=== PATIENT | male | born 1950 | race Caucasian/White ===

== ENCOUNTER 2017-07-30 10:00 | Outpatient (CLI) | payer MEDICARE ==
--- NOTE | 2017-07-30 13:06 | RAD ---
PA AND LATERAL VIEWS OF THE CHEST: HISTORY: Dyspnea. COMPARISON: 09/11/2016 FINDINGS: The heart size is normal. The aorta is tortuous. Chronic changes are again seen. The lungs are wel l expanded without focal areas of consolidation, pneumothorax, or pleural effusions. There is compre ssion of the mid thoracic vertebral body. IMPRESSION: No acute process. POS: [facility]
== END 2017-07-30 10:01 | disposition home or self-care (01) ==
LOC: RAD 10:00
PROVIDERS: ATTEND Internal Medicine Critical Care Medicine
DX: R06.00 Dyspnea, unspecified (principal)
CPT/HCPCS: 71020

== ENCOUNTER 2017-09-07 04:55 | Emergency (ER) | payer MEDICARE ==
[2017-09-07 05:25] LABS: #Eosinphils 0.1 thou/uL (0.0-0.7); #Lymphocytes 1.7 thou/uL (1.20-3.40); #Monocytes 0.5 thou/uL (0.11-0.59); #Neutrophils 7.6 thou/uL (1.40-6.50); %Basophils 0.1 % (0.0-1.0); %Eosinophils 0.7 % (0.0-10.0); %Lymphocytes 17.1 % (21.0-51.0); %Monocytes 5.1 % (0.0-10.0); Hemoglobin 14.9 g/dL (14.0-18.0); Mean Corpuscular HGB CONC 33.5 g/dL (32.0-36.0); Mean Corpuscular Hemoglobin 30.9 pg (27.0-31.0); Mean Corpuscular Volume 92.3 fl (80.0-94.0); Mean Platelet Volume 8.1 fL (7.4-10.4); Platelet Count 154 thou/uL (130-400); RBC Distribution Width 13.5 % (11.5-14.5); Red Blood Cell (RBC) Count 4.83 mill/uL (4.70-6.10); White Blood Cell (WBC) Count 9.9 thou/uL (4.8-10.8)
[2017-09-07] MEDS ORDERED: Acetaminophen 500 MG TAB ONE (05:30)
[2017-09-07 05:41] LABS: ALT (SGPT) 13 U/L (8-55); AST (SGOT) 11 U/L (5-34); Alkaline Phosphatase 102 U/L (40-150); Anion Gap 14 mmol/L (10-20); BUN (Urea Nitrogen) 13 mg/dL (8.4-25.7); Bilirubin, Total 0.5 mg/dL (0.2-1.2); Calc. Creatinine Clearance 0 mL/min (70-130); Calcium 9.7 mg/dL (7.8-10.44); Carbon Dioxide 30 mmol/L (23-31); Chloride 102 mmol/L (98-107); Estimated GFR-MDRD 72; Globulin 2.7 g/dL (2.4-3.5); Glucose 115 mg/dL (80-115); Potassium 4.7 mmol/L (3.5-5.1); Protein, Total 6.7 g/dL (5.8-8.1); Sodium 141 mmol/L (136-145)
[2017-09-07 05:45] LABS: CKMB 4.7 ng/mL (0-6.6); Troponin I Less than 0.010 ng/mL (< 0.028)
--- NOTE | 2017-09-07 07:31 | RAD ---
SINGLE VIEW CHEST: Date: 09/07/17 COMPARISON: 09/11/16. HISTORY: Shortness of breath and dyspnea. FINDINGS: Single view of the chest shows normal sized cardiomediastinal silhouette. Increased interstitial lung markings are present. There is no evidence of consolidation, mass, or pleural effusion. Degenerative changes are seen in the spine. IMPRESSION: Interstitial lung disease without acute cardiopulmonary process. POS: [facility]
--- NOTE | 2017-10-03 17:34 | EKG ---
Test Reason : Blood Pressure : / mmHG Vent. Rate : 090 BPM Atrial Rate : 090 BPM P-R Int : 138 ms QRS Dur : 076 ms QT Int : 356 ms P-R-T Axes : 059 -50 024 degrees QTc Int : 435 ms Normal sinus rhythm Left axis deviation Abnormal ECG Confirmed by KIET LAWSON ([id number]), medical editor RADHA RIDER ([id number]) on 10/03/2017 5:33:26 PM Referred By: Confirmed By:KIET LAWSON
== END 2017-09-07 08:38 | disposition home or self-care (01) ==
LOC: ERS 04:55
DX: J44.1 Chronic obstructive pulmonary disease with (acute) exacerbation (principal); I10 Essential (primary) hypertension; G35 Multiple sclerosis; F41.9 Anxiety disorder, unspecified; F32.9 Major depressive disorder, single episode, unspecified; F17.210 Nicotine dependence, cigarettes, uncomplicated; Z86.73 Personal history of transient ischemic attack (TIA), and cerebral infarction without residual deficits; Z71.6 Tobacco abuse counseling
CPT/HCPCS: 36415; 71045; 80053; 82553; 83880; 84484; 85025; 93005; 94760; 96365; 96366; 99406; J1956

== ENCOUNTER 2017-09-30 14:29 | Outpatient (CLI) | payer MEDICARE ==
--- NOTE | 2017-09-30 16:58 | MRI ---
EXAM: CERVICAL SPINE MRI WITHOUT CONTRAST: COMPARISON: 10/11/15. CORRELATION: Thoracic spine MRI 10/22/15. TECHNIQUE: MRI cervical spine is performed without intravenous Gadolinium administration. Multisequential, mult iplanar imaging is performed. FINDINGS: Appropriate T1 marrow signal intensity of the cervical vertebrae. Cervical spine vertebral height is maintained. There is no fracture. Visualized brain parenchyma is unremarkable. The cervical cord has an overall normal size and signal intensity. There is mild volume loss of the thoracic cord with what appears to be some central T2 h yperintensity. There appears to be significant loss of volume in the thoracic cord at the T3-T4 disk space level with T2 hyperintensity. Evaluation of the upper thoracic cord is limited on this examin ation by technique. C2-C3: No significant disk-osteophyte complex. No significant central canal stenosis. Foramen are patent. C3-C4: There is a left paracentral disk-osteophyte complex that abuts the thecal sac. There is no s ignificant central canal stenosis. Mild right and left foraminal narrowing. C4-C5: Broad-based disk-osteophyte complex abuts the thecal sac. There is a left paracentral compon ent. There is no significant central canal stenosis. Mild left foraminal narrowing due to degenerat rambo change of the uncovertebral joint. C5-C6: There is no significant disk-osteophyte complex. No significant central canal stenosis. Rig ht neural foramen is patent. Minimal left foraminal narrowing. C6-C7: No significant disk-osteophyte complex. No significant central canal stenosis. Right neural foramen is patent. Minimal left foraminal narrowing. C7-T1: No significant disk-osteophyte complex. No significant central canal stenosis. Foramen are patent. IMPRESSION: 1. No significant central canal stenosis or foraminal narrowing of the cervical spine. 2. Abnormal signal intensity and volume of the thoracic cord, incompletely evaluated. 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 Findings are noted on a thoracic sp ine MRI from 10/22/15. There may have been interval progression. Consider repeat thoracic spine MRI for better evaluation. POS: [facility]
== END 2017-09-30 14:30 | disposition home or self-care (01) ==
LOC: MRI 14:29
PROVIDERS: ATTEND Psychiatry & Neurology Neurology
DX: G25.81 Restless legs syndrome (principal)
CPT/HCPCS: 72141

== ENCOUNTER 2017-10-19 12:46 | Outpatient (CLI) | payer MEDICARE ==
[~2017-10-19 12:46] MED LIST: Iopamidol 370 76% 100 ML VIAL ONE
--- NOTE | 2017-10-19 16:34 | CT ---
CT ANGIOGRAM ABDOMEN AND PELVIS WITH IV COTNRAST AND 3D RECONSTRUCTIONS CT ANGIOGRAM BILATERAL LOWER EXTREMITIES WITH IV CONTRAT AND 3D RECONSTRUCTIONS: DATE: 10/19/17. HISTORY: Atherosclerosis of [place] arteries. Bilateral leg pain and numbness. Symptoms have been worse the p ast few years. History of hypertension. The patient states blockage on the left. History of right femur fracture. COMPARISON: 12/31/16. FINDINGS: CT ANGIOGRMA ABDOMEN AND PELVIS: There is mild linear scarring present at each lung base. Small hiatal hernia is again noted. Stable bilateral adrenal nodules are again present which are stable compared to a study on 11/25/15. The liver, spleen, pancreas, kidneys, and urinary bladder demonstrate a normal CT appearance. Colonic diverticulosis is again present. Appendix is normal in caliber. Atherosclerotic vascular calcifications are again seen in the abdominal aorta and involving the iliac arteries. The celiac, superior mesenteric, and inferior mesenteric arteries are present. There is minimal atherosclerotic plaque involving the origan of the single right renal artery which is otherwi se patent. Two left renal arteries are again present and appear patent. Again noted is occlusion of the left common femoral artery. There is reconstitution of the external iliac and femoral arteries with prominent left inferior epigastric artery present. There is mild charlotte cified atherosclerotic plaque, but the left external iliac artery is patent. There is mild narrowing involving the left internal iliac artery. There is atherosclerotic irregularity and mild degrees of narrowing involving the right common femoral artery as well as the right internal iliac artery. The right external iliac artery is patent. Osteonecrosis is seen involving the right hip with right total hip prosthesis in place. BILATERAL LOWER EXTREMITY ANGIOGRAM WITH RUNOFF TO THE FEET: Right lower extremity: The right common femoral artery demonstrates mild atherosclerotic calcifications with minimal narrow ing unchanged from study. The right superficial femoral is patent. There has been internal placemen t of a stent within the distal right superficial femoral artery which does appear patent. There is a mild to moderate degree of narrowing seen within the right superficial femoral artery at the level o f the adductor canal just distal to the stent. The right popliteal artery is patent. There is 3-ves daniel runoff to the right lower extremity, dorsalis pedis, and posterior tibial arteries seen at the fo ot. Left lower extremity: There is mild arthrosclerotic irregularity involving the left common femoral artery. The left profun da femoral and superficial femoral as well as popliteal arteries are patent. There is occlusion of t he tibioperoneal trunk with reconstitution of the right posterior tibial artery which is generally sm all in caliber as well reconstitution of a very tiny peroneal artery which is not well evaluated. Th e anterior tibial artery is patent with dorsalis pedis artery seen in the foot. IMPRESSION: 1. 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 2. Occlusion of the left tibioperoneal trunk with reconstitution of small-caliber left posterior tib ial artery and very small caliber peroneal artery. Left anterior tibial artery is patent to the foot . 3. Interval placement of a stent within the distal right superficial femoral artery which is patent. However, there is mild to moderate narrowing involving the right superficial femoral artery at the level of the adductor canal just distal to the level of the stent. There is otherwise 3-vessel runof f to the right lower extremity. 4. Remainder of the incidental findings are as described above. POS: [facility]
== END 2017-10-19 12:47 | disposition home or self-care (01) ==
LOC: CT 12:46
PROVIDERS: ATTEND Thoracic Surgery (Cardiothoracic Vascular Surgery)
DX: I70.223 Atherosclerosis of native arteries of extremities with rest pain, bilateral legs (principal); I74.5 Embolism and thrombosis of iliac artery; Z95.828 Presence of other vascular implants and grafts
CPT/HCPCS: 75635; 82565

== ENCOUNTER 2017-10-21 05:58 | Day surgery (SDC) | payer MEDICARE ==
[2017-10-20 16:30] VITALS: BMI 29.1
[2017-10-21] MEDS ORDERED: Heparin 10,000 UNITS/1 ML VIAL ONE (06:32)
[2017-10-21 06:34] LABS: #Eosinphils 0.1 thou/uL (0.0-0.7); #Lymphocytes 1.9 thou/uL (1.20-3.40); #Monocytes 0.6 thou/uL (0.11-0.59); #Neutrophils 7.4 thou/uL (1.40-6.50); %Basophils 0.2 % (0.0-1.0); %Eosinophils 1.4 % (0.0-10.0); %Lymphocytes 18.7 % (21.0-51.0); %Monocytes 6.3 % (0.0-10.0); %Neutrophils 73.4 % (42.0-75.0); Mean Corpuscular HGB CONC 33.8 g/dL (32.0-36.0); Mean Corpuscular Hemoglobin 30.4 pg (27.0-31.0); Mean Corpuscular Volume 90.1 fl (80.0-94.0); Mean Platelet Volume 7.7 fL (7.4-10.4); Platelet Count 171 thou/uL (130-400); RBC Distribution Width 13.4 % (11.5-14.5); Red Blood Cell (RBC) Count 4.92 mill/uL (4.70-6.10)
[2017-10-21] MEDS ORDERED: Lidocaine 1% (PF) 30 ML VIAL ONE (06:46)
[2017-10-21 06:58] LABS: Anion Gap 14 mmol/L (10-20); BUN (Urea Nitrogen) 17 mg/dL (8.4-25.7); Calc. Creatinine Clearance 111 mL/min (70-130); Calcium 9.4 mg/dL (7.8-10.44); Carbon Dioxide 25 mmol/L (23-31); Chloride 106 mmol/L (98-107); Estimated GFR-MDRD 78; Glucose 104 mg/dL (80-115); Potassium 3.9 mmol/L (3.5-5.1); Sodium 141 mmol/L (136-145)
[2017-10-21] MEDS ORDERED: Fentanyl 100 MCG/2 ML VIAL ONE ×2 (07:10→08:57)
[2017-10-21] MEDS ORDERED: Midazolam HCl 2 mg/2 ml Vial ONE (07:10)
--- NOTE | 2017-10-21 07:56 | OP ---
DATE OF PROCEDURE: 10/21/2017 PREOPERATIVE DIAGNOSES: Peripheral vascular disease with left leg severe lifestyle limiting claudica tion. POSTOPERATIVE DIAGNOSIS: Occluded left common iliac artery. SURGEON: Dr. Acosta Flores FLUOROSCOPY TIME: 9.6 minutes. TOTAL CONTRAST: 14 mL. PROCEDURE IN DETAIL: After consent was obtained, the patient was brought to the [facility]ving tester laboratory. Appropria te monitor was placed. The patient was given 1 mg Versed and 25 mcg fentanyl for IV sedation. Left groin was interrogated using ultrasound. The common femoral artery and surrounding tissues were anes thetized with 1% lidocaine. Percutaneous access was obtained with micropuncture needle and stiff jessica ropuncture wire. Serial dilators were used to access the common femoral artery. A 6 Maltese radial a rtery sheath was placed and hand injected arteriogram performed through the sheath and the external i liac artery. Common iliac artery was occluded just above the bifurcation. Internal and external dolores ac arteries were patent. Multiple attempts using different guidewires and catheters was performed. The calcification at the level of the occlusion was unable to be crossed. I did create a subintimal plane at one point that headed up towards the aorta, but this did not allow for reentry. The guidewi re and catheter were removed. Hand injected arteriogram was again performed through the sheath showi ng no extravascular blush. Sheath was removed and manual pressure held for hemostasis. The patient was transferred to recovery area and home later today. Due to the patient's severe oxygen dependent COPD, he is probably not a candidate for aortobifemoral. He may be a candidate for a fem-fem bypass at some point, but I will have to talk with Dr. Bailee kemp out his level of dysfunction.
[2017-10-21] MEDS ORDERED: ALPRAZolam 0.25 MG TAB ONE (08:13)
--- NOTE | 2017-10-21 11:32 | CCL ---
DATE OF PROCEDURE: 10/21/2017 PREOPERATIVE DIAGNOSES: Peripheral vascular disease with left leg severe lifestyle limiting claudica tion. POSTOPERATIVE DIAGNOSIS: Occluded left common iliac artery. SURGEON: Dr. Acosta Flores FLUOROSCOPY TIME: 9.6 minutes. TOTAL CONTRAST: 14 mL. PROCEDURE IN DETAIL: After consent was obtained, the patient was brought to the home performance laborer. Appropria te monitor was placed. The patient was given 1 mg Versed and 25 mcg fentanyl for IV sedation. Left groin was interrogated using ultrasound. The common femoral artery and surrounding tissues were anes thetized with 1% lidocaine. Percutaneous access was obtained with micropuncture needle and stiff jessica ropuncture wire. Serial dilators were used to access the common femoral artery. A 6 Hebrew radial a rtery sheath was placed and hand injected arteriogram performed through the sheath and the external i liac artery. Common iliac artery was occluded just above the bifurcation. Internal and external dolores ac arteries were patent. Multiple attempts using different guidewires and catheters was performed. The calcification at the level of the occlusion was unable to be crossed. I did create a subintimal plane at one point that headed up towards the aorta, but this did not allow for reentry. The guidewi re and catheter were removed. Hand injected arteriogram was again performed through the sheath showi ng no extravascular blush. Sheath was removed and manual pressure held for hemostasis. The patient was transferred to recovery area and home later today. Due to the patient's severe oxygen dependent COPD, he is probably not a candidate for aortobifemoral. He may be a candidate for a fem-fem bypass at some point, but I will have to talk with Dr. Morocho ab out his level of dysfunction. POS: [facility]
[2017-10-21] MEDS ORDERED: Iopamidol 370 76% 50 ML VIAL FS ONE (12:59)
== END 2017-10-21 12:35 | disposition home or self-care (01) ==
LOC: CCL 05:58
PROVIDERS: ATTEND Thoracic Surgery (Cardiothoracic Vascular Surgery)
PROC: B41G1ZZ Fluoroscopy of Left Lower Extremity Arteries using Low Osmolar Contrast (ICD-10-PCS; principal; 2017-10-21)
DX: I70.212 Atherosclerosis of native arteries of extremities with intermittent claudication, left leg (principal); I74.5 Embolism and thrombosis of iliac artery; I10 Essential (primary) hypertension; J44.9 Chronic obstructive pulmonary disease, unspecified; E78.2 Mixed hyperlipidemia; G35 Multiple sclerosis; F17.210 Nicotine dependence, cigarettes, uncomplicated; Z95.5 Presence of coronary angioplasty implant and graft; Z88.2 Allergy status to sulfonamides
CPT/HCPCS: 36140; 75736; 76942; 80048; 85025; 96374; C1725; C1769 ×3; 99152; 99153; J1644; J2001; J2250; J3010

== ENCOUNTER 2017-11-23 09:02 | Observation (INO) | payer MEDICARE ==
[2017-11-23 09:46] LABS: #Eosinphils 0.1 thou/uL (0.0-0.7); #Lymphocytes 1.3 thou/uL (1.20-3.40); #Monocytes 0.4 thou/uL (0.11-0.59); #Neutrophils 6.4 thou/uL (1.40-6.50); %Basophils 0.4 % (0.0-1.0); %Eosinophils 0.8 % (0.0-10.0); %Lymphocytes 16.2 % (21.0-51.0); %Monocytes 5.1 % (0.0-10.0); %Neutrophils 77.5 % (42.0-75.0); Mean Corpuscular HGB CONC 33.2 g/dL (32.0-36.0); Mean Corpuscular Hemoglobin 30.7 pg (27.0-31.0); Mean Corpuscular Volume 92.5 fl (80.0-94.0); Mean Platelet Volume 7.4 fL (7.4-10.4); Platelet Count 187 thou/uL (130-400); RBC Distribution Width 13.2 % (11.5-14.5); White Blood Cell (WBC) Count 8.3 thou/uL (4.8-10.8)
[2017-11-23 10:03] LABS: ALT (SGPT) 12 U/L (8-55); AST (SGOT) 11 U/L (5-34); Albumin 4.1 g/dL (3.4-4.8); Alkaline Phosphatase 95 U/L (40-150); Anion Gap 10 mmol/L (10-20); BUN (Urea Nitrogen) 13 mg/dL (8.4-25.7); Bilirubin, Total 0.6 mg/dL (0.2-1.2); CK (CPK) 71 U/L (30-200); Calc. Creatinine Clearance 0 mL/min (70-130); Calcium 9.3 mg/dL (7.8-10.44); Carbon Dioxide 32 mmol/L (23-31); Chloride 103 mmol/L (98-107); Estimated GFR-MDRD 87; Globulin 2.6 g/dL (2.4-3.5); Glucose 108 mg/dL (80-115); Potassium 4.4 mmol/L (3.5-5.1); Protein, Total 6.7 g/dL (5.8-8.1); Sodium 141 mmol/L (136-145)
[2017-11-23 10:06] LABS: CKMB 5.2 ng/mL (0-6.6); Troponin I Less than 0.010 ng/mL (< 0.028)
--- NOTE | 2017-11-23 10:16 | RAD ---
CHEST 1 VIEW: Date: 11/23/17 COMPARISON: 09/07/17. HISTORY: Dyspnea. Dizziness. Shortness of breath. FINDINGS: Atherosclerosis of the aorta. Normal cardiac silhouette. Pulmonary vessels and hilum are normal. Cost ophrenic angles are clear. Chronic changes without consolidation or mass. No pneumothorax or osseous abnormalities. IMPRESSION: 1. Atherosclerosis. 2. Chronic changes. POS: [facility]
[2017-11-23] MEDS ORDERED: Morphine 4 MG/ML VIAL ONE (12:26)
[2017-11-23] MEDS ORDERED: Ondansetron HCl/PF 4 MG/2 ML Vial ONE (12:28)
[2017-11-23] MEDS ORDERED: diphenhydrAMINE 50 MG/ML VIAL ONE (12:44)
[2017-11-23] MEDS ORDERED: Pantoprazole 40 MG VIAL ONE (14:43)
[2017-11-23] MEDS ORDERED: Ondansetron HCl/PF 4 MG/2 ML Vial IVP PRN ×2 (16:48→20:44)
[2017-11-23] MEDS ORDERED: Ondansetron ODT 4 MG TAB SL PRN (16:48)
[2017-11-23] MEDS ORDERED: Sodium Chloride 0.9% 1,000 ML IV SCH (16:48)
[2017-11-23 17:08] VITALS: BMI 29.0
[2017-11-23] MEDS ORDERED: Ondansetron ODT 4 MG TAB PO PRN (20:44)
[2017-11-23] MEDS ORDERED: PROVENTIL INHALER 6.7 G (200 INHALATIONS) INH PRN (20:44)
[2017-11-23] MEDS ORDERED: Benzonatate 100 MG CAP PO PRN (20:44)
[2017-11-23] MEDS ORDERED: Acetaminophen 500 MG TAB PO PRN (20:44)
[2017-11-23] MEDS ORDERED: Guaifenesin DM 100-10/5 ML UDCUP PO PRN (20:44)
[2017-11-23] MEDS ORDERED: HYDROcodone/Acetaminophen 7.5/325 mg Tablet PO PRN (20:44)
[2017-11-23] MEDS ORDERED: cloNIDine 0.1 MG TAB PO PRN (20:44)
[2017-11-23] MEDS ORDERED: hydrALAZINE 20 MG/ML VIAL SLOW IVP PRN (20:44)
[2017-11-23] MEDS ORDERED: Zolpidem Tartrate 5 MG TAB PO SCH (21:00)
[2017-11-23] MEDS: Famotidine 20 MG TAB PO SCH (21:07)
[2017-11-23] MEDS: Gabapentin 300 MG CAP PO SCH (21:07)
[2017-11-23] MEDS: DULoxetine 60 MG CAP PO SCH (21:07)
[2017-11-23] MEDS: Pramipexole Di-HCl 0.25 MG TAB PO SCH (21:24)
[2017-11-24] MEDS: Ipratropium Bromide 2.5 ml Neb NEB SCH ×3 (01:01→12:37)
--- NOTE | 2017-11-24 03:43 | HP ---
DATE OF ADMISSION: 11/23/2017 PRIMARY CARE PHYSICIAN: Dr. Denton Valiente. CHIEF COMPLAINT: Dizziness, cough, shortness of breath. HISTORY OF PRESENT ILLNESS: This is a 67-year-old male who presents to [facility] with a multitude of complaints ranging from shortness of breath, cough with blood-ting ed sputum, dizziness, weakness of his legs, bloated stomach, and general malaise. Patient states he has noticed these symptoms intermittently over the last 3-4 days without specific fever, chills, expo sure history, or travel. Patient with known history of chronic hypoxic respiratory failure on chroni c oxygen supplementation at 2-3 liters per minute by nasal cannula. Patient states he continues usin g his bronchodilator therapy and inhalers on a regular basis. Patient states he has increased cough, sneezing, and postnasal drainage with the pollen changes of spring season. Patient states that he h as had increased cough, which in turn seems to have triggered increased dizziness and vertigo-type sy mptoms, which triggered nausea. Patient states he had some emesis intermittently with blood-tinged s pecks in the sputum and became concerned due to his chronic aspirin use. Patient denied any change t o his bowels or melena. Patient states his last bowel movement was within the last couple of hours p rior to this evaluation. Patient normally uses a cane to ambulate due to peripheral neuropathy and s evere peripheral vascular disease. 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 Patient states he continues to smoke up to 10 cigarettes daily and continues on his ho me oxygen and inhalers. In the emergency room, patient underwent general evaluation including chest imaging showing chronic changes in bilateral lung lemon without an acute infiltrate. Metabolic scre ening was unremarkable and patient was treated with Protonix 40 mg IV push x1 dose, Benadryl, morphin e sulfate, Zofran, and intravenous normal saline x1 liter. Patient was transferred to the [facility] unit for further evaluation. PAST MEDICAL HISTORY: 1. Peripheral vascular disease, status post percutaneous transluminal coronary angioplasty with sten t placement of the left lower extremity. 2. Tobacco abuse. 3. Hypertension. 4. Hyperlipidemia. 5. Chronic obstructive pulmonary disease. 6. Chronic hypoxic respiratory failure with chronic oxygen supplementation at 2-3 liters per minute by nasal cannula. 7. History of multiple sclerosis. 8. Degenerative joint disease. 9. Anxiety/depression. 10. Restless leg syndrome. 11. Osteoporosis. 12. History of pathological fracture. PAST SURGICAL HISTORY: 1. Status post right total hip arthroplasty. 2. Status post angiography with percutaneous transluminal angioplasty with stent placement of the ri ght SFA. 3. History of angiography of the left common iliac artery. CURRENT MEDICATIONS: 1. Aspirin 81 mg 1 tab p.o. daily. 2. Multivitamin 1 tab p.o. daily. 3. Cymbalta 60 mg p.o. b.i.d. 4. Breo Ellipta one inhalation daily. 5. Gabapentin 600 mg p.o. t.i.d. 6. [place] 7.5/325 mg 1 tab p.o. q.6 hours p.r.n. pain. 7. DuoNebs 3 mL nebulized q.4 hours p.r.n. 8. Multivitamin 1 tab p.o. daily. 9. Pramipexole 0.5 mg p.o. b.i.d. 10. Spiriva HandiHaler 18 mcg inhaled daily. 11. Ventolin HFA 2 puffs inhaled q.4 hours p.r.n. 12. Ambien 10 mg p.o. at bedtime. ALLERGIES: SULFA and questionable MORPHINE SULFATE. FAMILY HISTORY: Father 80 years of age with a history of diabetes mellitus type 2, hyperten cain, and coronary artery disease. Mother is at 92 years of age with hypertension and unkno wn type of cancer. SOCIAL HISTORY: Patient resides in [place], [place] at [facility]. Smokes up to half a pack of cigarettes daily. Occasional alcohol use. No illicit drug use. Ambulatory with use of a cane. REVIEW OF SYSTEMS: The following complete review of systems was otherwise negative, except as stated per HPI: Constitutional: Weight loss or gain, ability to conduct usual activities. Skin: Rash, i tching. Eyes: Double vision, pain. ENT/Mouth: Nose bleeding, neck stiffness, pain, tenderness. C ardiovascular: Palpitations, dyspnea on exertion, orthopnea. Respiratory: Shortness of breath, whe ezing, cough, hemoptysis, fever, or night sweats. Gastrointestinal: Poor appetite, abdominal pain, heartburn, nausea, vomiting, constipation, or diarrhea. Genitourinary: Urgency, frequency, dysuria, nocturia. Musculoskeletal: Pain, swelling. Neurologic/Psychiatric: Anxiety, depression. Allergy /Immunologic: Skin rash, bleeding tendency. PHYSICAL EXAMINATION: VITAL SIGNS: On admission, blood pressure 125/66, pulse 89, respiratory rate is 18, temperature 98.3 degrees Fahrenheit, O2 saturation 96% on 2 liters per minute by nasal cannula. GENERAL APPEARANCE: This is a 67-year-old male, alert and oriented x3, pleasant, conversan t, speaking in full sentences, in no acute distress. HEENT: Pupils are equal, round, and reactive to light and accommodation. Extraocular muscles are in tact. No scleral icterus, no conjunctival injection. Nares patent. OP is clear. Teeth in fair rep air. NECK: Supple. No cervical adenopathy, no thyromegaly, no carotid bruits, no JVD appreciated. Cervi charlotte spine with full active and passive range of motion. CHEST: Diminished breath sounds in all lung lemon. Expiratory coarse breath sounds noted. CARDIOVASCULAR: S1, S2 with distant heart sounds. ABDOMEN: Rounded, obese, soft, nontender with bowel sounds positive in all four quadrants. No palpa ble mass. No rebound or guarding appreciated. EXTREMITIES: Warm and dry with fair turgor. Mild erythema of the right lower extremity. Pulses dim inished at the dorsalis pedis and posterior tibial arteries. Doppler pulses detected on bilateral lo wer extremities. NEUROLOGIC: Cranial nerves II-XII are grossly intact. No focal or lateralizing signs appreciated. PERTINENT LABORATORY DATA AND X-RAY FINDINGS: Complete metabolic profile within normal limits. Trop onin I negative x1. CBC within normal limits. Portable chest x-ray dated 11/23/2017 showed atherosc lerotic changes. Chronic changes without acute infiltrate or consolidation. EKG dated 11/23/2017, b y my interpretation shows sinus tachycardia with heart rates in the low 100s. Attenuated R waves not ed in the precordial leads. Left axis deviation. No acute ST-T wave changes appreciated. ASSESSMENT AND PLAN: 1. Vertigo/dizziness. Patient will be placed in observation status. Exact etiology unclear, likely multifactorial. Patient received 1 liter of normal saline in the emergency room. We will continue to encourage increased free-water intake and monitor clinically. Currently, patient's symptoms have resolved. 2. Chronic hypoxic respiratory failure on home oxygen. No current evidence to suggest acute decompe nsation. We will continue oxygen supplementation to maintain O2 saturation greater than or equal to 90%. 3. Chronic obstructive pulmonary disease. Continue DuoNeb q.4 hours p.r.n. Continue Spiriva HandiH aler 18 mcg inhaled daily. Continue Breo Ellipta 100 mcg/25 mcg 1 inhalation daily. 4. Hematemesis. Minimal. No current evidence to suggest acute blood loss. Hemoglobin 15 currently . Continue symptomatic and supportive management. Robitussin-DM 15 mL p.o. q.4 hours p.r.n. 5. Peripheral vascular disease. Continue home regimen to include aspirin 81 mg daily. 6. Peripheral neuropathy. Continue home regimen to include gabapentin 600 mg p.o. t.i.d. 7. Tobacco abuse. We will offer smoking cessation resources prior to discharge. 8. Prophylaxis. Hold SCDs due to peripheral vascular disease. Lovenox 40 mg subcutaneously q.24 ho urs. Pepcid 20 mg p.o. b.i.d. 9. Code status is FULL. Surrogate medical decision maker is patient's brother.
[2017-11-24] MEDS ORDERED: Mometasone/Formoterol 120 PUFF INHALER INH SCH (06:30)
[2017-11-24 08:16] VITALS: TEMP 98
[2017-11-24] MEDS ORDERED: Calcium Carbonate + Vit D 1 TAB PO SCH (09:00)
[2017-11-24] MEDS ORDERED: Non-Formulary Item 1 EACH (Fluticasone/Vilanterol [Breo Ellipta] 1 INH) IH SCH (09:00)
[2017-11-24] MEDS ORDERED: Enoxaparin Sodium 40 MG/0.4 ML SYRINGE SC SCH (09:00)
[2017-11-24] MEDS ORDERED: Multivitamin W/ Minerals 1 TAB PO SCH (09:00)
[2017-11-24] MEDS ORDERED: Non-Formulary Item 1 EACH (Multivitamin [Daily Multiple Vitamin] 1 TAB) PO SCH (09:00)
[2017-11-24] MEDS: DULoxetine 60 MG CAP PO SCH (10:18)
[2017-11-24] MEDS: Gabapentin 300 MG CAP PO SCH (10:20)
[2017-11-24] MEDS: Famotidine 20 MG TAB PO SCH (10:20)
[2017-11-24] MEDS: Pramipexole Di-HCl 0.25 MG TAB PO SCH (10:21)
[2017-11-24 12:07] VITALS: BP 125/75
--- NOTE | 2017-11-24 12:08 | DIS ---
DATE OF ADMISSION: 11/23/2017 DATE OF DISCHARGE: 11/24/2017 DISCHARGE DIAGNOSES: 1. Dizziness/vertigo, multifactorial, resolved. 2. Chronic hypoxic respiratory failure on home oxygen at 2 liters per minute by nasal cannula, rose hi 3. Chronic obstructive pulmonary disease without exacerbation. 4. Hematemesis minimal and resolved. 5. Peripheral vascular disease, chronic and stable. 6. Peripheral neuropathy, chronic and stable. 7. Tobacco abuse. CONSULTATIONS: None. PERTINENT LABORATORY DATA AND X-RAY FINDINGS: Complete metabolic profile within normal limits. CBC within normal limits. Portable chest x-ray dated 11/23/2017 showed chronic changes without acute pro cess. HOSPITAL COURSE: Patient was observed on the telemetry unit after initially presenting with constell ation of symptoms including dizziness and general fatigue. The patient underwent general evaluation including screening metabolic survey which was essentially negative. Portable chest imaging showed n o acute process or pneumonia. Vital signs remained stable throughout the hospital course and patient continued on his regular oxygen regimen at 2 liters per minute by nasal cannula which is baseline. Patient received general pulmonary supportive measures including bronchodilator therapy with DuoNebs and overall remained clinically stable. Telemetry monitoring showed sinus mechanism without evidence of acute arrhythmia or dysrhythmia. I have examined and discussed findings, labs and x-ray reports with the patient at the time of discharge. He verbalizes understanding and agreement. The patient o verall clinically stable and ready for discharge on 11/24/2017. DISCHARGE MEDICATIONS: 1. Enteric coated aspirin 81 mg 1 tab p.o. daily. 2. Calcium 1 tab p.o. daily. 3. Cymbalta 60 mg p.o. b.i.d. 4. Breo-Ellipta one inhalation daily. 5. Gabapentin 600 mg p.o. t.i.d. 6. [place] 7.5/325 mg 1 tab p.o. q.6 hours p.r.n. pain. 7. DuoNebs 3 mL nebulized q.4 hours p.r.n. 8. Loperamide 2 mg p.o. daily p.r.n. diarrhea. 9. Multivitamin 1 tab p.o. daily. 10. Pramipexole 0.5 mg p.o. b.i.d. 11. Spiriva HandiHaler 18 mcg inhaled daily. 12. Ventolin HFA 2 puffs inhaled q.4 hours p.r.n. 13. Ambien 10 mg p.o. at bedtime. FOLLOWUP: The patient may follow up with Dr. Denton Valiente within 7 days of discharge. CONDITION ON DISCHARGE: Stable. ACTIVITY: Ad esthela. DIET: Heart healthy. CODE STATUS: FULL. DISPOSITION: Home 11/24/2017.
--- NOTE | 2017-11-26 15:02 | EKG ---
Test Reason : Blood Pressure : / mmHG Vent. Rate : 103 BPM Atrial Rate : 103 BPM P-R Int : 000 ms QRS Dur : 078 ms QT Int : 332 ms P-R-T Axes : 067 -61 066 degrees QTc Int : 434 ms Sinus tachycardia Left anterior fascicular block Abnormal ECG Confirmed by FRANCES CARO ([id number]), manuscript editor RADHA RIDER ([id number]) on 11/26/2017 3:00:35 PM Referred By: Confirmed By:FRANCES CARO
== END 2017-11-24 12:53 | disposition home or self-care (01) ==
LOC: ERS 09:02 → 2SW 14:52
PROVIDERS: ADMIT Family Medicine; ATTEND Family Medicine
DX: R42 Dizziness and giddiness (principal); J96.11 Chronic respiratory failure with hypoxia; J44.9 Chronic obstructive pulmonary disease, unspecified; K92.0 Hematemesis; I73.9 Peripheral vascular disease, unspecified; G62.9 Polyneuropathy, unspecified; I10 Essential (primary) hypertension; E78.5 Hyperlipidemia, unspecified; G35 Multiple sclerosis; M19.90 Unspecified osteoarthritis, unspecified site; F41.9 Anxiety disorder, unspecified; F32.9 Major depressive disorder, single episode, unspecified; M81.0 Age-related osteoporosis without current pathological fracture; F17.210 Nicotine dependence, cigarettes, uncomplicated; Z79.82 Long term (current) use of aspirin; Z79.899 Other long term (current) drug therapy; Z99.81 Dependence on supplemental oxygen; Z88.2 Allergy status to sulfonamides; Z96.641 Presence of right artificial hip joint; Z95.5 Presence of coronary angioplasty implant and graft; Z98.890 Other specified postprocedural states; Z87.310 Personal history of (healed) osteoporosis fracture
CPT/HCPCS: 71045; 80053; 82550; 82553; 84484; 85025; 93005; 94640 ×3; 96361; 96372; 96374; 96375; 97139; 99285; G0378; 36415; C9113; J1200; J1650; J2270; J2405; J7644

== ENCOUNTER 2018-01-05 09:57 | Emergency (ER) | payer MEDICARE ==
[2018-01-05 10:36] LABS: #Basophils 0.1 thou/uL (0.0-0.2); #Eosinphils 0.1 thou/uL (0.0-0.7); #Lymphocytes 1.4 thou/uL (1.20-3.40); #Monocytes 0.5 thou/uL (0.11-0.59); #Neutrophils 5.2 thou/uL (1.40-6.50); %Basophils 0.8 % (0.0-1.0); %Eosinophils 1.6 % (0.0-10.0); %Lymphocytes 19.2 % (21.0-51.0); %Monocytes 6.3 % (0.0-10.0); Hemoglobin 13.3 g/dL (14.0-18.0); Mean Corpuscular HGB CONC 34.2 g/dL (32.0-36.0); Mean Corpuscular Hemoglobin 31.3 pg (27.0-31.0); Mean Corpuscular Volume 91.5 fl (80.0-94.0); Mean Platelet Volume 7.7 fL (7.4-10.4); Platelet Count 154 thou/uL (130-400); RBC Distribution Width 12.4 % (11.5-14.5); Red Blood Cell (RBC) Count 4.26 mill/uL (4.70-6.10); White Blood Cell (WBC) Count 7.2 thou/uL (4.8-10.8)
[2018-01-05 11:01] LABS: ALT (SGPT) 16 U/L (8-55); AST (SGOT) 11 U/L (5-34); Albumin 3.7 g/dL (3.4-4.8); Alkaline Phosphatase 96 U/L (40-150); Anion Gap 12 mmol/L (10-20); BUN (Urea Nitrogen) 12 mg/dL (8.4-25.7); Bilirubin, Total 0.4 mg/dL (0.2-1.2); Calc. Creatinine Clearance 0 mL/min (70-130); Carbon Dioxide 27 mmol/L (23-31); Chloride 106 mmol/L (98-107); Estimated GFR-MDRD Greater than 90; Globulin 2.3 g/dL (2.4-3.5); Glucose 95 mg/dL (80-115); Sodium 141 mmol/L (136-145)
--- NOTE | 2018-01-05 11:05 | ULT ---
VENOUS DOPPLER ULTRASOUND OF THE RIGHT LOWER EXTREMITY: Date: 01/05/18 HISTORY: Right lower leg redness and edema. TECHNIQUE: Berry scale ultrasound with color flow and spectral Doppler imaging of the deep venous system of the r ight lower extremity performed. FINDINGS: There is good flow, compression, and augmentation noted in the right common femoral, femoral, deep fe moral, popliteal, posterior tibial, and greater saphenous veins in the right lower extremity. IMPRESSION: No evidence of deep venous thrombosis in the right lower extremity. POS: [facility]
== END 2018-01-05 11:34 | disposition home or self-care (01) ==
LOC: ERS 09:57
DX: L03.115 Cellulitis of right lower limb (principal); I10 Essential (primary) hypertension; J44.9 Chronic obstructive pulmonary disease, unspecified; F41.9 Anxiety disorder, unspecified; F32.9 Major depressive disorder, single episode, unspecified; F17.210 Nicotine dependence, cigarettes, uncomplicated; Z79.899 Other long term (current) drug therapy; Z79.82 Long term (current) use of aspirin; Z71.6 Tobacco abuse counseling
CPT/HCPCS: 36415; 80053; 83605; 85025; 99406

== ENCOUNTER 2018-01-20 09:44 | Emergency (ER) | payer MEDICARE ==
[2018-01-20] MEDS ORDERED: Heparin 1,000 UNITS/ML VIAL ONE (10:00)
[2018-01-20 11:07] LABS: #Eosinphils 0.1 thou/uL (0.0-0.7); #Lymphocytes 1.5 thou/uL (1.20-3.40); #Monocytes 0.5 thou/uL (0.11-0.59); #Neutrophils 6.9 thou/uL (1.40-6.50); %Basophils 0.1 % (0.0-1.0); %Eosinophils 1.5 % (0.0-10.0); %Lymphocytes 16.2 % (21.0-51.0); %Monocytes 5.1 % (0.0-10.0); %Neutrophils 77.2 % (42.0-75.0); Hemoglobin 13.4 g/dL (14.0-18.0); Mean Corpuscular HGB CONC 34.3 g/dL (32.0-36.0); Mean Corpuscular Hemoglobin 31.3 pg (27.0-31.0); Mean Corpuscular Volume 91.2 fl (80.0-94.0); Mean Platelet Volume 7.6 fL (7.4-10.4); Platelet Count 148 thou/uL (130-400); RBC Distribution Width 12.2 % (11.5-14.5); Red Blood Cell (RBC) Count 4.28 mill/uL (4.70-6.10)
[2018-01-20 11:18] LABS: ALT (SGPT) 19 U/L (8-55); AST (SGOT) 15 U/L (5-34); Albumin 3.8 g/dL (3.4-4.8); Alkaline Phosphatase 95 U/L (40-150); Anion Gap 11 mmol/L (10-20); BUN (Urea Nitrogen) 18 mg/dL (8.4-25.7); Bilirubin, Total 0.5 mg/dL (0.2-1.2); Calc. Creatinine Clearance 0 mL/min (70-130); Calcium 9.3 mg/dL (7.8-10.44); Carbon Dioxide 29 mmol/L (23-31); Chloride 103 mmol/L (98-107); Estimated GFR-MDRD 86; Globulin 2.5 g/dL (2.4-3.5); Glucose 104 mg/dL (80-115); Potassium 4.1 mmol/L (3.5-5.1); Protein, Total 6.3 g/dL (5.8-8.1); Sodium 139 mmol/L (136-145)
[2018-01-20 14:52] LABS: Lactic Acid 1.2 mmol/L (0.5-2.2)
--- NOTE | 2018-01-20 16:22 | SPC ---
ULTRASOUND FLUOROSCOPIC GUIDED PICC LINE PLACEMENT: 01/20/18 COMPARISON: None. HISTORY: Need for residential IV antibiotics. TECHNIQUE/FINDINGS: The patient is brought to the [facility]. All questions were answered. Informed consent was obtai tristan. Timeout performed. The patient's left arm was prepped and draped in the normal sterile fashion. The basilic vein was 2 m m in size and felt too small to safely tolerate the PICC line. The brachial vein was accessed after i nstillation of 2 mL of lidocaine to superficial and deep soft tissues. Dual lumen PICC was placed wit h the tip at the inferior SVC, but at 43 cm. The patient tolerated the procedure well without complication. IMPRESSION: Technically successful dual lumen PICC line placement without complication. Fluoro time - 0.6 minutes. Dose: 2922 mGy*cm2. POS: [facility]
== END 2018-01-20 17:02 | disposition home or self-care (01) ==
LOC: ERS 09:44
DX: L03.115 Cellulitis of right lower limb (principal); I10 Essential (primary) hypertension; J44.9 Chronic obstructive pulmonary disease, unspecified; F41.9 Anxiety disorder, unspecified; F32.9 Major depressive disorder, single episode, unspecified; F17.210 Nicotine dependence, cigarettes, uncomplicated; Z86.73 Personal history of transient ischemic attack (TIA), and cerebral infarction without residual deficits; Z79.899 Other long term (current) drug therapy; Z79.82 Long term (current) use of aspirin
CPT/HCPCS: 36569; 80053; 83605; 85025; 96361; 96365; 99283; C1751; 36415; J1644; J3370

== ENCOUNTER 2018-08-25 15:17 | Emergency (ER) | payer MEDICARE ==
[2018-08-25 15:42] LABS: #Eosinphils 0.1 thou/uL (0.0-0.7); #Lymphocytes 1.4 thou/uL (1.20-3.40); #Monocytes 0.5 thou/uL (0.11-0.59); #Neutrophils 6.1 thou/uL (1.40-6.50); %Basophils 0.5 % (0.0-1.0); %Eosinophils 1.1 % (0.0-10.0); %Lymphocytes 17.3 % (21.0-51.0); %Monocytes 5.9 % (0.0-10.0); %Neutrophils 75.2 % (42.0-75.0); Hemoglobin 14.3 g/dL (14.0-18.0); Mean Corpuscular HGB CONC 32.9 g/dL (32.0-36.0); Mean Corpuscular Hemoglobin 30.8 pg (27.0-31.0); Mean Corpuscular Volume 93.6 fL (78.0-98.0); Mean Platelet Volume 8.1 fL (7.4-10.4); Platelet Count 132 thou/uL (130-400); RBC Distribution Width 12.8 % (11.5-14.5); Red Blood Cell (RBC) Count 4.65 mill/uL (4.70-6.10); White Blood Cell (WBC) Count 8.1 thou/uL (4.8-10.8)
[2018-08-25 16:08] LABS: ALT (SGPT) 17 U/L (8-55); AST (SGOT) 12 U/L (5-34); Albumin 3.9 g/dL (3.4-4.8); Alkaline Phosphatase 95 U/L (40-150); Anion Gap 14 mmol/L (10-20); BUN (Urea Nitrogen) 20 mg/dL (8.4-25.7); Bilirubin, Total 0.3 mg/dL (0.2-1.2); CK (CPK) 75 U/L (30-200); Calc. Creatinine Clearance 0 mL/min (70-130); Calcium 9.1 mg/dL (7.8-10.44); Carbon Dioxide 30 mmol/L (23-31); Chloride 101 mmol/L (98-107); Estimated GFR-MDRD 64; Globulin 2.3 g/dL (2.4-3.5); Glucose 86 mg/dL (80-115); Potassium 4.3 mmol/L (3.5-5.1); Protein, Total 6.2 g/dL (5.8-8.1); Sodium 141 mmol/L (136-145)
--- NOTE | 2018-08-25 16:57 | RAD ---
AP VIEW CHEST: 08/25/18 HISTORY: Pneumonia. AP portable view chest is obtained on 08/25/18. COMPARISON: Comparison made to previous exam from 11/23/17. AP view chest demonstrates calcification over the aorta. The lungs are well aerated. No evidence of a ctive intrathoracic disease seen. No evidence of effusions, pneumonia or pneumothorax seen. IMPRESSION: Unremarkable AP view chest. POS: [facility]
== END 2018-08-25 18:00 | disposition home or self-care (01) ==
LOC: ERS 15:17
DX: J20.9 Acute bronchitis, unspecified (principal); Z71.6 Tobacco abuse counseling; I10 Essential (primary) hypertension; J44.9 Chronic obstructive pulmonary disease, unspecified; F41.9 Anxiety disorder, unspecified; F32.9 Major depressive disorder, single episode, unspecified; F17.210 Nicotine dependence, cigarettes, uncomplicated
CPT/HCPCS: 36415; 71045; 80053; 82550; 83605; 83880; 84484; 85025; 87040; 87804; 93005; 94760; 99406

== ENCOUNTER 2018-12-19 18:03 | Inpatient (IN) | payer MEDICARE ==
[2018-12-19 19:31] LABS: #Eosinphils 0.1 thou/uL (0.0-0.7); #Lymphocytes 1.5 thou/uL (1.20-3.40); #Monocytes 0.5 thou/uL (0.11-0.59); #Neutrophils 5.1 thou/uL (1.40-6.50); %Basophils 0.4 % (0.0-1.0); %Eosinophils 0.9 % (0.0-10.0); %Lymphocytes 20.6 % (21.0-51.0); %Monocytes 7.3 % (0.0-10.0); %Neutrophils 70.8 % (42.0-75.0); Mean Corpuscular HGB CONC 32.2 g/dL (32.0-36.0); Mean Corpuscular Hemoglobin 31.3 pg (27.0-31.0); Mean Corpuscular Volume 97.4 fL (78.0-98.0); Platelet Count 153 thou/uL (130-400); RBC Distribution Width 11.9 % (11.5-14.5); Red Blood Cell (RBC) Count 4.14 mill/uL (4.70-6.10); White Blood Cell (WBC) Count 7.2 thou/uL (4.8-10.8)
[2018-12-19 19:52] LABS: ALT (SGPT) 8 U/L (8-55); AST (SGOT) 11 U/L (5-34); Albumin 3.6 g/dL (3.4-4.8); Alkaline Phosphatase 76 U/L (40-150); BUN (Urea Nitrogen) 10 mg/dL (8.4-25.7); Bilirubin, Total 0.3 mg/dL (0.2-1.2); Calc. Creatinine Clearance 0 mL/min (70-130); Calcium 9.2 mg/dL (7.8-10.44); Estimated GFR-MDRD Greater than 90; Globulin 2.4 g/dL (2.4-3.5); Glucose 97 mg/dL (80-115)
[2018-12-19 20:01] LABS: Anion Gap 13 mmol/L (10-20); Carbon Dioxide 37 mmol/L (23-31); Chloride 97 mmol/L (98-107); Potassium 3.8 mmol/L (3.5-5.1); Sodium 143 mmol/L (136-145)
--- NOTE | 2018-12-19 20:29 | ULT ---
EXAM: Right lower extremity venous Doppler HISTORY: left lower extremity edema and pain FINDINGS: Grayscale, color-flow, Doppler evaluation, spectral analysis of the right lower extremity venous stru ctures is performed with 2-D imaging. The right common femoral, superficial femoral, popliteal, posterior tibial, proximal greater saphenous and profunda femoral veins are imaged. There is normal luminal compressibility, flow, and augmentation the visualized deep venous structures of the right lower extremity. IMPRESSION: No evidence of a deep vein thrombosis in the visualized deep venous structures right lower extremity.
[2018-12-19] MEDS ORDERED: cefTRIAXone\\ROCEPHIN 1 GM VIAL ONE (20:58)
[2018-12-19] MEDS ORDERED: Ondansetron ODT 4 MG TAB PO PRN (21:10)
[2018-12-19] MEDS ORDERED: Acetaminophen 325 MG TAB PO PRN (21:10)
[2018-12-19] MEDS ORDERED: Ondansetron PF 4 MG/2 ML Vial IVP PRN (21:10)
[2018-12-19] MEDS ORDERED: Fentanyl 100 MCG/2 ML VIAL ONE (21:26)
[2018-12-19 22:50] VITALS: BMI 28.5
[2018-12-20] MEDS ORDERED: clonazePAM 1 MG TAB PO SCH (00:45)
[2018-12-20] MEDS ORDERED: Zolpidem Tartrate 5 MG TAB PO SCH (00:45)
[2018-12-20] MEDS ORDERED: Pramipexole Di-HCl 0.25 MG TAB PO SCH (00:45)
--- NOTE | 2018-12-20 01:29 | HP ---
PRIMARY CARE DOCTOR: Denton Valiente MD CODE STATUS: Full code. TIME OF EVALUATION: 9:20 p.m. CHIEF COMPLAINT: Right lower extremity tenderness and redness. HISTORY OF PRESENT ILLNESS: This is a 68-year-old male patient with past medical history of advanced peripheral vascular disease with previous intervention in the past by Dr. Flores, also history of seizures, multiple strokes, multiple sclerosis, emphysema, hypertension, COPD, CABG; chronic hypoxic respiratory failure, on home oxygen; came to the hospital after having right lower extremity gradually worsening, severe redness, swelling, associated with tenderness, decreased range on range of motion due to tenderness. This is a chronic problem, but the redness has worsened very quickly in the past few days. REVIEW OF SYSTEMS: CONSTITUTIONAL: No fever, chills, or generalized weakness. RESPIRATORY: No cough, sputum production, or shortness of breath. CARDIOVASCULAR: No chest pain or palpitation. GASTROINTESTINAL: No nausea, vomiting, diarrhea, or abdominal pain. HVAC MECHANIC: No dizziness, headache, or feeling lightheaded. GENITOURINARY: No burning on urination. EXTREMITIES: The patient has bilateral chronic atrophic changes reported in bilateral legs; however, the right lower extremity is red, tenderness, decreased range of motion, and swelling that has worsened in the past few days. All other systems were reviewed and negative except for the findings as mentioned above. PAST MEDICAL HISTORY: As reported in HPI. FAMILY HISTORY: Reviewed and non contributory to current presentation. PAST SURGICAL HISTORY: Positive for bypass graft surgery, right hip surgery, stent to the right leg. PSYCH HISTORY: Anxiety and depression. SOCIAL HISTORY: No alcohol. No drugs. Everyday smoker, more than 10 cigarettes a day. KNOWN ALLERGIES: Morphine and sulfa. REPORTED MEDICATIONS: 1. Aspirin. 2. Pramipexole,. 3. Clonazepam. 4. Hydrocodone acetaminophen. 5. Ventolin. PHYSICAL EXAMINATION: VITAL SIGNS: On presentation, blood pressure 117/68 with heart rate 98, respiratory rate was 18, temperature 98.4, oxygen saturation was 96% on room air. GENERAL APPEARANCE: The patient is alert, oriented, not in acute distress. HEENT: Eyes, normal conjunctivae. Moist oral mucosa. Anicteric. No JVD. RESPIRATORY: Bilateral air entry. No rales. No wheezing. Symmetric expansion. CARDIOVASCULAR: Normal rate, regular rhythm. No murmurs. No gallop. Bilateral leg edema. ABDOMEN: Soft. Normal bowel sounds. MUSCULOSKELETAL: Baseline range of motion and strength. No tenderness. SKIN: Warm, intact. No pallor. No rash. No redness except for the right lower extremity that has increased redness, swelling, tenderness, decreased range of motion, this is acute on chronic. The patient has chronic atrophic changes in bilateral lower extremities due to chronic PVD. Peripheral pulses are present, audible with Doppler in the lower extremities, not really palpable. Capillary refill seems to be intact. NEURO: No evidence of any new focal weakness. Baseline speech. Cranial nerves seem to be intact. PSYCH: The patient is in good mood. No anxiety. Optimal judgment. DIAGNOSTIC STUDIES: Vascular ultrasound of the right lower extremity was done. The patient has no evidence of a deep vein thrombosis of the right lower extremity. LABORATORY DATA: Labs were reviewed. The patient has hematology; white count 7.2, hemoglobin 13, MCV 97.4, platelet count 253. Coagulation 0.69. Chemistry; sodium 143, potassium 3.8, chloride 97, carbon dioxide 37, anion gap 13, BUN 10, creatinine 0.79, GFR was greater than 90, glucose 97, calcium 9.2, total bilirubin 0.3, AST 11, ALT 8, alkaline phosphatase 76. Serum total protein 6.0, albumin 3.6, globulin 2.4, albumin globulin ratio is 1.5. ASSESSMENT AND PLAN: The patient will be placed in the hospital with following medical problems: 1. Right lower extremity cellulitis given redness, tenderness, decreased range of motion and swelling. This has been getting worse for the past few days. Place the patient on antibiotics, we will follow clinical course, and adjust treatment as needed. 2. Chronic peripheral vascular disease, very severe. The patient has had serial interventions in the past. The patient follows with Dr. Flores and has consultation for followup in the next few days. We will treat the cellulitis first. If not improving or help to be needed, Dr. Flores could be called for consultation. 3. Mildly elevated D-dimer. Deep vein thrombosis studies were done, all negative. 4. Chronic hypoxic respiratory failure, on home oxygen. There is no increased need here in the hospital. This seems to be chronic and stable, we will monitor and adjust as needed. 5. Multiple sclerosis. Reconcile home medications. 6. History of seizure has been reported. Reconcile home medications once updated. This is chronic, stable. 7. History of chronic obstructive pulmonary disease. This is chronic, seems to be stable. Reconcile home medications. 8. Chronic, controlled hypertension. Reconcile home medications. 9. History of coronary artery disease, status post CABG. This is chronic, seems to be stable. Reconcile home medications. 10. Deep venous thrombosis prophylaxis. Job ID: [id number] MTDD
[2018-12-20 06:16] LABS: #Eosinphils 0.1 thou/uL (0.0-0.7); #Lymphocytes 1.3 thou/uL (1.20-3.40); #Monocytes 0.5 thou/uL (0.11-0.59); #Neutrophils 4.2 thou/uL (1.40-6.50); %Basophils 0.4 % (0.0-1.0); %Eosinophils 1.5 % (0.0-10.0); %Lymphocytes 21.4 % (21.0-51.0); %Monocytes 7.9 % (0.0-10.0); %Neutrophils 68.8 % (42.0-75.0); Hemoglobin 12.1 g/dL (14.0-18.0); Mean Corpuscular HGB CONC 31.5 g/dL (32.0-36.0); Mean Corpuscular Volume 98.4 fL (78.0-98.0); Mean Platelet Volume 8.5 fL (7.4-10.4); Platelet Count 140 thou/uL (130-400); RBC Distribution Width 12.1 % (11.5-14.5); Red Blood Cell (RBC) Count 3.91 mill/uL (4.70-6.10); White Blood Cell (WBC) Count 6.1 thou/uL (4.8-10.8)
[2018-12-20 06:28] LABS: Anion Gap 11 mmol/L (10-20); BUN (Urea Nitrogen) 8 mg/dL (8.4-25.7); Calc. Creatinine Clearance 134 mL/min (70-130); Calcium 8.8 mg/dL (7.8-10.44); Carbon Dioxide 35 mmol/L (23-31); Chloride 100 mmol/L (98-107); Estimated GFR-MDRD Greater than 90; Glucose 84 mg/dL (80-115); Potassium 3.7 mmol/L (3.5-5.1); Sodium 142 mmol/L (136-145)
[2018-12-20] MEDS: Enoxaparin Sodium 40 MG/0.4 ML SYRINGE SC SCH (07:46)
--- NOTE | 2018-12-20 07:59 | PDOC.PN ---
- Subjective Encounter Start Date: 12/20/18 Encounter Start Time: 10:30 Subjective: Patient with persistent pain, redness in RLE. No fevers. Bilateral burning -: pain in feet, Lyrica and home hydrocodone restarted and feeling much -: better today. - Objective Resuscitation Status - Order Detail: 12/19/18 21:10 Resuscitation Status Routine Resuscitation Status: FULL: Full Resuscitation MAR Reviewed: Yes Vital Signs & Weight: Vital Signs (12 hours) Temp Pulse Resp BP Pulse Ox 12/20/18 07:43 97.9 F 84 20 117/68 90 L 12/20/18 04:03 97.9 F 80 18 107/61 99 12/20/18 00:28 98.3 F 73 18 123/74 96 12/19/18 23:07 95 12/19/18 22:25 98.3 F 80 20 139/77 95 Weight Weight 210 lb 1.608 oz Result Diagrams: 12/20/18 05:24 12/20/18 05:24 Phys Exam - Physical Examination Constitutional: NAD HEENT: moist MMs Respiratory: no wheezing, no rales, no rhonchi Cardiovascular: RRR, no significant murmur Gastrointestinal: soft, positive bowel sounds Musculoskeletal: no edema poor pulses bilaterally, good distal cap refill Neurological: moves all 4 limbs bilateral lower extremity numbness and tingling Psychiatric: normal affect, A&O x 3 Deviation from normal: right sterling with redness, warmth, not significantly TTP Dx/Plan (1) Cellulitis of lower extremity Code(s): L03.119 - CELLULITIS OF UNSPECIFIED PART OF LIMB Status: Acute Qualifiers: Laterality: right Qualified Code(s): L03.115 - Cellulitis of right lower limb Comment: on Rocephin since 12/19/18 (2) Peripheral vascular disease Code(s): I73.9 - PERIPHERAL VASCULAR DISEASE, UNSPECIFIED Status: Chronic Comment: severe, consult Dr. Flores if needed (3) Chronic respiratory failure with hypoxia Code(s): J96.11 - CHRONIC RESPIRATORY FAILURE WITH HYPOXIA Status: Chronic Comment: stable on home O2 (4) COPD (chronic obstructive pulmonary disease) Status: Chronic Qualifiers: (5) HLD (hyperlipidemia) Code(s): E78.5 - HYPERLIPIDEMIA, UNSPECIFIED Status: Chronic Qualifiers: (6) HTN (hypertension) Code(s): I10 - ESSENTIAL (PRIMARY) HYPERTENSION Status: Chronic Qualifiers: (7) Multiple sclerosis Code(s): G35 - MULTIPLE SCLEROSIS Status: Chronic (8) Osteoporosis Code(s): M81.0 - AGE-RELATED OSTEOPOROSIS W/O CURRENT PATHOLOGICAL FRACTURE Status: Chronic (9) Restless leg syndrome Status: Chronic - Plan cont current plan of care, continue antibiotics, out of bed/ambulate, DVT proph w/lovenox continue IV abx another day, consider expanding coverage if -: no improvement in the next 24 hours * . - Discharge Day Encounter end time: 10:40
[2018-12-20] MEDS: Pregabalin 50 MG CAP PO SCH ×3 (08:42→20:04)
[2018-12-20] MEDS: HYDROcodone/Acetaminophen 7.5/325 mg Tablet PO PRN ×2 (08:42→17:47)
[2018-12-20] MEDS: Aspirin 325 MG TAB PO SCH (08:43)
[2018-12-20] MEDS: Ascorbic Acid 500 mg Chewable Tablet PO SCH (08:43)
[2018-12-20] MEDS: Multivit, Therapeutic 1 TAB PO SCH (08:43)
[2018-12-20] MEDS: Pramipexole Di-HCl 0.25 MG TAB PO SCH ×2 (08:44→20:04)
[2018-12-20] MEDS: Vitamin E 400 UNITS CAP PO SCH (09:28)
[2018-12-20] MEDS: clonazePAM 1 MG TAB PO SCH (20:04)
[2018-12-20] MEDS: Zolpidem Tartrate 5 MG TAB PO SCH (20:08)
[2018-12-20] MEDS ORDERED: cefTRIAXone\\ROCEPHIN 1 GM in Sodium Chloride 0.9% 100 ML IVPB SCH (21:00)
[2018-12-21] MEDS: HYDROcodone/Acetaminophen 7.5/325 mg Tablet PO PRN ×3 (06:16→16:46)
[2018-12-21] MEDS: Enoxaparin Sodium 40 MG/0.4 ML SYRINGE SC SCH (08:32)
[2018-12-21] MEDS: Multivit, Therapeutic 1 TAB PO SCH (08:32)
[2018-12-21] MEDS: Ascorbic Acid 500 mg Chewable Tablet PO SCH (08:32)
[2018-12-21] MEDS: Pregabalin 50 MG CAP PO SCH ×3 (08:32→20:31)
[2018-12-21] MEDS: Aspirin 325 MG TAB PO SCH (08:32)
[2018-12-21] MEDS: Vitamin E 400 UNITS CAP PO SCH (08:32)
[2018-12-21] MEDS: Pramipexole Di-HCl 0.25 MG TAB PO SCH ×2 (09:09→20:31)
--- NOTE | 2018-12-21 10:38 | PDOC.PN ---
- Subjective Encounter Start Date: 12/21/18 Encounter Start Time: 07:30 -: old records requested/rev Patient seen and examined. No new complaints. No overnight events - Objective Resuscitation Status - Order Detail: 12/19/18 21:10 Resuscitation Status Routine Resuscitation Status: FULL: Full Resuscitation MAR Reviewed: Yes Vital Signs & Weight: Vital Signs (12 hours) Temp Pulse Resp BP BP Pulse Ox 12/21/18 07:18 97.7 F 71 18 101/66 94 L 12/21/18 06:39 68 16 99 12/21/18 03:57 98.4 F 68 20 113/68 97 12/21/18 02:45 71 16 96 12/21/18 00:43 98.6 F 72 20 114/71 96 Weight Weight 210 lb 1.608 oz I&O: 12/20/18 12/21/18 12/22/18 06:59 06:59 06:59 Intake Total 750 Balance 750 Result Diagrams: 12/20/18 05:24 12/20/18 05:24 Radiology Reviewed by me: Yes Phys Exam - Physical Examination Constitutional: NAD HEENT: PERRLA, moist MMs, sclera anicteric Neck: no JVD, supple Respiratory: no wheezing, no rales, no rhonchi Cardiovascular: RRR, no significant murmur, no rub Gastrointestinal: soft, non-tender, no distention, positive bowel sounds right leg cellulitis Neurological: non-focal, normal sensation, moves all 4 limbs Lymphatic: no nodes Psychiatric: normal affect, A&O x 3 Skin: no rash, normal turgor Dx/Plan (1) Cellulitis of lower extremity Code(s): L03.119 - CELLULITIS OF UNSPECIFIED PART OF LIMB Status: Acute Qualifiers: Laterality: right Qualified Code(s): L03.115 - Cellulitis of right lower limb Comment: on Rocephin since 12/19/18 (2) Venous stasis dermatitis Code(s): I87.2 - VENOUS INSUFFICIENCY (CHRONIC) (PERIPHERAL) Status: Acute Qualifiers: Laterality: bilateral Qualified Code(s): I87.2 - Venous insufficiency ( chronic) (peripheral) (3) Anxiety and depression Code(s): F41.9 - ANXIETY DISORDER, UNSPECIFIED; F32.9 - MAJOR DEPRESSIVE DISORDER, SINGLE EPISODE, UNSPECIFIED Status: Chronic (4) COPD (chronic obstructive pulmonary disease) Status: Chronic Qualifiers: (5) Chronic respiratory failure with hypoxia Code(s): J96.11 - CHRONIC RESPIRATORY FAILURE WITH HYPOXIA Status: Chronic Comment: stable on home O2 (6) HLD (hyperlipidemia) Code(s): E78.5 - HYPERLIPIDEMIA, UNSPECIFIED Status: Chronic Qualifiers: (7) HTN (hypertension) Code(s): I10 - ESSENTIAL (PRIMARY) HYPERTENSION Status: Chronic Qualifiers: (8) Multiple sclerosis Code(s): G35 - MULTIPLE SCLEROSIS Status: Chronic (9) Osteoporosis Code(s): M81.0 - AGE-RELATED OSTEOPOROSIS W/O CURRENT PATHOLOGICAL FRACTURE Status: Chronic (10) Peripheral vascular disease Code(s): I73.9 - PERIPHERAL VASCULAR DISEASE, UNSPECIFIED Status: Chronic Comment: (11) Restless leg syndrome Status: Chronic (12) history of syringomyelia and syringobulb Status: Chronic - Plan cont current plan of care, continue antibiotics, respiratory therapy * change rocephin BID * monitor clinical response * medication reviewed as below * symptomatic treatment * keep leg elevated * seems improving. Review of Systems - Review of Systems ENT: negative: Ear Pain, Ear Discharge, Nose Pain, Nose Discharge, Nose Congestion, Mouth Pain, Mouth Swelling, Throat Pain, Throat Swelling, Other Respiratory: negative: Cough, Dry, Shortness of Breath, Hemoptysis, SOB with Excertion, Pleuritic Pain, Sputum, Wheezing Cardiovascular: negative: chest pain, palpitations, orthopnea, paroxysmal nocturnal dyspnea, edema, light headedness, other Gastrointestinal: negative: Nausea, Vomiting, Abdominal Pain, Diarrhea, Constipation, Melena, Hematochezia, Other Genitourinary: negative: Dysuria, Frequency, Incontinence, Hematuria, Retention , Other Musculoskeletal: negative: Neck Pain, Shoulder Pain, Arm Pain, Back Pain, Hand Pain, Leg Pain, Foot Pain, Other Skin: negative: Rash, Lesions, Edmund, Bruising, Other - Medications/Allergies Allergies/Adverse Reactions: Allergies Allergy/AdvReac Type Severity Reaction Status Date / Time Sulfa (Sulfonamide Allergy Verified 10/20/17 16:30 Antibiotics) morphine AdvReac "FELT LIKE Verified 11/23/17 17:12 BEE STING" AT IV SITE/REDNESS Medications: Current Medications Acetaminophen (Tylenol) 650 mg PO Q4H PRN PRN Reason: Headache/Fever/Mild Pain (1-3) Last Admin: 12/20/18 07:46 Dose: 650 mg Hydrocodone Bitart/Acetaminophen ([place] 7.5/325) 1 tab PO Q6H PRN PRN Reason: Moderate to Severe Pain (4-10) Last Admin: 12/21/18 06:16 Dose: 1 tab Albuterol/Ipratropium (Duoneb) 3 ml NEB [id number] [facility] Last Admin: 12/21/18 06:39 Dose: 3 ml Ascorbic Acid (Vitamin C) 500 mg PO DAILY [facility] Last Admin: 12/21/18 08:32 Dose: 500 mg Aspirin (Aspirin) 325 mg PO DAILY [facility] Last Admin: 12/21/18 08:32 Dose: 325 mg Cholecalciferol (Vitamin D3) 1,000 units PO DAILY [facility] Last Admin: 12/21/18 08:32 Dose: 1,000 units Clonazepam (Klonopin) 1 mg PO QPM [facility] Last Admin: 12/20/18 20:04 Dose: 1 mg Enoxaparin Sodium (Lovenox) 40 mg SC 0900 [facility] Last Admin: 12/21/18 08:32 Dose: 40 mg Ceftriaxone Sodium 1 gm/ (Sodium Chloride) 100 mls @ 200 mls/hr IVPB 2100 [facility] Last Admin: 12/20/18 20:07 Dose: 100 mls Multivitamins (Theragran) 1 tab PO DAILY [facility] Last Admin: 12/21/18 08:32 Dose: 1 tab Ondansetron HCl (Zofran Odt) 4 mg PO Q6H PRN PRN Reason: Nausea/Vomiting Ondansetron HCl (Zofran) 4 mg IVP Q6H PRN PRN Reason: Nausea/Vomiting Pramipexole Dihydrochloride (Mirapex) 0.5 mg PO BID [facility] Last Admin: 12/21/18 09:09 Dose: 0.5 mg Pregabalin (Lyrica) 50 mg PO TID [facility] Last Admin: 12/21/18 08:32 Dose: 50 mg Vitamin E (Vitamin E) 400 units PO DAILY [facility] Last Admin: 12/21/18 08:32 Dose: 400 units Zolpidem Tartrate (Ambien) 10 mg PO HS [facility] Last Admin: 12/20/18 20:08 Dose: Not Given
[2018-12-21] MEDS: cefTRIAXone\\ROCEPHIN 1 GM in Sodium Chloride 0.9% 100 ML IVPB SCH ×2 (11:15→22:36)
[2018-12-21] MEDS: clonazePAM 1 MG TAB PO SCH (20:32)
[2018-12-21] MEDS: Zolpidem Tartrate 5 MG TAB PO SCH (20:33)
[2018-12-22] MEDS: HYDROcodone/Acetaminophen 7.5/325 mg Tablet PO PRN ×3 (05:24→18:26)
[2018-12-22] MEDS: Ascorbic Acid 500 mg Chewable Tablet PO SCH (09:25)
[2018-12-22] MEDS: Vitamin E 400 UNITS CAP PO SCH (09:25)
[2018-12-22] MEDS: Pramipexole Di-HCl 0.25 MG TAB PO SCH ×2 (09:25→20:36)
[2018-12-22] MEDS: Aspirin 325 MG TAB PO SCH (09:25)
[2018-12-22] MEDS: Multivit, Therapeutic 1 TAB PO SCH (09:25)
[2018-12-22] MEDS: Pregabalin 50 MG CAP PO SCH ×3 (09:25→20:35)
[2018-12-22] MEDS: Enoxaparin Sodium 40 MG/0.4 ML SYRINGE SC SCH (09:26)
[2018-12-22] MEDS: cefTRIAXone\\ROCEPHIN 1 GM in Sodium Chloride 0.9% 100 ML IVPB SCH ×2 (11:40→22:58)
--- NOTE | 2018-12-22 15:20 | PDOC.PN ---
- Subjective Encounter Start Date: 12/22/18 Encounter Start Time: 15:15 Subjective: f/u for RLE cellulitis and chronc LE venous stasis dermatitis on Rocephin -: 1gm IV BID. c/o leg burning and pain. Frustrated at pace of resolution -: of cellulitis. - Objective Resuscitation Status - Order Detail: 12/19/18 21:10 Resuscitation Status Routine Resuscitation Status: FULL: Full Resuscitation MAR Reviewed: Yes Vital Signs & Weight: Vital Signs (12 hours) Temp Pulse Resp BP Pulse Ox 12/22/18 13:29 86 16 99 12/22/18 08:03 98.2 F 86 22 H 114/70 99 12/22/18 08:00 99 12/22/18 06:28 72 16 98 Weight Weight 210 lb 1.608 oz I&O: 12/21/18 12/22/18 12/23/18 06:59 06:59 06:59 Intake Total 750 1200 Balance 750 1200 Result Diagrams: 12/20/18 05:24 12/20/18 05:24 Additional Labs: Accuchecks 12/21/18 19:07 POC Glucose 120 H Laboratory Tests 12/19/18 12/20/18 19:21 05:24 Hgb 13.0 L 12.1 L Radiology Reviewed by me: Yes (RLE venous dopp - negative ) Phys Exam - Physical Examination Constitutional: NAD HEENT: PERRLA, sclera anicteric, oral pharynx no lesions Neck: no nodes, no JVD, supple, full ROM Respiratory: no wheezing, no rales, no rhonchi S1, S2 Cardiovascular: RRR, no significant murmur, no rub, gallop Gastrointestinal: soft, non-tender, no distention, positive bowel sounds Musculoskeletal: no edema, pulses present Neurological: non-focal, moves all 4 limbs Psychiatric: A&O x 3 Deviation from normal: mild erythema of R>LLE Skin: cap refill <2 seconds Dx/Plan (1) Cellulitis of lower extremity Code(s): L03.119 - CELLULITIS OF UNSPECIFIED PART OF LIMB Status: Acute Qualifiers: Laterality: right Qualified Code(s): L03.115 - Cellulitis of right lower limb Comment: Rocephin since 12/19/18, local care, moisturizer prn (2) Venous stasis dermatitis Code(s): I87.2 - VENOUS INSUFFICIENCY (CHRONIC) (PERIPHERAL) Status: Chronic Qualifiers: Laterality: bilateral Qualified Code(s): I87.2 - Venous insufficiency ( chronic) (peripheral) Comment: Local care, moisturizers (3) Anxiety and depression Code(s): F41.9 - ANXIETY DISORDER, UNSPECIFIED; F32.9 - MAJOR DEPRESSIVE DISORDER, SINGLE EPISODE, UNSPECIFIED Status: Chronic (4) Chronic respiratory failure with hypoxia Code(s): J96.11 - CHRONIC RESPIRATORY FAILURE WITH HYPOXIA Status: Chronic Comment: stable on home O2, baseline O2 requirement currently (5) HTN (hypertension) Code(s): I10 - ESSENTIAL (PRIMARY) HYPERTENSION Status: Chronic Qualifiers: Hypertension type: essential hypertension (6) Multiple sclerosis Code(s): G35 - MULTIPLE SCLEROSIS Status: Chronic Comment: Continue Pramipexole (7) Peripheral vascular disease Code(s): I73.9 - PERIPHERAL VASCULAR DISEASE, UNSPECIFIED Status: Chronic Comment: Continue ASA, Lyrica - Plan continue antibiotics, out of bed/ambulate Stable overall -: Continue Rocephin 1gm IV BID -: Pain control -: May need suppressive PenVK after discharge -: Likely home in 24-48h * .
[2018-12-22] MEDS: Zolpidem Tartrate 5 MG TAB PO SCH (20:35)
[2018-12-22] MEDS: clonazePAM 1 MG TAB PO SCH (20:35)
[2018-12-23] MEDS: HYDROcodone/Acetaminophen 7.5/325 mg Tablet PO PRN (02:51)
[2018-12-23] MEDS: Pregabalin 50 MG CAP PO SCH (08:55)
[2018-12-23] MEDS: Vitamin E 400 UNITS CAP PO SCH (08:55)
[2018-12-23] MEDS: Enoxaparin Sodium 40 MG/0.4 ML SYRINGE SC SCH (08:55)
[2018-12-23] MEDS: Multivit, Therapeutic 1 TAB PO SCH (08:55)
[2018-12-23] MEDS: Ascorbic Acid 500 mg Chewable Tablet PO SCH (08:55)
[2018-12-23] MEDS: Aspirin 325 MG TAB PO SCH (08:55)
[2018-12-23] MEDS: cefTRIAXone\\ROCEPHIN 1 GM in Sodium Chloride 0.9% 100 ML IVPB SCH (11:02)
[2018-12-23] MEDS: Pramipexole Di-HCl 0.25 MG TAB PO SCH (11:23)
[2018-12-23 11:24] VITALS: BP 121/77; TEMP 97.4
--- NOTE | 2018-12-23 11:31 | DIS ---
DATE OF ADMISSION: 12/19/2018 DATE OF DISCHARGE: 12/23/2018 DISCHARGE DIAGNOSES: 1. Recurrent bilateral lower extremity cellulitis. 2. Venous stasis dermatitis. 3. Severe peripheral vascular disease. 4. Anxiety and depression. 5. Chronic hypoxic respiratory failure, on oxygen supplementation at 2 to 3 L/minute by nasal cannula. 6. Hypertension, stable. 7. Multiple sclerosis. CONSULTATIONS: None. PERTINENT LABORATORY AND X-RAY FINDINGS: CBC showed a white blood cell count ranging between 6.0 to 7.2, hemoglobin ranged between 12.1 to 13.0. Right lower extremity venous Doppler study dated 12/19/2018 showed no evidence for DVT. HOSPITAL COURSE: The patient was initially admitted after presenting with increasing right lower extremity greater than left lower extremity redness and swelling. The patient with advanced peripheral vascular disease with prior history of vascular intervention to the extremities treated initially for recurrent cellulitis. The patient was placed on IV Rocephin and monitored for clinical response. The patient was slow to clinically improve due to peripheral vascular disease, however, did not exhibit evidence of fever or leukocytosis. The patient resumed his home regimen to include treatment for peripheral neuropathy and continued on aspirin 325 mg daily. The patient continued to receive oxygen supplementation on a chronic basis at 2 to 3 L/minute by nasal cannula. Respiratory status remained at baseline and the patient overall remained clinically stable. The patient was voiding appropriately and tolerating regular oral intake. I have examined the patient at the time of discharge and discussed followup instructions. The patient verbalized understanding and in agreement and ready for discharge on 12/23/2018. DISCHARGE MEDICATIONS: 1. Vitamin C 500 mg p.o. daily. 2. Enteric-coated aspirin 325 mg p.o. daily. 3. Vitamin D3 of 1000 units p.o. daily. 4. Clonazepam 1 mg p.o. at bedtime. 5. [place] 7.5/325 mg 1 to 2 tablets p.o. q.6 hours p.r.n. pain. 6. DuoNeb 3 mL nebulized q.i.d. p.r.n. 7. Multivitamin 1 tab p.o. daily. 8. Pramipexole 0.5 mg p.o. b.i.d. 9. Lyrica 50 mg p.o. t.i.d. 10. Ventolin HFA inhaler 2 puffs inhaled q.i.d. 11. Vitamin E 400 units p.o. daily. 12. Ambien 10 mg p.o. at bedtime p.r.n. 13. Keflex 500 mg p.o. b.i.d. x7 days, followed by penicillin V 250 mg p.o. b.i.d. x6 months for suppressive therapy. FOLLOWUP: The patient may follow up with his primary care provider, Dr. Denton Valiente within 7 days of discharge. CONDITION ON DISCHARGE: Stable. ACTIVITY: Ad-esthela. DIET: Heart healthy. CODE STATUS: Full. DISPOSITION: To home on 12/23/2018. TIME SPENT: Total time preparing and coordinating discharge, 33 minutes. Job ID: [id number]
== END 2018-12-23 12:08 | disposition home health service (06) | DRG 603 ==
LOC: ERS 18:03 → T4-B 21:10
PROVIDERS: ADMIT Hospitalist; ATTEND Hospitalist
DX: L03.115 Cellulitis of right lower limb (principal); J96.11 Chronic respiratory failure with hypoxia; G95.0 Syringomyelia and syringobulbia; I87.2 Venous insufficiency (chronic) (peripheral); I10 Essential (primary) hypertension; J44.9 Chronic obstructive pulmonary disease, unspecified; G40.909 Epilepsy, unspecified, not intractable, without status epilepticus; F32.9 Major depressive disorder, single episode, unspecified; F41.9 Anxiety disorder, unspecified; F17.210 Nicotine dependence, cigarettes, uncomplicated; I73.9 Peripheral vascular disease, unspecified; I25.10 Atherosclerotic heart disease of native coronary artery without angina pectoris; G62.9 Polyneuropathy, unspecified; G35 Multiple sclerosis; M81.0 Age-related osteoporosis without current pathological fracture; G25.81 Restless legs syndrome; Z95.1 Presence of aortocoronary bypass graft; Z88.2 Allergy status to sulfonamides; Z79.82 Long term (current) use of aspirin; Z79.899 Other long term (current) drug therapy; Z99.81 Dependence on supplemental oxygen; Z88.5 Allergy status to narcotic agent
CPT/HCPCS: 36415; 36416; 80048; 80053; 85025; 85379; 94640; 94760; 96365; 96375; J0696; J1650; J3010; J3490; J7620

== ENCOUNTER 2018-12-27 21:34 | Emergency (ER) | payer MEDICARE ==
[2018-12-27 22:34] LABS: #Basophils 0.1 thou/uL (0.0-0.2); #Eosinphils 0.1 thou/uL (0.0-0.7); #Lymphocytes 1.4 thou/uL (1.20-3.40); #Monocytes 0.7 thou/uL (0.11-0.59); #Neutrophils 8.3 thou/uL (1.40-6.50); %Basophils 0.5 % (0.0-1.0); %Eosinophils 1.4 % (0.0-10.0); %Lymphocytes 12.9 % (21.0-51.0); %Monocytes 6.4 % (0.0-10.0); %Neutrophils 78.8 % (42.0-75.0); Hemoglobin 13.2 g/dL (14.0-18.0); Mean Corpuscular Hemoglobin 31.2 pg (27.0-31.0); Mean Corpuscular Volume 97.6 fL (78.0-98.0); Mean Platelet Volume 8.6 fL (7.4-10.4); Platelet Count 165 thou/uL (130-400); RBC Distribution Width 11.8 % (11.5-14.5); Red Blood Cell (RBC) Count 4.23 mill/uL (4.70-6.10); White Blood Cell (WBC) Count 10.5 thou/uL (4.8-10.8)
[2018-12-27 22:53] LABS: ALT (SGPT) 29 U/L (8-55); AST (SGOT) 28 U/L (5-34); Albumin 3.7 g/dL (3.4-4.8); Alkaline Phosphatase 80 U/L (40-150); BUN (Urea Nitrogen) 10 mg/dL (8.4-25.7); Bilirubin, Total 0.4 mg/dL (0.2-1.2); Calc. Creatinine Clearance 0 mL/min (70-130); Calcium 9.3 mg/dL (7.8-10.44); Estimated GFR-MDRD Greater than 90; Globulin 2.5 g/dL (2.4-3.5); Glucose 88 mg/dL (80-115); Protein, Total 6.2 g/dL (5.8-8.1)
[2018-12-27 23:02] LABS: Anion Gap 16 mmol/L (10-20); Carbon Dioxide 34 mmol/L (23-31); Chloride 99 mmol/L (98-107); Potassium 4.4 mmol/L (3.5-5.1); Sodium 145 mmol/L (136-145)
[2018-12-27] MEDS ORDERED: Pregabalin 50 MG CAP PO SCH (23:45)
[2018-12-27] MEDS ORDERED: Loperamide HCl 2 MG CAP ONE (23:54)
--- NOTE | 2018-12-28 07:20 | ULT ---
BILATERAL LOWER EXTREMITY VENOUS DOPPLER: Date: 12/27/18 HISTORY: Pain, edema, and redness. COMPARISON: Lower extremity Doppler dated 12/19/18. FINDINGS: Real-time Berry scale and color Doppler with spectral analysis of the bilateral lower extremity venous system was performed. The common femoral, femoral, proximal portions of greater saphenous and deep f emoral veins, as well as the popliteal and posterior tibial veins are interrogated. Normal flow, augmentation, and compression. IMPRESSION: No deep venous thrombosis. POS: HOME
== END 2018-12-28 02:15 | disposition home or self-care (01) ==
LOC: ERS 21:34
DX: I87.8 Other specified disorders of veins (principal); L03.116 Cellulitis of left lower limb; L03.115 Cellulitis of right lower limb; F32.9 Major depressive disorder, single episode, unspecified; F41.9 Anxiety disorder, unspecified; I10 Essential (primary) hypertension; G35 Multiple sclerosis; J43.9 Emphysema, unspecified; F17.210 Nicotine dependence, cigarettes, uncomplicated; Z71.6 Tobacco abuse counseling; Z86.73 Personal history of transient ischemic attack (TIA), and cerebral infarction without residual deficits; Z79.82 Long term (current) use of aspirin; Z79.899 Other long term (current) drug therapy
CPT/HCPCS: 36415; 80053; 82550; 83605; 85025; 85379; 87040; 93970; 94760; 96360; 96361; 99406

== ENCOUNTER 2019-01-07 14:16 | Observation (INO) | payer MEDICARE ==
--- NOTE | 2019-01-07 15:10 | RAD ---
EXAM: Portable chest: INDICATIONS: Dyspnea COMPARISON: 08/25/2018 FINDINGS: Heart size upper normal. Mild vascular congestion, stable in appearance. No focal infiltrat e or significant effusion. IMPRESSION: Stable chest findings
[2019-01-07 15:20] LABS: #Eosinphils 0.2 thou/uL (0.0-0.7); #Monocytes 0.6 thou/uL (0.11-0.59); #Neutrophils 5.3 thou/uL (1.40-6.50); %Basophils 0.5 % (0.0-1.0); %Eosinophils 2.5 % (0.0-10.0); %Lymphocytes 14.5 % (21.0-51.0); %Monocytes 8.4 % (0.0-10.0); %Neutrophils 74.2 % (42.0-75.0); Hemoglobin 11.3 g/dL (14.0-18.0); Mean Corpuscular HGB CONC 31.6 g/dL (32.0-36.0); Mean Corpuscular Hemoglobin 30.8 pg (27.0-31.0); Mean Corpuscular Volume 97.4 fL (78.0-98.0); RBC Distribution Width 12.2 % (11.5-14.5); Red Blood Cell (RBC) Count 3.66 mill/uL (4.70-6.10); White Blood Cell (WBC) Count 7.2 thou/uL (4.8-10.8)
[2019-01-07 15:38] LABS: Hypochromia SLIGHT = 6-15 cells (100X) (0-5/hpf); MDiff Complete? YES; Mean Platelet Volume 9.1 fL (7.4-10.4); Platelet Count 109 thou/uL (130-400); Platelet Morphology Comment Appears Decreased; Polychromasia SLIGHT = 2-3 cells (100X) (0-2/hpf)
[2019-01-07 15:43] LABS: ALT (SGPT) 12 U/L (8-55); AST (SGOT) 12 U/L (5-34); Albumin 3.6 g/dL (3.4-4.8); Alkaline Phosphatase 91 U/L (40-150); Anion Gap 11 mmol/L (10-20); BUN (Urea Nitrogen) 17 mg/dL (8.4-25.7); Bilirubin, Total 0.5 mg/dL (0.2-1.2); CK (CPK) 82 U/L (30-200); Calc. Creatinine Clearance 0 mL/min (70-130); Calcium 9.2 mg/dL (7.8-10.44); Carbon Dioxide 37 mmol/L (23-31); Chloride 99 mmol/L (98-107); Estimated GFR-MDRD Greater than 90; Glucose 96 mg/dL (80-115); Lipase 6 U/L (8-78); Potassium 4.3 mmol/L (3.5-5.1); Protein, Total 5.6 g/dL (5.8-8.1); Sodium 143 mmol/L (136-145)
[2019-01-07] MEDS ORDERED: Piperacillin/Tazobactam 4.5 GM VIAL ONE (15:43)
--- NOTE | 2019-01-07 15:50 | ULT ---
US Venous Doppler Bilat History: [Deep venous thrombosis] Comparison: Ultrasound lower extremity venous Doppler December 2015 Findings: Real-time grayscale, color, and spectral analysis of the bilateral lower extremity venous s ystem was performed. The common femoral, femoral, proximal portions greater saphenous and deep femoral veins as well as the popliteal and posterior tibial veins were interrogated Normal flow, augmentation, and compression.. Impression: No deep venous thrombosis.
[2019-01-07 18:45] VITALS: BMI 27.2
[2019-01-07] MEDS: Pramipexole Di-HCl 1 MG TAB PO SCH (21:16)
[2019-01-07] MEDS: Pregabalin 50 MG CAP PO SCH (21:16)
[2019-01-07] MEDS: clonazePAM 1 MG TAB PO SCH (21:16)
[2019-01-07] MEDS: Piperacillin/Tazobactam 3.375 GM in Sodium Chloride 0.9% 100 ML IVPB SCH (22:01)
--- NOTE | 2019-01-07 23:36 | HP ---
PRIMARY CARE PHYSICIAN: Denton Valiente MD. CHIEF COMPLAINT: Lower extremity pain and redness. HISTORY OF PRESENT ILLNESS: Mr. Velazquez is a 68-year-old male with a past medical history of advanced peripheral vascular disease with a previous intervention in the past by Dr. Flores, history of seizures, multiple strokes, multiple sclerosis, emphysema, COPD, hypertension, CAD, status post CABG, chronic hypoxic respiratory failure on home O2 of about 4 L via nasal cannula, and chronic lower extremity cellulitis, who had presented to [facility] earlier today due to worsening of his lower extremity cellulitis. The patient was recently discharged from the hospital 12/23/2018, on oral antibiotics. However, the patient states that he had taken oral antibiotics for about 5 days and then he developed nausea, vomiting, some diarrhea. He states that he has a history of not tolerating oral antibiotics in the past. He had stated that he had taken himself off the oral antibiotics from 12/28/2018. He had stated over the next few days after that, he had noticed that there was worsening redness and pain down his lower extremities. He had called his Dr. Valiente who had seen him yesterday, and his PCP recommended him follow back up in the emergency department for further evaluation and management of his worsening condition. The patient states that he had returned home to grab his things and ended up falling asleep due to feeling tired. He had then brought himself to the emergency department earlier today. He had denied any fever, chills, any chest pain, palpitations, abdominal pain, nausea, vomiting, or diarrhea at the moment. He had stated that he was short of breath; however, he states that this is his baseline and is chronic due to his underlying COPD and emphysema. His initial workup included a portable chest x-ray, which was found to be stable, and lower extremity venous Doppler, which showed no deep venous thrombosis noted. The patient's vital signs indicated a normal white count of 7.2. His other lab work is essentially unremarkable. Lactic acid was normal at 1.0. The patient was then started on IV antibiotics including vancomycin and Zosyn, and it was determined that the patient need to be readmitted for further evaluation and management of his cellulitis. A consult to Dr. Correa was placed and pending at this time. REVIEW OF SYSTEMS: All other systems reviewed and found to be negative unless mentioned in the HPI. PAST MEDICAL HISTORY: Significant for chronic venous insufficiency, seizures, multiple strokes, multiple sclerosis, emphysema, COPD, hypertension, CAD, status post CABG. PAST SURGICAL HISTORY: Right hip surgery, stent to right leg, CABG. PSYCHIATRIC HISTORY: The patient reports anxiety and depression. SOCIAL HISTORY: The patient denies any alcohol use, however does admit to smoking half pack cigarettes per day. Otherwise, denies any other illicit drug use. KNOWN ALLERGIES: Morphine and sulfa. CURRENT HOME MEDICATIONS: 1. Aspirin 81 mg daily. 2. Pramipexole 0.5 mg oral twice daily. 3. Aspirin 325 mg oral as needed. 4. Clonazepam 1 mg oral at bedtime. 5. Hydrocodone/acetaminophen 7.5/325 mg oral every 6 hours as needed for pain. 6. Ventolin HFA inhaler two puff inhalation 4 times a day. PHYSICAL EXAMINATION: VITAL SIGNS: BP 125/65, pulse 84, respirations 22, temperature 98.4 degrees Fahrenheit, O2 saturations 93% on 3 L of oxygen via nasal cannula. GENERAL: The patient is awake, alert, and oriented x3. He is currently lying comfortably in bed and in no acute distress. He has a nasal cannula in place on 3 L of oxygen. HEENT: Atraumatic, normocephalic. Pupils are round and reactive to light. Extraocular muscles intact. Moist mucous membranes noted. NECK: Soft and supple. Trachea midline. CARDIOVASCULAR: Positive S1 and S2. Regular rate and rhythm. No murmur auscultated. RESPIRATORY: Clear to auscultation bilaterally. No wheezes, rales, or rhonchi appreciated. The patient with 3 L of oxygen via nasal cannula in place and appears to have good respiratory effort. ABDOMEN: Soft and nontender. Bowel sounds present. MUSCULOSKELETAL: Strength 5+ bilaterally upper and lower extremities. Moves all extremities equal. Redness and mild tenderness noted to bilateral lower extremities from mid sterling down with trace edema noted. Chronic skin changes noted. NEUROLOGIC: Cranial nerves II through XII grossly intact. No focal deficits noted. Speech intact and normal. Gait not assessed. SKIN: Warm, dry, and intact. Skin changes as above to lower extremities. PSYCHIATRIC: Good mood and affect. LABORATORY DATA: WBC 7.2, RBCs 3.6, hemoglobin 11.3, platelets 109. Sodium 143, potassium 4.3, anion gap 11, BUN 17, creatinine 0.82, estimated GFR greater than 90, glucose 96. Lactic acid 1.0. Troponin less than 0.010. BNP 90.2. DIAGNOSTIC IMAGING: Venous ultrasound of lower extremities was negative for DVT at this time. Portable chest x-ray showed stable chest findings with no focal infiltrate or significant effusion noted. ASSESSMENT AND PLAN: 1. Acute on chronic cellulitis of his lower extremities, the patient was unable to tolerate oral antibiotics. Therefore, will be treated with IV vancomycin and Zosyn at this time. A consult to Dr. Correa is placed and pending at this time. 2. Chronic venous insufficiency. The patient's Doppler negative for deep venous thrombosis at this time. 3. Chronic hypoxic respiratory failure on home oxygen. The patient will be maintained on his home oxygen throughout hospital course. He will be restarted on his home albuterol and DuoNebs will be added as needed. Chest x-ray is currently stable at this time. 4. Chronic hypertension, currently stable at this time. The patient will be monitored throughout hospital course and changes to medications as needed. 5. Chronic obstructive pulmonary disease and emphysema, as above, continue the patient's home regimen and DuoNebs will be added p.r.n. 6. Tobacco abuse. The patient is strongly encouraged smoking cessation. He will be placed on any nicotine patch during hospital course. 7. Deep venous thrombosis and gastrointestinal prophylaxis. CODE STATUS: Full code. Surrogate decision maker is patient's [id number], Shantel Velazquez. DISPOSITION: Pending further workup and clinical findings. Job ID: [id number]
[2019-01-08] MEDS: Vancomycin HCl 1.25 GM in Sodium Chloride 0.9% 250 ML 250 ML IVPB SCH ×3 (00:04→16:58)
[2019-01-08] MEDS: HYDROcodone/Acetaminophen 7.5/325 mg Tablet PO PRN ×3 (01:37→18:24)
[2019-01-08] MEDS: Piperacillin/Tazobactam 3.375 GM in Sodium Chloride 0.9% 100 ML IVPB SCH ×4 (03:34→23:06)
[2019-01-08] MEDS: PROVENTIL INHALER 6.7 G (200 INHALATIONS) INH SCH ×4 (07:07→18:49)
[2019-01-08 08:02] LABS: Bilirubin Negative (Negative); Blood, Urine Negative (Negative); Clarity CLEAR (Clear); Glucose, Urine (Dipstick) Negative (Negative); Leukocyte Negative (Negative); Nitrite Negative (Negative); Protein, Urine (Dipstick) Trace mg/dL (Neg-Trace); Specific Gravity, Urine 1.024 (1.002-1.036); pH, Urine 7.5 (5.0-9.0)
[2019-01-08 08:05] LABS: Bacteria/HPF None Seen HPF (None Seen); Hyaline Casts/LPF 0-3 HYALINE CAST LPF (0-3 Hyaline); RBC/HPF 0-3 HPF (0-3); Squamous Epithelial 0-3 HPF (0-3); WBC/HPF 0-3 HPF (0-3)
[2019-01-08 08:07] LABS: Urine Culture Reflex No No
[2019-01-08 08:51] LABS: #Eosinphils 0.2 thou/uL (0.0-0.7); #Lymphocytes 1.1 thou/uL (1.20-3.40); #Monocytes 0.6 thou/uL (0.11-0.59); #Neutrophils 5.2 thou/uL (1.40-6.50); %Basophils 0.5 % (0.0-1.0); %Eosinophils 2.9 % (0.0-10.0); %Lymphocytes 15.2 % (21.0-51.0); %Monocytes 8.1 % (0.0-10.0); %Neutrophils 73.3 % (42.0-75.0); Hemoglobin 11.6 g/dL (14.0-18.0); Mean Corpuscular HGB CONC 32.3 g/dL (32.0-36.0); Mean Corpuscular Hemoglobin 31.2 pg (27.0-31.0); Mean Corpuscular Volume 96.4 fL (78.0-98.0); Mean Platelet Volume 9.2 fL (7.4-10.4); Platelet Count 103 thou/uL (130-400); RBC Distribution Width 12.2 % (11.5-14.5); Red Blood Cell (RBC) Count 3.73 mill/uL (4.70-6.10)
[2019-01-08] MEDS: Pramipexole Di-HCl 1 MG TAB PO SCH ×2 (08:56→21:59)
[2019-01-08] MEDS: Aspirin 325 MG TAB PO SCH (08:56)
[2019-01-08] MEDS: Pregabalin 50 MG CAP PO SCH ×3 (08:57→22:00)
[2019-01-08] MEDS ORDERED: Prevnar 13-Val Conj/PF 0.5 ML SYRINGE IM ONE (09:00)
[2019-01-08 09:03] LABS: Anion Gap 11 mmol/L (10-20); BUN (Urea Nitrogen) 10 mg/dL (8.4-25.7); CK (CPK) 61 U/L (30-200); Calc. Creatinine Clearance 119 mL/min (70-130); Carbon Dioxide 33 mmol/L (23-31); Chloride 101 mmol/L (98-107); Estimated GFR-MDRD Greater than 90; Glucose 127 mg/dL (80-115); Potassium 4.2 mmol/L (3.5-5.1); Sodium 141 mmol/L (136-145)
[2019-01-08] MEDS ORDERED: ISOVUE-370 76%-LOCM 1 ML ONE (11:11)
--- NOTE | 2019-01-08 13:23 | CT ---
CT angiogram thorax with contrast: (CTA pulmonary angiogram) HISTORY: 68-year-old male with tachypnea, dyspnea, and elevated d-dimer. TECHNIQUE: IV injection of iodinated contrast. Scan acquisition timing attempted to coincide with iodinated contrast bolus reaching maximal density in pulmonary arteries. 3-D MIP reconstructions. FINDINGS: No evidence of pulmonary thromboembolism. No thoracic aortic aneurysm or dissection. No pericardial e ffusion or cardiomegaly. Diffuse enlargement of bilateral adrenal glands suggestive of hyperplasia. Subsegmental atelectasis at posterior base of left lower lobe. Superior to that, there appears to be a very small, dependent left pleural effusion. Similar finding on right. Nonspecific prominent interstitial markings, chronic versus acute, at base of left lower lobe. Some of this is consistent w ith scar. Similar findings at posterior segment of right upper lobe abutting the superior aspect of the major fissure. Diffuse centrilobular emphysema changes throughout the upper lobes. Trachea and le ft and right mainstem bronchi are patent and clear. No pneumothorax. Nonspecific small focal irregularly-shaped nodular density in the lingula. IMPRESSION: 1. No pulmonary thromboembolism. 2.. Centrilobular emphysema. 3. Tiny bilateral pleural effusions. 4. Old burst fracture of T7 vertebra.
--- NOTE | 2019-01-08 13:45 | EKG ---
Test Reason : ER INDICATION Blood Pressure : / mmHG Vent. Rate : 097 BPM Atrial Rate : 097 BPM P-R Int : 130 ms QRS Dur : 080 ms QT Int : 336 ms P-R-T Axes : 072 -24 048 degrees QTc Int : 426 ms Normal sinus rhythm Low voltage QRS Borderline ECG Confirmed by ISATU VANN, ROBB ([id number]), film or videotape editor RAJANI SMITH ([id number]) on 01/08/2019 1:45:47 PM Referred By: Confirmed By:ROBB LUNSFORD MD
[2019-01-08 16:05] LABS: #Eosinphils 0.2 thou/uL (0.0-0.7); #Monocytes 0.5 thou/uL (0.11-0.59); #Neutrophils 3.6 thou/uL (1.40-6.50); %Basophils 0.6 % (0.0-1.0); %Eosinophils 3.3 % (0.0-10.0); %Lymphocytes 18.3 % (21.0-51.0); %Monocytes 10.1 % (0.0-10.0); %Neutrophils 67.7 % (42.0-75.0); Hemoglobin 10.4 g/dL (14.0-18.0); Mean Corpuscular HGB CONC 31.8 g/dL (32.0-36.0); Mean Corpuscular Volume 97.5 fL (78.0-98.0); Mean Platelet Volume 9.2 fL (7.4-10.4); Platelet Count 104 thou/uL (130-400); RBC Distribution Width 12.2 % (11.5-14.5); Red Blood Cell (RBC) Count 3.36 mill/uL (4.70-6.10); White Blood Cell (WBC) Count 5.3 thou/uL (4.8-10.8)
[2019-01-08 16:21] LABS: Lactic Acid 0.6 mmol/L (0.5-2.2)
[2019-01-08 16:22] LABS: Vancomycin, Trough 14.9 ug/mL
[2019-01-08 16:24] LABS: Anion Gap 8 mmol/L (10-20); BUN (Urea Nitrogen) 10 mg/dL (8.4-25.7); Calc. Creatinine Clearance 124 mL/min (70-130); Calcium 8.8 mg/dL (7.8-10.44); Carbon Dioxide 34 mmol/L (23-31); Chloride 102 mmol/L (98-107); Estimated GFR-MDRD Greater than 90; Glucose 121 mg/dL (80-115); Potassium 4.4 mmol/L (3.5-5.1); Sodium 140 mmol/L (136-145)
[2019-01-08] MEDS: clonazePAM 1 MG TAB PO SCH (21:59)
[2019-01-09] MEDS: Vancomycin HCl 1.25 GM in Sodium Chloride 0.9% 250 ML 250 ML IVPB SCH ×3 (01:33→15:59)
[2019-01-09] MEDS: HYDROcodone/Acetaminophen 7.5/325 mg Tablet PO PRN ×2 (03:03→10:12)
[2019-01-09] MEDS: Piperacillin/Tazobactam 3.375 GM in Sodium Chloride 0.9% 100 ML IVPB SCH ×3 (06:08→12:48)
[2019-01-09] MEDS: PROVENTIL INHALER 6.7 G (200 INHALATIONS) INH SCH ×2 (08:05→11:36)
[2019-01-09] MEDS: Pregabalin 50 MG CAP PO SCH ×2 (09:18→16:00)
[2019-01-09] MEDS: Aspirin 325 MG TAB PO SCH (09:18)
[2019-01-09] MEDS: Pramipexole Di-HCl 1 MG TAB PO SCH (09:18)
[2019-01-09 15:57] VITALS: BP 108/57; TEMP 98.1
[2019-01-09 16:17] LABS: #Eosinphils 0.2 thou/uL (0.0-0.7); #Lymphocytes 0.9 thou/uL (1.20-3.40); #Monocytes 0.4 thou/uL (0.11-0.59); #Neutrophils 3.6 thou/uL (1.40-6.50); %Basophils 0.3 % (0.0-1.0); %Eosinophils 3.2 % (0.0-10.0); %Lymphocytes 17.1 % (21.0-51.0); %Monocytes 8.1 % (0.0-10.0); %Neutrophils 71.3 % (42.0-75.0); Hemoglobin 10.6 g/dL (14.0-18.0); Mean Corpuscular HGB CONC 31.5 g/dL (32.0-36.0); Mean Corpuscular Hemoglobin 31.1 pg (27.0-31.0); Mean Corpuscular Volume 98.9 fL (78.0-98.0); Mean Platelet Volume 8.4 fL (7.4-10.4); Platelet Count 104 thou/uL (130-400); RBC Distribution Width 12.2 % (11.5-14.5); White Blood Cell (WBC) Count 5.1 thou/uL (4.8-10.8)
[2019-01-09 16:32] LABS: Lactic Acid 1.9 mmol/L (0.5-2.2)
[2019-01-09 16:33] LABS: Hypochromia SLIGHT = 6-15 cells (100X) (0-5/hpf); MDiff Complete? YES; Macrocytosis SLIGHT = 6-15 cells (100X) (0-5/hpf); Platelet Morphology Comment Appears Decreased; Polychromasia SLIGHT = 2-3 cells (100X) (0-2/hpf)
[2019-01-09 16:34] LABS: Anion Gap 11 mmol/L (10-20); BUN (Urea Nitrogen) 8 mg/dL (8.4-25.7); Calc. Creatinine Clearance 114 mL/min (70-130); Calcium 8.7 mg/dL (7.8-10.44); Carbon Dioxide 34 mmol/L (23-31); Chloride 102 mmol/L (98-107); Estimated GFR-MDRD 89; Glucose 109 mg/dL (80-115); Potassium 3.9 mmol/L (3.5-5.1); Sodium 143 mmol/L (136-145)
--- NOTE | 2019-01-09 21:51 | DIS ---
DATE OF ADMISSION: 01/07/2019 DATE OF DISCHARGE: 01/09/2019 I reviewed the case with Kiah Barron. I reviewed the patient's records. The patient has severe peripheral vascular disease, previously evaluated by Dr. Flores who was unable to adequately non-traverse the plaque in the left leg in order to perform any type of interventional procedure. Given the fact the patient had severe oxygen-dependent COPD and continues to smoke and has other comorbidities, he was felt not to be a candidate for an aortobifemoral bypass. He also felt the patient might be a candidate for fem-fem bypass at some point, but he would have to clear that with Dr. Morocho given his severe pulmonary issues. The patient reported that he did in fact follow up with Dr. Morocho and was told that he was not a candidate for any significant intervention because of his severe lung disease. Therefore, unfortunately, the patient is not a good surgical candidate or interventional candidate at all because of the disease itself and the comorbidities, limiting his ability to undergo more aggressive procedures. The patient was on antibiotics previously for possible infectious cellulitis. The patient reports he did not do well with antibiotics, had some diarrhea with that, and therefore discontinued those and has not been on them any further. Currently, the patient is I think frustrated and appropriately depressed over the lack of good interventional options in order to try to help his legs get better. His vital signs would indicate no fever since he has been here. He has a normal white blood cell count and blood cultures are negative. It appears as though the patient's lower extremity inflammatory changes are more ischemic than infectious and the patient does not really want to be on any oral antibiotics going forward at this point, he says he does not want to stay and is going to try to find someone to come pick him up and take him home. The patient was encouraged to follow up with his PCP, Dr. Valiente, in order to see if he wants to refer him somewhere for another opinion. However, at this point, it appears that there really are not good interventional options. He has discussed potentially getting a wheelchair which we encouraged and also give the patient an option to stay here and see Dr. Correa in consultation to see if he believes there is any additional benefit to attempting to treat this any further with antibiotics. However, it is unclear if Dr. Correa will be back in town tomorrow if he will be back at work tomorrow. We will leave that option to the patient at this point. His lower extremities do continue to have slight erythematous color change, has couple of abrasions at both knees, which are scabbed and healing well, but there does not appear to be a significant amount of acute infectious cellulitic changes. Job ID: [id number]
== END 2019-01-09 17:29 | disposition home or self-care (01) ==
LOC: ERS 14:16 → 2SW 18:41
PROVIDERS: ADMIT Family Medicine; ATTEND Family Medicine
DX: L03.116 Cellulitis of left lower limb (principal); L03.115 Cellulitis of right lower limb; I87.2 Venous insufficiency (chronic) (peripheral); J43.9 Emphysema, unspecified; I10 Essential (primary) hypertension; I25.10 Atherosclerotic heart disease of native coronary artery without angina pectoris; F41.8 Other specified anxiety disorders; F32.9 Major depressive disorder, single episode, unspecified; F17.210 Nicotine dependence, cigarettes, uncomplicated; J96.11 Chronic respiratory failure with hypoxia; Z79.82 Long term (current) use of aspirin; Z79.899 Other long term (current) drug therapy; Z88.1 Allergy status to other antibiotic agents; Z88.5 Allergy status to narcotic agent; Z95.1 Presence of aortocoronary bypass graft
CPT/HCPCS: 71045; 71275; 80048 ×3; 80053; 80202; 81001; 82550 ×2; 83605 ×3; 83690; 83880; 84484; 85025 ×4; 85379; 87040; 93005; 93970; 94640 ×5; 96365; 96366 ×4; 96367; 96376; 99285; G0378 ×3; 36415; J2543; J3370; J3490; J7050; J7620; Q9966

== ENCOUNTER 2019-03-03 12:18 | Observation (INO) | payer MEDICARE ==
[2019-03-03 14:58] LABS: #Eosinphils 0.1 thou/uL (0.0-0.7); #Monocytes 0.5 thou/uL (0.11-0.59); #Neutrophils 6.3 thou/uL (1.40-6.50); %Basophils 0.1 % (0.0-1.0); %Eosinophils 0.7 % (0.0-10.0); %Lymphocytes 12.5 % (21.0-51.0); %Monocytes 6.2 % (0.0-10.0); %Neutrophils 80.6 % (42.0-75.0); Hemoglobin 12.9 g/dL (14.0-18.0); Mean Corpuscular HGB CONC 31.2 g/dL (32.0-36.0); Mean Corpuscular Hemoglobin 28.9 pg (27.0-31.0); Mean Corpuscular Volume 92.7 fL (78.0-98.0); Mean Platelet Volume 8.2 fL (7.4-10.4); Platelet Count 130 thou/uL (130-400); RBC Distribution Width 12.5 % (11.5-14.5); Red Blood Cell (RBC) Count 4.47 mill/uL (4.70-6.10); White Blood Cell (WBC) Count 7.9 thou/uL (4.8-10.8)
[2019-03-03 15:18] LABS: ALT (SGPT) 14 U/L (8-55); AST (SGOT) 15 U/L (5-34); Albumin 3.8 g/dL (3.4-4.8); Alcohol Less than 10 mg/dL (Less than 10); Alkaline Phosphatase 76 U/L (40-150); BUN (Urea Nitrogen) 15 mg/dL (8.4-25.7); Bilirubin, Total 0.6 mg/dL (0.2-1.2); Calc. Creatinine Clearance 0 mL/min (70-130); Calcium 9.6 mg/dL (7.8-10.44); Estimated GFR-MDRD Greater than 90; Globulin 2.5 g/dL (2.4-3.5); Glucose 98 mg/dL (80-115); Protein, Total 6.3 g/dL (5.8-8.1); Salicylate Less than 8.0 mg/dL (15.0-30.0)
[2019-03-03 15:19] LABS: Chloride 96 mmol/L (98-107); Potassium 4.1 mmol/L (3.5-5.1); Sodium 142 mmol/L (136-145)
[2019-03-03 15:29] LABS: Anion Gap 14 mmol/L (10-20); Carbon Dioxide 36 mmol/L (23-31)
--- NOTE | 2019-03-03 15:30 | CT ---
CT HEAD WITHOUT CONTRAST: Date: 03/03/19 Axial tomograms obtained through the head. INDICATION: Mental status change. COMPARISON: 11/25/15. FINDINGS: Ventricles have normal size and position. No evidence of intracranial mass or hemorrhage. No evidence of acute infarct. No significant change from prior study. Sinuses are clear. IMPRESSION: No acute findings. POS: [facility]
[2019-03-03] MEDS ORDERED: Acetaminophen 325 MG TAB PO PRN (18:45)
[2019-03-03] MEDS ORDERED: Ondansetron ODT 4 MG TAB PO PRN (18:45)
[2019-03-03] MEDS ORDERED: Ondansetron PF 4 MG/2 ML Vial IVP PRN (18:45)
[2019-03-03 18:47] LABS: Troponin I Less than 0.010 ng/mL (< 0.028)
[2019-03-03] MEDS ORDERED: HYDROcodone/Acetaminophen 7.5/325 mg Tablet ONE (19:15)
[2019-03-03] MEDS: HYDROcodone/Acetaminophen 7.5/325 mg Tablet PO PRN (19:18)
[2019-03-03 19:32] LABS: Bilirubin Moderate (Negative); Blood, Urine Negative (Negative); Glucose, Urine (Dipstick) Negative (Negative); Leukocyte Negative (Negative); Nitrite Negative (Negative); Protein, Urine (Dipstick) 30 mg/dL (Neg-Trace)
[2019-03-03 19:40] LABS: Medtox Reader # READER 1
[2019-03-03 19:41] LABS: Amphetamine Not Detected (NotDetected); Barbiturates Screen Not Detected (NotDetected); Benzodiazepine Screen Not Detected (NotDetected); Cocaine Metabolite Screen Not Detected (NotDetected); Medtox Control Line Valid? VALID (VALID); Methadone Not Detected (NotDetected); Methamphetamine Not Detected (NotDetected); Opiate Screen Detected (NotDetected); Oxycodone Screen Not Detected (NotDetected); Phencyclidine (PCP) Not Detected (NotDetected); THC/Cannabinoid Screen Not Detected (NotDetected); Tricyclic Screen Not Detected (NotDetected)
[2019-03-03] MEDS: PROVENTIL INHALER 6.7 G (200 INHALATIONS) INH SCH (19:43)
[2019-03-03 20:04] LABS: Clarity Hazy (Clear)
--- NOTE | 2019-03-03 20:04 | ULT ---
BILATERAL CAROTID DUPLEX ULTRASOUND: 03/03/19 HISTORY: CVA versus TIA. TECHNIQUE: Berry scale ultrasound with color flow and spectral Doppler imaging of the extracranial carotid artery system is performed bilaterally. FINDINGS: There is plaque formation along both sides. The peak systolic velocity in the right ICA measures 169 cm/s with an end diastolic velocity of 44 cm /s and systolic ratio of 1.2. The peak systolic velocity in the left ICA measures 119 cm/s with an end diastolic velocity of 32 cm/ s and systolic ratio of 0.80. Flow in both vertebral arteries remains antegrade. IMPRESSION: Moderate (50-69%) Right ICA stenosis. POS: [facility]
[2019-03-03 20:28] LABS: Bacteria/HPF None Seen HPF (None Seen); Squamous Epithelial 0-3 HPF (0-3); WBC/HPF 0-3 HPF (0-3)
[2019-03-03] MEDS ORDERED: Atorvastatin Calcium 40 MG TAB PO SCH (21:00)
[2019-03-03] MEDS ORDERED: Nicotine 14 MG PATCH TD SCH (21:00)
[2019-03-03] MEDS ORDERED: Aspirin 325 MG TAB ONE (21:04)
[2019-03-03 21:21] LABS: Troponin I Less than 0.010 ng/mL (< 0.028)
[2019-03-03 21:59] VITALS: BMI 24.9
[2019-03-03] MEDS: Famotidine 20 MG TAB PO SCH (23:46)
[2019-03-03] MEDS: Pramipexole Di-HCl 0.25 MG TAB PO SCH (23:47)
[2019-03-04] MEDS: HYDROcodone/Acetaminophen 7.5/325 mg Tablet PO PRN ×4 (00:41→15:27)
--- NOTE | 2019-03-04 01:59 | HP ---
PRIMARY CARE PHYSICIAN: Denton Valiente MD CHIEF COMPLAINT: Acute confusion and altered mental status. HISTORY OF PRESENT ILLNESS: Mr. Velazquez is a 68-year-old man with a past medical history of advanced peripheral vascular disease, seizures, multiple strokes, multiple sclerosis, emphysema, COPD, hypertension, coronary artery disease status post CABG, who had presented to [facility] earlier today with worsening lower extremity pain and also headache and "fogginess" in his head. He states over the last 2 to 3 days, he has had more fogginess and acute confusion, which has given him trouble with words. He had denied any fever, chills, any dizziness, chest pain, palpitations, abdominal pain, nausea, vomiting, or any change in his stool. He states that his chronic shortness of breath due to his underlying COPD and emphysema is stable. He states that he had recently seen Dr. Morocho yesterday, who had recommended that he quit smoking. However, he states that this is not on his plan. During his initial workup, brain CT was found to be normal. The patient states that he has been taking his home dose of [place] and Lyrica more often due to his pain down his lower extremities. He states that he has been under the care of Dr. Flores for his vascular disease in the past. REVIEW OF SYSTEMS: All other systems reviewed and found to be negative unless mentioned in the HPI. PAST MEDICAL HISTORY: Significant for hypertension, hyperlipidemia, coronary artery disease, COPD, emphysema, multiple sclerosis, previous CVAs along with previous history of seizures. However, he states that he has not had a seizure in quite some time. PAST SURGICAL HISTORY: Right hip surgery and stent to his right leg along with coronary artery bypass graft. PAST PSYCHIATRIC HISTORY: Significant for anxiety and depression. SOCIAL HISTORY: The patient denies any alcohol use, however does admit to smoking half pack cigarettes per day, and denies any illicit drug use. KNOWN ALLERGIES: Morphine and sulfa. CURRENT HOME MEDICATIONS: 1. Aspirin 325 mg daily. 2. Pramipexole 0.5 mg oral twice daily. 3. Hydrocodone/acetaminophen 7.5 mg/325 mg oral q.6 hours as needed for pain. 4. DuoNeb one inhalation nebulizer as needed for shortness of breath or wheezing. 5. Ventolin inhaler two puffs inhalation q.i.d. 6. Pregabalin 50 mg p.o. t.i.d. 7. Clonazepam 1 mg p.o. q.p.m. 8. Flomax 0.4 mg p.o. daily. PHYSICAL EXAMINATION: VITAL SIGNS: BP 119/68, pulse 81, respirations 20, temp 99.2 degrees Fahrenheit, O2 saturations 100% on 4 L of oxygen via nasal cannula. GENERAL: The patient is awake, alert, and oriented x3. He is currently lying comfortably in bed and in no acute distress. He has 4 L of oxygen in place. HEENT: Atraumatic, normocephalic. Pupils are round and reactive to light. Extraocular muscles intact. Moist mucous membranes noted. NECK: Soft and supple. Trachea midline. CARDIOVASCULAR: Positive S1 and S2. Regular rate and rhythm. No murmur auscultated. RESPIRATORY: Coarse breath sounds heard bilaterally with mild expiratory wheezing at the bases, 4 L of oxygen in place. ABDOMEN: Soft, nontender. Bowel sounds present. MUSCULOSKELETAL: Strength 5+ bilaterally in upper and lower extremities. Moves all extremities equal. The patient has chronic skin changes noted in bilateral lower extremities from his knees down, which have mild erythema without edema noted. NEUROLOGIC: Cranial nerves 2 through 12 grossly intact. No focal deficits noted. Speech intact and normal. Gait not assessed. SKIN: As above. Chronic skin changes in bilateral lower extremities noted. Otherwise, unremarkable. Skin is warm and dry. PSYCHIATRIC: Good mood and affect. LABORATORY DATA: WBC 7.9, RBC 4.47, hemoglobin 12.9, platelets 130. Sodium 142, potassium 4.1, anion gap 14, BUN 15, creatinine 0.78, estimated GFR greater than 90, glucose 98. Troponin less than 0.010 x2. Toxicology screen showing detectable opiates, otherwise unremarkable. DIAGNOSTIC IMAGING: CT brain without contrast showed no acute findings. ASSESSMENT AND PLAN: 1. Acute confusion. The patient will undergo cerebrovascular accident/transient ischemic attack workup including an MRI of brain, carotid Doppler, and echocardiogram for further evaluation. The patient appears to be A and O x3, and in no acute distress at this time. He will be restarted on his home medications at this time, and blood pressure and other vital signs will be monitored closely. He will be admitted under observation and placed on telemetry stroke floor. This also could likely be secondary to polypharmacy as the patient has been taking more of his Scotia and Lyrica at home. Therefore, this will be monitored closely and Lyrica will be held at this time. 2. Hypertension. Continue home regimen and monitor blood pressure and other vital signs closely. 3. Coronary artery disease. Continue home regimen. 4. History of chronic obstructive pulmonary disease and emphysema. Continue oxygen supplementation and other home bronchodilation treatments. The patient recently followed up with Dr. Morocho, who had strongly encouraged smoking cessation. However, the patient will not quit. During hospital course, he will be placed on nicotine patch. 5. Peripheral vascular disease. The patient will follow up with his vascular surgeon, Dr. Flores, as an outpatient. 6. Deep venous thrombosis and gastrointestinal prophylaxis. 7. Code status is full code. 8. Surrogate decision maker is his [id number], Shantel. DISPOSITION: Pending further workup and clinical findings. Job ID: [id number]
[2019-03-04 05:10] LABS: #Eosinphils 0.1 thou/uL (0.0-0.7); #Lymphocytes 1.1 thou/uL (1.20-3.40); #Monocytes 0.4 thou/uL (0.11-0.59); #Neutrophils 5.1 thou/uL (1.40-6.50); %Basophils 0.2 % (0.0-1.0); %Eosinophils 1.6 % (0.0-10.0); %Lymphocytes 16.7 % (21.0-51.0); %Monocytes 6.3 % (0.0-10.0); %Neutrophils 75.2 % (42.0-75.0); Hemoglobin 12.1 g/dL (14.0-18.0); Mean Corpuscular HGB CONC 31.1 g/dL (32.0-36.0); Mean Corpuscular Hemoglobin 28.7 pg (27.0-31.0); Mean Corpuscular Volume 92.4 fL (78.0-98.0); Mean Platelet Volume 8.9 fL (7.4-10.4); Platelet Count 122 thou/uL (130-400); RBC Distribution Width 12.7 % (11.5-14.5); Red Blood Cell (RBC) Count 4.22 mill/uL (4.70-6.10); White Blood Cell (WBC) Count 6.8 thou/uL (4.8-10.8)
[2019-03-04 05:36] LABS: Anion Gap 12 mmol/L (10-20); BUN (Urea Nitrogen) 18 mg/dL (8.4-25.7); Calc. Creatinine Clearance 119 mL/min (70-130); Calcium 9.2 mg/dL (7.8-10.44); Carbon Dioxide 36 mmol/L (23-31); Cardiac Risk 5.1 (Less than 4.5); Chloride 96 mmol/L (98-107); Cholesterol 182 mg/dl (< 200 Desired); Estimated GFR-MDRD Greater than 90; Glucose 105 mg/dL (80-115); HDL Cholesterol 36 mg/dL (>60 Neg Risk); LDL Cholesterol, Calculated 124 mg/dL; Potassium 3.7 mmol/L (3.5-5.1); Sodium 140 mmol/L (136-145); Triglycerides 112 mg/dL (Less than 150)
[2019-03-04] MEDS: PROVENTIL INHALER 6.7 G (200 INHALATIONS) INH SCH ×3 (06:44→14:33)
[2019-03-04] MEDS ORDERED: Aspirin Chewable 81 MG TAB PO SCH (09:00)
[2019-03-04] MEDS ORDERED: Aspirin 325 MG TAB PO SCH (09:00)
[2019-03-04] MEDS ORDERED: Prevnar 13-Val Conj/PF 0.5 ML SYRINGE IM ONE (09:00)
[2019-03-04] MEDS ORDERED: Tamsulosin HCl 0.4 MG CAP PO SCH (09:00)
[2019-03-04] MEDS ORDERED: Enoxaparin Sodium 40 MG/0.4 ML SYRINGE SC SCH (09:00)
[2019-03-04] MEDS: Famotidine 20 MG TAB PO SCH (09:31)
[2019-03-04] MEDS: Pramipexole Di-HCl 0.25 MG TAB PO SCH (09:31)
--- NOTE | 2019-03-04 09:37 | MRI ---
MRI BRAIN NONCONTRAST: DATE: 03/04/2019. HISTORY: A 68-year-old male with altered mental status. Rule out CVA/TIA. COMPARISON: 08/06/2016. FINDINGS: No obstructive hydrocephalus, mass effect, midline shift. Mild chronic ischemic white matter changes . Flow voids are maintained in the major arteries of the [place]. Right mastoid effusion. No moderate-sized or large territorial infarction of any age identified. No restricted diffusion: no evidence of acute infarction. No evidence of recent or remote intraaxial hemorrhage. Small left mastoid effusion. At the right posterior upper parasagittal convexity, there is a curvilinear T2 and FLAIR hyperintense lesion. This is unchanged since the 2016 MRI, which shows that this is slow flow within a patent superficial vein. IMPRESSION: 1. Mild chronic ischemic white matter changes. 3. No acute infarction. 4. Bilateral mastoid effusions, right greater than left. JN R POS: [facility]
[2019-03-04] MEDS ORDERED: Pregabalin 50 MG CAP PO SCH ×2 (10:15→15:00)
[2019-03-04 12:33] VITALS: BP 112/59; TEMP 98.2
--- NOTE | 2019-03-05 17:09 | DIS ---
DATE OF ADMISSION: 03/03/2019 DATE OF DISCHARGE: 03/04/2019 PRIMARY DISCHARGE DIAGNOSES: Altered mental state/confusion to rule out transient ischemic attack, resolved. SECONDARY DISCHARGE DIAGNOSES: Hypertension, dyslipidemia, coronary artery disease, peripheral vascular disease with stent placed to right lower extremity, prior coronary artery bypass grafting, history of multiple sclerosis, emphysema, history of previous strokes, and history of seizure. PROCEDURES DONE DURING HOSPITALIZATION: CT of brain without contrast on the day of admission showed no acute findings. Ultrasound carotids done showed moderate right ICA stenosis (50% to 69%). MRI of brain without contrast done showed mild chronic ischemic white matter changes. No acute infarct. Bilateral mastoid effusions, right greater than left. No hydrocephalus, mass effect, or midline shift seen. Hemoglobin and hematocrit of 12 and 39, platelet count 122, MCV 92. Total cholesterol 182, triglycerides 112, LDL 124. Troponin x3 negative. BUN 18, creatinine 0.7. LFTs within normal limits. Albumin 3.8. Urine drug screen was positive for opiates, likely iatrogenic. DISCHARGE MEDICATIONS: 1. Aspirin 81 mg p.o. daily. 2. Clonazepam 1 mg p.o. q.p.m. 3. Cymbalta 60 mg twice daily. 4. Lasix 20 mg p.o. q.a.m. 5. DuoNebs p.r.n. 6. Multivitamin one tablet once daily. 7. K-Dur 10 mEq p.o. daily. 8. Pramipexole 0.5 mg p.o. twice daily. 9. Lyrica 50 mg three times daily. 10. Penicillin VK for cellulitis prophylaxis 250 mg twice daily. 11. Vitamin C 500 mg p.o. daily. ALLERGIES: ALLERGIC TO SULFA AND MORPHINE. DISCHARGE PLAN: The patient to follow up with Dr. Davidson and Dr. Flores, his vascular surgeon in 2 to 3 weeks. BRIEF COURSE DURING HOSPITALIZATION: The patient initially was brought to emergency room for confusion and altered mental state. He also complained of lower extremity pain with prior history of peripheral vascular disease and neuropathy. In view of history of peripheral vascular disease and prior stroke and seizures, the patient was placed under observation on stroke unit. He was gently hydrated during his stay here. He has had a complete stroke workup done, which was negative. The patient has moderate right carotid stenosis and a followup with Dr. Flores will be requested in 3 to 4 weeks. He has history of multiple sclerosis and will follow up with Dr. Davidson in 2 to 3 weeks. He is currently living at [facility], independent [facility]. The patient has [facility] and will continue this services. He is otherwise hemodynamically stable and neurologically stable prior to discharge. He is tolerating oral solid diet. He says Lyrica helps him the maximum for his lower extremity pain and this was continued at the time of discharge. He ambulates within the room minimally. This is his baseline. I have discussed his findings with his [id number], Ms. Lindsay Velazquez over the phone and I have given complete updates to her as well. Please note, I have seen and examined the patient on the day of discharge. Job ID: [id number]
== END 2019-03-04 17:26 | disposition home or self-care (01) ==
LOC: ERS 12:18 → ERHOLD 17:24 → 2SE 21:47
PROVIDERS: ADMIT Internal Medicine; ATTEND Internal Medicine
DX: R41.0 Disorientation, unspecified (principal); I10 Essential (primary) hypertension; E78.5 Hyperlipidemia, unspecified; I25.10 Atherosclerotic heart disease of native coronary artery without angina pectoris; I65.21 Occlusion and stenosis of right carotid artery; I73.9 Peripheral vascular disease, unspecified; J43.9 Emphysema, unspecified; G35 Multiple sclerosis; F41.9 Anxiety disorder, unspecified; F32.9 Major depressive disorder, single episode, unspecified; F17.210 Nicotine dependence, cigarettes, uncomplicated; Z95.1 Presence of aortocoronary bypass graft; Z86.73 Personal history of transient ischemic attack (TIA), and cerebral infarction without residual deficits; Z86.69 Personal history of other diseases of the nervous system and sense organs; Z88.5 Allergy status to narcotic agent; Z88.2 Allergy status to sulfonamides; Z79.82 Long term (current) use of aspirin; Z79.899 Other long term (current) drug therapy
CPT/HCPCS: 70450; 70551; 80048; 80053; 80061; 80306; 80307; 84484 ×2; 85025 ×2; 85610; 85730; 93005; 93880; 94640 ×4; 94760; 96372; 97139 ×2; 97530; 99285; G0378 ×2; 36415; 81003; 81015; J1650; J7620; Q0162

== ENCOUNTER 2019-03-08 10:13 | Inpatient (IN) | payer MEDICARE ==
[2019-03-08 10:43] LABS: #Eosinphils 0.1 thou/uL (0.0-0.7); #Lymphocytes 0.9 thou/uL (1.20-3.40); #Monocytes 0.4 thou/uL (0.11-0.59); #Neutrophils 7.4 thou/uL (1.40-6.50); %Eosinophils 0.6 % (0.0-10.0); %Lymphocytes 10.6 % (21.0-51.0); %Neutrophils 83.9 % (42.0-75.0); Hemoglobin 14.3 g/dL (14.0-18.0); Mean Corpuscular HGB CONC 31.4 g/dL (32.0-36.0); Mean Corpuscular Hemoglobin 29.3 pg (27.0-31.0); Mean Corpuscular Volume 93.3 fL (78.0-98.0); Mean Platelet Volume 8.9 fL (7.4-10.4); Platelet Count 148 thou/uL (130-400); RBC Distribution Width 13.1 % (11.5-14.5); Red Blood Cell (RBC) Count 4.88 mill/uL (4.70-6.10); White Blood Cell (WBC) Count 8.9 thou/uL (4.8-10.8)
[2019-03-08 11:03] LABS: ALT (SGPT) 16 U/L (8-55); AST (SGOT) 16 U/L (5-34); Albumin 3.9 g/dL (3.4-4.8); Alkaline Phosphatase 79 U/L (40-150); Anion Gap 12 mmol/L (10-20); BUN (Urea Nitrogen) 12 mg/dL (8.4-25.7); Bilirubin, Total 0.5 mg/dL (0.2-1.2); Calc. Creatinine Clearance 0 mL/min (70-130); Calcium 9.4 mg/dL (7.8-10.44); Carbon Dioxide 36 mmol/L (23-31); Chloride 99 mmol/L (98-107); Estimated GFR-MDRD Greater than 90; Globulin 2.4 g/dL (2.4-3.5); Glucose 119 mg/dL (80-115); Protein, Total 6.3 g/dL (5.8-8.1); Sodium 143 mmol/L (136-145)
[2019-03-08 12:16] LABS: Actual Bicarbonate (HCO3a) 34.7 mEq/L (22-28); Analyzer IN Cardio ER; Base Excess (BEa) 8.1 mEq/L (-2.0 to +3.0); CO2 Tension 56.3 mmHg (35.0-45.0); Calcium, Ionized 1.15 mmol/L (1.12-1.30); Carboxyhemoglobin (COHb) 3.7 gm% (0.0-3.0); Hemoglobin (Hb) 14.4 g/dL (14.0-18.0); Potassium - ABG Lab 3.82 mmol/L (3.70-5.30); pH, Arterial 7.41 (7.35-7.45)
[2019-03-08 12:19] LABS: O2 Tension (PaO2) 47.3 mmHg (> 80.0)
[2019-03-08 12:20] LABS: Puncture Site LRA
[2019-03-08 12:21] LABS: ALV-art Gradient 81.965 (0-20)
[2019-03-08] MEDS ORDERED: methylPREDNISolone Sod Succ/PF 125 MG/2 ML VIAL ONE (13:33)
[2019-03-08] MEDS ORDERED: Nicotine 21 MG PATCH TOP SCH (13:45)
[2019-03-08] MEDS ORDERED: Bacitracin 1 PK ONE (14:05)
[2019-03-08] MEDS ORDERED: HYDROcodone/Acetaminophen 7.5/325 mg Tablet ONE ×2 (14:26→17:05)
[2019-03-08] MEDS ORDERED: Acetaminophen 325 MG TAB PO PRN (18:47)
[2019-03-08] MEDS ORDERED: Ondansetron ODT 4 MG TAB SL PRN (18:47)
[2019-03-08] MEDS ORDERED: Sodium Chloride 0.9% 1,000 ML IV SCH (18:47)
[2019-03-08] MEDS ORDERED: HYDROcodone/Acetaminophen 5/325 mg Tablet PO PRN ×2 (18:47)
[2019-03-08] MEDS ORDERED: Ondansetron PF 4 MG/2 ML Vial IVP PRN (18:47)
[2019-03-08] MEDS ORDERED: clonazePAM 1 MG TAB PO SCH (22:00)
[2019-03-08] MEDS ORDERED: DULoxetine 60 MG CAP PO SCH (22:00)
[2019-03-08] MEDS ORDERED: Penicillin V Potassium 250 MG TAB PO SCH (22:00)
[2019-03-08] MEDS: Famotidine 20 MG TAB PO SCH (22:30)
[2019-03-08] MEDS ORDERED: Pregabalin 50 MG CAP PO SCH (22:45)
[2019-03-08] MEDS ORDERED: Pramipexole Di-HCl 0.25 MG TAB PO SCH (22:45)
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
[2019-03-09] MEDS ORDERED: Sodium Chloride 0.9% 1,000 ML IV SCH (03:15)
[2019-03-09] MEDS: Aspirin 81 mg Enteric Coated Tablet PO SCH (09:52)
[2019-03-09] MEDS: Ascorbic Acid 500 mg Chewable Tablet PO SCH (09:52)
[2019-03-09] MEDS: Famotidine 20 MG TAB PO SCH ×2 (09:53→21:55)
[2019-03-09] MEDS: DULoxetine 60 MG CAP PO SCH ×2 (09:53→21:55)
[2019-03-09] MEDS: Furosemide 20 MG TAB PO SCH (09:53)
[2019-03-09] MEDS: Potassium Chloride 10 MEQ TAB PO SCH (09:53)
[2019-03-09] MEDS: Penicillin V Potassium 250 MG TAB PO SCH ×2 (09:53→21:55)
[2019-03-09] MEDS: Pramipexole Di-HCl 0.25 MG TAB PO SCH ×2 (09:54→21:56)
[2019-03-09] MEDS: Pregabalin 50 MG CAP PO SCH ×3 (09:54→21:56)
[2019-03-09] MEDS: Vitamin E 400 UNITS CAP PO SCH (10:06)
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
[2019-03-09] MEDS ORDERED: HYDROcodone/Acetaminophen 7.5/325 mg Tablet PO PRN (11:46)
[2019-03-09] MEDS: HYDROcodone/Acetaminophen 7.5/325 mg Tablet PO PRN (12:36)
[2019-03-09] MEDS: Silver Nitrate Application 1 EACH TOP SCH ×2 (13:45→22:25)
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
[2019-03-09 14:25] VITALS: BMI 24.5
[2019-03-09] MEDS: methylPREDNISolone Sod Succ 40 MG VIAL IVP SCH ×2 (14:48→22:09)
[2019-03-09] MEDS: Silver Sulfadiazine 1% Cream 50 GM JAR TOP SCH ×2 (14:51→21:58)
[2019-03-09] MEDS: Bacitracin 1 PK TOP SCH ×2 (14:52→21:59)
[2019-03-09 14:56] LABS: Anion Gap 10 mmol/L (10-20); BUN (Urea Nitrogen) 14 mg/dL (8.4-25.7); Calc. Creatinine Clearance 111 mL/min (70-130); Calcium 8.8 mg/dL (7.8-10.44); Carbon Dioxide 34 mmol/L (23-31); Chloride 102 mmol/L (98-107); Estimated GFR-MDRD Greater than 90; Glucose 101 mg/dL (80-115); Magnesium 2.1 mg/dL (1.6-2.6); Phosphorus 3.2 mg/dL (2.3-4.7); Sodium 142 mmol/L (136-145)
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
[2019-03-09] MEDS ORDERED: Silver Sulfadiazine 1% Cream 50 GM JAR TOP SCH (21:00)
[2019-03-09] MEDS: clonazePAM 1 MG TAB PO SCH (21:55)
[2019-03-10 05:05] LABS: Anion Gap 11 mmol/L (10-20); BUN (Urea Nitrogen) 12 mg/dL (8.4-25.7); Calc. Creatinine Clearance 125 mL/min (70-130); Calcium 9.4 mg/dL (7.8-10.44); Carbon Dioxide 32 mmol/L (23-31); Chloride 100 mmol/L (98-107); Estimated GFR-MDRD Greater than 90; Glucose 148 mg/dL (80-115); Phosphorus 3.8 mg/dL (2.3-4.7); Potassium 4.3 mmol/L (3.5-5.1); Sodium 139 mmol/L (136-145)
[2019-03-10] MEDS: methylPREDNISolone Sod Succ 40 MG VIAL IVP SCH ×3 (06:16→22:44)
[2019-03-10] MEDS: Furosemide 20 MG TAB PO SCH (08:43)
[2019-03-10] MEDS: Aspirin 81 mg Enteric Coated Tablet PO SCH (08:43)
[2019-03-10] MEDS: Bacitracin 1 PK TOP SCH ×2 (08:43→21:20)
[2019-03-10] MEDS: DULoxetine 60 MG CAP PO SCH ×2 (08:43→21:16)
[2019-03-10] MEDS: Ascorbic Acid 500 mg Chewable Tablet PO SCH (08:44)
[2019-03-10] MEDS: Pregabalin 50 MG CAP PO SCH ×3 (08:44→21:17)
[2019-03-10] MEDS: Famotidine 20 MG TAB PO SCH ×2 (08:45→21:16)
[2019-03-10] MEDS: Penicillin V Potassium 250 MG TAB PO SCH ×2 (08:45→21:22)
[2019-03-10] MEDS: Potassium Chloride 10 MEQ TAB PO SCH (08:47)
[2019-03-10] MEDS: Silver Sulfadiazine 1% Cream 50 GM JAR TOP SCH ×2 (08:54→21:19)
[2019-03-10] MEDS: Silver Nitrate Application 1 EACH TOP SCH ×2 (08:55→21:18)
[2019-03-10] MEDS: Vitamin E 400 UNITS CAP PO SCH (08:55)
[2019-03-10] MEDS ORDERED: Pregabalin 50 MG CAP PO SCH ×2 (10:43→11:00)
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
[2019-03-10] MEDS: Pramipexole Di-HCl 0.25 MG TAB PO SCH ×2 (11:55→21:16)
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
[2019-03-10] MEDS: clonazePAM 1 MG TAB PO SCH (21:17)
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
[2019-03-11] MEDS: methylPREDNISolone Sod Succ 40 MG VIAL IVP SCH ×3 (05:33→22:13)
[2019-03-11] MEDS ORDERED: CEFAZOLIN 2 GM in Premix Bag 1 BAG IVPB SCH ×2 (06:00→15:15)
[2019-03-11] MEDS: Aspirin 81 mg Enteric Coated Tablet PO SCH (06:41)
[2019-03-11] MEDS: DULoxetine 60 MG CAP PO SCH ×2 (08:07→20:30)
[2019-03-11] MEDS: Penicillin V Potassium 250 MG TAB PO SCH ×2 (08:07→20:31)
[2019-03-11] MEDS: Pramipexole Di-HCl 0.25 MG TAB PO SCH ×2 (08:08→20:32)
[2019-03-11] MEDS: Famotidine 20 MG TAB PO SCH ×2 (08:08→20:31)
[2019-03-11] MEDS: Pregabalin 50 MG CAP PO SCH ×3 (08:09→20:30)
[2019-03-11] MEDS: Ascorbic Acid 500 mg Chewable Tablet PO SCH (08:09)
[2019-03-11] MEDS: Furosemide 20 MG TAB PO SCH (08:09)
[2019-03-11] MEDS: HYDROcodone/Acetaminophen 7.5/325 mg Tablet PO PRN ×3 (08:10→21:12)
[2019-03-11] MEDS: Potassium Chloride 10 MEQ TAB PO SCH (08:15)
[2019-03-11] MEDS: Silver Sulfadiazine 1% Cream 50 GM JAR TOP SCH ×2 (08:16→21:56)
[2019-03-11] MEDS: Bacitracin 1 PK TOP SCH ×2 (08:16→20:31)
[2019-03-11] MEDS: Vitamin E 400 UNITS CAP PO SCH (08:16)
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
[2019-03-11] MEDS ORDERED: PROPOFOL 200 MG/20 ML VIAL ONE (15:43)
[2019-03-11] MEDS ORDERED: Lidocaine 1% PF 5 ML VIAL ONE (15:43)
[2019-03-11] MEDS ORDERED: Bupivacaine 0.25% HCL 30 ML VIAL ONE (16:41)
[2019-03-11] MEDS ORDERED: EPINEPHrine 1 MG/ML AMP ONE (16:41)
[2019-03-11] MEDS ORDERED: Bupivacaine/Epinephrine 0.25% 30 ML VIAL ONE ×2 (16:42→17:31)
[2019-03-11] MEDS ORDERED: Sodium Chloride 0.9% 0 ML ONE (16:47)
[2019-03-11] MEDS ORDERED: Fentanyl 100 MCG/2 ML VIAL ONE (17:17)
[2019-03-11] MEDS ORDERED: Ondansetron HCl/PF 4 MG/2 ML Vial IVP PRN (18:59)
[2019-03-11] MEDS ORDERED: Meperidine HCl/PF 25 MG/ML VIAL SLOW IVP PRN (18:59)
[2019-03-11] MEDS ORDERED: Promethazine HCl 25 MG/ML VIAL IM PRN (18:59)
[2019-03-11] MEDS ORDERED: HYDROmorphone 2 MG/ML VIAL SLOW IVP PRN (18:59)
[2019-03-11] MEDS ORDERED: Promethazine HCl 25 MG/ML VIAL SLOW IVP PRN (18:59)
[2019-03-11] MEDS ORDERED: Morphine Sulfate 2 MG/ML SYRINGE SLOW IVP PRN (18:59)
[2019-03-11] MEDS ORDERED: PACU-Morphine 4MG/ML VIAL SLOW IVP PRN (18:59)
[2019-03-11] MEDS: clonazePAM 1 MG TAB PO SCH (20:31)
[2019-03-12] MEDS: methylPREDNISolone Sod Succ 40 MG VIAL IVP SCH ×2 (05:55→14:26)
[2019-03-12] MEDS: Penicillin V Potassium 250 MG TAB PO SCH ×2 (07:53→20:04)
[2019-03-12] MEDS: Pramipexole Di-HCl 0.25 MG TAB PO SCH ×2 (07:53→20:04)
[2019-03-12] MEDS: Pregabalin 50 MG CAP PO SCH ×3 (07:54→20:03)
[2019-03-12] MEDS: Furosemide 20 MG TAB PO SCH (07:55)
[2019-03-12] MEDS: Vitamin E 400 UNITS CAP PO SCH (07:55)
[2019-03-12] MEDS: Famotidine 20 MG TAB PO SCH ×2 (07:55→20:02)
[2019-03-12] MEDS: Ascorbic Acid 500 mg Chewable Tablet PO SCH (07:55)
[2019-03-12] MEDS: Bacitracin 1 PK TOP SCH (07:56)
[2019-03-12] MEDS: Aspirin 81 mg Enteric Coated Tablet PO SCH (07:56)
[2019-03-12] MEDS: Potassium Chloride 10 MEQ TAB PO SCH (07:56)
[2019-03-12] MEDS: DULoxetine 60 MG CAP PO SCH ×2 (07:57→20:02)
[2019-03-12] MEDS: Silver Sulfadiazine 1% Cream 50 GM JAR TOP SCH ×2 (07:57→20:41)
[2019-03-12] MEDS: HYDROcodone/Acetaminophen 7.5/325 mg Tablet PO PRN (12:35)
[2019-03-12] MEDS ORDERED: Morphine 4 MG/ML VIAL SLOW IVP PRN (14:57)
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
[2019-03-12] MEDS ORDERED: Ketorolac Tromethamine 30 MG/ML VIAL IVP SCH (16:00)
[2019-03-12] MEDS: HYDROcodone/Acetaminophen 10/325 mg Tablet PO PRN (16:36)
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
[2019-03-12] MEDS: clonazePAM 1 MG TAB PO SCH (20:02)
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
[2019-03-13] MEDS: Famotidine 20 MG TAB PO SCH ×2 (09:43→21:08)
[2019-03-13] MEDS: Aspirin 81 mg Enteric Coated Tablet PO SCH (09:44)
[2019-03-13] MEDS: Pregabalin 50 MG CAP PO SCH ×3 (09:44→21:11)
[2019-03-13] MEDS: Ascorbic Acid 500 mg Chewable Tablet PO SCH (09:44)
[2019-03-13] MEDS: Furosemide 20 MG TAB PO SCH (09:44)
[2019-03-13] MEDS: DULoxetine 60 MG CAP PO SCH ×2 (09:44→21:08)
[2019-03-13] MEDS: Pramipexole Di-HCl 0.25 MG TAB PO SCH ×2 (09:46→21:09)
[2019-03-13] MEDS: Penicillin V Potassium 250 MG TAB PO SCH ×2 (09:47→21:08)
[2019-03-13] MEDS: Silver Sulfadiazine 1% Cream 50 GM JAR TOP SCH ×2 (09:49→21:12)
[2019-03-13] MEDS: Vitamin E 400 UNITS CAP PO SCH (09:58)
[2019-03-13] MEDS: Potassium Chloride 10 MEQ TAB PO SCH (10:05)
[2019-03-13] MEDS: HYDROcodone/Acetaminophen 10/325 mg Tablet PO PRN ×2 (10:06→21:07)
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
[2019-03-13] MEDS: clonazePAM 1 MG TAB PO SCH (21:08)
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
[2019-03-14] MEDS: Ascorbic Acid 500 mg Chewable Tablet PO SCH (08:35)
[2019-03-14] MEDS: DULoxetine 60 MG CAP PO SCH ×2 (08:35→21:06)
[2019-03-14] MEDS: Penicillin V Potassium 250 MG TAB PO SCH ×2 (08:35→21:04)
[2019-03-14] MEDS: Famotidine 20 MG TAB PO SCH ×2 (08:36→21:05)
[2019-03-14] MEDS: Aspirin 81 mg Enteric Coated Tablet PO SCH (08:36)
[2019-03-14] MEDS: Potassium Chloride 10 MEQ TAB PO SCH (08:36)
[2019-03-14] MEDS: Furosemide 20 MG TAB PO SCH (08:36)
[2019-03-14] MEDS: Pramipexole Di-HCl 0.25 MG TAB PO SCH ×2 (08:36→21:04)
[2019-03-14] MEDS: Pregabalin 50 MG CAP PO SCH ×3 (08:37→21:05)
[2019-03-14] MEDS: Silver Sulfadiazine 1% Cream 50 GM JAR TOP SCH ×2 (08:38→21:07)
[2019-03-14] MEDS: HYDROcodone/Acetaminophen 10/325 mg Tablet PO PRN (08:41)
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
[2019-03-14] MEDS: clonazePAM 1 MG TAB PO SCH (21:05)
[2019-03-15] MEDS: Ascorbic Acid 500 mg Chewable Tablet PO SCH (08:41)
[2019-03-15] MEDS: Famotidine 20 MG TAB PO SCH ×2 (08:41→23:36)
[2019-03-15] MEDS: Aspirin 81 mg Enteric Coated Tablet PO SCH (08:42)
[2019-03-15] MEDS: Pregabalin 50 MG CAP PO SCH ×3 (08:42→23:35)
[2019-03-15] MEDS: Pramipexole Di-HCl 0.25 MG TAB PO SCH ×2 (08:43→23:34)
[2019-03-15] MEDS: Penicillin V Potassium 250 MG TAB PO SCH ×2 (08:43→23:35)
[2019-03-15] MEDS: Potassium Chloride 10 MEQ TAB PO SCH (08:43)
[2019-03-15] MEDS: Furosemide 20 MG TAB PO SCH (08:43)
[2019-03-15] MEDS: Silver Sulfadiazine 1% Cream 50 GM JAR TOP SCH ×2 (08:45→21:00)
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
[2019-03-15] MEDS: DULoxetine 60 MG CAP PO SCH ×2 (12:14→23:35)
[2019-03-15] MEDS: HYDROcodone/Acetaminophen 10/325 mg Tablet PO PRN (14:19)
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
[2019-03-15] MEDS: clonazePAM 1 MG TAB PO SCH (23:36)
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
[2019-03-16] MEDS: HYDROcodone/Acetaminophen 10/325 mg Tablet PO PRN (09:49)
[2019-03-16] MEDS: DULoxetine 60 MG CAP PO SCH ×2 (09:50→22:35)
[2019-03-16] MEDS: Pregabalin 50 MG CAP PO SCH ×3 (09:51→22:37)
[2019-03-16] MEDS: Penicillin V Potassium 250 MG TAB PO SCH ×2 (09:51→22:35)
[2019-03-16] MEDS: Pramipexole Di-HCl 0.25 MG TAB PO SCH ×2 (09:51→22:36)
[2019-03-16] MEDS: Ascorbic Acid 500 mg Chewable Tablet PO SCH (09:52)
[2019-03-16] MEDS: Potassium Chloride 10 MEQ TAB PO SCH (09:53)
[2019-03-16] MEDS: Aspirin 81 mg Enteric Coated Tablet PO SCH (09:53)
[2019-03-16] MEDS: Famotidine 20 MG TAB PO SCH ×2 (09:53→22:38)
[2019-03-16] MEDS: Furosemide 20 MG TAB PO SCH (09:55)
[2019-03-16] MEDS: Silver Sulfadiazine 1% Cream 50 GM JAR TOP SCH ×2 (09:55→22:40)
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
[2019-03-16] MEDS: clonazePAM 1 MG TAB PO SCH (22:35)
[2019-03-17] MEDS: DULoxetine 60 MG CAP PO SCH ×2 (08:26→20:46)
[2019-03-17] MEDS: Potassium Chloride 10 MEQ TAB PO SCH (08:26)
[2019-03-17] MEDS: Famotidine 20 MG TAB PO SCH ×2 (08:26→20:46)
[2019-03-17] MEDS: Furosemide 20 MG TAB PO SCH (08:26)
[2019-03-17] MEDS: Ascorbic Acid 500 mg Chewable Tablet PO SCH (08:26)
[2019-03-17] MEDS: Pramipexole Di-HCl 0.25 MG TAB PO SCH ×2 (08:27→20:52)
[2019-03-17] MEDS: Pregabalin 50 MG CAP PO SCH ×3 (08:27→20:47)
[2019-03-17] MEDS: Aspirin 81 mg Enteric Coated Tablet PO SCH (08:27)
[2019-03-17] MEDS: Penicillin V Potassium 250 MG TAB PO SCH ×2 (08:27→20:52)
[2019-03-17] MEDS: Silver Sulfadiazine 1% Cream 50 GM JAR TOP SCH ×2 (08:29→20:50)
[2019-03-17 08:34] LABS: #Eosinphils 0.2 thou/uL (0.0-0.7); #Lymphocytes 1.7 thou/uL (1.20-3.40); #Monocytes 1.1 thou/uL (0.11-0.59); #Neutrophils 6.9 thou/uL (1.40-6.50); %Basophils 0.1 % (0.0-1.0); %Eosinophils 1.6 % (0.0-10.0); %Lymphocytes 17.4 % (21.0-51.0); %Monocytes 11.2 % (0.0-10.0); %Neutrophils 69.7 % (42.0-75.0); Hemoglobin 13.7 g/dL (14.0-18.0); Mean Corpuscular HGB CONC 31.9 g/dL (32.0-36.0); Mean Corpuscular Hemoglobin 29.6 pg (27.0-31.0); Mean Corpuscular Volume 92.7 fL (78.0-98.0); Mean Platelet Volume 8.9 fL (7.4-10.4); Platelet Count 126 thou/uL (130-400); RBC Distribution Width 13.1 % (11.5-14.5); Red Blood Cell (RBC) Count 4.63 mill/uL (4.70-6.10); White Blood Cell (WBC) Count 9.9 thou/uL (4.8-10.8)
[2019-03-17 09:20] LABS: ALT (SGPT) 24 U/L (8-55); AST (SGOT) 11 U/L (5-34); Albumin 3.2 g/dL (3.4-4.8); Alkaline Phosphatase 97 U/L (40-150); Anion Gap 15 mmol/L (10-20); BUN (Urea Nitrogen) 15 mg/dL (8.4-25.7); Bilirubin, Total 0.4 mg/dL (0.2-1.2); Calc. Creatinine Clearance 120 mL/min (70-130); Calcium 9.2 mg/dL (7.8-10.44); Carbon Dioxide 30 mmol/L (23-31); Chloride 98 mmol/L (98-107); Estimated GFR-MDRD Greater than 90; Globulin 2.6 g/dL (2.4-3.5); Glucose 100 mg/dL (80-115); Potassium 4.5 mmol/L (3.5-5.1); Protein, Total 5.8 g/dL (5.8-8.1); Sodium 138 mmol/L (136-145)
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
[2019-03-17] MEDS: HYDROcodone/Acetaminophen 10/325 mg Tablet PO PRN (11:34)
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
[2019-03-17] MEDS: clonazePAM 1 MG TAB PO SCH (20:46)
[2019-03-18] MEDS: Potassium Chloride 10 MEQ TAB PO SCH (08:04)
[2019-03-18] MEDS: Aspirin 81 mg Enteric Coated Tablet PO SCH (08:04)
[2019-03-18] MEDS: DULoxetine 60 MG CAP PO SCH ×2 (08:04→20:19)
[2019-03-18] MEDS: Penicillin V Potassium 250 MG TAB PO SCH ×2 (08:04→20:18)
[2019-03-18] MEDS: Furosemide 20 MG TAB PO SCH (08:04)
[2019-03-18] MEDS: Ascorbic Acid 500 mg Chewable Tablet PO SCH (08:05)
[2019-03-18] MEDS: Famotidine 20 MG TAB PO SCH ×2 (08:05→20:19)
[2019-03-18] MEDS: Pramipexole Di-HCl 0.25 MG TAB PO SCH ×2 (08:05→20:19)
[2019-03-18] MEDS: Pregabalin 50 MG CAP PO SCH ×3 (08:06→20:19)
[2019-03-18] MEDS: Silver Sulfadiazine 1% Cream 50 GM JAR TOP SCH ×2 (08:08→20:20)
[2019-03-18] MEDS: HYDROcodone/Acetaminophen 10/325 mg Tablet PO PRN ×2 (08:09→20:30)
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
[2019-03-18] MEDS: clonazePAM 1 MG TAB PO SCH (20:18)
[2019-03-19] MEDS: Aspirin 81 mg Enteric Coated Tablet PO SCH (08:05)
[2019-03-19] MEDS: Pregabalin 50 MG CAP PO SCH ×3 (08:05→20:00)
[2019-03-19] MEDS: Furosemide 20 MG TAB PO SCH (08:05)
[2019-03-19] MEDS: DULoxetine 60 MG CAP PO SCH ×2 (08:05→20:00)
[2019-03-19] MEDS: Penicillin V Potassium 250 MG TAB PO SCH (08:05)
[2019-03-19] MEDS: Pramipexole Di-HCl 0.25 MG TAB PO SCH ×2 (08:05→19:59)
[2019-03-19] MEDS: Famotidine 20 MG TAB PO SCH ×2 (08:06→20:00)
[2019-03-19] MEDS: Potassium Chloride 10 MEQ TAB PO SCH (08:06)
[2019-03-19] MEDS: Silver Sulfadiazine 1% Cream 50 GM JAR TOP SCH ×2 (08:06→20:01)
[2019-03-19] MEDS: Ascorbic Acid 500 mg Chewable Tablet PO SCH (08:06)
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
[2019-03-19] MEDS: clonazePAM 1 MG TAB PO SCH (20:00)
[2019-03-19] MEDS: HYDROcodone/Acetaminophen 10/325 mg Tablet PO PRN (20:04)
[2019-03-20] MEDS: Pramipexole Di-HCl 0.25 MG TAB PO SCH ×2 (08:17→20:05)
[2019-03-20] MEDS: Ascorbic Acid 500 mg Chewable Tablet PO SCH (08:17)
[2019-03-20] MEDS: Aspirin 81 mg Enteric Coated Tablet PO SCH (08:17)
[2019-03-20] MEDS: Famotidine 20 MG TAB PO SCH ×2 (08:17→20:05)
[2019-03-20] MEDS: DULoxetine 60 MG CAP PO SCH ×2 (08:17→20:05)
[2019-03-20] MEDS: Potassium Chloride 10 MEQ TAB PO SCH (08:18)
[2019-03-20] MEDS: Pregabalin 50 MG CAP PO SCH ×3 (08:18→20:05)
[2019-03-20] MEDS: Furosemide 20 MG TAB PO SCH (08:18)
[2019-03-20] MEDS: Silver Sulfadiazine 1% Cream 50 GM JAR TOP SCH ×2 (08:19→20:06)
--- NOTE | 2019-03-20 10:43 | PRG ---
DATE OF SERVICE: 03/20/2019 SUBJECTIVE: This morning, he is doing well. No shortness of breath or cough. OBJECTIVE: VITAL SIGNS: Sats are 92% on room air, temperature 97, pulse 70, respiratory rate 20, blood pressure 130/76. CHEST: No wheezing. CARDIAC: Normal S1, S2. No gallops. ABDOMEN: Soft. IMPRESSION: 1. Chronic obstructive pulmonary disease. 2. Facial bones, deconditioning. PLAN: The patient is stable enough to be transferred. Continue supportive care PT. Job ID: [id number]
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
[2019-03-20] MEDS: HYDROcodone/Acetaminophen 10/325 mg Tablet PO PRN (20:11)
[2019-03-21 04:53] LABS: #Eosinphils 0.1 thou/uL (0.0-0.7); #Lymphocytes 1.2 thou/uL (1.20-3.40); #Monocytes 0.7 thou/uL (0.11-0.59); %Basophils 0.1 % (0.0-1.0); %Eosinophils 1.3 % (0.0-10.0); %Lymphocytes 13.4 % (21.0-51.0); %Monocytes 7.2 % (0.0-10.0); Hemoglobin 12.4 g/dL (14.0-18.0); Mean Corpuscular HGB CONC 31.1 g/dL (32.0-36.0); Mean Corpuscular Hemoglobin 28.7 pg (27.0-31.0); Mean Corpuscular Volume 92.4 fL (78.0-98.0); Mean Platelet Volume 8.3 fL (7.4-10.4); Platelet Count 169 thou/uL (130-400); Red Blood Cell (RBC) Count 4.33 mill/uL (4.70-6.10)
[2019-03-21 05:13] LABS: Anion Gap 12 mmol/L (10-20); BUN (Urea Nitrogen) 17 mg/dL (8.4-25.7); Calc. Creatinine Clearance 104 mL/min (70-130); Calcium 9.5 mg/dL (7.8-10.44); Carbon Dioxide 35 mmol/L (23-31); Chloride 100 mmol/L (98-107); Estimated GFR-MDRD 87; Glucose 96 mg/dL (80-115); Potassium 4.5 mmol/L (3.5-5.1); Sodium 142 mmol/L (136-145)
[2019-03-21] MEDS: Pramipexole Di-HCl 0.25 MG TAB PO SCH ×2 (08:34→19:49)
[2019-03-21] MEDS: Pregabalin 50 MG CAP PO SCH ×3 (08:35→19:51)
[2019-03-21] MEDS: Ascorbic Acid 500 mg Chewable Tablet PO SCH (08:36)
[2019-03-21] MEDS: Potassium Chloride 10 MEQ TAB PO SCH (08:36)
[2019-03-21] MEDS: DULoxetine 60 MG CAP PO SCH ×2 (08:36→19:50)
[2019-03-21] MEDS: Furosemide 20 MG TAB PO SCH (08:36)
[2019-03-21] MEDS: Aspirin 81 mg Enteric Coated Tablet PO SCH (08:36)
[2019-03-21] MEDS: Famotidine 20 MG TAB PO SCH ×2 (08:37→19:50)
[2019-03-21] MEDS: Silver Sulfadiazine 1% Cream 50 GM JAR TOP SCH ×2 (08:43→19:53)
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
[2019-03-21] MEDS: HYDROcodone/Acetaminophen 10/325 mg Tablet PO PRN (19:50)
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
[2019-03-22] MEDS: Aspirin 81 mg Enteric Coated Tablet PO SCH (07:53)
[2019-03-22] MEDS: Famotidine 20 MG TAB PO SCH ×2 (07:54→20:23)
[2019-03-22] MEDS: Furosemide 20 MG TAB PO SCH (07:54)
[2019-03-22] MEDS: DULoxetine 60 MG CAP PO SCH ×2 (07:54→20:23)
[2019-03-22] MEDS: Pregabalin 50 MG CAP PO SCH ×3 (07:54→20:25)
[2019-03-22] MEDS: Potassium Chloride 10 MEQ TAB PO SCH (07:54)
[2019-03-22] MEDS: Ascorbic Acid 500 mg Chewable Tablet PO SCH (07:54)
[2019-03-22] MEDS: Silver Sulfadiazine 1% Cream 50 GM JAR TOP SCH ×3 (07:58→20:26)
[2019-03-22] MEDS: Pramipexole Di-HCl 0.25 MG TAB PO SCH ×2 (08:36→20:24)
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
[2019-03-22] MEDS: HYDROcodone/Acetaminophen 10/325 mg Tablet PO PRN (21:10)
[2019-03-23] MEDS: Ascorbic Acid 500 mg Chewable Tablet PO SCH (08:06)
[2019-03-23] MEDS: DULoxetine 60 MG CAP PO SCH ×2 (08:06→21:00)
[2019-03-23] MEDS: Potassium Chloride 10 MEQ TAB PO SCH (08:06)
[2019-03-23] MEDS: Furosemide 20 MG TAB PO SCH (08:07)
[2019-03-23] MEDS: Famotidine 20 MG TAB PO SCH ×2 (08:07→21:00)
[2019-03-23] MEDS: Pregabalin 50 MG CAP PO SCH ×3 (08:07→21:00)
[2019-03-23] MEDS: Aspirin 81 mg Enteric Coated Tablet PO SCH (08:07)
[2019-03-23] MEDS: Silver Sulfadiazine 1% Cream 50 GM JAR TOP SCH ×2 (08:08→21:01)
[2019-03-23] MEDS: Pramipexole Di-HCl 0.25 MG TAB PO SCH ×2 (08:42→21:00)
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
[2019-03-24] MEDS: Ascorbic Acid 500 mg Chewable Tablet PO SCH (09:01)
[2019-03-24] MEDS: Furosemide 20 MG TAB PO SCH (09:01)
[2019-03-24] MEDS: Famotidine 20 MG TAB PO SCH ×2 (09:01→21:52)
[2019-03-24] MEDS: Potassium Chloride 10 MEQ TAB PO SCH (09:01)
[2019-03-24] MEDS: DULoxetine 60 MG CAP PO SCH ×2 (09:01→21:53)
[2019-03-24] MEDS: Aspirin 81 mg Enteric Coated Tablet PO SCH (09:01)
[2019-03-24] MEDS: Pregabalin 50 MG CAP PO SCH ×3 (09:02→21:51)
[2019-03-24] MEDS: Silver Sulfadiazine 1% Cream 50 GM JAR TOP SCH ×2 (09:02→21:54)
[2019-03-24] MEDS: Pramipexole Di-HCl 0.25 MG TAB PO SCH ×2 (09:04→21:53)
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
[2019-03-25] MEDS: Potassium Chloride 10 MEQ TAB PO SCH (07:52)
[2019-03-25] MEDS: Ascorbic Acid 500 mg Chewable Tablet PO SCH (07:52)
[2019-03-25] MEDS: Aspirin 81 mg Enteric Coated Tablet PO SCH (07:52)
[2019-03-25] MEDS: Furosemide 20 MG TAB PO SCH (07:52)
[2019-03-25] MEDS: Pregabalin 50 MG CAP PO SCH ×3 (07:52→20:42)
[2019-03-25] MEDS: Famotidine 20 MG TAB PO SCH ×2 (07:52→20:41)
[2019-03-25] MEDS: DULoxetine 60 MG CAP PO SCH ×2 (07:52→20:41)
[2019-03-25] MEDS: Pramipexole Di-HCl 0.25 MG TAB PO SCH ×2 (07:54→20:41)
[2019-03-25] MEDS: Silver Sulfadiazine 1% Cream 50 GM JAR TOP SCH ×2 (07:54→20:42)
[2019-03-25] MEDS: HYDROcodone/Acetaminophen 10/325 mg Tablet PO PRN (08:10)
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
[2019-03-26 05:41] LABS: #Basophils 0.1 thou/uL (0.0-0.2); #Eosinphils 0.1 thou/uL (0.0-0.7); #Lymphocytes 1.7 thou/uL (1.20-3.40); #Monocytes 0.5 thou/uL (0.11-0.59); #Neutrophils 6.5 thou/uL (1.40-6.50); %Basophils 0.7 % (0.0-1.0); %Eosinophils 1.4 % (0.0-10.0); %Lymphocytes 18.9 % (21.0-51.0); %Monocytes 5.5 % (0.0-10.0); %Neutrophils 73.5 % (42.0-75.0); Mean Corpuscular HGB CONC 32.1 g/dL (32.0-36.0); Mean Corpuscular Hemoglobin 29.2 pg (27.0-31.0); Platelet Count 174 thou/uL (130-400); RBC Distribution Width 13.1 % (11.5-14.5); Red Blood Cell (RBC) Count 4.12 mill/uL (4.70-6.10); White Blood Cell (WBC) Count 8.8 thou/uL (4.8-10.8)
[2019-03-26 06:17] LABS: Anion Gap 13 mmol/L (10-20); BUN (Urea Nitrogen) 16 mg/dL (8.4-25.7); Calc. Creatinine Clearance 117 mL/min (70-130); Calcium 8.8 mg/dL (7.8-10.44); Carbon Dioxide 29 mmol/L (23-31); Chloride 102 mmol/L (98-107); Estimated GFR-MDRD Greater than 90; Glucose 92 mg/dL (80-115); Sodium 140 mmol/L (136-145)
[2019-03-26] MEDS: DULoxetine 60 MG CAP PO SCH ×2 (07:55→20:46)
[2019-03-26] MEDS: Pramipexole Di-HCl 0.25 MG TAB PO SCH ×2 (07:55→20:45)
[2019-03-26] MEDS: Aspirin 81 mg Enteric Coated Tablet PO SCH (07:55)
[2019-03-26] MEDS: Famotidine 20 MG TAB PO SCH ×2 (07:56→20:46)
[2019-03-26] MEDS: Ascorbic Acid 500 mg Chewable Tablet PO SCH (07:56)
[2019-03-26] MEDS: Pregabalin 50 MG CAP PO SCH ×3 (07:56→20:47)
[2019-03-26] MEDS: Furosemide 20 MG TAB PO SCH (07:56)
[2019-03-26] MEDS: Silver Sulfadiazine 1% Cream 50 GM JAR TOP SCH ×2 (07:58→20:46)
[2019-03-26] MEDS: Potassium Chloride 10 MEQ TAB PO SCH (07:58)
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
[2019-03-26] MEDS: HYDROcodone/Acetaminophen 10/325 mg Tablet PO PRN (20:50)
[2019-03-27] MEDS: Ascorbic Acid 500 mg Chewable Tablet PO SCH (07:54)
[2019-03-27] MEDS: Furosemide 20 MG TAB PO SCH (07:54)
[2019-03-27] MEDS: Pramipexole Di-HCl 0.25 MG TAB PO SCH ×2 (07:54→20:40)
[2019-03-27] MEDS: Aspirin 81 mg Enteric Coated Tablet PO SCH (07:54)
[2019-03-27] MEDS: DULoxetine 60 MG CAP PO SCH ×2 (07:55→20:41)
[2019-03-27] MEDS: Famotidine 20 MG TAB PO SCH ×2 (07:55→20:41)
[2019-03-27] MEDS: Potassium Chloride 10 MEQ TAB PO SCH (07:55)
[2019-03-27] MEDS: Pregabalin 50 MG CAP PO SCH ×3 (07:56→20:43)
[2019-03-27] MEDS: Silver Sulfadiazine 1% Cream 50 GM JAR TOP SCH ×3 (07:57→20:48)
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
[2019-03-27] MEDS: HYDROcodone/Acetaminophen 10/325 mg Tablet PO PRN (20:44)
[2019-03-28] MEDS: Aspirin 81 mg Enteric Coated Tablet PO SCH (09:02)
[2019-03-28] MEDS: Pramipexole Di-HCl 0.25 MG TAB PO SCH ×2 (09:02→20:27)
[2019-03-28] MEDS: DULoxetine 60 MG CAP PO SCH ×2 (09:02→20:24)
[2019-03-28] MEDS: Furosemide 20 MG TAB PO SCH (09:02)
[2019-03-28] MEDS: Ascorbic Acid 500 mg Chewable Tablet PO SCH (09:02)
[2019-03-28] MEDS: Famotidine 20 MG TAB PO SCH ×2 (09:02→20:24)
[2019-03-28] MEDS: Pregabalin 50 MG CAP PO SCH ×3 (09:03→20:25)
[2019-03-28] MEDS: Potassium Chloride 10 MEQ TAB PO SCH (09:03)
[2019-03-28] MEDS: Silver Sulfadiazine 1% Cream 50 GM JAR TOP SCH ×2 (09:04→20:28)
--- NOTE | 2019-03-28 09:08 | PRG ---
DATE OF SERVICE: 03/28/2019 SUBJECTIVE: Duke Velazquez is in no distress. OBJECTIVE: VITAL SIGNS: He is afebrile, heart rate is 86, respiratory rates in the teens, oximetry is 93, and blood pressure 118/71. LUNGS: Clear. HEART: Regular rhythm. ABDOMEN: Soft and nontender. IMPRESSION AND PLAN: 1. Status post harley with skin grafting. Awaiting placement for wound care. 2. Chronic obstructive pulmonary disease. 3. Peripheral vascular disease. It does not appear that he will receive approval for placement anywhere, anytime soon. He is ambulating fairly well. We would wonder if we could do outpatient wound care. When he came to the hospital, he had wound care and then went back home. Job ID: [id number]
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
[2019-03-28] MEDS: HYDROcodone/Acetaminophen 10/325 mg Tablet PO PRN (20:26)
[2019-03-29] MEDS: Furosemide 20 MG TAB PO SCH (09:24)
[2019-03-29] MEDS: HYDROcodone/Acetaminophen 10/325 mg Tablet PO PRN (09:24)
[2019-03-29] MEDS: Pramipexole Di-HCl 0.25 MG TAB PO SCH ×2 (09:24→21:32)
[2019-03-29] MEDS: Pregabalin 50 MG CAP PO SCH ×3 (09:25→21:33)
[2019-03-29] MEDS: Aspirin 81 mg Enteric Coated Tablet PO SCH (09:25)
[2019-03-29] MEDS: Famotidine 20 MG TAB PO SCH ×2 (09:25→21:32)
[2019-03-29] MEDS: Ascorbic Acid 500 mg Chewable Tablet PO SCH (09:25)
[2019-03-29] MEDS: Potassium Chloride 10 MEQ TAB PO SCH (09:26)
[2019-03-29] MEDS: DULoxetine 60 MG CAP PO SCH ×2 (09:26→21:32)
[2019-03-29] MEDS: Silver Sulfadiazine 1% Cream 50 GM JAR TOP SCH ×2 (09:31→21:33)
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
[2019-03-30] MEDS: Pramipexole Di-HCl 0.25 MG TAB PO SCH ×2 (08:17→20:38)
[2019-03-30] MEDS: Aspirin 81 mg Enteric Coated Tablet PO SCH (08:17)
[2019-03-30] MEDS: Pregabalin 50 MG CAP PO SCH ×3 (08:18→20:38)
[2019-03-30] MEDS: DULoxetine 60 MG CAP PO SCH ×2 (08:19→20:39)
[2019-03-30] MEDS: Furosemide 20 MG TAB PO SCH (08:20)
[2019-03-30] MEDS: Potassium Chloride 10 MEQ TAB PO SCH (08:20)
[2019-03-30] MEDS: Ascorbic Acid 500 mg Chewable Tablet PO SCH (08:20)
[2019-03-30] MEDS: Famotidine 20 MG TAB PO SCH ×2 (08:21→20:39)
[2019-03-30] MEDS: Silver Sulfadiazine 1% Cream 50 GM JAR TOP SCH ×2 (08:22→20:40)
[2019-03-30] MEDS: HYDROcodone/Acetaminophen 10/325 mg Tablet PO PRN ×3 (08:24→22:37)
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
[2019-03-31] MEDS: Ascorbic Acid 500 mg Chewable Tablet PO SCH (08:54)
[2019-03-31] MEDS: DULoxetine 60 MG CAP PO SCH ×2 (08:54→21:25)
[2019-03-31] MEDS: Furosemide 20 MG TAB PO SCH (08:54)
[2019-03-31] MEDS: Aspirin 81 mg Enteric Coated Tablet PO SCH (08:54)
[2019-03-31] MEDS: Famotidine 20 MG TAB PO SCH ×2 (08:54→21:25)
[2019-03-31] MEDS: Potassium Chloride 10 MEQ TAB PO SCH (08:55)
[2019-03-31] MEDS: Pramipexole Di-HCl 0.25 MG TAB PO SCH ×2 (08:55→21:25)
[2019-03-31] MEDS: Pregabalin 50 MG CAP PO SCH ×3 (08:56→21:24)
[2019-03-31] MEDS: Silver Sulfadiazine 1% Cream 50 GM JAR TOP SCH ×2 (10:40→21:23)
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
[2019-03-31] MEDS: HYDROcodone/Acetaminophen 10/325 mg Tablet PO PRN (16:31)
[2019-04-01] MEDS: Pregabalin 50 MG CAP PO SCH ×2 (08:57→13:42)
[2019-04-01] MEDS: Potassium Chloride 10 MEQ TAB PO SCH (08:58)
[2019-04-01] MEDS: Ascorbic Acid 500 mg Chewable Tablet PO SCH (08:58)
[2019-04-01] MEDS: Aspirin 81 mg Enteric Coated Tablet PO SCH (08:58)
[2019-04-01] MEDS: DULoxetine 60 MG CAP PO SCH (08:58)
[2019-04-01] MEDS: Furosemide 20 MG TAB PO SCH (08:58)
[2019-04-01] MEDS: Famotidine 20 MG TAB PO SCH (08:59)
[2019-04-01] MEDS: Pramipexole Di-HCl 0.25 MG TAB PO SCH (08:59)
[2019-04-01] MEDS: HYDROcodone/Acetaminophen 10/325 mg Tablet PO PRN ×2 (09:02→13:41)
[2019-04-01] MEDS: Silver Sulfadiazine 1% Cream 50 GM JAR TOP SCH (09:04)
--- NOTE | 2019-04-01 09:57 | PRG ---
DATE OF SERVICE: 04/01/2019 SUBJECTIVE: Duke Velazquez remains stable. He still does not have placement. Apparently, the [facility] had accepted him, but one of the family members said that they would not come and get him if he went up there. OBJECTIVE: VITAL SIGNS: Afebrile, heart rate is 86, respiratory rate is 20, oximetry is 95, blood pressure is 124/69. LUNGS: Clear. IMPRESSION AND PLAN: 1. [place]. Undergoing wound care for a prolonged period of time in the hospital because of placement issues. 2. Chronic obstructive pulmonary disease , stable. We will see him less frequently. Job ID: [id number]
[2019-04-01 13:48] VITALS: BP 101/64; TEMP 97.1
[2019-04-01] MEDS ORDERED: traMADol HCl 50 MG TAB PO PRN (14:47)
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
== END 2019-04-01 14:33 | DRG 928 ==
LOC: ERS 10:13 → 2SW 18:31 → OBSVTOIN 03-09 12:14 → T4-A 03-09 17:53
PROVIDERS: ADMIT Internal Medicine; ATTEND Internal Medicine
PROC: 0HR7X74 Replacement of Abdomen Skin with Autologous Tissue Substitute, Partial Thickness, External Approach (ICD-10-PCS; principal; 2019-03-11)
PROC: 0HRCX74 Replacement of Left Upper Arm Skin with Autologous Tissue Substitute, Partial Thickness, External Approach (ICD-10-PCS; 2019-03-11)
DX: T21.32XA Burn of third degree of abdominal wall, initial encounter (principal); T31.10 Burns involving 10-19% of body surface with 0% to 9% third degree burns; T22.352A Burn of third degree of left shoulder, initial encounter; T20.30XA Burn of third degree of head, face, and neck, unspecified site, initial encounter; J96.11 Chronic respiratory failure with hypoxia; L03.115 Cellulitis of right lower limb; J96.12 Chronic respiratory failure with hypercapnia; G35 Multiple sclerosis; J43.9 Emphysema, unspecified; Z99.81 Dependence on supplemental oxygen; T31.0 Burns involving less than 10% of body surface; F17.210 Nicotine dependence, cigarettes, uncomplicated; I10 Essential (primary) hypertension; I73.9 Peripheral vascular disease, unspecified; Z51.5 Encounter for palliative care; G40.909 Epilepsy, unspecified, not intractable, without status epilepticus; T20.212A Burn of second degree of left ear [any part, except ear drum], initial encounter; M81.0 Age-related osteoporosis without current pathological fracture; G25.81 Restless legs syndrome; I87.2 Venous insufficiency (chronic) (peripheral); D64.9 Anemia, unspecified; R53.81 Other malaise; F41.9 Anxiety disorder, unspecified; E78.5 Hyperlipidemia, unspecified; F32.9 Major depressive disorder, single episode, unspecified; Z88.6 Allergy status to analgesic agent; Z88.2 Allergy status to sulfonamides; X76.XXXA Intentional self-harm by smoke, fire and flames, initial encounter; Y93.G2 Activity, grilling and smoking food; Y92.009 Unspecified place in unspecified non-institutional (private) residence as the place of occurrence of the external cause; Z86.73 Personal history of transient ischemic attack (TIA), and cerebral infarction without residual deficits
CPT/HCPCS: 36415; 36416; 80048; 80053; 82805; 83605; 83735; 84100; 85025; 94640; 96374; G0390; J0171; J0690; J1885; J2001; J2704; J2920; J2930; J3010; J7620; S0020

== ENCOUNTER 2019-05-04 21:33 | Inpatient (IN) | payer MEDICARE ==
[~2019-05-04 21:33] MED LIST changes: +ISOVUE-370 76%-LOCM 1 ML ONE; -Iopamidol 370 76% 100 ML VIAL ONE
[2019-05-04] MEDS ORDERED: Piperacillin/Tazobactam 3.375 GM VIAL ONE (21:57)
[2019-05-04 22:10] LABS: #Basophils 0.1 thou/uL (0.0-0.2); #Eosinphils 0.1 thou/uL (0.0-0.7); #Lymphocytes 1.5 thou/uL (1.20-3.40); #Monocytes 0.5 thou/uL (0.11-0.59); #Neutrophils 5.6 thou/uL (1.40-6.50); %Basophils 0.7 % (0.0-1.0); %Eosinophils 1.6 % (0.0-10.0); %Lymphocytes 18.9 % (21.0-51.0); %Monocytes 6.2 % (0.0-10.0); %Neutrophils 72.6 % (42.0-75.0); Hemoglobin 13.3 g/dL (14.0-18.0); Mean Corpuscular Hemoglobin 29.1 pg (27.0-31.0); Mean Platelet Volume 7.9 fL (7.4-10.4); Platelet Count 193 thou/uL (130-400); RBC Distribution Width 13.9 % (11.5-14.5); Red Blood Cell (RBC) Count 4.55 mill/uL (4.70-6.10); White Blood Cell (WBC) Count 7.7 thou/uL (4.8-10.8)
[2019-05-04 22:23] LABS: Bilirubin Negative (Negative); Blood, Urine Negative (Negative); Clarity Clear (Clear); Glucose, Urine (Dipstick) Normal (Negative); Leukocyte Negative Leu/uL (Negative); Nitrite Negative (Negative); Protein, Urine (Dipstick) Negative (Neg-Trace); Urobilinogen Normal mg/dL (Less than 2)
[2019-05-04 22:31] LABS: Amphetamine Not Detected (NotDetected); Barbiturates Screen Not Detected (NotDetected); Benzodiazepine Screen Not Detected (NotDetected); Cocaine Metabolite Screen Not Detected (NotDetected); Medtox Control Line Valid? VALID (VALID); Medtox Reader # READER 4; Methadone Not Detected (NotDetected); Methamphetamine Not Detected (NotDetected); Opiate Screen Detected (NotDetected); Oxycodone Screen Not Detected (NotDetected); Phencyclidine (PCP) Not Detected (NotDetected); THC/Cannabinoid Screen Not Detected (NotDetected); Tricyclic Screen Not Detected (NotDetected)
[2019-05-04 22:34] LABS: ALT (SGPT) 10 U/L (8-55); AST (SGOT) 13 U/L (5-34); Albumin 4.2 g/dL (3.4-4.8); Alkaline Phosphatase 85 U/L (40-150); Anion Gap 11 mmol/L (10-20); BUN (Urea Nitrogen) 14 mg/dL (8.4-25.7); Bilirubin, Total 0.5 mg/dL (0.2-1.2); Calc. Creatinine Clearance 0 mL/min (70-130); Calcium 9.5 mg/dL (7.8-10.44); Carbon Dioxide 37 mmol/L (23-31); Chloride 97 mmol/L (98-107); Estimated GFR-MDRD 77; Globulin 2.7 g/dL (2.4-3.5); Glucose 90 mg/dL (80-115); Protein, Total 6.9 g/dL (5.8-8.1); Sodium 141 mmol/L (136-145)
[2019-05-04 22:38] LABS: Acetaminophen Less than 6.0 mcg/mL (10.0-30.0); Alcohol Less than 10 mg/dL (Less than 10); Salicylate Less than 8.0 mg/dL (15.0-30.0)
--- NOTE | 2019-05-04 22:40 | RAD ---
RADIOGRAPH CHEST 1 VIEW: DATE: 05/04/2019 HISTORY: 68-year-old male with dyspnea FINDINGS: There are no airspace densities, pulmonary edema, pneumothorax, or cardiomegaly. The lateral costophr enic angles are sharp. IMPRESSION: No acute cardiopulmonary findings.
[2019-05-04 22:49] LABS: CK (CPK) 92 U/L (30-200); Lipase 19 U/L (8-78)
--- NOTE | 2019-05-04 23:00 | CT ---
CT BRAIN NONCONTRAST: DATE: 05/04/2019 HISTORY: 68-year-old male with altered mental status FINDINGS: There is no evidence of acute intra-axial or extra-axial hemorrhage. There is no midline shift or any other mass effect. There is no extra-axial fluid collection. There is no evidence of obstructive hydrocephalus. Calvarium is intact. IMPRESSION: No acute intracranial findings.
[2019-05-04 23:41] LABS: Actual Bicarbonate (HCO3a) 37.3 mEq/L (22-28); Analyzer IN Cardio ER; Base Excess (BEa) 8.4 mEq/L (-2.0 to +3.0); Calcium, Ionized 1.12 mmol/L (1.12-1.30); Carboxyhemoglobin (COHb) 0.5 gm% (0.0-3.0); Hemoglobin (Hb) 12.3 g/dL (14.0-18.0); O2 Tension (PaO2) 74.4 mmHg (> 80.0); Potassium - ABG Lab 3.71 mmol/L (3.70-5.30)
[2019-05-04 23:44] LABS: ALV-art Gradient 29.115 (0-20); CO2 Tension 76.9 mmHg (35.0-45.0); Puncture Site RRA
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
[2019-05-05] MEDS ORDERED: Naloxone HCl 2 mg/2 ml Syringe ONE (01:02)
[2019-05-05] MEDS ORDERED: Ondansetron PF 4 MG/2 ML Vial IVP PRN (08:49)
[2019-05-05] MEDS ORDERED: hydrALAZINE 20 MG/ML VIAL SLOW IVP PRN (08:49)
[2019-05-05] MEDS ORDERED: Benzonatate 100 MG CAP PO PRN (08:49)
[2019-05-05] MEDS ORDERED: Ondansetron ODT 4 MG TAB PO PRN (08:49)
--- NOTE | 2019-05-05 09:44 | ULT ---
US Venous Doppler Rt Unilat HISTORY: Right lower extremity edema and redness and pain. COMPARISON: None. FINDINGS: Exam is somewhat technically limited due to patient's ability to cooperate. Real-time color Doppler evaluation included evaluation the common femoral, superficial and profunda femoral, saphenous, popliteal and posterior tibial and peroneal veins. This demonstrates a patent deep venous system with normal compressibility and augmentation. IMPRESSION: No evidence of DVT of the right lower extremity.
[2019-05-05] MEDS ORDERED: Acetaminophen 325 MG TAB ONE (10:40)
[2019-05-05] MEDS ORDERED: Enoxaparin Sodium 40 MG/0.4 ML SYRINGE ONE (10:40)
[2019-05-05] MEDS ORDERED: cefTRIAXone\\ROCEPHIN 1 GM VIAL ONE (10:40)
[2019-05-05] MEDS: Enoxaparin Sodium 40 MG/0.4 ML SYRINGE SC SCH (10:55)
[2019-05-05] MEDS: Acetaminophen 325 MG TAB PO PRN ×2 (10:55→20:43)
[2019-05-05] MEDS: cefTRIAXone\\ROCEPHIN 1 GM in Sodium Chloride 0.9% 100 ML IVPB SCH (10:55)
--- NOTE | 2019-05-05 10:59 | HP ---
PRIMARY CARE PHYSICIAN: Denton Valiente MD CHIEF COMPLAINT: Altered mental status. HISTORY OF PRESENT ILLNESS: The history of present illness is very limited as the patient is currently on BiPAP. He is also a bit sleepy, but he is able to wake up and answer most of my questions, although it is extremely slowly, but Mr. Velazquez is a 68-year-old gentleman, who lives in assisted living, who was brought over due to altered mental status. All the details of which are very limited. Apparently, he was complaining of some shortness of breath and there was some concern that he may have accidentally overdosed on clonazepam. The patient himself does not know why he was brought over that is what he originally said, but then later told me he is complaining of pain in his legs, which have been hurting for the last 4 years, but more recently it has been more painful. He does admit to some dyspnea, a little bit of a headache. He says he has also had some low-grade fever and sore throat, but otherwise no other complaints. He does say that he does have peripheral vascular disease and has had stents put in his legs by Dr. Flores. He says that his legs, the arteries are "completely blocked." Otherwise, I am not able to get any additional history. REVIEW OF SYSTEMS: Essentially unobtainable except for that which I previously mentioned due to the patient's lethargy. PAST MEDICAL HISTORY: Significant for hypertension, COPD, severe peripheral vascular disease, and hyperlipidemia. PAST SURGICAL HISTORY: He has had hip surgery as well as what sounds like stents placed in both legs, arterial stents. ALLERGIES: TO MORPHINE AND SULFA. FAMILY HISTORY: Significant for heart disease. SOCIAL HISTORY: He is a former smoker. He denies any alcohol use. He does not have any children and he is single. 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 He does not want resuscitation. MEDICATIONS: Include; 1. Aspirin 81 mg daily. 2. Pramipexole 0.5 mg twice daily. 3. Clonazepam 1 mg daily. 4. Bell 7.5/325 q.6 hours as needed. PHYSICAL EXAMINATION: GENERAL: He is awake, alert, and oriented to person, place, and time, but falls asleep easily. He is well developed and well nourished. He does have a chronic ill appearance. VITAL SIGNS: Blood pressure was 129/78, heart rate 107, respiratory rate of 22, temperature is 98.7, and O2 saturation 99% on 2 L. HEENT: Pupils are equal, round, and reactive. Extraocular muscles are intact. Sclerae are anicteric. NECK: There is no jugular venous distention. LUNGS: Essentially clear to auscultation. Mild expiratory wheeze. There are no rhonchi. No rales. CARDIOVASCULAR: He has a normal S1 and S2. I did not appreciate an S3 or S4. No murmurs or clicks. No rubs. ABDOMEN: Obese. It is soft, nontender, and nondistended. Positive for bowel sounds. No rebound or guarding. EXTREMITIES: His legs are erythematous. He has some brawny nonpitting edema. No joint effusions. NEUROLOGIC: Grossly nonfocal. He is moving all extremities. SKIN AND INTEGUMENT: The legs are erythematous with the right being a bit worse than the left and he does have a little bit more swelling in the right lower extremity than on the left and it is a bit warm to touch. His dorsalis pedis and posterior tibial pulses were not palpable. However, his feet are warm and dry and there are no lesions. No ulcerations. LABORATORY DATA: Urine drug screen was positive for opiates. CBC sodium is 141, potassium 4.0, chloride is 97, CO2 is 37, BUN of 14, creatinine 0.97, and glucose was 90. White blood cell count 7.7, hemoglobin 13.3, hematocrit is 41.4, and platelet count is 193. His ABG, the pH was 7.3, pCO2 was 76.9. IMAGING DATA: Chest x-ray showed normal heart size. Possible infiltrate in the left base. He had a CT scan of the brain, which was negative and a CT angiogram of the chest, which was negative for PE. ASSESSMENT AND PLAN: This is a 68-year-old gentleman, who presents with lethargy and altered mental status. He has hypercapnic respiratory failure. It is likely that he could have accidentally overdosed on pain medication. He admits to me that he does take pain medicines and he has been having increased pain in his legs lately, but he does not know the names of his medications he tells me they are "at home. He also has some erythema on the legs, the right is more than the left, and severe peripheral vascular disease and possibly has a superimposed cellulitis. 1. Acute on chronic hypercapnic respiratory failure. He has been placed on BiPAP. We will continue the BiPAP. Consult Pulmonology. Continue his DuoNeb p.r.n. and hopefully get more information from him later in the day when he is possibly more awake. 2. Right lower extremity cellulitis. We will treat him with Rocephin. We may need to repeat a vascular ultrasound as he is at risk for DVT. His leg is more swollen than the left. 3. Chronic obstructive pulmonary disease. He probably has an acute on chronic exacerbation due to this current event. Continue DuoNeb as well as consider an inhaled beta-agonists. 4. Hypertension. We will need to reconcile and restart his home medications and add p.r.n.'s as needed and he will be placed on deep venous thrombosis as well as gastrointestinal prophylaxis. Job ID: [id number]
[2019-05-05] MEDS: Pregabalin 50 MG CAP PO SCH (21:37)
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
[2019-05-05] MEDS: traMADol HCl 50 MG TAB PO PRN (22:52)
[2019-05-06] MEDS: Acetaminophen 325 MG TAB PO PRN (00:48)
[2019-05-06] MEDS ORDERED: HYDROcodone/Acetaminophen 7.5/325 mg Tablet PO SCH (04:00)
[2019-05-06 05:51] LABS: #Eosinphils 0.2 thou/uL (0.0-0.7); #Lymphocytes 1.4 thou/uL (1.20-3.40); #Monocytes 0.5 thou/uL (0.11-0.59); #Neutrophils 4.2 thou/uL (1.40-6.50); %Basophils 0.4 % (0.0-1.0); %Eosinophils 2.9 % (0.0-10.0); %Monocytes 7.9 % (0.0-10.0); %Neutrophils 66.8 % (42.0-75.0); Hemoglobin 11.2 g/dL (14.0-18.0); Mean Corpuscular HGB CONC 32.4 g/dL (32.0-36.0); Mean Corpuscular Hemoglobin 29.5 pg (27.0-31.0); Mean Corpuscular Volume 91.2 fL (78.0-98.0); Mean Platelet Volume 8.1 fL (7.4-10.4); Platelet Count 166 thou/uL (130-400); RBC Distribution Width 13.7 % (11.5-14.5); White Blood Cell (WBC) Count 6.2 thou/uL (4.8-10.8)
[2019-05-06 06:07] LABS: Anion Gap 10 mmol/L (10-20); BUN (Urea Nitrogen) 15 mg/dL (8.4-25.7); Calc. Creatinine Clearance 111 mL/min (70-130); Calcium 8.7 mg/dL (7.8-10.44); Carbon Dioxide 32 mmol/L (23-31); Chloride 99 mmol/L (98-107); Estimated GFR-MDRD 86; Glucose 106 mg/dL (80-115); Potassium 3.4 mmol/L (3.5-5.1); Sodium 138 mmol/L (136-145)
[2019-05-06] MEDS: cefTRIAXone\\ROCEPHIN 1 GM in Sodium Chloride 0.9% 100 ML IVPB SCH (09:09)
[2019-05-06] MEDS: Pregabalin 50 MG CAP PO SCH ×3 (09:10→20:27)
[2019-05-06] MEDS: Enoxaparin Sodium 40 MG/0.4 ML SYRINGE SC SCH (09:10)
--- NOTE | 2019-05-06 09:55 | PRG ---
DATE OF SERVICE: 05/06/2019 OBJECTIVE: GENERAL: He is awake, alert, in no distress. VITAL SIGNS: On exam, temperature 98.4, pulse 81, blood pressure 120/64, O2 saturation 95%, did not wear BiPAP last night. HEENT: Unremarkable. NECK: No JVD. CHEST: Clear. CARDIAC: S1, S2. Regular. ABDOMEN: Soft. EXTREMITIES: No edema. LABORATORY DATA: Sodium 138, potassium 3.4, chloride 98, CO2 of 32, BUN 15, creatinine 0.9, glucose 106. White blood cell count 6.2, hematocrit 34.7, and platelet count 166. ASSESSMENT: 1. Status post respiratory failure related to polypharmacy. 2. Underlying chronic obstructive pulmonary disease. PLAN: The patient can be transferred out to the floor or perhaps even to home. I would strongly advocate reducing his hydrocodone and benzodiazepines at home or risk of this happening again. No further Pulmonary recommendations. We will sign off. Job ID: [id number]
--- NOTE | 2019-05-06 15:38 | PDOC.HOSPP ---
- Subjective Encounter Date: 05/06/19 Encounter Time: 10:00 Subjective: Mr. Velazquez was seen today in follow-up of respiratory failure and cellulitis of the right leg. He does not have any new complaints. He is much more alert today. His only complaint is his leg. This is an ongoing problem. He says that he will be in the hospital and placed on IV antibiotics and his leg will get better, then he goes home and has relief for about 2 weeks. Then the pain will return. He says he is tired of living like this. - Objective Vital Signs & Weight: Vital Signs (12 hours) Temp Pulse Pulse Pulse Resp BP BP 05/06/19 15:21 98.2 F 05/06/19 13:00 80 14 05/06/19 11:06 98.6 F 05/06/19 09:55 76 133/69 114/68 05/06/19 08:40 85 85 118/62 119/66 05/06/19 07:26 05/06/19 07:17 98.4 F 05/06/19 07:02 60 14 05/06/19 03:51 98.5 F Pulse Ox Pulse Ox Pulse Ox 05/06/19 15:21 05/06/19 13:00 05/06/19 11:06 05/06/19 09:55 05/06/19 08:40 96 96 05/06/19 07:26 95 05/06/19 07:17 05/06/19 07:02 05/06/19 03:51 Weight Weight 209 lb 10.554 oz Most Recent Monitor Data Heart Rate from ECG 72 NIBP 105/70 NIBP BP-Mean 81 Respiration from ECG 17 SpO2 95 I&O: 05/05/19 05/06/19 05/07/19 06:59 06:59 06:59 Intake Total 300 Output Total 750 Balance -450 Result Diagrams: 05/06/19 05:20 05/06/19 05:20 Hospitalist ROS - Medication Medications: Active Medications Generic Name Dose Route Start Last Admin Trade Name Freq PRN Reason Stop Dose Admin Acetaminophen 650 mg 05/05/19 08:49 05/06/19 00:48 Tylenol PO 650 mg Q4H PRN Administration Headache/Fever/Mild Pain (1-3) Albuterol/Ipratropium 3 ml 05/05/19 13:00 05/06/19 13:00 Duoneb NEB 3 ml [id number] ROSALIO Administration Enoxaparin Sodium 40 mg 05/05/19 09:00 05/06/19 09:10 Lovenox SC 40 mg 0900 ROSALIO Administration Ceftriaxone Sodium 1 gm/ 100 mls @ 200 mls/hr 05/05/19 09:00 05/06/19 09:09 Sodium Chloride IVPB 100 mls 0900 ROSALIO Administration Pregabalin 100 mg 05/05/19 21:00 05/06/19 09:10 Lyrica PO 100 mg TID ROSALIO Administration Tramadol HCl 50 mg 05/05/19 21:00 05/05/19 22:52 Ultram PO 50 mg Q6H PRN Administration Moderate to Severe Pain (6-10) - Exam Eye: PERRL, anicteric sclera Heart: RRR, no murmur, no gallops, no rubs, normal peripheral pulses Respiratory: CTAB, no wheezes, no rales, no ronchi, normal chest expansion, no tachypnea, normal percussion Gastrointestinal: soft, non-tender, non-distended, normal bowel sounds Extremities: no cyanosis (+ erythema in the right lower extemity, with erythema and warmth, chronic venous stasis changes) Hosp A/P (1) Acute and chronic respiratory failure with hypercapnia Code(s): J96.22 - ACUTE AND CHRONIC RESPIRATORY FAILURE WITH HYPERCAPNIA Status: Acute (2) Cellulitis of lower extremity Code(s): L03.119 - CELLULITIS OF UNSPECIFIED PART OF LIMB Status: Acute Qualifiers: Laterality: right Qualified Code(s): L03.115 - Cellulitis of right lower limb (3) COPD (chronic obstructive pulmonary disease) Status: Chronic Qualifiers: (4) HTN (hypertension) Code(s): I10 - ESSENTIAL (PRIMARY) HYPERTENSION Status: Chronic Qualifiers: Hypertension type: essential hypertension Qualified Code(s): I10 - Essential (primary) hypertension (5) Peripheral vascular disease Code(s): I73.9 - PERIPHERAL VASCULAR DISEASE, UNSPECIFIED Status: Chronic - Plan * Acute on chronic respiratory failure with hypercapnea- improved - he has been weaned off Bipap. This was likely due to over-sedation with pain medication and benzodiazepines- this was discussed with the patient- will try to find a regimen for pain control that does not cause over-sedation * Cellulitis of the right lower extremity- will continue Rocephin for a few more days then transition him to an oral antibiotic * COPD- stable * Severe PVD- he has had STENT by Dr. Flores, and recent evaluation- no further intervention at this time * HTN- blood pressure is stable * He can be moved out of the [facility]
[2019-05-06 16:25] VITALS: BMI 26.2
[2019-05-06] MEDS: traMADol HCl 50 MG TAB PO PRN (20:32)
[2019-05-07 00:49] VITALS: TEMP 98
[2019-05-07] MEDS: Acetaminophen 325 MG TAB PO PRN (01:34)
[2019-05-07] MEDS: traMADol HCl 50 MG TAB PO PRN ×2 (05:22→20:59)
[2019-05-07] MEDS: Pregabalin 50 MG CAP PO SCH ×3 (08:49→20:57)
[2019-05-07] MEDS: Enoxaparin Sodium 40 MG/0.4 ML SYRINGE SC SCH (08:50)
[2019-05-07] MEDS: cefTRIAXone\\ROCEPHIN 1 GM in Sodium Chloride 0.9% 100 ML IVPB SCH (08:50)
[2019-05-07] MEDS ORDERED: Ketoconazole 2% Cream 15 gm Tube TOP SCH (09:00)
--- NOTE | 2019-05-07 15:27 | EKG ---
Test Reason : Blood Pressure : / mmHG Vent. Rate : 097 BPM Atrial Rate : 097 BPM P-R Int : 144 ms QRS Dur : 076 ms QT Int : 342 ms P-R-T Axes : 057 -50 029 degrees QTc Int : 434 ms Normal sinus rhythm Left anterior fascicular block Abnormal ECG Confirmed by ISATU VANN, ROBB ([id number]), video editor RAJANI SMITH ([id number]) on 05/07/2019 3:27:27 PM Referred By: Confirmed By:ROBB LUNSFORD MD
--- NOTE | 2019-05-07 18:31 | PRG ---
DATE OF SERVICE: 05/07/2019 SUBJECTIVE: The patient is seen examined at bedside. He is doing significantly better. He is getting ready to go home. His respirations significantly improved. OBJECTIVE: VITAL SIGNS: Blood pressure is 131/76, pulse is 67, respirations 16, temperature is 98, and pulse oximetry is 99% on 3 L by nasal cannula. HEENT: His head is atraumatic and normocephalic. Eyes are PERRLA. Sclerae are nonicteric. Oral mucosa is moist. NECK: Supple. LUNGS: Breath sounds diminished at both bases. Sounds, emphysematous. No wheezing. HEART: S1 and S2 normal. ABDOMEN: Soft, nontender, nondistended. EXTREMITIES: No clubbing, cyanosis, or edema. NEUROLOGICAL: He is alert and oriented x4, and he follows my commands. LABORATORY DATA: None today. IMPRESSION: 1. Oqdjm-gy-fmfitgt respiratory failure with hypercapnia, improved. 2. Chronic obstructive pulmonary disease. 3. Hypertension. 4. Questionable cellulitis of the lower extremity. 5. Peripheral vascular disease. PLAN: The patient is not able to get any ride tonight at home. His brother is going to come and pick him up tomorrow. He is going to bring his oxygen tank since there is nobody else who can do it today and he refuses to leave the hospital by ambulance, which is going to cost him a lot of money. We will discharge him tomorrow morning, and for now, we will continue the same regimen. Job ID: [id number]
[2019-05-07 20:13] VITALS: BP 163/83
[2019-05-07] MEDS ORDERED: clonazePAM 1 MG TAB PO SCH (21:00)
--- NOTE | 2019-05-08 09:12 | DIS ---
DATE OF ADMISSION: 05/05/2019 DATE OF DISCHARGE: 05/08/2019 DIAGNOSES AT THE TIME OF DISCHARGE: 1. Acute on chronic respiratory failure with hypercapnia, resolved. 2. Chronic obstructive pulmonary disease. 3. Hypertension. 4. Questionable cellulitis of the lower extremity. 5. Peripheral vascular disease. 6. Seborrheic dermatitis of the face. PATIENT SERVICES TECHNICIAN: Dr. Wallace Roberson, Pulmonary Service. HOSPITAL COURSE: The patient was a 68-year-old male, who was admitted to the hospital with altered mental status. He lives in assisted living. He was brought in because of altered mental status. Apparently, he is showing some shortness of breath, and there was some concern that he overdosed on clonazepam, but the patient by himself was not really sure why he was sent out to the emergency room for further evaluation. He admitted some dyspnea, some headache and low-grade fever and sore throat, but otherwise there were no other symptoms. Apparently, he has some history of peripheral vascular disease and some stents put in his legs by Dr. Flores. During emergency room evaluation, his white count was 7.7, hemoglobin 13.3, hematocrit 41.4, platelet count 193,000. His ABG showed pH of 7.3, pCO2 was 76.9. Sodium 141, potassium 4.0, chloride 97, CO2 of 37, BUN 14, creatinine 0.97, glucose 90. The chest x-ray showed possible infiltrates in the left base. The CT scan of the brain was negative, and CT angiogram of the chest was negative for PE. Also, it showed centrilobular emphysema. The patient was admitted to [facility]. He was seen by Dr. Roberson, who did not recommend any steroids, just his BiPAP was switched to nasal cannula, and when his respiratory status improved, he was moved out from intensive care unit. His microbiology showed one out of two cultures positive for coagulase-negative Staphylococcus, which was felt to be contamination, and urine culture came back 10 to 25,000 colonies of mixed skin mehreen. He had some erythema of his extremity. He said that he gets erythema from time to time, and he needs to come to the hospital and have antibiotic IV since he cannot tolerate any antibiotic orally for outpatient treatment because they make him sick and he has abdominal pain and diarrhea from all of them, which they were tried in the past. The patient's general condition improved. He was treated with ketoconazole for his facial seborrheic dermatitis. His clonazepam dose was decreased from 1 mg to 0.5 mg at bedtime, and he is doing well. His temperature is 98.0, pulse is 91, respirations are 16, O2 saturation is 95% on 2.5 L by nasal cannula. He is on continuous O2 at home, and his family brought the tank for him this morning, so he can be discharged on O2 and go home. He is seen and examined before he is discharged on diet, at the time of discharge, heart healthy diet. ACTIVITIES: As tolerated. MEDICATIONS: At the time of discharge, 1. Ketoconazole 2% cream topically once a day. 2. Pregabalin 100 mg 3 times a day. 3. Clonazepam 0.5 mg at bedtime. 4. Albuterol and DuoNeb's q.4 hours p.r.n. 5. Hydrocodone bitartrate 7.5 mg q.6 hours p.r.n. 6. Cymbalta 60 mg twice a day. 7. Vitamin D3 of 1000 units once a day. 8. Aspirin 81 mg once a day. 9. Ascorbic acid 500 mg once a day. 10. . 11. Pramipexole 0.5 mg twice a day. 12. Potassium chloride 10 mEq once a day. 13. Multivitamin once a day. 14. Furosemide 20 mg every morning. 15. Famotidine 20 mg twice a day. 16. Vitamin E 400 units once a day. DISCHARGE CONDITION: He is discharged home in good condition. FOLLOWUP: He is going to follow up with his primary care physician in 1 week and follow up with Dr. Morocho, his psychiatric np in the next 2 to 3 weeks. TIME SPENT: Time spent on this discharge is less than 30 minutes. Job ID: [id number]
== END 2019-05-08 07:45 | disposition home or self-care (01) | DRG 917 ==
LOC: ERS 21:33 → ERHOLD 05-05 00:15 → IMCU/EMU 05-05 12:09 → T4-B 05-06 16:38
PROVIDERS: ADMIT Internal Medicine; ATTEND Internal Medicine
PROC: 5A09457 Assistance with Respiratory Ventilation, 24-96 Consecutive Hours, Continuous Positive Airway Pressure (ICD-10-PCS; principal; 2019-05-05)
DX: T42.4X1A Poisoning by benzodiazepines, accidental (unintentional), initial encounter (principal); J96.22 Acute and chronic respiratory failure with hypercapnia; L03.115 Cellulitis of right lower limb; J44.1 Chronic obstructive pulmonary disease with (acute) exacerbation; Z66 Do not resuscitate; T40.2X1A Poisoning by other opioids, accidental (unintentional), initial encounter; I73.9 Peripheral vascular disease, unspecified; I10 Essential (primary) hypertension; F41.9 Anxiety disorder, unspecified; F32.9 Major depressive disorder, single episode, unspecified; L21.9 Seborrheic dermatitis, unspecified; E78.5 Hyperlipidemia, unspecified; Z88.2 Allergy status to sulfonamides; Z88.5 Allergy status to narcotic agent; Z79.899 Other long term (current) drug therapy; Z79.82 Long term (current) use of aspirin
CPT/HCPCS: 36415; 70450; 71045; 71275; 80048; 80053; 80306; 80307; 81003; 82550; 82805; 83605; 83690; 83880; 84484; 85025; 85379; 87040; 87086; 87149; 93005; 94640; 94660; 96365; 96366; 96368; 96375; J0696; J1650; J2310; J2543; J3490; J7620; Q9966

== ENCOUNTER 2019-05-26 13:56 | Outpatient (CLI) | payer MEDICARE ==
--- NOTE | 2019-05-26 15:04 | ULT ---
EXAM: US Arterial Doppler Lower Ext PROVIDED CLINICAL HISTORY: Bilateral lower extremity pain and redness. COMPARISON: 12/30/2016 FINDINGS: Grayscale, color-flow, Doppler evaluation, spectral analysis of the bilateral rectum the arterial ves sels performed with 2-D imaging. Right lower extremity: Biphasic waveforms are seen within the right common femoral and profunda femoral arteries with overal l dampened waveform in the profunda femoral artery. There are monophasic waveforms seen within the right lower extremity superficial femoral and popliteal arteries as well as the posterior tibial and dorsalis pedis arteries. The right anterior tibial artery is not visualized. There is diminished peak systolic velocity in the proximal right lower extremity superficial femoral artery. Left lower extremity: There are monophasic waveforms seen throughout the left lower extremity arterial vessels with decreas ed peak systolic velocities within the left lower extremity common femoral and superficial femoral arteries. The anterior tibial artery on the left is also not visualized. The profunda femoral artery on the left is not imaged. Significant atherosclerotic vascular disease is also suggested on the prior examination 2017. IMPRESSION: 1 severe diffuse atherosclerotic vascular disease involving the lower lower extremity arterial vessel s bilaterally. Decreased peak systolic velocities in the left common femoral and superficial femoral artery suggest inflow stenosis involving the iliac arteries on the left. 2. Anterior tibial arteries are not visualized bilaterally and may be occluded.
== END 2019-05-26 13:57 | disposition home or self-care (01) ==
LOC: BICULT 13:56
PROVIDERS: ATTEND Internal Medicine Infectious Disease
DX: I87.2 Venous insufficiency (chronic) (peripheral) (principal); I73.9 Peripheral vascular disease, unspecified
CPT/HCPCS: 93923

== ENCOUNTER 2019-06-16 14:49 | Inpatient (IN) | payer MEDICARE ==
[2019-06-16 15:22] LABS: #Eosinphils 0.1 thou/uL (0.0-0.7); #Lymphocytes 1.4 thou/uL (1.20-3.40); #Monocytes 0.6 thou/uL (0.11-0.59); #Neutrophils 8.2 thou/uL (1.40-6.50); %Basophils 0.4 % (0.0-1.0); %Eosinophils 0.8 % (0.0-10.0); %Lymphocytes 13.5 % (21.0-51.0); %Monocytes 6.2 % (0.0-10.0); %Neutrophils 79.2 % (42.0-75.0); Hemoglobin 14.1 g/dL (14.0-18.0); Mean Corpuscular HGB CONC 33.4 g/dL (32.0-36.0); Mean Corpuscular Hemoglobin 30.1 pg (27.0-31.0); Mean Platelet Volume 7.8 fL (7.4-10.4); Platelet Count 155 thou/uL (130-400); Red Blood Cell (RBC) Count 4.67 mill/uL (4.70-6.10); White Blood Cell (WBC) Count 10.3 thou/uL (4.8-10.8)
[2019-06-16 15:49] LABS: ALT (SGPT) 10 U/L (8-55); AST (SGOT) 12 U/L (5-34); Albumin 4.3 g/dL (3.4-4.8); Alkaline Phosphatase 95 U/L (40-110); Anion Gap 12 mmol/L (10-20); BUN (Urea Nitrogen) 13 mg/dL (8.4-25.7); Bilirubin, Total 0.6 mg/dL (0.2-1.2); CK (CPK) 52 U/L (30-200); Calc. Creatinine Clearance 0 mL/min (70-130); Calcium 9.7 mg/dL (7.8-10.44); Carbon Dioxide 34 mmol/L (23-31); Chloride 102 mmol/L (98-107); Estimated GFR-MDRD 79; Globulin 2.5 g/dL (2.4-3.5); Glucose 100 mg/dL (80-115); Potassium 4.1 mmol/L (3.5-5.1); Protein, Total 6.8 g/dL (5.8-8.1); Sodium 144 mmol/L (136-145)
--- NOTE | 2019-06-16 15:56 | RAD ---
Exam: Chest one view HISTORY:Injury Comparison: 05/04/2019 FINDINGS: Lungs: Generalized interstitial prominence, bilaterally. Cardiac silhouette: Normal size Vascular calcification Pulmonary vessels: Mild enlargement Pleural Spaces: Clear Pneumothorax: None Osseous abnormalities: None of acuity. IMPRESSION: Prominence of pulmonary vascular, with interstitial prominence bilaterally. Correlate for fluid status.
--- NOTE | 2019-06-16 16:31 | CT ---
CT Brain WO Con: 06/16/2019 4:06 PM CLINICAL HISTORY: Injury. COMPARISON: 05/04/2019 FINDINGS: Hemorrhage: None. Ventricular system: Normal in size and morphology for the patient's age. Cerebral parenchyma: Microvascular ischemic disease Midline shift: None. Mass: No mass effect. Calvarium: Normal. Visualized Paranasal sinuses: Clear. IMPRESSION: No acute intracranial abnormalities.
[2019-06-16 16:59] LABS: Bilirubin Negative (Negative); Blood, Urine Negative (Negative); Clarity Clear (Clear); Glucose, Urine (Dipstick) Normal (Negative); Leukocyte Negative Leu/uL (Negative); Nitrite Negative (Negative); Protein, Urine (Dipstick) Negative (Neg-Trace); Urobilinogen Normal mg/dL (Less than 2)
[2019-06-16] MEDS ORDERED: Acetaminophen 325 MG TAB PO PRN (18:07)
[2019-06-16] MEDS ORDERED: Acetaminophen 650 MG Suppository PR PRN (18:07)
[2019-06-16] MEDS ORDERED: Sodium Chloride 0.9% 1,000 ML IV SCH (18:15)
--- NOTE | 2019-06-16 18:36 | PDOC.HHP ---
Hospitalist HPI - History of Present Illness weakness, fall History of Present Illness: Mr. Velazquez is a pleasant 68 year old man with known COPD on O2 at home and multiple sclerosis who presents after having a syncopal episode at home. The patient states he has been feeling generally week for the last 3 days and has been having diarrhea, up to 3 times a day. He recalls standing in his kitchen and pouring himself a bowel of cereal when suddenly he felt his legs become weak and buckle, he managed to sit back on a chair. His arms started tingling and the next thing he remembers is waking up on the floor facing up with a headache and neck pain. He was unable to stand and called for help. ED Course: He had an EKG done in the ED showing NSR with HR of 95. Left fascicular block present. No ST changes or T wave abnormalities. Labs notable for a WCC of 10.3, Neutrophils% 79.2, CK normal. Na+ 144, K+ 4.1, BUN 13, Creat 0.95, GFR 79 (baseline is >90), LFTs normal. CXR done showed prominence of pulmonary vasculature, with interstitial prominence bilaterally. CT Head showed no acute intracranial abnormalities. Per ED, family concerned patient is unable to cope living on his own, despite some support. They feel he is requiring placement to SNF. Hospitalist ROS - Review of Systems Constitutional: reports: weakness (For since yesterday), malaise Eyes: denies: pain, vision change, conjunctivae inflammation, eyelid inflammation, redness, other ENT: reports: other (Mouth dry) Respiratory: reports: shortness of breath (At baseline due to COPD, uses O2 at home) Cardiovascular: denies: chest pain, palpitations, orthopnea, paroxysmal noc. dyspnea, edema, light headedness, other Gastrointestinal: reports: diarrhea (For the last 3 days). 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, Other (Multiple sclerosis) Psych: reports: Anxiety, Depression - Past Surgical History Other Surgical History: Right hip surgery Right leg stent - Social History Smoking Status: Former smoker Alcohol: reports: None Drugs: reports: none Living Situation: Alone Activity level: uses cane/walker - Exam General Appearance: NAD, ill appearing Eye: PERRL, anicteric sclera ENT: dry oral mucosa Neck - other findings: Pain with ROM, tender to palpation Heart: RRR, no murmur, no gallops, no rubs Respiratory: CTAB Respiratory - other findings: Decreased breath sounds, no crackles Gastrointestinal: soft, non-tender, non-distended, normal bowel sounds, no guarding, no rigidity Extremities: no edema Extremities - other findings: Slight erythema of Rt lower leg, slightly warm, ? venous statis v. celluliti Skin - other findings: dry with flaking of skin on face Musculoskeletal: normal tone Musculoskeletal - other findings: Power 4/5 in RLE, long standing due to Rt hip fracture, power 5/5 in LLE an Psychiatric: normal affect, normal behavior, A&O x 3 Hospitalist Results - Labs Result Diagrams: 06/16/19 15:07 06/16/19 15:07 Lab results: WBC 10.3 thou/uL (4.8-10.8) 06/16/19 15:07 Hgb 14.1 g/dL (14.0-18.0) 06/16/19 15:07 Hct 42.0 % (42.0-52.0) 06/16/19 15:07 MCV 90.0 fL (78.0-98.0) 06/16/19 15:07 Plt Count 155 thou/uL (130-400) 06/16/19 15:07 Neutrophils % 79.2 % (42.0-75.0) H 06/16/19 15:07 Sodium 144 mmol/L (136-145) 06/16/19 15:07 Potassium 4.1 mmol/L (3.5-5.1) 06/16/19 15:07 Chloride 102 mmol/L (98-107) 06/16/19 15:07 Carbon Dioxide 34 mmol/L (23-31) H 06/16/19 15:07 BUN 13 mg/dL (8.4-25.7) 06/16/19 15:07 Creatinine 0.95 mg/dL (0.7-1.3) 06/16/19 15:07 Glucose 100 mg/dL (80-115) 06/16/19 15:07 Calcium 9.7 mg/dL (7.8-10.44) 06/16/19 15:07 Total Bilirubin 0.6 mg/dL (0.2-1.2) 06/16/19 15:07 AST 12 U/L (5-34) 06/16/19 15:07 ALT 10 U/L (8-55) 06/16/19 15:07 Alkaline Phosphatase 95 U/L (40-110) 06/16/19 15:07 Creatine Kinase 52 U/L (30-200) 06/16/19 15:07 Troponin I Less than 0.010 ng/mL (< 0.028) 06/16/19 15:07 Serum Total Protein 6.8 g/dL (5.8-8.1) 06/16/19 15:07 Albumin 4.3 g/dL (3.4-4.8) 06/16/19 15:07 Urine Ketones Negative mg/dL (Negative) 06/16/19 16:40 Urine Blood Negative (Negative) 06/16/19 16:40 Urine Nitrite Negative (Negative) 06/16/19 16:40 Ur Leukocyte Esterase Negative Sundeep/uL (Negative) 06/16/19 16:40 - Radiology Interpretation CT scan - head Status: report reviewed by nm Hospitalist H&P A/P - Problem (1) Syncope Code(s): R55 - SYNCOPE AND COLLAPSE Status: Acute (2) Lower extremity weakness Code(s): R29.898 - OTH SYMPTOMS AND SIGNS INVOLVING THE MUSCULOSKELETAL SYSTEM Status: Acute (3) Injury of head and neck Code(s): S09.90XA - UNSPECIFIED INJURY OF HEAD, INITIAL ENCOUNTER; S19.9XXA - UNSPECIFIED INJURY OF NECK, INITIAL ENCOUNTER Status: Acute (4) Diarrhea Code(s): R19.7 - DIARRHEA, UNSPECIFIED Status: Acute (5) Cellulitis of lower extremity Code(s): L03.119 - CELLULITIS OF UNSPECIFIED PART OF LIMB Status: Acute Qualifiers: Laterality: right Qualified Code(s): L03.115 - Cellulitis of right lower limb (6) History of multiple sclerosis Code(s): Z86.69 - PERSONAL HISTORY OF DIS OF THE NERVOUS SYS AND SENSE ORGANS Status: Acute (7) History of multiple cerebrovascular accidents (CVAs) Code(s): Z86.73 - PRSNL HX OF TIA (TIA), AND CEREB INFRC W/O RESID DEFICITS Status: Acute (8) COPD (chronic obstructive pulmonary disease) Status: Chronic Qualifiers: (9) HLD (hyperlipidemia) Code(s): E78.5 - HYPERLIPIDEMIA, UNSPECIFIED Status: Chronic Qualifiers: (10) HTN (hypertension) Code(s): I10 - ESSENTIAL (PRIMARY) HYPERTENSION Status: Chronic Qualifiers: Hypertension type: essential hypertension Qualified Code(s): I10 - Essential (primary) hypertension - Plan Plan: CT C-Spine ordered. Additional labs added on: BNP, lactic acid, procalcitonin, Mg+ Brain MRI. Carotid US and Echo. Orthostatic BPs. Stool studies including c. diff given diarrhea. Appears clinically dehydrated, slightly hypotensive, will give gentle hydration. Possible right lower extremity cellulitis, will start abx. Continuous telemetry and O2 sat monitoring. Will obtain ABG. PT/OT, will likely need Rehab Screening. Consult to case management for SNF/Swing bed. Monitor BP, hold antihypertensives. DVT Prophylaxis with mechanical SCDs. GI Prophylaxis with Famotidine. Will reconcile medications once verified. CODE STATUS: DNAR. His surrogate decision maker is his sister in law Carlo Velazquez.
--- NOTE | 2019-06-16 18:41 | CT ---
CT CERVICAL SPINE: 06/16/19 INDICATION: Fall with trauma. Cervical vertebrae maintain height and alignment. There are mild degenerative changes noted. Foramina l stenosis on the left at C3-4 due to hypertrophic change. No evidence of fracture identified. IMPRESSION: There are degenerative changes. No acute fracture. POS: AGW
[2019-06-16 18:58] LABS: Lactic Acid 1.7 mmol/L (0.5-2.2)
[2019-06-16 19:21] VITALS: BMI 30.7
[2019-06-16] MEDS: Famotidine/PF 20 mg/2ml Vial SLOW IVP SCH (20:49)
[2019-06-17] MEDS ORDERED: clonazePAM 0.5 MG TAB PO SCH (00:45)
[2019-06-17] MEDS ORDERED: Pramipexole Di-HCl 0.25 MG TAB PO SCH (01:45)
[2019-06-17] MEDS: traMADol HCl 50 MG TAB PO PRN ×2 (01:46→10:50)
[2019-06-17] MEDS: DULoxetine 60 MG CAP PO SCH ×2 (08:37→20:30)
[2019-06-17] MEDS: Ascorbic Acid 500 mg Chewable Tablet PO SCH (08:38)
[2019-06-17] MEDS: Pregabalin 50 MG CAP PO SCH ×3 (08:38→20:30)
[2019-06-17] MEDS: Pramipexole Di-HCl 0.25 MG TAB PO SCH ×2 (08:38→20:30)
[2019-06-17] MEDS: Aspirin 81 mg Enteric Coated Tablet PO SCH (08:38)
[2019-06-17] MEDS: Famotidine/PF 20 mg/2ml Vial SLOW IVP SCH (08:39)
[2019-06-17] MEDS ORDERED: Furosemide 20 MG TAB PO SCH (09:00)
--- NOTE | 2019-06-17 12:01 | MRI ---
Limited thoracic spine MRI: 06/17/2019 COMPARISON: HISTORY: Lower extremity weakness, history of multiple sclerosis TECHNIQUE: Sagittal imaging of the thoracic spine obtained. Provided imaging includes T1, T2, and STI R imaging. The patient was unable to tolerate the full examination and thus no axial imaging was obtained. There is a burst fracture of T7 which is new when compared to the 2016 exam. There is no increased ST IR signal within this fracture to suggest acute edema. This is thus consistent with a chronic severe compression fracture of T7 with approximately 75% loss of vertebral body height anteriorly. The sagittal STIR imaging demonstrates no focal area of osseous marrow edema. Secondary to the lack of axial imaging, assessment of the cord is limited. In addition, assessment fo r central canal and/or neural foraminal stenosis is limited. There is a focal area of abnormal increased T2 signal within the thoracic cord at the T3-4 level, as seen on the prior exam, consistent with the provided history of multiple sclerosis. Limited assessment demonstrates no additional thoracic cord lesion. There is a moderate degree of central canal stenosis secondary to mild osseous retropulsion along the superior endplate of the above-described T7 fracture deformity. Limited assessment for neural foraminal stenosis demonstrates no evidence for significant neural foraminal stenosis on either side at any level. IMPRESSION: Limited exam without axial imaging. New burst fracture at T7 with associated moderate hoa tral canal stenosis on the basis of osseous retropulsion. Stable thoracic cord lesion at T3-4. Please note that axial imaging could not be obtained as the patient was unable to tolerate the full e xamination. If the patient is able to tolerate axial imaging in the future, an addendum could be placed on this report.
--- NOTE | 2019-06-17 13:50 | PDOC.HOSPP ---
- Subjective Encounter Date: 06/17/19 Encounter Time: 11:20 Subjective: no diarrhea overnight per patient, has gen weakness poor historian no chest pain, sob or palp says he ambulates short distances lives at [facility] - Objective Vital Signs & Weight: Vital Signs (12 hours) Temp Pulse Resp BP BP Pulse Ox 06/17/19 12:00 98.0 F 80 18 118/70 97 06/17/19 08:00 91 L 06/17/19 07:14 98 F 77 18 105/57 L 91 L 06/17/19 06:24 75 12 94 L 06/17/19 04:00 98.0 F 74 20 115/70 95 Weight Weight 213 lb 13.574 oz I&O: 06/16/19 06/17/19 06/18/19 06:59 06:59 06:59 Intake Total 240 Balance 240 Result Diagrams: 06/16/19 15:07 06/16/19 15:07 Hospitalist ROS - Medication Medications: Active Medications Generic Name Dose Route Start Last Admin Trade Name Taylor PRN Reason Stop Dose Admin Albuterol/Ipratropium 3 ml 06/16/19 18:30 06/17/19 11:09 Duoneb NEB Not Given [id number]-GM ROSALIO Albuterol/Ipratropium 3 ml 06/17/19 07:00 06/17/19 11:09 Duoneb NEB Not Given QID-RT ROSALIO Ascorbic Acid 500 mg 06/17/19 09:00 06/17/19 08:38 Vitamin C PO 500 mg DAILY ROSALIO Administration Aspirin 81 mg 06/17/19 09:00 06/17/19 08:38 Ecotrin PO 81 mg DAILY ROSALIO Administration Duloxetine HCl 60 mg 06/17/19 09:00 06/17/19 08:37 Cymbalta PO 60 mg BID ROSALIO Administration Famotidine 20 mg 06/16/19 21:00 06/17/19 08:39 Pepcid SLOW IVP 20 mg Q12HR ROSALIO Administration Furosemide 20 mg 06/17/19 09:00 06/17/19 08:38 Lasix PO 20 mg QAM ROSALIO Administration Pramipexole Dihydrochloride 0.5 mg 06/17/19 09:00 06/17/19 08:38 Mirapex PO 0.5 mg BID ROSALIO Administration Pregabalin 100 mg 06/17/19 09:00 06/17/19 08:38 Lyrica PO 100 mg TID ROSALIO Administration Tramadol HCl 50 mg 06/17/19 00:33 06/17/19 10:50 Ultram PO 50 mg Q6H PRN Administration Moderate to Severe Pain (6-10) - Exam General Appearance: NAD, awake alert Eye: PERRL, anicteric sclera ENT: no oropharyngeal lesions, moist mucosa Neck: supple, no JVD Heart: RRR, no murmur Respiratory: no wheezes, no rales Gastrointestinal: soft, non-tender, non-distended, normal bowel sounds Extremities: no cyanosis, no edema Neurological: cranial nerve grossly intact, no focal deficits Psychiatric: normal affect, A&O x 3 Hosp A/P (1) Syncope Code(s): R55 - SYNCOPE AND COLLAPSE Status: Resolved (2) Diarrhea Code(s): R19.7 - DIARRHEA, UNSPECIFIED Status: Resolved (3) Compression fracture of T7 vertebra Code(s): S22.060A - WEDGE COMPRESSION FRACTURE OF T7-T8 VERTEBRA, INIT Status : Acute (4) FTT (failure to thrive) in adult Status: Chronic (5) History of multiple sclerosis Code(s): Z86.69 - PERSONAL HISTORY OF DIS OF THE NERVOUS SYS AND SENSE ORGANS Status: Chronic (6) Anxiety and depression Code(s): F41.9 - ANXIETY DISORDER, UNSPECIFIED; F32.9 - MAJOR DEPRESSIVE DISORDER, SINGLE EPISODE, UNSPECIFIED Status: Chronic (7) COPD (chronic obstructive pulmonary disease) Status: Chronic Qualifiers: COPD type: chronic bronchitis (8) HLD (hyperlipidemia) Code(s): E78.5 - HYPERLIPIDEMIA, UNSPECIFIED Status: Chronic Qualifiers: (9) HTN (hypertension) Code(s): I10 - ESSENTIAL (PRIMARY) HYPERTENSION Status: Chronic Qualifiers: Hypertension type: essential hypertension Qualified Code(s): I10 - Essential (primary) hypertension (10) Peripheral neuropathy Code(s): G62.9 - POLYNEUROPATHY, UNSPECIFIED Status: Chronic (11) Peripheral vascular disease Code(s): I73.9 - PERIPHERAL VASCULAR DISEASE, UNSPECIFIED Status: Chronic (12) Restless leg syndrome Status: Chronic (13) Chronic pain Code(s): G89.29 - OTHER CHRONIC PAIN Status: Chronic Qualifiers: Chronic pain type: chronic pain syndrome Qualified Code(s): G89.4 - Chronic pain syndrome - Plan MRI T spine shows T7 fracture with mod compression, will get NSx opinion He couldn't tolerate contrast imaging and lumbar mri h/o MS? not on any meds, await neurology opinion has gen wasting of small muscles of hand and forearm might need C.spine MRI with contrast, await NSx opinion is on asp, klonopin, cymbalta, pramipexole, lyrica, ultram nebs, pepcid and vit C, dc lasix PT/OT eval will need placement, risk of falling, deconditioning
[2019-06-17] MEDS ORDERED: Ondansetron PF 4 MG/2 ML Vial ONE (15:32)
[2019-06-17] MEDS ORDERED: PROPOFOL 200 MG/20 ML VIAL ONE (15:32)
[2019-06-17] MEDS: clonazePAM 1 MG TAB PO SCH (20:29)
--- NOTE | 2019-06-17 21:36 | CON ---
DATE OF CONSULTATION: 06/17/2019 HISTORY OF PRESENT ILLNESS: The patient is a 68-year-old male with a past medical history of multiple sclerosis, prior TIAs, chronic pain, peripheral vascular disease with right lower extremity stenting, hypertension, hyperlipidemia, RLS, COPD, who presented to the emergency department per his family after increasing weakness in the legs, difficulty walking, and frequent falls. The patient's most recent fall was in the morning of 06/16/2019 and he reports he laid on the ground approximately 7 hours before someone found him to help him out. He was brought to the emergency department where he was evaluated by the ER and admitted to Medicine for his increasing weakness. The patient has known old T7 burst fracture seen on prior imaging in December 2018, but did report some increasing back pain since his fall. He also reports that he has had some dysesthesias in bilateral legs and weakness in the legs, right greater than left. This has been ongoing for some time, but appears to be getting worse. He was admitted to Medicine and had a noncontrast MRI of the thoracic spine. However, he was moving quite a bit during this exam and they were unable to get any axial pictures. I am able to visualize the sagittal images which show a T7 burst fracture which does appear to have some degree of cord compression T7. It is difficult to fully assess secondary to lack of the axial pictures. He also got a CT of the cervical spine which showed no acute changes, but is notable for multilevel degenerative changes. I visited the patient at the bedside. His main complaint during our visit is weakness in the right leg. But he does admit to some back pain as well. He is able to move his feet easily, but does have difficulty raising the legs off the bed for any long period of time, right greater than left. He is somewhat hyperreflexic throughout. Negative Gerda and negative clonus. PAST MEDICAL HISTORY: Multiple sclerosis, COPD, hypertension, hyperlipidemia, prior CVAs, history of seizures, venous insufficiency, and peripheral vascular disease with right lower extremity stenting. PAST SURGICAL HISTORY: Right hip surgery, stenting to the right lower extremity. SOCIAL HISTORY: The patient lives at home. He smokes approximately 1/2 pack per day. He does not drink or use any drugs. KNOWN ALLERGIES: To morphine and sulfa. CURRENT MEDICATION LIST: 1. Pramipexole. 2. Clonazepam. 3. Hydrocodone. 4. Ventolin HFA. 5. Furosemide. 6. Aspirin 325. 7. Home oxygen. PHYSICAL EXAMINATION: VITAL SIGNS: Temperature is 98, pulse is 80, respiratory rate is 18. The patient is 97% on room air. BP is 118/70. CONSTITUTIONAL: Awake, alert, in no acute distress. HEENT: Head, normocephalic and atraumatic. Eyes, PERRLA. Extraocular movements intact. ENT, oral mucosa is dry, but he has normal voice. NECK: Nontender to palpation. Free active range of motion. No meningismus or nuchal rigidity. RESPIRATORY: Symmetric chest expansion. No evidence of dyspnea. CARDIOVASCULAR: Regular rate and rhythm. MUSCULOSKELETAL: Chronic venous stasis changes. Peripheral pulses are symmetric. He has some weakness in bilateral lower extremities and has difficulty raising the legs off the bed, right greater than left. He has hyperreflexia in bilateral lower extremities. In the upper extremities he has free active range of motion. No focal motor weakness is appreciated. Mildly hyperreflexive in the UEs. NEURO: A and O x4. Normal speech. Weak bilateral lower extremities are noted in the musculoskeletal exam. ASSESSMENT AND PLAN: This is a 68-year-old male with known multiple sclerosis who has had increasing bilateral lower extremity weakness, dysesthesias, and frequent falls with increased back pain. He appears to have some degree of compression at the old T7 burst fracture. However, this is difficult to fully assess due to lack of axial films. Considering his overall decline in his walking, we will plan to repeat his MRI imaging with the assistance of anesthesia. We are recommending MRI of the brain, cervical spine, thoracic spine, and lumbar spine with and without contrast. Once these images are complete, we will review and Dr. Almaguer will also meet with the patient. At this point, considering the chronicity of the T7 burst fracture, I am not recommending TLSO bracing at this time. Job ID: [id number] [facility]
[2019-06-18] MEDS: traMADol HCl 50 MG TAB PO PRN ×2 (01:53→15:52)
[2019-06-18] MEDS: Pregabalin 50 MG CAP PO SCH ×3 (09:02→20:27)
[2019-06-18] MEDS: Pramipexole Di-HCl 0.25 MG TAB PO SCH ×2 (09:03→20:27)
[2019-06-18] MEDS: Aspirin 81 mg Enteric Coated Tablet PO SCH (09:03)
[2019-06-18] MEDS: Ascorbic Acid 500 mg Chewable Tablet PO SCH (09:03)
[2019-06-18] MEDS: DULoxetine 60 MG CAP PO SCH ×2 (09:03→20:26)
--- NOTE | 2019-06-18 13:11 | PDOC.HOSPP ---
- Subjective Encounter Date: 06/18/19 Encounter Time: 09:15 Subjective: no new complaints is undergoing neuro consultation now - Objective Vital Signs & Weight: Vital Signs (12 hours) Temp Pulse Resp BP BP Pulse Ox 06/18/19 11:55 98 F 84 17 110/67 97 06/18/19 10:40 84 16 94 L 06/18/19 08:00 92 L 06/18/19 07:19 98 F 84 19 124/81 92 L 06/18/19 06:46 90 16 94 L 06/18/19 06:30 90 94 L 06/18/19 04:42 98.0 F 106 H 20 106/68 94 L Weight Weight 213 lb 13.574 oz I&O: 06/17/19 06/18/19 06/19/19 06:59 06:59 06:59 Intake Total 1280 480 Balance 1280 480 Result Diagrams: 06/16/19 15:07 06/16/19 15:07 Additional Labs: Accuchecks 06/18/19 06/17/19 04:42 19:19 POC Glucose 103 117 H Hospitalist ROS - Medication Medications: Active Medications Generic Name Dose Route Start Last Admin Trade Name Freq PRN Reason Stop Dose Admin Albuterol/Ipratropium 3 ml 06/17/19 07:00 06/18/19 10:40 Duoneb NEB 3 ml QID-RT ROSALIO Administration Ascorbic Acid 500 mg 06/17/19 09:00 06/18/19 09:03 Vitamin C PO 500 mg DAILY ROSALIO Administration Aspirin 81 mg 06/17/19 09:00 06/18/19 09:03 Ecotrin PO 81 mg DAILY ROSALIO Administration Clonazepam 0.5 mg 06/17/19 21:00 06/17/19 20:29 Klonopin PO 0.5 mg HS ROSALIO Administration Duloxetine HCl 60 mg 06/17/19 09:00 06/18/19 09:03 Cymbalta PO 60 mg BID ROSALIO Administration Pramipexole Dihydrochloride 0.5 mg 06/17/19 09:00 06/18/19 09:03 Mirapex PO 0.5 mg BID ROSALIO Administration Pregabalin 100 mg 06/17/19 09:00 06/18/19 09:02 Lyrica PO 100 mg TID ROSALIO Administration Tramadol HCl 50 mg 06/17/19 00:33 06/18/19 01:53 Ultram PO 50 mg Q6H PRN Administration Moderate to Severe Pain (6-10) - Exam General Appearance: NAD, awake alert Eye: PERRL, anicteric sclera ENT: no oropharyngeal lesions, moist mucosa Neck: supple, no JVD Heart: RRR, no murmur Respiratory: no wheezes, no rales Gastrointestinal: soft, non-tender, non-distended, normal bowel sounds Extremities: no cyanosis, no edema Neurological - other findings: has generalized muscle atrophy Psychiatric: A&O x 3 Hosp A/P (1) Syncope Code(s): R55 - SYNCOPE AND COLLAPSE Status: Resolved (2) Diarrhea Code(s): R19.7 - DIARRHEA, UNSPECIFIED Status: Resolved (3) Compression fracture of T7 vertebra Code(s): S22.060A - WEDGE COMPRESSION FRACTURE OF T7-T8 VERTEBRA, INIT Status : Chronic Qualifiers: Encounter type: sequela Qualified Code(s): S22.060S - Wedge compression fracture of T7-T8 vertebra, sequela (4) FTT (failure to thrive) in adult Status: Chronic (5) History of multiple sclerosis Code(s): Z86.69 - PERSONAL HISTORY OF DIS OF THE NERVOUS SYS AND SENSE ORGANS Status: Chronic (6) Anxiety and depression Code(s): F41.9 - ANXIETY DISORDER, UNSPECIFIED; F32.9 - MAJOR DEPRESSIVE DISORDER, SINGLE EPISODE, UNSPECIFIED Status: Chronic (7) COPD (chronic obstructive pulmonary disease) Status: Chronic Qualifiers: COPD type: chronic bronchitis (8) HLD (hyperlipidemia) Code(s): E78.5 - HYPERLIPIDEMIA, UNSPECIFIED Status: Chronic Qualifiers: (9) HTN (hypertension) Code(s): I10 - ESSENTIAL (PRIMARY) HYPERTENSION Status: Chronic Qualifiers: Hypertension type: essential hypertension Qualified Code(s): I10 - Essential (primary) hypertension (10) Peripheral neuropathy Code(s): G62.9 - POLYNEUROPATHY, UNSPECIFIED Status: Chronic (11) Peripheral vascular disease Code(s): I73.9 - PERIPHERAL VASCULAR DISEASE, UNSPECIFIED Status: Chronic (12) Restless leg syndrome Status: Chronic (13) Chronic pain Code(s): G89.29 - OTHER CHRONIC PAIN Status: Chronic Qualifiers: Chronic pain type: chronic pain syndrome Qualified Code(s): G89.4 - Chronic pain syndrome - Plan MRI T spine shows T7 fracture with mod compression, likely its old. He couldn't tolerate contrast imaging and lumbar mri h/o MS? not on any meds, await neurology opinion has gen wasting of small muscles of hand and forearm MRI brain and spine with anesthesia is on asp, klonopin, cymbalta, pramipexole, lyrica, ultram nebs, pepcid and vit C, dc lasix PT/OT eval will need placement, risk of falling, deconditioning
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
[2019-06-18] MEDS: clonazePAM 1 MG TAB PO SCH (20:26)
[2019-06-19] MEDS: Pregabalin 50 MG CAP PO SCH ×3 (08:36→20:22)
[2019-06-19] MEDS: Aspirin 81 mg Enteric Coated Tablet PO SCH (08:36)
[2019-06-19] MEDS: Pramipexole Di-HCl 0.25 MG TAB PO SCH ×2 (08:36→20:22)
[2019-06-19] MEDS: DULoxetine 60 MG CAP PO SCH ×2 (08:36→20:22)
[2019-06-19] MEDS: Ascorbic Acid 500 mg Chewable Tablet PO SCH (08:36)
--- NOTE | 2019-06-19 16:30 | PDOC.HOSPP ---
- Subjective Encounter Date: 06/19/19 Encounter Time: 09:30 Subjective: has amb with PT, no pain - Objective Vital Signs & Weight: Vital Signs (12 hours) Temp Pulse Resp BP Pulse Ox 06/19/19 10:34 79 16 96 06/19/19 08:00 92 L 06/19/19 07:49 98.0 F 85 20 125/74 92 L 06/19/19 07:22 75 15 100 Weight Weight 213 lb 13.574 oz I&O: 06/18/19 06/19/19 06/20/19 06:59 06:59 06:59 Intake Total 1280 1870 1320 Balance 1280 1870 1320 Result Diagrams: 06/16/19 15:07 06/16/19 15:07 Hospitalist ROS - Medication Medications: Active Medications Generic Name Dose Route Start Last Admin Trade Name Freq PRN Reason Stop Dose Admin Albuterol/Ipratropium 3 ml 06/17/19 07:00 06/19/19 14:38 Duoneb NEB Not Given QID-RT ROSALIO Ascorbic Acid 500 mg 06/17/19 09:00 06/19/19 08:36 Vitamin C PO 500 mg DAILY ROSALIO Administration Aspirin 81 mg 06/17/19 09:00 06/19/19 08:36 Ecotrin PO 81 mg DAILY ROSALIO Administration Clonazepam 0.5 mg 06/17/19 21:00 06/18/19 20:26 Klonopin PO 0.5 mg HS ROSALIO Administration Duloxetine HCl 60 mg 06/17/19 09:00 06/19/19 08:36 Cymbalta PO 60 mg BID ROSALIO Administration Pramipexole Dihydrochloride 0.5 mg 06/17/19 09:00 06/19/19 08:36 Mirapex PO 0.5 mg BID ROSALIO Administration Pregabalin 100 mg 06/17/19 09:00 06/19/19 15:18 Lyrica PO 100 mg TID ROSALIO Administration Tramadol HCl 50 mg 06/17/19 00:33 06/18/19 15:52 Ultram PO 50 mg Q6H PRN Administration Moderate to Severe Pain (6-10) - Exam General Appearance: awake alert Eye: PERRL, anicteric sclera ENT: no oropharyngeal lesions, moist mucosa Neck: supple, no JVD Heart: no murmur, no gallops Respiratory: no wheezes, no rales Gastrointestinal: soft, non-tender, non-distended, normal bowel sounds Extremities: no cyanosis, no edema Skin: no rashes Neurological: cranial nerve grossly intact Psychiatric: normal affect, A&O x 3 Hosp A/P (1) Syncope Code(s): R55 - SYNCOPE AND COLLAPSE Status: Resolved (2) Diarrhea Code(s): R19.7 - DIARRHEA, UNSPECIFIED Status: Resolved (3) Compression fracture of T7 vertebra Code(s): S22.060A - WEDGE COMPRESSION FRACTURE OF T7-T8 VERTEBRA, INIT Status : Chronic Qualifiers: Encounter type: sequela Qualified Code(s): S22.060S - Wedge compression fracture of T7-T8 vertebra, sequela (4) FTT (failure to thrive) in adult Status: Chronic (5) History of multiple sclerosis Code(s): Z86.69 - PERSONAL HISTORY OF DIS OF THE NERVOUS SYS AND SENSE ORGANS Status: Chronic (6) Anxiety and depression Code(s): F41.9 - ANXIETY DISORDER, UNSPECIFIED; F32.9 - MAJOR DEPRESSIVE DISORDER, SINGLE EPISODE, UNSPECIFIED Status: Chronic (7) COPD (chronic obstructive pulmonary disease) Status: Chronic Qualifiers: COPD type: chronic bronchitis (8) HLD (hyperlipidemia) Code(s): E78.5 - HYPERLIPIDEMIA, UNSPECIFIED Status: Chronic Qualifiers: (9) HTN (hypertension) Code(s): I10 - ESSENTIAL (PRIMARY) HYPERTENSION Status: Chronic Qualifiers: Hypertension type: essential hypertension Qualified Code(s): I10 - Essential (primary) hypertension (10) Peripheral neuropathy Code(s): G62.9 - POLYNEUROPATHY, UNSPECIFIED Status: Chronic (11) Peripheral vascular disease Code(s): I73.9 - PERIPHERAL VASCULAR DISEASE, UNSPECIFIED Status: Chronic (12) Restless leg syndrome Status: Chronic (13) Chronic pain Code(s): G89.29 - OTHER CHRONIC PAIN Status: Chronic Qualifiers: Chronic pain type: chronic pain syndrome Qualified Code(s): G89.4 - Chronic pain syndrome - Plan MRI T spine shows T7 fracture with mod compression, likely its old, is in TSLO brace. He couldn't tolerate contrast imaging and lumbar mri h/o MS? not on any meds has gen wasting of small muscles of hand and forearm MRI brain and spine with anesthesia pending is on asp, klonopin, cymbalta, pramipexole, lyrica, ultram nebs, pepcid and vit C PT/OT eval will need placement, risk of falling, deconditioning
[2019-06-19] MEDS: clonazePAM 1 MG TAB PO SCH (20:23)
[2019-06-19] MEDS: traMADol HCl 50 MG TAB PO PRN (20:25)
[2019-06-20] MEDS: HYDROcodone/Acetaminophen 5/325 mg Tablet PO PRN ×2 (07:59→20:56)
[2019-06-20] MEDS: DULoxetine 60 MG CAP PO SCH ×2 (08:00→20:55)
[2019-06-20] MEDS: Pregabalin 50 MG CAP PO SCH ×3 (08:00→20:55)
[2019-06-20] MEDS: Ascorbic Acid 500 mg Chewable Tablet PO SCH (08:01)
[2019-06-20] MEDS: Aspirin 81 mg Enteric Coated Tablet PO SCH (08:01)
[2019-06-20] MEDS: Pramipexole Di-HCl 0.25 MG TAB PO SCH ×2 (08:04→20:55)
--- NOTE | 2019-06-20 13:24 | PDOC.HOSPP ---
- Subjective Encounter Date: 06/20/19 Encounter Time: 07:00 Subjective: pain is better, is amb with PT no sob - Objective Vital Signs & Weight: Vital Signs (12 hours) Temp Pulse Resp BP BP Pulse Ox Pulse Ox 06/20/19 11:05 94 L 06/20/19 07:53 98.2 F 83 20 116/75 96 06/20/19 07:37 93 18 96 06/20/19 03:53 98.4 F 79 20 129/79 96 Pulse Ox 06/20/19 11:05 92 L 06/20/19 07:53 06/20/19 07:37 06/20/19 03:53 Weight Weight 213 lb 13.574 oz I&O: 06/19/19 06/20/19 06/21/19 06:59 06:59 06:59 Intake Total 1869 2039 Balance 1869 2039 Result Diagrams: 06/16/19 15:07 06/16/19 15:07 Hospitalist ROS - Medication Medications: Active Medications Generic Name Dose Route Start Last Admin Trade Name Freq PRN Reason Stop Dose Admin Hydrocodone Bitart/Acetaminophen 1 tab 06/20/19 07:03 06/20/19 07:59 [place] 5/325 PO 1 tab Q4H PRN Administration Pain Albuterol/Ipratropium 3 ml 06/17/19 07:00 06/20/19 10:42 Duoneb NEB 3 ml QID-RT ROSALIO Administration Ascorbic Acid 500 mg 06/17/19 09:00 06/20/19 08:01 Vitamin C PO 500 mg DAILY ROSALIO Administration Aspirin 81 mg 06/17/19 09:00 06/20/19 08:01 Ecotrin PO 81 mg DAILY ROSALIO Administration Clonazepam 0.5 mg 06/17/19 21:00 06/19/19 20:23 Klonopin PO 0.5 mg HS ROSALIO Administration Duloxetine HCl 60 mg 06/17/19 09:00 06/20/19 08:00 Cymbalta PO 60 mg BID ROSALIO Administration Pramipexole Dihydrochloride 0.5 mg 06/17/19 09:00 06/20/19 08:04 Mirapex PO 0.5 mg BID ROSALIO Administration Pregabalin 100 mg 06/17/19 09:00 06/20/19 08:00 Lyrica PO 100 mg TID ROSALIO Administration Tramadol HCl 50 mg 06/17/19 00:33 06/19/19 20:25 Ultram PO 50 mg Q6H PRN Administration Moderate to Severe Pain (6-10) - Exam General Appearance: awake alert Eye: PERRL, anicteric sclera ENT: no oropharyngeal lesions, moist mucosa Neck: supple, no JVD Heart: RRR, no murmur Respiratory: no wheezes, no rales Gastrointestinal: soft, non-tender, non-distended, normal bowel sounds Extremities: no cyanosis, no edema Neurological: cranial nerve grossly intact, no focal deficits Hosp A/P (1) Syncope Code(s): R55 - SYNCOPE AND COLLAPSE Status: Resolved (2) Diarrhea Code(s): R19.7 - DIARRHEA, UNSPECIFIED Status: Resolved (3) Compression fracture of T7 vertebra Code(s): S22.060A - WEDGE COMPRESSION FRACTURE OF T7-T8 VERTEBRA, INIT Status : Chronic Qualifiers: Encounter type: sequela Qualified Code(s): S22.060S - Wedge compression fracture of T7-T8 vertebra, sequela (4) FTT (failure to thrive) in adult Status: Chronic (5) History of multiple sclerosis Code(s): Z86.69 - PERSONAL HISTORY OF DIS OF THE NERVOUS SYS AND SENSE ORGANS Status: Chronic (6) Anxiety and depression Code(s): F41.9 - ANXIETY DISORDER, UNSPECIFIED; F32.9 - MAJOR DEPRESSIVE DISORDER, SINGLE EPISODE, UNSPECIFIED Status: Chronic (7) COPD (chronic obstructive pulmonary disease) Status: Chronic Qualifiers: COPD type: chronic bronchitis (8) HLD (hyperlipidemia) Code(s): E78.5 - HYPERLIPIDEMIA, UNSPECIFIED Status: Chronic Qualifiers: (9) HTN (hypertension) Code(s): I10 - ESSENTIAL (PRIMARY) HYPERTENSION Status: Chronic Qualifiers: Hypertension type: essential hypertension Qualified Code(s): I10 - Essential (primary) hypertension (10) Peripheral neuropathy Code(s): G62.9 - POLYNEUROPATHY, UNSPECIFIED Status: Chronic (11) Peripheral vascular disease Code(s): I73.9 - PERIPHERAL VASCULAR DISEASE, UNSPECIFIED Status: Chronic (12) Restless leg syndrome Status: Chronic (13) Chronic pain Code(s): G89.29 - OTHER CHRONIC PAIN Status: Chronic Qualifiers: Chronic pain type: chronic pain syndrome Qualified Code(s): G89.4 - Chronic pain syndrome - Plan MRI T spine shows T7 fracture with mod compression, likely its old, is in TSLO brace. He couldn't tolerate contrast imaging and lumbar mri h/o MS? not on any meds has gen wasting of small muscles of hand and forearm MRI brain and spine with anesthesia pending is on asp, klonopin, cymbalta, pramipexole, lyrica, ultram nebs, pepcid and vit C PT/OT eval will need placement, risk of falling, deconditioning
--- NOTE | 2019-06-20 16:05 | MRI ---
MRI CERVICAL SPINE WITH AND WITHOUT CONTRAST: Indications: Muscle wasting. Falling. History of MS. Exam performed under anesthesia. Patient unable to position adequately. Very kyphotic. Comparison: 09-30-17 FINDINGS: Exam is severely limited due to artifact. The cervical cord is not well evaluated due to T2 artifact. Cervical vertebrae maintain normal height and alignment. There are degenerative disc changes which ar e stable from 09-30-17. Mild disc bulge at C3-4, C4-5, C5-6, and C6-7 levels appears stable. These moreno ges efface anterior subarachnoid space, however, no significant cord impingement. No significant cent ral canal stenosis. On the post contrast images, no definite cord enhancement is identified. Thinning of the upper thorac ic cord is noted and cord lesion at C3-4 level has been previously described. See recent MRI thoracic spine of 06-17-19. IMPRESSION: 1. No definite cervical cord lesion although the exam is severely limited due to T2 artifact. No abno rmal enhancement. No thinning of the cord. 2. Mild disc bulge with spondolytic changes of the cervical spine are stable from 09-30-17. POS: [facility]
--- NOTE | 2019-06-20 16:21 | MRI ---
THORACIC SPINE MRI WITH AND WITHOUT CONTRAST: Date: 06-20-19 Comparison: None. History: Multiple sclerosis. Multiple falls, pain. Technique: Multiplanar, multisequence MR imaging of the thoracic spine is provided with and without c ontrast. FINDINGS: There is an anterior wedge compression fracture of T7 with prominent anterior loss of vertebral body height. This is a remote fracture as there is no evidence for acute edema on the STIR imaging. STIR i maging demonstrates no focal area of osseous marrow edema within the thoracic spine. No significant a nterolisthesis or retrolisthesis is noted. There is marked increased thoracic spine kyphosis centered at the T6-7 level on the basis of the abov e described T7 fracture. T1-2: No significant central canal or neural foraminal stenosis. T2-3: No significant central canal or neural foraminal stenosis. T3-4: No significant central canal or neural foraminal stenosis. T4-5: No significant central canal or neural foraminal stenosis. T5-6: No significant central canal or neural foraminal stenosis. T6-7: Mild osseous retropulsion is seen along the superior endplate of the T7 vertebral body with a m oderate degree of associated central canal stenosis. No neural foraminal stenosis is noted on either side. T7-8: No significant central canal or neural foraminal stenosis. T8-9: No central canal or neural foraminal stenosis. T9-10: No central canal or neural foraminal stenosis. T10-11: No central canal or neural foraminal stenosis. T11-12: No central canal or neural foraminal stenosis. T12-L1: No central canal or neural foraminal stenosis. There is a benign hemangioma within the T10 vertebral body. Small bilateral pleural effusions are noted. There is a focal area of abnormal signal intensity within the thoracic cord at the T3-4 level consist ent with the provided history of multiple sclerosis. No additional thoracic cord lesion. Post contrast imaging demonstrates no abnormal enhancement involving the contents of the thecal sac, the imaged osseous structures, or the intervertebral discs. IMPRESSION: 1. Remote T7 fracture with associated exaggerated thoracic kyphosis. There is associated moderate hoa tral canal stenosis at this level. 2. Small bilateral pleural effusions. 3. Focal area of abnormal T2 signal intensity within the thoracic cord at T3-4 consistent with the pr ovided history of multiple sclerosis. POS: [facility]
[2019-06-20] MEDS ORDERED: Promethazine HCl 25 MG/ML VIAL SLOW IVP PRN (16:27)
[2019-06-20] MEDS ORDERED: Promethazine HCl 25 MG/ML VIAL IM PRN (16:27)
[2019-06-20] MEDS ORDERED: PACU-Morphine 4MG/ML VIAL SLOW IVP PRN (16:27)
--- NOTE | 2019-06-20 16:31 | MRI ---
MRI LUMBAR SPINE WITH AND WITHOUT CONTRAST: 06/20/2019 HISTORY: Multiple sclerosis. Frequent falls. Back pain. COMPARISON: None. TECHNIQUE: Multiplanar, multisequence MR imaging of the lumbar spine provided with and without contrast. FINDINGS: Sagittal STIR imaging of the lumbar spine demonstrates no focal area of osseous marrow edema. On the basis of five lumbar type vertebral bodies the conus medullaris terminates at T12-L1. T12-L1: No significant central canal or neural foraminal stenosis. L1-L2: Intervertebral disk height and signal intensity within normal limits with no significant centr al canal or neural foraminal stenosis. L2-L3: Intervertebral disk height and signal intensity within normal limits with no significant centr al canal or neural foraminal stenosis. L3-L4: Mild bilateral facet hypertrophy. Disk desiccation noted. No central canal or neural foraminal stenosis. L4-L5: Mild bilateral facet hypertrophy. Mild disk desiccation. No central canal or neural foraminal stenosis. L5-S1: Intervertebral disk height and signal intensity within normal limits with no significant centr al canal or neural foraminal stenosis. The post contrast imaging demonstrates no abnormal enhancement involving the contents of the thecal s ac, the imaged vertebral bodies or the intervertebral disks. The imaged retroperitoneal structures de monstrate no acute findings. IMPRESSION: No significant central canal or neural foraminal stenosis within the lumbar spine. POS: [facility]
[2019-06-20] MEDS: clonazePAM 1 MG TAB PO SCH (20:55)
[2019-06-21] MEDS: HYDROcodone/Acetaminophen 5/325 mg Tablet PO PRN ×2 (04:26→22:53)
[2019-06-21] MEDS: traMADol HCl 50 MG TAB PO PRN (05:30)
--- NOTE | 2019-06-21 08:20 | PRG ---
DATE OF SERVICE: 06/21/2019 This is a 68-year-old male recently evaluated for progressive leg weakness. He was found to have an old T7 burst fracture for which we had placed in a TLSO brace. He recently obtained MRIs of the C, T and L-spine, which do show T7 burst deformity, but only mild compression at this area. There are no other compressive lesions throughout the cervical, thoracic, or lumbar spine to account for his significant leg weakness. At this point, we feel that his weakness and increased fall are likely a component of his underlying MS and we will defer to Neurology for additional workup or treatment of these. I will arrange 4-week followup with repeat thoracic x-rays for his T7 compression fracture and the patient should continue to wear the TLSO brace for all out of bed activities. Please reach out to Neurosurgery for additional questions or concerns. Job ID: [id number]
[2019-06-21] MEDS: DULoxetine 60 MG CAP PO SCH ×2 (08:37→20:24)
[2019-06-21] MEDS: Aspirin 81 mg Enteric Coated Tablet PO SCH (08:37)
[2019-06-21] MEDS: Pramipexole Di-HCl 0.25 MG TAB PO SCH ×2 (08:37→20:25)
[2019-06-21] MEDS: Ascorbic Acid 500 mg Chewable Tablet PO SCH (08:37)
[2019-06-21] MEDS: Pregabalin 50 MG CAP PO SCH ×3 (08:38→20:25)
--- NOTE | 2019-06-21 15:24 | PDOC.HOSPP ---
- Subjective Encounter Date: 06/21/19 Encounter Time: 10:00 Subjective: no new complaints is amb with PT - Objective Vital Signs & Weight: Vital Signs (12 hours) Temp Pulse Resp BP Pulse Ox Pulse Ox Pulse Ox 06/21/19 15:19 88 16 97 06/21/19 13:34 91 L 90 L 06/21/19 11:07 88 16 96 06/21/19 08:38 96 06/21/19 07:50 98.1 F 88 20 113/65 92 L 06/21/19 07:32 91 16 98 Weight Weight 213 lb 13.574 oz I&O: 06/20/19 06/21/19 06/22/19 06:59 06:59 06:59 Intake Total 2039 1199 Balance 2039 1200 Result Diagrams: 06/16/19 15:07 06/16/19 15:07 Hospitalist ROS - Medication Medications: Active Medications Generic Name Dose Route Start Last Admin Trade Name Freq PRN Reason Stop Dose Admin Hydrocodone Bitart/Acetaminophen 1 tab 06/20/19 07:03 06/21/19 04:26 [place] 5/325 PO 1 tab Q4H PRN Administration Pain Albuterol/Ipratropium 3 ml 06/17/19 07:00 06/21/19 15:19 Duoneb NEB 3 ml QID-RT ROSALIO Administration Ascorbic Acid 500 mg 06/17/19 09:00 06/21/19 08:37 Vitamin C PO 500 mg DAILY ROSALIO Administration Aspirin 81 mg 06/17/19 09:00 06/21/19 08:37 Ecotrin PO 81 mg DAILY ROSALIO Administration Clonazepam 0.5 mg 06/17/19 21:00 06/20/19 20:55 Klonopin PO 0.5 mg HS ROSALIO Administration Duloxetine HCl 60 mg 06/17/19 09:00 06/21/19 08:37 Cymbalta PO 60 mg BID ROSALIO Administration Pramipexole Dihydrochloride 0.5 mg 06/17/19 09:00 06/21/19 08:37 Mirapex PO 0.5 mg BID ROSALIO Administration Pregabalin 100 mg 06/17/19 09:00 06/21/19 08:38 Lyrica PO 100 mg TID ROSALIO Administration Sodium Chloride 10 ml 06/16/19 18:07 06/21/19 08:39 Flush - Normal Saline IVF 10 ml Q12HR PRN Administration Saline Flush Tramadol HCl 50 mg 06/17/19 00:33 06/21/19 05:30 Ultram PO 50 mg Q6H PRN Administration Moderate to Severe Pain (6-10) - Exam General Appearance: NAD, awake alert Eye: PERRL, anicteric sclera ENT: no oropharyngeal lesions, moist mucosa Neck: supple, no JVD Heart: RRR, no murmur Respiratory: no wheezes, no rales Gastrointestinal: soft, non-tender, non-distended, normal bowel sounds Extremities: no cyanosis, no edema Neurological: cranial nerve grossly intact, no focal deficits Musculoskeletal: diffuse muscle atrophy Psychiatric: normal affect, A&O x 3 Hosp A/P (1) Syncope Code(s): R55 - SYNCOPE AND COLLAPSE Status: Resolved (2) Diarrhea Code(s): R19.7 - DIARRHEA, UNSPECIFIED Status: Resolved (3) Compression fracture of T7 vertebra Code(s): S22.060A - WEDGE COMPRESSION FRACTURE OF T7-T8 VERTEBRA, INIT Status : Chronic Qualifiers: Encounter type: sequela Qualified Code(s): S22.060S - Wedge compression fracture of T7-T8 vertebra, sequela (4) FTT (failure to thrive) in adult Status: Chronic (5) History of multiple sclerosis Code(s): Z86.69 - PERSONAL HISTORY OF DIS OF THE NERVOUS SYS AND SENSE ORGANS Status: Chronic (6) Anxiety and depression Code(s): F41.9 - ANXIETY DISORDER, UNSPECIFIED; F32.9 - MAJOR DEPRESSIVE DISORDER, SINGLE EPISODE, UNSPECIFIED Status: Chronic (7) COPD (chronic obstructive pulmonary disease) Status: Chronic Qualifiers: COPD type: chronic bronchitis (8) HLD (hyperlipidemia) Code(s): E78.5 - HYPERLIPIDEMIA, UNSPECIFIED Status: Chronic Qualifiers: (9) HTN (hypertension) Code(s): I10 - ESSENTIAL (PRIMARY) HYPERTENSION Status: Chronic Qualifiers: Hypertension type: essential hypertension Qualified Code(s): I10 - Essential (primary) hypertension (10) Peripheral neuropathy Code(s): G62.9 - POLYNEUROPATHY, UNSPECIFIED Status: Chronic (11) Peripheral vascular disease Code(s): I73.9 - PERIPHERAL VASCULAR DISEASE, UNSPECIFIED Status: Chronic (12) Restless leg syndrome Status: Chronic (13) Chronic pain Code(s): G89.29 - OTHER CHRONIC PAIN Status: Chronic Qualifiers: Chronic pain type: chronic pain syndrome Qualified Code(s): G89.4 - Chronic pain syndrome - Plan MRI T spine shows T7 fracture with mod compression, likely its old, is in TSLO brace. h/o MS? not on any meds has gen wasting of small muscles of hand and forearm MRI brain and spine with anesthesia were obtained 06/20/2019 shows no new findings. is on asp, klonopin, cymbalta, pramipexole, lyrica, ultram nebs, pepcid and vit C PT/OT eval my dc when placement is ready, risk of falling, deconditioning
[2019-06-21] MEDS: clonazePAM 1 MG TAB PO SCH (20:24)
[2019-06-22] MEDS: DULoxetine 60 MG CAP PO SCH ×2 (08:18→19:59)
[2019-06-22] MEDS: Pregabalin 50 MG CAP PO SCH ×3 (08:18→20:00)
[2019-06-22] MEDS: Aspirin 81 mg Enteric Coated Tablet PO SCH (08:18)
[2019-06-22] MEDS: Pramipexole Di-HCl 0.25 MG TAB PO SCH ×2 (08:18→19:59)
[2019-06-22] MEDS: Ascorbic Acid 500 mg Chewable Tablet PO SCH (08:19)
--- NOTE | 2019-06-22 14:36 | PDOC.HOSPP ---
- Subjective Encounter Date: 06/22/19 Encounter Time: 14:34 Subjective: No new complaints - Objective Vital Signs & Weight: Vital Signs (12 hours) Temp Pulse Resp BP BP Pulse Ox 06/22/19 10:35 80 16 95 06/22/19 08:18 95 06/22/19 08:00 98.4 F 85 20 121/69 99 06/22/19 06:33 95 06/22/19 06:31 81 20 95 06/22/19 04:26 98.1 F 82 16 132/75 99 Weight Weight 213 lb 13.574 oz I&O: 06/21/19 06/22/19 06/23/19 06:59 06:59 06:59 Intake Total 1200 2040 Balance 1200 2040 Result Diagrams: 06/16/19 15:07 06/16/19 15:07 Hospitalist ROS - Medication Medications: Active Medications Generic Name Dose Route Start Last Admin Trade Name Freq PRN Reason Stop Dose Admin Hydrocodone Bitart/Acetaminophen 1 tab 06/20/19 07:03 06/21/19 22:53 [place] 5/325 PO 1 tab Q4H PRN Administration Pain Albuterol/Ipratropium 3 ml 06/17/19 07:00 06/22/19 10:35 Duoneb NEB 3 ml QID-RT ROSALIO Administration Ascorbic Acid 500 mg 06/17/19 09:00 06/22/19 08:19 Vitamin C PO 500 mg DAILY ROSALIO Administration Aspirin 81 mg 06/17/19 09:00 06/22/19 08:18 Ecotrin PO 81 mg DAILY ROSALIO Administration Clonazepam 0.5 mg 06/17/19 21:00 06/21/19 20:24 Klonopin PO 0.5 mg HS ROSALIO Administration Duloxetine HCl 60 mg 06/17/19 09:00 06/22/19 08:18 Cymbalta PO 60 mg BID ROSALIO Administration Pramipexole Dihydrochloride 0.5 mg 06/17/19 09:00 06/22/19 08:18 Mirapex PO 0.5 mg BID ROSALIO Administration Pregabalin 100 mg 06/17/19 09:00 06/22/19 14:23 Lyrica PO 100 mg TID ROSALIO Administration Sodium Chloride 10 ml 06/16/19 18:07 06/21/19 08:39 Flush - Normal Saline IVF 10 ml Q12HR PRN Administration Saline Flush Tramadol HCl 50 mg 06/17/19 00:33 06/21/19 05:30 Ultram PO 50 mg Q6H PRN Administration Moderate to Severe Pain (6-10) - Exam General Appearance: NAD, awake alert, ill appearing ENT: normocephalic atraumatic, no oropharyngeal lesions, moist mucosa, dry oral mucosa Neck: supple, symmetric, no JVD, no thyromegaly, no lymphadenopathy, no carotid bruit, JVD Heart: RRR, no murmur, no gallops, no rubs, normal peripheral pulses, irregular , diminshed peripheral pulses, murmur present, II/IV, III/IV Respiratory: CTAB, no wheezes, no rales, no ronchi, normal chest expansion, no tachypnea, normal percussion, rales, rhonchi, tachypneic, wheezes Gastrointestinal: soft, non-tender, non-distended, normal bowel sounds, no palpable masses, no hepatomegaly, no splenomegaly, no bruit, no guarding, no rigidity, tender to palpation, distended, diminished bowl sounds, voluntary guarding Extremities: no cyanosis, no clubbing, no edema, 1+ LE edema, 2+ LE edema, clubbing Skin: normal turgor, no lesions, no rashes, tenting Neurological: cranial nerve grossly intact, normal sensation to touch, no weakness, no focal deficits, no new deficit, facial droop, hemiplegia, speech deficit, vision deficit Musculoskeletal: normal tone, normal strength, no muscle wasting, generalized weakness, diffuse muscle atrophy Hosp A/P (1) History of multiple cerebrovascular accidents (CVAs) Code(s): Z86.73 - PRSNL HX OF TIA (TIA), AND CEREB INFRC W/O RESID DEFICITS Status: Acute (2) Injury of head and neck Code(s): S09.90XA - UNSPECIFIED INJURY OF HEAD, INITIAL ENCOUNTER; S19.9XXA - UNSPECIFIED INJURY OF NECK, INITIAL ENCOUNTER Status: Acute (3) Lower extremity weakness Code(s): R29.898 - OT SYMPTOMS AND SIGNS INVOLVING THE MUSCULOSKELETAL SYSTEM Status: Acute (4) Compression fracture of T7 vertebra Code(s): S22.060A - WEDGE COMPRESSION FRACTURE OF T7-T8 VERTEBRA, INIT Status : Chronic Qualifiers: Encounter type: sequela Qualified Code(s): S22.060S - Wedge compression fracture of T7-T8 vertebra, sequela - Plan PT/OT (Await placement. D/C planning), social service assistant
[2019-06-22] MEDS: clonazePAM 1 MG TAB PO SCH (19:59)
[2019-06-22] MEDS: HYDROcodone/Acetaminophen 5/325 mg Tablet PO PRN (20:01)
--- NOTE | 2019-06-22 23:28 | DIS ---
DATE OF ADMISSION: 06/16/2019 DATE OF DISCHARGE: 06/22/2019 FINAL DIAGNOSES: 1. Syncope and collapse. 2. by history. 3. Hypertension. 4. Chronic pain. HOSPITAL COURSE: The patient was admitted by Dr. Anderson's team, physical therapy was continued. Pain control was obtained. As patient was needing physical therapy and occupational therapy, it has been concluded to transfer the patient to senior living facility. INVESTIGATIONS PERFORMED DURING THIS HOSPITALIZATION: CT of the brain shows no acute abnormalities. DISCHARGE INSTRUCTIONS: Discharge patient to senior living facility. DIET: Cardiac prudent. ACTIVITY: As tolerated. DISCHARGE MEDICATIONS: As per reconciliation sheet. FOLLOWUP CARE: Follow up with senior living facility physician as scheduled. Job ID: [id number]
[2019-06-23] MEDS: Pramipexole Di-HCl 0.25 MG TAB PO SCH ×2 (08:33→20:54)
[2019-06-23] MEDS: DULoxetine 60 MG CAP PO SCH ×2 (08:33→20:54)
[2019-06-23] MEDS: Pregabalin 50 MG CAP PO SCH ×3 (08:34→20:54)
[2019-06-23] MEDS: Aspirin 81 mg Enteric Coated Tablet PO SCH (08:34)
[2019-06-23] MEDS: Ascorbic Acid 500 mg Chewable Tablet PO SCH (08:35)
--- NOTE | 2019-06-23 16:23 | PDOC.HOSPP ---
- Subjective Subjective: Seen and examined. Breathing well on room air, oxygen is hanging off the bed. Laying in bed in no apparent distress. Denies pain this a.m. No acute overnight events. Pending placement. - Objective Vital Signs & Weight: Vital Signs (12 hours) Temp Pulse Resp BP Pulse Ox 06/23/19 07:36 97 F L 79 20 110/65 99 06/23/19 06:49 88 16 99 Weight Weight 213 lb 13.574 oz I&O: 06/22/19 06/23/19 06/24/19 06:59 06:59 06:59 Intake Total 2039 1699 Balance 2039 1699 Result Diagrams: 06/16/19 15:07 06/16/19 15:07 Hospitalist ROS - Review of Systems All other systems reviewed; all pertinent +/- noted in HPI/Subj - Medication Medications: Active Medications Generic Name Dose Route Start Last Admin Trade Name Freq PRN Reason Stop Dose Admin Hydrocodone Bitart/Acetaminophen 1 tab 06/20/19 07:03 06/22/19 20:01 [place] 5/325 PO 1 tab Q4H PRN Administration Pain Albuterol/Ipratropium 3 ml 06/17/19 07:00 06/23/19 13:39 Duoneb NEB 3 ml QID-RT ROSALIO Administration Ascorbic Acid 500 mg 06/17/19 09:00 06/23/19 08:35 Vitamin C PO 500 mg DAILY ROSALIO Administration Aspirin 81 mg 06/17/19 09:00 06/23/19 08:34 Ecotrin PO 81 mg DAILY ROSALIO Administration Clonazepam 0.5 mg 06/17/19 21:00 06/22/19 19:59 Klonopin PO 0.5 mg HS ROSALIO Administration Duloxetine HCl 60 mg 06/17/19 09:00 06/23/19 08:33 Cymbalta PO 60 mg BID ROSALIO Administration Pramipexole Dihydrochloride 0.5 mg 06/17/19 09:00 06/23/19 08:33 Mirapex PO 0.5 mg BID ROSALIO Administration Pregabalin 100 mg 06/17/19 09:00 06/23/19 14:26 Lyrica PO 100 mg TID ROSALIO Administration Sodium Chloride 10 ml 06/16/19 18:07 06/21/19 08:39 Flush - Normal Saline IVF 10 ml Q12HR PRN Administration Saline Flush Tramadol HCl 50 mg 06/17/19 00:33 06/21/19 05:30 Ultram PO 50 mg Q6H PRN Administration Moderate to Severe Pain (6-10) - Exam General Appearance: NAD, awake alert Eye: PERRL, anicteric sclera ENT: normocephalic atraumatic, moist mucosa Neck: supple, symmetric, no lymphadenopathy Heart: no murmur, no gallops, no rubs Respiratory: CTAB, no wheezes, no rales Gastrointestinal: soft, non-tender, no guarding, no rigidity Extremities: no edema Skin: no lesions, no rashes Neurological: cranial nerve grossly intact, normal sensation to touch, no focal deficits Musculoskeletal: generalized weakness Psychiatric: normal affect, A&O x 3 Hosp A/P (1) History of multiple cerebrovascular accidents (CVAs) Code(s): Z86.73 - PRSNL HX OF TIA (TIA), AND CEREB INFRC W/O RESID DEFICITS Status: Acute (2) Injury of head and neck Code(s): S09.90XA - UNSPECIFIED INJURY OF HEAD, INITIAL ENCOUNTER; S19.9XXA - UNSPECIFIED INJURY OF NECK, INITIAL ENCOUNTER Status: Acute (3) Lower extremity weakness Code(s): R29.898 - OTH SYMPTOMS AND SIGNS INVOLVING THE MUSCULOSKELETAL SYSTEM Status: Acute (4) Chronic pain Code(s): G89.29 - OTHER CHRONIC PAIN Status: Chronic Qualifiers: Chronic pain type: chronic pain syndrome Qualified Code(s): G89.4 - Chronic pain syndrome (5) Compression fracture of T7 vertebra Code(s): S22.060A - WEDGE COMPRESSION FRACTURE OF T7-T8 VERTEBRA, INIT Status : Chronic Qualifiers: Encounter type: sequela Qualified Code(s): S22.060S - Wedge compression fracture of T7-T8 vertebra, sequela (6) FTT (failure to thrive) in adult Status: Chronic (7) History of multiple sclerosis Code(s): Z86.69 - PERSONAL HISTORY OF DIS OF THE NERVOUS SYS AND SENSE ORGANS Status: Chronic (8) Diarrhea Code(s): R19.7 - DIARRHEA, UNSPECIFIED Status: Resolved (9) Syncope Code(s): R55 - SYNCOPE AND COLLAPSE Status: Resolved (10) Anxiety and depression Code(s): F41.9 - ANXIETY DISORDER, UNSPECIFIED; F32.9 - MAJOR DEPRESSIVE DISORDER, SINGLE EPISODE, UNSPECIFIED Status: Chronic (11) HLD (hyperlipidemia) Code(s): E78.5 - HYPERLIPIDEMIA, UNSPECIFIED Status: Chronic Qualifiers: (12) HTN (hypertension) Code(s): I10 - ESSENTIAL (PRIMARY) HYPERTENSION Status: Chronic Qualifiers: Hypertension type: essential hypertension Qualified Code(s): I10 - Essential (primary) hypertension (13) Multiple sclerosis Code(s): G35 - MULTIPLE SCLEROSIS Status: Chronic (14) Neuropathy Code(s): G62.9 - POLYNEUROPATHY, UNSPECIFIED Status: Chronic (15) Peripheral arterial disease Code(s): I73.9 - PERIPHERAL VASCULAR DISEASE, UNSPECIFIED Status: Chronic (16) Peripheral neuropathy Code(s): G62.9 - POLYNEUROPATHY, UNSPECIFIED Status: Chronic (17) Peripheral vascular disease Code(s): I73.9 - PERIPHERAL VASCULAR DISEASE, UNSPECIFIED Status: Chronic (18) Restless leg syndrome Status: Chronic (19) Venous stasis dermatitis Code(s): I87.2 - VENOUS INSUFFICIENCY (CHRONIC) (PERIPHERAL) Status: Chronic Qualifiers: Laterality: bilateral Qualified Code(s): I87.2 - Venous insufficiency ( chronic) (peripheral) (20) history of syringomyelia and syringobulb Status: Chronic - Plan Plan: medical unit pending discharge placement to senior living facility Neurosurgery consultation, recommendations appreciated neurology consultation, recommendations appreciated no surgical intervention recommended for neurosurgery TLSO brace pain control continue current medications blood pressure control blood sugar control
[2019-06-23] MEDS ORDERED: Senokot 8.6 MG TAB PO PRN (20:47)
[2019-06-23] MEDS: clonazePAM 1 MG TAB PO SCH (20:54)
[2019-06-23] MEDS: HYDROcodone/Acetaminophen 5/325 mg Tablet PO PRN (20:55)
[2019-06-24] MEDS: Pramipexole Di-HCl 0.25 MG TAB PO SCH ×2 (08:42→21:23)
[2019-06-24] MEDS: DULoxetine 60 MG CAP PO SCH ×2 (08:43→21:23)
[2019-06-24] MEDS: Pregabalin 50 MG CAP PO SCH ×3 (08:43→21:23)
[2019-06-24] MEDS: Ascorbic Acid 500 mg Chewable Tablet PO SCH (08:43)
[2019-06-24] MEDS: Aspirin 81 mg Enteric Coated Tablet PO SCH (08:43)
--- NOTE | 2019-06-24 15:24 | PDOC.HOSPP ---
- Subjective Subjective: Seen and examined. Discussed case with insurance medical assistant ob gyn who recommended D/c home. I informed them that PT/OT recommending SNF vs Rehab. With TLSO brace patient is more restricted then before. If patient unable to go home then an appeal would need to be filed with the insurance. No acute complaints this AM. Progressing with maximum medical therapy. - Objective Vital Signs & Weight: Vital Signs (12 hours) Temp Pulse Resp BP Pulse Ox 06/24/19 14:38 77 16 06/24/19 11:41 80 16 96 06/24/19 08:00 96 06/24/19 07:27 97.7 F 77 20 146/80 H 96 06/24/19 07:00 96 06/24/19 06:58 88 16 96 06/24/19 04:04 89 16 99 Weight Weight 213 lb 13.574 oz I&O: 06/23/19 06/24/19 06/25/19 06:59 06:59 06:59 Intake Total 1700 1500 Balance 1700 1500 Result Diagrams: 06/16/19 15:07 06/16/19 15:07 Radiology Reviewed by me: Yes Hospitalist ROS - Review of Systems All other systems reviewed; all pertinent +/- noted in HPI/Subj - Medication Medications: Active Medications Generic Name Dose Route Start Last Admin Trade Name Freq PRN Reason Stop Dose Admin Hydrocodone Bitart/Acetaminophen 1 tab 06/20/19 07:03 06/23/19 20:55 [place] 5/325 PO 1 tab Q4H PRN Administration Pain Albuterol/Ipratropium 3 ml 06/17/19 07:00 06/24/19 14:38 Duoneb NEB 3 ml QID-RT ROSALIO Administration Albuterol/Ipratropium 3 ml 06/17/19 13:48 06/24/19 04:04 Duoneb NEB 3 ml [id number] PRN Administration sob Ascorbic Acid 500 mg 06/17/19 09:00 06/24/19 08:43 Vitamin C PO 500 mg DAILY ROSALIO Administration Aspirin 81 mg 06/17/19 09:00 06/24/19 08:43 Ecotrin PO 81 mg DAILY ROSALIO Administration Clonazepam 0.5 mg 06/17/19 21:00 06/23/19 20:54 Klonopin PO 0.5 mg HS ROSALIO Administration Duloxetine HCl 60 mg 06/17/19 09:00 06/24/19 08:43 Cymbalta PO 60 mg BID ROSALIO Administration Pramipexole Dihydrochloride 0.5 mg 06/17/19 09:00 06/24/19 08:42 Mirapex PO 0.5 mg BID ROSALIO Administration Pregabalin 100 mg 06/17/19 09:00 06/24/19 08:43 Lyrica PO 100 mg TID ROSALIO Administration Senna 1 tab 06/23/19 20:47 06/23/19 20:55 Senokot PO 1 tab HSPRN PRN Administration Constipation Sodium Chloride 10 ml 06/16/19 18:07 06/21/19 08:39 Flush - Normal Saline IVF 10 ml Q12HR PRN Administration Saline Flush Tramadol HCl 50 mg 06/17/19 00:33 06/21/19 05:30 Ultram PO 50 mg Q6H PRN Administration Moderate to Severe Pain (6-10) - Exam General Appearance: NAD Eye: anicteric sclera ENT: normocephalic atraumatic, moist mucosa Neck: supple, no lymphadenopathy Heart: no murmur, no gallops, no rubs Respiratory: CTAB, no wheezes, no rales, no ronchi, normal chest expansion Gastrointestinal: soft, non-tender, no guarding, no rigidity Extremities: no edema Skin: no rashes Neurological: cranial nerve grossly intact, no new deficit Musculoskeletal: generalized weakness Psychiatric: normal affect, A&O x 3 Hosp A/P (1) History of multiple cerebrovascular accidents (CVAs) Code(s): Z86.73 - PRSNL HX OF TIA (TIA), AND CEREB INFRC W/O RESID DEFICITS Status: Acute (2) Injury of head and neck Code(s): S09.90XA - UNSPECIFIED INJURY OF HEAD, INITIAL ENCOUNTER; S19.9XXA - UNSPECIFIED INJURY OF NECK, INITIAL ENCOUNTER Status: Acute (3) Lower extremity weakness Code(s): R29.898 - OTH SYMPTOMS AND SIGNS INVOLVING THE MUSCULOSKELETAL SYSTEM Status: Acute (4) Chronic pain Code(s): G89.29 - OTHER CHRONIC PAIN Status: Chronic Qualifiers: Chronic pain type: chronic pain syndrome Qualified Code(s): G89.4 - Chronic pain syndrome (5) Compression fracture of T7 vertebra Code(s): S22.060A - WEDGE COMPRESSION FRACTURE OF T7-T8 VERTEBRA, INIT Status : Chronic Qualifiers: Encounter type: sequela Qualified Code(s): S22.060S - Wedge compression fracture of T7-T8 vertebra, sequela (6) FTT (failure to thrive) in adult Status: Chronic (7) History of multiple sclerosis Code(s): Z86.69 - PERSONAL HISTORY OF DIS OF THE NERVOUS SYS AND SENSE ORGANS Status: Chronic (8) Diarrhea Code(s): R19.7 - DIARRHEA, UNSPECIFIED Status: Resolved (9) Syncope Code(s): R55 - SYNCOPE AND COLLAPSE Status: Resolved (10) Anxiety and depression Code(s): F41.9 - ANXIETY DISORDER, UNSPECIFIED; F32.9 - MAJOR DEPRESSIVE DISORDER, SINGLE EPISODE, UNSPECIFIED Status: Chronic (11) HLD (hyperlipidemia) Code(s): E78.5 - HYPERLIPIDEMIA, UNSPECIFIED Status: Chronic Qualifiers: (12) HTN (hypertension) Code(s): I10 - ESSENTIAL (PRIMARY) HYPERTENSION Status: Chronic Qualifiers: Hypertension type: essential hypertension Qualified Code(s): I10 - Essential (primary) hypertension (13) Multiple sclerosis Code(s): G35 - MULTIPLE SCLEROSIS Status: Chronic (14) Neuropathy Code(s): G62.9 - POLYNEUROPATHY, UNSPECIFIED Status: Chronic (15) Peripheral arterial disease Code(s): I73.9 - PERIPHERAL VASCULAR DISEASE, UNSPECIFIED Status: Chronic (16) Peripheral neuropathy Code(s): G62.9 - POLYNEUROPATHY, UNSPECIFIED Status: Chronic (17) Peripheral vascular disease Code(s): I73.9 - PERIPHERAL VASCULAR DISEASE, UNSPECIFIED Status: Chronic (18) Restless leg syndrome Status: Chronic (19) Venous stasis dermatitis Code(s): I87.2 - VENOUS INSUFFICIENCY (CHRONIC) (PERIPHERAL) Status: Chronic Qualifiers: Laterality: bilateral Qualified Code(s): I87.2 - Venous insufficiency ( chronic) (peripheral) (20) history of syringomyelia and syringobulb Status: Chronic - Plan Plan: medical unit pending discharge placement to [facility] facility vs rehab recommended per PT/OT. Insurance recommended D/c home. If patient wants to go to SNF/ rehab would need appeal filed Neurosurgery consultation, recommendations appreciated neurology consultation, recommendations appreciated no surgical intervention recommended for neurosurgery Continue TLSO brace pain control continue current medications blood pressure control blood sugar control Continue PT/OT eval and treat
[2019-06-24] MEDS: HYDROcodone/Acetaminophen 5/325 mg Tablet PO PRN ×2 (16:57→22:25)
[2019-06-24] MEDS: clonazePAM 1 MG TAB PO SCH (21:25)
[2019-06-25] MEDS: Aspirin 81 mg Enteric Coated Tablet PO SCH (08:39)
[2019-06-25] MEDS: Pramipexole Di-HCl 0.25 MG TAB PO SCH ×2 (08:39→21:14)
[2019-06-25] MEDS: Pregabalin 50 MG CAP PO SCH ×3 (08:39→21:13)
[2019-06-25] MEDS: Ascorbic Acid 500 mg Chewable Tablet PO SCH (08:40)
[2019-06-25] MEDS: DULoxetine 60 MG CAP PO SCH ×2 (08:40→21:14)
[2019-06-25] MEDS: HYDROcodone/Acetaminophen 5/325 mg Tablet PO PRN ×2 (13:03→22:15)
--- NOTE | 2019-06-25 15:26 | PDOC.HOSPP ---
- Subjective Subjective: Seen and examined. No acute overnight events. Clinically and change. Patient has chronic venous stasis dermatitis and has had evaluations for peripheral arterial disease in the past. This causes him chronic leg pain and he also has neuropathy for which he takes Lyrica. - Objective Vital Signs & Weight: Vital Signs (12 hours) Temp Pulse Resp BP Pulse Ox 06/25/19 07:24 97.6 F 76 19 125/80 98 06/25/19 06:42 80 14 Weight Weight 213 lb 13.574 oz I&O: 06/24/19 06/25/19 06/26/19 06:59 06:59 05:59 Intake Total 1500 Balance 1500 Result Diagrams: 06/16/19 15:07 06/16/19 15:07 Radiology Reviewed by me: Yes Hospitalist ROS - Review of Systems All other systems reviewed; all pertinent +/- noted in HPI/Subj - Medication Medications: Active Medications Generic Name Dose Route Start Last Admin Trade Name Freq PRN Reason Stop Dose Admin Hydrocodone Bitart/Acetaminophen 1 tab 06/20/19 07:03 06/25/19 13:03 [place] 5/325 PO 1 tab Q4H PRN Administration Pain Albuterol/Ipratropium 3 ml 06/17/19 13:48 06/24/19 04:04 Duoneb NEB 3 ml [id number] PRN Administration sob Ascorbic Acid 500 mg 06/17/19 09:00 06/25/19 08:40 Vitamin C PO 500 mg DAILY ROSALIO Administration Aspirin 81 mg 06/17/19 09:00 06/25/19 08:39 Ecotrin PO 81 mg DAILY ROSALIO Administration Clonazepam 0.5 mg 06/17/19 21:00 06/24/19 21:25 Klonopin PO 0.5 mg HS ROSALIO Administration Duloxetine HCl 60 mg 06/17/19 09:00 06/25/19 08:40 Cymbalta PO 60 mg BID ROSALIO Administration Pramipexole Dihydrochloride 0.5 mg 06/17/19 09:00 06/25/19 08:39 Mirapex PO 0.5 mg BID ROSALIO Administration Pregabalin 100 mg 06/17/19 09:00 06/25/19 13:03 Lyrica PO 100 mg TID ROSALIO Administration Senna 1 tab 06/23/19 20:47 06/23/19 20:55 Senokot PO 1 tab HSPRN PRN Administration Constipation Sodium Chloride 10 ml 06/16/19 18:07 06/21/19 08:39 Flush - Normal Saline IVF 10 ml Q12HR PRN Administration Saline Flush Tramadol HCl 50 mg 06/17/19 00:33 06/21/19 05:30 Ultram PO 50 mg Q6H PRN Administration Moderate to Severe Pain (6-10) - Exam General Appearance: NAD, awake alert Eye: anicteric sclera ENT: normocephalic atraumatic, moist mucosa Neck: supple, symmetric, no lymphadenopathy Heart: no murmur, no gallops, no rubs Respiratory: CTAB, no wheezes, no rales, no ronchi Gastrointestinal: soft, non-tender, non-distended, no guarding, no rigidity Extremities: no edema Skin: no rashes Skin - other findings: Chronic radha statis dermatitis Neurological: cranial nerve grossly intact, no focal deficits Musculoskeletal: generalized weakness Psychiatric: normal affect, A&O x 3 Hosp A/P (1) History of multiple cerebrovascular accidents (CVAs) Code(s): Z86.73 - PRSNL HX OF TIA (TIA), AND CEREB INFRC W/O RESID DEFICITS Status: Acute (2) Injury of head and neck Code(s): S09.90XA - UNSPECIFIED INJURY OF HEAD, INITIAL ENCOUNTER; S19.9XXA - UNSPECIFIED INJURY OF NECK, INITIAL ENCOUNTER Status: Acute (3) Lower extremity weakness Code(s): R29.898 - OTH SYMPTOMS AND SIGNS INVOLVING THE MUSCULOSKELETAL SYSTEM Status: Acute (4) Chronic pain Code(s): G89.29 - OTHER CHRONIC PAIN Status: Chronic Qualifiers: Chronic pain type: chronic pain syndrome Qualified Code(s): G89.4 - Chronic pain syndrome (5) Compression fracture of T7 vertebra Code(s): S22.060A - WEDGE COMPRESSION FRACTURE OF T7-T8 VERTEBRA, INIT Status : Chronic Qualifiers: Encounter type: sequela Qualified Code(s): S22.060S - Wedge compression fracture of T7-T8 vertebra, sequela (6) FTT (failure to thrive) in adult Status: Chronic (7) History of multiple sclerosis Code(s): Z86.69 - PERSONAL HISTORY OF DIS OF THE NERVOUS SYS AND SENSE ORGANS Status: Chronic (8) Diarrhea Code(s): R19.7 - DIARRHEA, UNSPECIFIED Status: Resolved (9) Syncope Code(s): R55 - SYNCOPE AND COLLAPSE Status: Resolved (10) Anxiety and depression Code(s): F41.9 - ANXIETY DISORDER, UNSPECIFIED; F32.9 - MAJOR DEPRESSIVE DISORDER, SINGLE EPISODE, UNSPECIFIED Status: Chronic (11) HLD (hyperlipidemia) Code(s): E78.5 - HYPERLIPIDEMIA, UNSPECIFIED Status: Chronic Qualifiers: (12) HTN (hypertension) Code(s): I10 - ESSENTIAL (PRIMARY) HYPERTENSION Status: Chronic Qualifiers: Hypertension type: essential hypertension Qualified Code(s): I10 - Essential (primary) hypertension (13) Multiple sclerosis Code(s): G35 - MULTIPLE SCLEROSIS Status: Chronic (14) Neuropathy Code(s): G62.9 - POLYNEUROPATHY, UNSPECIFIED Status: Chronic (15) Peripheral arterial disease Code(s): I73.9 - PERIPHERAL VASCULAR DISEASE, UNSPECIFIED Status: Chronic (16) Peripheral neuropathy Code(s): G62.9 - POLYNEUROPATHY, UNSPECIFIED Status: Chronic (17) Peripheral vascular disease Code(s): I73.9 - PERIPHERAL VASCULAR DISEASE, UNSPECIFIED Status: Chronic (18) Restless leg syndrome Status: Chronic (19) Venous stasis dermatitis Code(s): I87.2 - VENOUS INSUFFICIENCY (CHRONIC) (PERIPHERAL) Status: Chronic Qualifiers: Laterality: bilateral Qualified Code(s): I87.2 - Venous insufficiency ( chronic) (peripheral) (20) history of syringomyelia and syringobulb Status: Chronic - Plan Plan: medical unit pending discharge placement to [facility] vs rehab recommended per PT/OT. Insurance recommended D/c home. If patient wants to go to SNF/ rehab would need appeal filed Neurosurgery consultation, recommendations appreciated neurology consultation, recommendations appreciated no surgical intervention recommended for neurosurgery Continue TLSO brace pain control continue current medications blood pressure control blood sugar control Continue PT/OT eval and treat
[2019-06-25] MEDS: clonazePAM 1 MG TAB PO SCH (21:15)
[2019-06-26] MEDS: HYDROcodone/Acetaminophen 5/325 mg Tablet PO PRN ×3 (08:04→21:33)
[2019-06-26] MEDS: Aspirin 81 mg Enteric Coated Tablet PO SCH (08:04)
[2019-06-26] MEDS: DULoxetine 60 MG CAP PO SCH ×2 (08:04→20:42)
[2019-06-26] MEDS: Ascorbic Acid 500 mg Chewable Tablet PO SCH (08:04)
[2019-06-26] MEDS: Pramipexole Di-HCl 0.25 MG TAB PO SCH (08:05)
[2019-06-26] MEDS: Pregabalin 50 MG CAP PO SCH ×3 (08:06→20:42)
--- NOTE | 2019-06-26 12:26 | PDOC.HOSPP ---
- Subjective Subjective: Seen and examined. Clinically unchanged. Patient is frustrated that [facility] has denied his stay for prison facility. Patient states that it will be difficult for him to manage at home. No acute overnight events. Continue current plan of care. Patient is interested in filing an appeal with insurance. - Objective Vital Signs & Weight: Vital Signs (12 hours) Temp Pulse Resp BP Pulse Ox 06/26/19 08:42 97.6 F 89 19 153/84 H 89 L 06/26/19 07:00 97.6 F 89 19 153/84 H 93 L Weight Weight 213 lb 13.574 oz Result Diagrams: 06/16/19 15:07 06/16/19 15:07 Hospitalist ROS - Review of Systems All other systems reviewed; all pertinent +/- noted in HPI/Subj - Medication Medications: Active Medications Generic Name Dose Route Start Last Admin Trade Name Freq PRN Reason Stop Dose Admin Hydrocodone Bitart/Acetaminophen 1 tab 06/20/19 07:03 06/26/19 08:04 [place] 5/325 PO 1 tab Q4H PRN Administration Pain Albuterol/Ipratropium 3 ml 06/17/19 13:48 06/24/19 04:04 Duoneb NEB 3 ml [id number] PRN Administration sob Ascorbic Acid 500 mg 06/17/19 09:00 06/26/19 08:04 Vitamin C PO 500 mg DAILY ROSALIO Administration Aspirin 81 mg 06/17/19 09:00 06/26/19 08:04 Ecotrin PO 81 mg DAILY ROSALIO Administration Clonazepam 0.5 mg 06/17/19 21:00 06/25/19 21:15 Klonopin PO 0.5 mg HS ROSALIO Administration Duloxetine HCl 60 mg 06/17/19 09:00 06/26/19 08:04 Cymbalta PO 60 mg BID ROSALIO Administration Pramipexole Dihydrochloride 0.5 mg 06/17/19 09:00 06/26/19 08:05 Mirapex PO 0.5 mg BID ROSALIO Administration Pregabalin 100 mg 06/17/19 09:00 06/26/19 08:06 Lyrica PO 100 mg TID ROSALIO Administration Senna 1 tab 06/23/19 20:47 06/23/19 20:55 Senokot PO 1 tab HSPRN PRN Administration Constipation Sodium Chloride 10 ml 06/16/19 18:07 06/21/19 08:39 Flush - Normal Saline IVF 10 ml Q12HR PRN Administration Saline Flush Tramadol HCl 50 mg 06/17/19 00:33 06/21/19 05:30 Ultram PO 50 mg Q6H PRN Administration Moderate to Severe Pain (6-10) - Exam General Appearance: NAD Eye: anicteric sclera ENT: normocephalic atraumatic Neck: supple, no lymphadenopathy Heart: no murmur, no gallops, no rubs Respiratory: no wheezes, no rales, no ronchi, normal chest expansion Gastrointestinal: non-tender, no guarding, no rigidity Extremities: no edema Skin: no lesions, no rashes Skin - other findings: Chronic radha stasis dermatitis Neurological: cranial nerve grossly intact, no focal deficits Musculoskeletal: generalized weakness Psychiatric: normal affect, A&O x 3 Hosp A/P (1) History of multiple cerebrovascular accidents (CVAs) Code(s): Z86.73 - PRSNL HX OF TIA (TIA), AND CEREB INFRC W/O RESID DEFICITS Status: Acute (2) Injury of head and neck Code(s): S09.90XA - UNSPECIFIED INJURY OF HEAD, INITIAL ENCOUNTER; S19.9XXA - UNSPECIFIED INJURY OF NECK, INITIAL ENCOUNTER Status: Acute (3) Lower extremity weakness Code(s): R29.898 - OTH SYMPTOMS AND SIGNS INVOLVING THE MUSCULOSKELETAL SYSTEM Status: Acute (4) Chronic pain Code(s): G89.29 - OTHER CHRONIC PAIN Status: Chronic Qualifiers: Chronic pain type: chronic pain syndrome Qualified Code(s): G89.4 - Chronic pain syndrome (5) Compression fracture of T7 vertebra Code(s): S22.060A - WEDGE COMPRESSION FRACTURE OF T7-T8 VERTEBRA, INIT Status : Chronic Qualifiers: Encounter type: sequela Qualified Code(s): S22.060S - Wedge compression fracture of T7-T8 vertebra, sequela (6) FTT (failure to thrive) in adult Status: Chronic (7) History of multiple sclerosis Code(s): Z86.69 - PERSONAL HISTORY OF DIS OF THE NERVOUS SYS AND SENSE ORGANS Status: Chronic (8) Diarrhea Code(s): R19.7 - DIARRHEA, UNSPECIFIED Status: Resolved (9) Syncope Code(s): R55 - SYNCOPE AND COLLAPSE Status: Resolved (10) Anxiety and depression Code(s): F41.9 - ANXIETY DISORDER, UNSPECIFIED; F32.9 - MAJOR DEPRESSIVE DISORDER, SINGLE EPISODE, UNSPECIFIED Status: Chronic (11) HLD (hyperlipidemia) Code(s): E78.5 - HYPERLIPIDEMIA, UNSPECIFIED Status: Chronic Qualifiers: (12) HTN (hypertension) Code(s): I10 - ESSENTIAL (PRIMARY) HYPERTENSION Status: Chronic Qualifiers: Hypertension type: essential hypertension Qualified Code(s): I10 - Essential (primary) hypertension (13) Multiple sclerosis Code(s): G35 - MULTIPLE SCLEROSIS Status: Chronic (14) Neuropathy Code(s): G62.9 - POLYNEUROPATHY, UNSPECIFIED Status: Chronic (15) Peripheral arterial disease Code(s): I73.9 - PERIPHERAL VASCULAR DISEASE, UNSPECIFIED Status: Chronic (16) Peripheral neuropathy Code(s): G62.9 - POLYNEUROPATHY, UNSPECIFIED Status: Chronic (17) Peripheral vascular disease Code(s): I73.9 - PERIPHERAL VASCULAR DISEASE, UNSPECIFIED Status: Chronic (18) Restless leg syndrome Status: Chronic (19) Venous stasis dermatitis Code(s): I87.2 - VENOUS INSUFFICIENCY (CHRONIC) (PERIPHERAL) Status: Chronic Qualifiers: Laterality: bilateral Qualified Code(s): I87.2 - Venous insufficiency ( chronic) (peripheral) (20) history of syringomyelia and syringobulb Status: Chronic - Plan Plan: medical unit pending discharge placement to prison facility vs rehab recommended per PT/OT. Insurance recommended D/c home. If patient wants to go to SNF/ rehab would need appeal filed Neurosurgery consultation, recommendations appreciated neurology consultation, recommendations appreciated no surgical intervention recommended for neurosurgery Continue TLSO brace pain control continue current medications blood pressure control blood sugar control Continue PT/OT eval and treat
[2019-06-26] MEDS: clonazePAM 1 MG TAB PO SCH (20:42)
[2019-06-26] MEDS: Pramipexole Di-HCl 1 MG TAB PO SCH (20:42)
[2019-06-27] MEDS: HYDROcodone/Acetaminophen 5/325 mg Tablet PO PRN ×3 (04:34→12:45)
[2019-06-27] MEDS: Aspirin 81 mg Enteric Coated Tablet PO SCH (08:32)
[2019-06-27] MEDS: DULoxetine 60 MG CAP PO SCH (08:32)
[2019-06-27] MEDS: Ascorbic Acid 500 mg Chewable Tablet PO SCH (08:32)
[2019-06-27] MEDS: Pregabalin 50 MG CAP PO SCH ×2 (08:33→15:26)
[2019-06-27] MEDS: Pramipexole Di-HCl 1 MG TAB PO SCH (08:33)
--- NOTE | 2019-06-27 12:37 | PQF ---
DATE: 06-27-19 ATTN: OUMOU MALIN Please exercise your independent, professional judgment in responding to the clarification form. Clinical indicators are provided on the bottom of this form for your review Please check appropriate box(s): Syncope Due to: [ ] Progression of MS [ XX ] Adult FTT [ ] Other diagnosis [ ] Unable to determine In addition, please specify: Present on Admission (POA): [ XX ] Yes [ ] No [ ] Unable to determine For continuity of documentation, please document condition throughout progress notes and discharge summary. Thank You. CLINICAL INDICATORS - SIGNS / SYMPTOMS / LABS / RESULTS AND LOCATION IN MR: Dr. Beth Winters PN 06/21: Progression of MS Dr. Anderson PN 06/17 - : Adult FTT RISK FACTORS / RESULTS AND LOCATION IN MR: H&P 06-16-19: HX CAD, HTN, HX CVA/TIA TREATMENTS / RESULTS AND LOCATION IN MR: H&P 06-16-19: BRAIN MRI. CAROTID US AND ECHO. ORTHOSTATIC BP'S. (This form is maintained as a part of the permanent medical record) 2014 [employer]. All Rights Reserved CORNELIO [email or web address] Office: [phone] [facility]PITAL[facility]
--- NOTE | 2019-06-27 13:00 | PQF ---
DATE: 06-27-19 ATTN: DR. OUMOU MALIN Please exercise your independent, professional judgment in responding to the clarification form. Clinical indicators are provided on the bottom of this form for your review Please check appropriate box(s): [ XX ] Chronic Respiratory Failure only [ ] with Hypoxia [ ] with Hypercapnia [ ] Hypoxia [ ] Other diagnosis [ ] Unable to determine In addition, please specify: Present on Admission (POA): [ XX ] Yes [ ] No [ ] Unable to determine For continuity of documentation, please document condition throughout progress notes and discharge summary. Thank You. CLINICAL INDICATORS - SIGNS / SYMPTOMS / LABS / RESULTS AND LOCATION IN MR: ER NOTES 06-16-19: O2 SAT 91% ON 3L OXYGEN, PT WEARS 3L OF OXYGEN AT BASELINE , HX OF EMPHYSEMA, COPD, WEARS O2 24/7, SMOKES CIGARETTES O2 SAT CHECKS 06-16-19: 96% ON 3L NC, 06-17-19: 02 94% ON 3L NC RISK FACTORS / RESULTS AND LOCATION IN MR: ER NOTES 06-16-19: PT WEARS 3L OF OXYGEN AT BASELINE, HX OF EMPHYSEMA, COPD, WEARS O2 24/7, SMOKES CIGARETTES TREATMENTS / RESULTS AND LOCATION IN MR: O2 SAT CHECKS 06-16-19: 96% ON 3L NC, 06-17-19: 02 94% ON 3L NC MAR: 06-17-19: DUONEB PRN (This form is maintained as a part of the permanent medical record) 2014 [employer] All Rights Reserved CORNELIO [email or web address] Office: [phone] [facility]ITAL[facility]
--- NOTE | 2019-06-27 13:17 | PQF ---
DATE: 06-27-19 ATTN : DR. OUMOU MALIN Please exercise your independent, professional judgment in responding to the clarification form. Clinical indicators are provided on the bottom of this form for your review Please check appropriate box(s) to clarify if the following diagnosis has been ruled in or ruled out: CELLULITIS [ XX ] Ruled in diagnosis [ ] Continue to treat [ ] Resolved [ ] Ruled out diagnosis [ ] Other diagnosis [ ] Unable to determine In addition, please specify: Present on Admission (POA): [ XX ] Yes [ ] No [ ] Unable to determine For continuity of documentation, please document condition throughout progress notes and discharge summary. Thank You. CLINICAL INDICATORS - SIGNS / SYMPTOMS / LABS / RESULTS AND LOCATION IN MR: H&P: 06-16-19: ACUTE CELLULITIS OF LOWER EXTREMITY, CELLULITIS OF RIGHT LOWER LIMB RISK FACTORS / RESULTS AND LOCATION IN MR: ER NOTES 06-16-19: HX OF STENT TO R LEG, CHRONIC VENOSTASIS, DECREASED ROM , WEAKNESS BILATERAL LEGS, FREQUENT FALLS TREATMENTS / RESULTS AND LOCATION IN MR: H&P: 06-16-19: POSSIBLE RIGHT LOWER EXTREMITY CELLULITIS, WILL START ABX (This form is maintained as a part of the permanent medical record) 2014 [employer] All Rights Reserved CORNELIO [email or web address] Office: [phone] [place]
--- NOTE | 2019-06-27 13:47 | RAD ---
EXAM: CHEST ONE VIEW HISTORY: Evaluate for tuberculosis prior to SNF placement. COMPARISON: 06/16/2019 FINDINGS: The cardiac silhouette and pulmonary vasculature is within normal limits. Mild chronic lung changes a re again present. There is no new area of consolidation or pleural fluid identified. The osseous structures are intact. Vascular calcifications are again seen in the thoracic aorta. IMPRESSION: 1. Mild chronic lung changes similar to prior study without evidence of an acute cardiopulmonary proc ess.
--- NOTE | 2019-06-27 14:35 | PDOC.HOSPP ---
- Subjective Subjective: Seen and examined. Clinically unchanged. Laying in bed and no apparent distress. Case discussed with family service caseworker who is still working on discharge planning. Discuss the possibility of [facility] facility placement versus assisted-living, home does not seem like a safe discharge plan for this patient. - Objective Vital Signs & Weight: Vital Signs (12 hours) Temp Pulse Resp BP Pulse Ox 06/27/19 08:10 95 06/27/19 07:26 97.8 F 78 14 124/77 98 Weight Admit Weight 213 lb 13.574 oz Weight 213 lb 13.574 oz Result Diagrams: 06/16/19 15:07 06/16/19 15:07 Radiology Reviewed by me: Yes Hospitalist ROS - Review of Systems All other systems reviewed; all pertinent +/- noted in HPI/Subj - Medication Medications: Active Medications Generic Name Dose Route Start Last Admin Trade Name Freq PRN Reason Stop Dose Admin Hydrocodone Bitart/Acetaminophen 1 tab 06/20/19 07:03 06/27/19 12:45 [place] 5/325 PO 1 tab Q4H PRN Administration Pain Albuterol/Ipratropium 3 ml 06/17/19 13:48 06/24/19 04:04 Duoneb NEB 3 ml [id number] PRN Administration sob Ascorbic Acid 500 mg 06/17/19 09:00 06/27/19 08:32 Vitamin C PO 500 mg DAILY ROSALIO Administration Aspirin 81 mg 06/17/19 09:00 06/27/19 08:32 Ecotrin PO 81 mg DAILY ROSALIO Administration Clonazepam 0.5 mg 06/17/19 21:00 06/26/19 20:42 Klonopin PO 0.5 mg HS ROSALIO Administration Duloxetine HCl 60 mg 06/17/19 09:00 06/27/19 08:32 Cymbalta PO 60 mg BID ROSALIO Administration Pramipexole Dihydrochloride 0.5 mg 06/26/19 21:00 06/27/19 08:33 Mirapex PO 0.5 mg BID ROSALIO Administration Pregabalin 100 mg 06/17/19 09:00 06/27/19 08:33 Lyrica PO 100 mg TID ROSALIO Administration Senna 1 tab 06/23/19 20:47 06/23/19 20:55 Senokot PO 1 tab HSPRN PRN Administration Constipation Sodium Chloride 10 ml 06/16/19 18:07 06/21/19 08:39 Flush - Normal Saline IVF 10 ml Q12HR PRN Administration Saline Flush - Exam General Appearance: NAD, awake alert Eye: anicteric sclera ENT: normocephalic atraumatic, moist mucosa Neck: supple, symmetric, no lymphadenopathy Heart: no murmur, no gallops, no rubs Respiratory: CTAB, no wheezes, no rales, no ronchi Gastrointestinal: soft, non-tender, no guarding, no rigidity Extremities: no edema Skin - other findings: Healing [place] Neurological: cranial nerve grossly intact, no weakness Musculoskeletal: generalized weakness Psychiatric: normal affect, A&O x 3 Hosp A/P (1) History of multiple cerebrovascular accidents (CVAs) Code(s): Z86.73 - PRSNL HX OF TIA (TIA), AND CEREB INFRC W/O RESID DEFICITS Status: Acute (2) Injury of head and neck Code(s): S09.90XA - UNSPECIFIED INJURY OF HEAD, INITIAL ENCOUNTER; S19.9XXA - UNSPECIFIED INJURY OF NECK, INITIAL ENCOUNTER Status: Acute (3) Lower extremity weakness Code(s): R29.898 - OTH SYMPTOMS AND SIGNS INVOLVING THE MUSCULOSKELETAL SYSTEM Status: Acute (4) Chronic pain Code(s): G89.29 - OTHER CHRONIC PAIN Status: Chronic Qualifiers: Chronic pain type: chronic pain syndrome Qualified Code(s): G89.4 - Chronic pain syndrome (5) Compression fracture of T7 vertebra Code(s): S22.060A - WEDGE COMPRESSION FRACTURE OF T7-T8 VERTEBRA, INIT Status : Chronic Qualifiers: Encounter type: sequela Qualified Code(s): S22.060S - Wedge compression fracture of T7-T8 vertebra, sequela (6) FTT (failure to thrive) in adult Status: Chronic (7) History of multiple sclerosis Code(s): Z86.69 - PERSONAL HISTORY OF DIS OF THE NERVOUS SYS AND SENSE ORGANS Status: Chronic (8) Diarrhea Code(s): R19.7 - DIARRHEA, UNSPECIFIED Status: Resolved (9) Syncope Code(s): R55 - SYNCOPE AND COLLAPSE Status: Resolved (10) Anxiety and depression Code(s): F41.9 - ANXIETY DISORDER, UNSPECIFIED; F32.9 - MAJOR DEPRESSIVE DISORDER, SINGLE EPISODE, UNSPECIFIED Status: Chronic (11) HLD (hyperlipidemia) Code(s): E78.5 - HYPERLIPIDEMIA, UNSPECIFIED Status: Chronic Qualifiers: (12) HTN (hypertension) Code(s): I10 - ESSENTIAL (PRIMARY) HYPERTENSION Status: Chronic Qualifiers: Hypertension type: essential hypertension Qualified Code(s): I10 - Essential (primary) hypertension (13) Multiple sclerosis Code(s): G35 - MULTIPLE SCLEROSIS Status: Chronic (14) Neuropathy Code(s): G62.9 - POLYNEUROPATHY, UNSPECIFIED Status: Chronic (15) Peripheral arterial disease Code(s): I73.9 - PERIPHERAL VASCULAR DISEASE, UNSPECIFIED Status: Chronic (16) Peripheral neuropathy Code(s): G62.9 - POLYNEUROPATHY, UNSPECIFIED Status: Chronic (17) Peripheral vascular disease Code(s): I73.9 - PERIPHERAL VASCULAR DISEASE, UNSPECIFIED Status: Chronic (18) Restless leg syndrome Status: Chronic (19) Venous stasis dermatitis Code(s): I87.2 - VENOUS INSUFFICIENCY (CHRONIC) (PERIPHERAL) Status: Chronic Qualifiers: Laterality: bilateral Qualified Code(s): I87.2 - Venous insufficiency ( chronic) (peripheral) (20) history of syringomyelia and syringobulb Status: Chronic - Plan Plan: medical unit pending discharge placement to [facility] facility vs rehab recommended per PT/OT. Insurance recommended D/c home. If patient wants to go to SNF/ rehab would need appeal filed Neurosurgery consultation, recommendations appreciated neurology consultation, recommendations appreciated no surgical intervention recommended for neurosurgery Continue TLSO brace pain control continue current medications blood pressure control blood sugar control Continue PT/OT eval and treat
[2019-06-27 15:34] VITALS: BP 130/70; TEMP 98.1
--- NOTE | 2019-07-01 21:03 | DIS ---
DATE OF ADMISSION: 06/16/2019 DATE OF DISCHARGE: 06/27/2019 REASON FOR HOSPITALIZATION: Fall and generalized weakness. SIGNIFICANT FINDINGS: The patient was found to have a T7 burst fracture. PROCEDURES PERFORMED/TREATMENTS RENDERED: The patient was admitted to medical unit for close management. The patient was evaluated by Neurology and Neurosurgery and recommended medical management alone. The patient was recommended TLSO brace to be worn while out of bed except for in showers or bathing time. The patient recommended safe for discharge by all specialists. Efforts were made with Case Management to set up the patient for subacute placement. CONDITION ON DISCHARGE: Stable. SPECIFIC INSTRUCTIONS FOR THE PATIENT/FAMILY: 1. The patient is recommended to wear TLSO brace as directed by Neurology and Neurosurgery. 2. The patient is recommended to follow up with Neurosurgery in the outpatient setting in the next 1 to 2 weeks. 3. The patient is recommended to follow up with Neurology in the next 1 to 2 weeks. 4. The patient is recommended to follow up with primary care physician or internal medicine physician in the next 5 to 7 days. 5. The patient is recommended to take all medications as directed, to be re-evaluated by primary care physician and all specialists in the outpatient setting. 6. The patient is recommended to return to acute care hospital immediately if signs or symptoms return, worsen, or any other new symptoms occur. DISCHARGE MEDICATIONS: Please see full discharge medication list for details. 1. Tramadol 50 mg one tablet p.o. q.6 hours p.r.n. pain. 2. Vitamin E 400 units one tablet p.o. daily. 3. Senokot one tablet p.o. daily p.r.n. constipation. 4. Lyrica 100 mg one tablet p.o. t.i.d. 5. Pramipexole 0.5 mg one tablet p.o. b.i.d. 6. Potassium chloride 10 mEq one tablet p.o. daily. 7. Multivitamin one tablet p.o. daily. 8. Ketoconazole 2% topical cream apply topically daily. 9. DuoNeb q.4 hours p.r.n. shortness of breath. 10. Furosemide 20 mg one tablet p.o. daily. 11. Pepcid 20 mg one tablet p.o. b.i.d. 12. Cymbalta 60 mg one tablet p.o. b.i.d. 13. Vitamin D3 at 1000 units p.o. daily. 14. Aspirin 81 mg one tablet p.o. daily. 15. Vitamin C 500 mg one tablet p.o. daily. HOSPITAL COURSE: Mr. Velazquez is a 68-year-old gentleman with past medical history of COPD, chronic respiratory failure, who is oxygen-dependent, 3 to 4 L nasal cannula continuously. The patient presented to the [facility] on 06/16/2019 - please see full history and physical in addition to consultation notes and progress notes for all details. The patient presented with generalized weakness and a fall. The patient with multiple sclerosis and having worsening weakness over the past several months. The patient was identified to have a T7 burst fracture. The patient was seen and evaluated by Neurology and Neurosurgery. Please see full consultation and progress notes from specialists for details. Neurology and Neurosurgery recommending medical management alone and no surgical intervention. The patient was recommended safe for discharge by all specialists. The patient worked with Physical Therapy and Occupational Therapy and recommended subacute placement. Efforts were made with Case Management and the patient's insurance in order to find a safe discharge planning. The patient had a safe discharge plan on 06/27/2019. The patient is recommended to take all medications as directed, to be re-evaluated by admitting physician. The patient is recommended to follow up with primary care physician, Neurology, and Neurosurgery in the next 1 to 2 weeks. The patient is recommended to return to acute care hospital immediately if signs or symptoms return, worsen, or any other new symptoms occur. TIME SPENT: Greater than 37 minutes spent coordinating care and discharge process for this patient. Job ID: [id number]
== END 2019-06-27 17:41 | DRG 552 ==
LOC: ERS 14:49 → T4-A 18:49
PROVIDERS: ADMIT Internal Medicine; ATTEND Internal Medicine
DX: S22.061S Stable burst fracture of T7-T8 vertebra, sequela (principal); G95.0 Syringomyelia and syringobulbia; L03.115 Cellulitis of right lower limb; J96.10 Chronic respiratory failure, unspecified whether with hypoxia or hypercapnia; Z66 Do not resuscitate; R29.898 Other symptoms and signs involving the musculoskeletal system; G35 Multiple sclerosis; I44.4 Left anterior fascicular block; I25.10 Atherosclerotic heart disease of native coronary artery without angina pectoris; I10 Essential (primary) hypertension; I73.9 Peripheral vascular disease, unspecified; F32.9 Major depressive disorder, single episode, unspecified; F41.9 Anxiety disorder, unspecified; R19.7 Diarrhea, unspecified; E86.0 Dehydration; E78.5 Hyperlipidemia, unspecified; G62.9 Polyneuropathy, unspecified; G25.81 Restless legs syndrome; G89.4 Chronic pain syndrome; R29.6 Repeated falls; F17.210 Nicotine dependence, cigarettes, uncomplicated; W19.XXXA Unspecified fall, initial encounter; R62.7 Adult failure to thrive; S09.90XA Unspecified injury of head, initial encounter; I87.2 Venous insufficiency (chronic) (peripheral); Z91.81 History of falling; Z99.81 Dependence on supplemental oxygen; Z88.5 Allergy status to narcotic agent; Z86.73 Personal history of transient ischemic attack (TIA), and cerebral infarction without residual deficits; Z88.2 Allergy status to sulfonamides; Z79.51 Long term (current) use of inhaled steroids; Z79.899 Other long term (current) drug therapy; Z79.82 Long term (current) use of aspirin; Z68.30 Body mass index [BMI] 30.0-30.9, adult; J43.9 Emphysema, unspecified
CPT/HCPCS: 36415; 36416; 51701; 70450; 71045; 72125; 72146; 72156; 72157; 72158; 80053; 81003; 82550; 83605; 83735; 83880; 84145; 84484; 85025; 93005; 94640; 94760; J2405; J2704; J7620; S0028

== ENCOUNTER 2019-08-02 18:34 | Inpatient (IN) | payer MEDICARE ==
[2019-08-02] MEDS ORDERED: Fentanyl 100 MCG/2 ML VIAL ONE ×2 (18:55→20:47)
[2019-08-02 19:15] LABS: #Eosinphils 0.2 thou/uL (0.0-0.7); #Lymphocytes 1.4 thou/uL (1.20-3.40); #Monocytes 0.4 thou/uL (0.11-0.59); #Neutrophils 5.8 thou/uL (1.40-6.50); %Basophils 0.3 % (0.0-1.0); %Eosinophils 2.9 % (0.0-10.0); %Lymphocytes 17.6 % (21.0-51.0); %Monocytes 5.6 % (0.0-10.0); %Neutrophils 73.7 % (42.0-75.0); Hemoglobin 14.3 g/dL (14.0-18.0); Mean Corpuscular Hemoglobin 29.9 pg (27.0-31.0); Mean Corpuscular Volume 90.5 fL (78.0-98.0); Mean Platelet Volume 7.9 fL (7.4-10.4); Platelet Count 155 thou/uL (130-400); RBC Distribution Width 12.8 % (11.5-14.5); Red Blood Cell (RBC) Count 4.77 mill/uL (4.70-6.10); White Blood Cell (WBC) Count 7.9 thou/uL (4.8-10.8)
--- NOTE | 2019-08-02 19:30 | RAD ---
2 views of the left hip 08/02/2019: COMPARISON: None HISTORY: Pain, foreshortening, trauma FINDINGS: There is a transverse fracture of the left femoral neck with impaction. On the lateral exam there is anterior displacement of the distal fracture fragment which is likely at the junction of the left femoral head and neck. No evidence for dislocation. IMPRESSION: Displaced proximal left femoral neck fracture.
--- NOTE | 2019-08-02 19:33 | RAD ---
Frontal radiograph pelvis: 08/02/2019 COMPARISON: None HISTORY: Fall, trauma, pain FINDINGS: There is a fracture through the proximal left femoral neck with impaction. The pelvic ring appears intact. No widening of the sacroiliac joints or pubic symphysis. There is postoperative hardware within the proximal right femur. There is osseous irregularity involving the inferior pubic ramus on the left suggesting age indeterminant left inferior pubic ramus fracture, which could be best assessed via CT. This inferior pubic ramus fracture on the left is likely chronic. IMPRESSION: Acute impacted proximal left femoral neck fracture. Additional findings as detailed above .
[2019-08-02 19:34] LABS: ALT (SGPT) 12 U/L (8-55); AST (SGOT) 14 U/L (5-34); Alkaline Phosphatase 98 U/L (40-110); Anion Gap 13 mmol/L (10-20); BUN (Urea Nitrogen) 12 mg/dL (8.4-25.7); Bilirubin, Total 0.3 mg/dL (0.2-1.2); Calc. Creatinine Clearance 0 mL/min (70-130); Calcium 9.2 mg/dL (7.8-10.44); Carbon Dioxide 33 mmol/L (23-31); Chloride 101 mmol/L (98-107); Estimated GFR-MDRD Greater than 90; Globulin 2.9 g/dL (2.4-3.5); Glucose 128 mg/dL (80-115); Potassium 4.2 mmol/L (3.5-5.1); Protein, Total 6.9 g/dL (5.8-8.1); Sodium 143 mmol/L (136-145)
[2019-08-02 20:09] LABS: INR-International Normal Ratio 0.9; PTT 29.6 SEC (22.9-36.1); Prothrombin Time 11.6 SEC (12.0-14.7)
[2019-08-02] MEDS ORDERED: Ondansetron PF 4 MG/2 ML Vial ONE (20:45)
[2019-08-02] MEDS ORDERED: Morphine 4 MG/ML VIAL ONE (20:45)
[2019-08-02] MEDS ORDERED: hydrALAZINE 20 MG/ML VIAL SLOW IVP PRN (21:07)
[2019-08-02] MEDS ORDERED: HumaLOG 300 UNITS/3 ML VIAL SC PRN (21:07)
[2019-08-02] MEDS ORDERED: Ondansetron ODT 4 MG TAB PO PRN (21:07)
[2019-08-02] MEDS ORDERED: Promethazine HCl 25 MG/ML VIAL IM PRN (21:07)
[2019-08-02] MEDS ORDERED: Ondansetron PF 4 MG/2 ML Vial IVP PRN (21:07)
[2019-08-02] MEDS ORDERED: Dextrose 5% in Water 1,000 ML IV PRN (21:07)
[2019-08-02] MEDS ORDERED: Dextrose 50% Abboject 50 ML SYRINGE SLOW IVP PRN (21:07)
[2019-08-02] MEDS ORDERED: Senokot 8.6 MG TAB PO PRN (21:11)
[2019-08-02] MEDS ORDERED: Ketorolac Tromethamine 15 MG/ML VIAL IVP PRN (21:13)
[2019-08-02] MEDS: Acetaminophen/Codeine 30-300mg Tablet PO PRN (23:13)
[2019-08-02] MEDS: Acetaminophen 1,000 MG in Premix Bag 1 BAG IVPB SCH (23:15)
[2019-08-02] MEDS: Ketorolac Tromethamine 30 MG/ML VIAL IVP PRN (23:15)
[2019-08-02 23:47] VITALS: BMI 25.8
[2019-08-03] MEDS: Fentanyl 100 MCG/2 ML VIAL SLOW IVP PRN ×2 (00:04→05:17)
--- NOTE | 2019-08-03 00:30 | HP ---
HISTORY OF PRESENT ILLNESS: Mr. Velazquez is a 68-year-old male who came into the ED for evaluation of fall at home at assisted living facility. The patient reports he was trying to transfer himself from a chair to wheelchair. He did not reach to wheelchair and lost his balance and fell on his the left leg. He reports no loss of consciousness or hit his head at that time. After the fall, the patient felt pain and unable to bear weight from the left lower extremity. Other than that, he reports no other symptoms. Upon arrival in the ED, patient alert and awake. GCS 15. Vital signs stable. Complains of pain of the left hip. Pain is 10/10, elevated with movement. The patient was giving fentanyl for pain control. REVIEW OF SYSTEMS: Noncontributory except per HPI. PAST MEDICAL HISTORY: Patient has a past medical history of CVA, mini-CVA, fully recovered, history of bilateral lower extremity venous insufficiency, and history of right femoral artery stenting. PAST SURGICAL HISTORY: Right hip ORIF from R hip fracture. SOCIAL HISTORY: The patient denies alcohol. The patient has smoking history, approximately half a pack a day. Denies drug use. The patient lives in assisted living facility. PAST PSYCHIATRIC HISTORY: Includes anxiety, depression. ALLERGIES: MORPHINE AND SULFA. CURRENT MEDICATIONS: Pramipexole, clonazepam, Ventolin, furosemide, aspirin, Lyrica, and Tylenol No. 3. PHYSICAL EXAMINATION: GENERAL: The patient is lying down in bed, comfortable with no acute respiratory distress. Complains of pain from the left lower extremity. GCS 15. SKIN: [place] and moist. VITAL SIGNS: Heart rate 90, respiratory rate 18, temperature 98.1, O2 saturation 93% on 3 L, blood pressure 114/84. HEENT: Atraumatic. No bruising. No deformity. Pupils equal bilaterally, reactive to light. NECK: Trachea midline, atraumatic. CHEST: Atraumatic. No bruising. No crepitus. LUNGS: Clear bilaterally. HEART: Regular rate and rhythm. ABDOMEN: Atraumatic. No bruising. No deformity. Nondistended. No tender to palpation. Bowel sounds active. EXTREMITIES: Bilateral lower extremity decreased sensation, this is chronic dermatitis due to venous insufficiency in bilateral lower extremities. Range of motion of the left hip is limited due to pain. NEUROLOGIC: No focal neurologic deficits. LABORATORY DATA: Initial workup shows white count 7.9, hemoglobin 14.3. Sodium 134, potassium 4.2, creatinine 0.81. Pelvic x-ray shows acute impact proximal upper left femur neck fracture. ASSESSMENT: 1. Status post ground level fall. 2. Left hip fracture. 3. History of right hip fixation. 4. History of anxiety and depression and venous insufficiency. 5. History of right femoral artery stent. 6. History of CVA. PLAN: Dr. Mishra is notified. Dr. Mishra plan to see the patient for surgery indication. The patient will be admitted to [place] [address] for pain control. The patient will be n.p.o. at midnight. Post surgery, patient voices he wanted to go back to his facility. He already has physical therapy and [facility] in place due to his earlier right hip fracture fixation. Job ID: [id number] MTDD
[2019-08-03] MEDS ORDERED: Pramipexole Di-HCl 0.25 MG TAB PO SCH (01:15)
[2019-08-03] MEDS ORDERED: Pregabalin 50 MG CAP PO SCH (03:00)
[2019-08-03] MEDS ORDERED: clonazePAM 1 MG TAB PO SCH (03:00)
[2019-08-03] MEDS: Acetaminophen 1,000 MG in Premix Bag 1 BAG IVPB SCH ×2 (05:17→12:59)
[2019-08-03] MEDS ORDERED: CEFAZOLIN 2 GM in Premix Bag 1 BAG IVPB SCH (06:45)
--- NOTE | 2019-08-03 07:21 | CON ---
DATE OF CONSULTATION: REQUESTING PHYSICIAN: Reynold Porras MD. PRINCIPAL COMPLAINT: Left hip pain. BRIEF HISTORY OF PRESENT ILLNESS: Mr. Velazquez is a 68-year-old gentleman who sustained a fall at his assisted living residence on August 02, 2019. He was trying to transfer himself from chair to wheelchair. He lost his balance and fell sustaining trauma to the left hip. Upon arrival at [facility], his sole complaint was that of left groin and lateral thigh pain. X-rays were obtained including two-view hip and AP pelvis. These demonstrated a displaced femoral neck fracture. Of note, patient also has hardware in the right hip from a previous intramedullary hip screw for an intertrochanteric fracture. The patient has a past medical history remarkable for severe COPD. He uses a combination of wheelchair and a walker for mobility. PAST MEDICAL HISTORY: Remarkable for history of stroke with subsequent recovery. History of bilateral lower extremity venous insufficiency. History of hypertension. History of COPD. PAST SURGICAL HISTORY: Includes intramedullary hip screw, right intertrochanteric femur fracture. Prior right femoral artery stenting. MEDICATIONS: Per the emergency room record include 1. Clonazepam. 2. Hydrocodone. 3. Ventolin aerosol. 4. Furosemide. 5. Aspirin. ALLERGIES: MORPHINE THAT JUST CAUSES A RASH WITH HIVES AND HE REPORTS A SIMILAR REACTION WITH SULFA BASED DRUGS. FAMILY HISTORY: Noncontributory. REVIEW OF SYSTEMS: The patient denies recent fevers, chills, or sweats. He does have chronic shortness of breath, but denies current chest pain. He denies current numbness or tingling in this lower extremity. PHYSICAL EXAMINATION: VITAL SIGNS: Today, the patient is examined in the emergency room at [facility] prior to his admission. He was found to have a temperature of 98.1 degrees Fahrenheit, heart rate of 95, which is regular, respiratory rate of 20, which is nonlabored, and a blood pressure of 114/84. GENERAL: The patient is lying in bed comfortably with no acute pulmonary distress. He does have a nasal cannula providing supplemental oxygen. He is awake and alert. HEENT: Atraumatic and normocephalic. HEART: Shows a regular rate and rhythm without murmur. LUNGS: Today are clear although with somewhat distant breath sounds. Chest wall is nontender. ABDOMEN: Round, soft with normal bowel sounds. PELVIS: Stable to compression, but with manipulation of the pelvis, he does complain of some left groin pain. EXTREMITIES: Most remarkable for bilateral upper extremities that are atraumatic. Right lower extremity also atraumatic. Left lower extremity, groin pain with any type of log-rolling motion of the leg. The knee, ankle and foot appear atraumatic. He does have evidence of chronic venous insufficiency. Light touch around the lower leg does show some decrease in sensation, although he does have a protective sensation in the foot. LABORATORY DATA: White count of 7.9, hematocrit of 43.28 and 155,000 platelets. His INR is 0.9. X-RAYS: Two view left hip and AP pelvis are as described in the history of present illness. ASSESSMENT: A 68-year-old gentleman who was a household ambulator with walker as well as mobility with wheelchair, status post ground level fall sustaining a left displaced femoral neck fracture. The patient with comorbidities of extensive venous insufficiency and chronic obstructive pulmonary disease. PLAN: At this time, the patient is being admitted to the Trauma Service. The patient has personally requested me to contact Dr. Bo Morocho who is his primary physician and card stripper to let Dr. Morocho know that he is in the hospital. I have discussed with the patient that given the fact that he still was ambulating and does have significant pain from this fracture, I would recommend proceeding with hemiarthroplasty in hopes of returning him back to his level of household mobility and to provide pain relief. We have discussed risks and benefits of this procedure. His risks are significant given his extensive history of COPD. Other risks include, but are not limited to, bleeding, infection, nerve injury, DVT, PE, hip dislocation, loss of limb or life. The patient appears to understand and does wish to proceed. He will be admitted to the Trauma Service and we hope to have him ready for surgery tomorrow afternoon. Job ID: [id number]
[2019-08-03] MEDS ORDERED: Ascorbic Acid 500 mg Chewable Tablet PO SCH (09:00)
[2019-08-03] MEDS ORDERED: FLU VACC TS2019-20(65YR UP)/PF 180 MCG/0.5 ML SYRINGE IM ONE (09:00)
[2019-08-03] MEDS ORDERED: PHENYLEPHRINE-NS 100 MCG/ML 10 ML SYRINGE ONE (09:38)
[2019-08-03] MEDS: Pregabalin 50 MG CAP PO SCH ×3 (10:07→21:34)
[2019-08-03] MEDS: DULoxetine 60 MG CAP PO SCH ×2 (10:07→21:34)
[2019-08-03] MEDS: Acetaminophen/Codeine 30-300mg Tablet PO PRN (10:08)
[2019-08-03] MEDS: Pramipexole Di-HCl 0.25 MG TAB PO SCH ×2 (10:08→21:34)
[2019-08-03] MEDS: Famotidine/PF 20 mg/2ml Vial SLOW IVP SCH ×2 (10:18→21:35)
[2019-08-03] MEDS: Multivitamin W/ Minerals 1 TAB PO SCH (10:19)
[2019-08-03] MEDS: Polyethylene Glycol 3350 17 GM Packet PO SCH (10:19)
[2019-08-03] MEDS: Vitamin E 400 UNITS CAP PO SCH (10:20)
--- NOTE | 2019-08-03 10:35 | PRG ---
DATE OF SERVICE: 08/03/2019 SUBJECTIVE: The patient is hospital day 2, status post ground level fall, which he sustained a left hip fracture. The patient is scheduled to undergo surgery today. He is a patient of Dr. Morocho of Pulmonology. The patient requests that he be evaluated by them first to "relieve his anxiety". The Orthopedic team has contacted Dr. Morocho, who is out of town, but arrangements have been made, one of his partners will evaluate the patient today. We do not foresee delays in his surgery today. Overnight, the patient did have some difficulty sleeping. Again, he relates to anxiety, but otherwise his pain is controlled and he has been n.p.o. since midnight. OBJECTIVE: VITAL SIGNS: Temperature is 97.7, heart rate 84, blood pressure 112/71, respirations 18, and oxygen saturation 92% on 2 L via nasal cannula. GENERAL: The patient is resting comfortably in bed. He is awake, alert, and oriented x3. Sharon Coma Scale is 15. HEENT: Unremarkable. LUNGS: Scattered rhonchi and wheezes bilaterally consistent with his COPD. HEART: Regular rate and rhythm. ABDOMEN: Soft, flat, and nontender with active bowel sounds. EXTREMITIES: Neurovascularly intact x4. DIAGNOSTIC STUDIES: There are no labs or radiographs reviewed this morning. ASSESSMENT: 1. Status post ground level fall. 2. Left hip fracture. 3. Acute pain secondary to above. 4. History of chronic obstructive pulmonary disease. PLAN: Plan will be to continue supportive care. Postoperatively, we will have Physical and Occupational therapy begin with him. Per the patient's request, he would like to return back to his facility that he came from. We have notified Case Management regarding this. The patient was evaluated this morning with Dr. Small. Job ID: [id number]
[2019-08-03] MEDS ORDERED: Fentanyl 100 MCG/2 ML VIAL ONE ×2 (14:13→14:16)
[2019-08-03] MEDS ORDERED: Ketamine 50 MG/ML (10ML VIAL) ONE (14:17)
--- NOTE | 2019-08-03 16:28 | RAD ---
2 views of the left hip: 08/03/2019 COMPARISON: 08/02/2019 HISTORY: Left hip fracture status post arthroplasty FINDINGS: There is postoperative gas lateral to the proximal left femur. Cutaneous ana are presen t. There is a new left hip arthroplasty with no evidence for hardware failure. No acute fracture or dislocation. IMPRESSION: Evidence of recent left total hip arthroplasty.
[2019-08-03] MEDS: Ketorolac Tromethamine 30 MG/ML VIAL IVP PRN (18:36)
[2019-08-03] MEDS: clonazePAM 1 MG TAB PO SCH (21:35)
[2019-08-03] MEDS: CEFAZOLIN 2 GM in Premix Bag 1 BAG IVPB SCH (21:36)
--- NOTE | 2019-08-03 21:58 | RAD ---
EXAM: Portable chest PROVIDED CLINICAL HISTORY: Chest pain COMPARISON: 06/27/2019 FINDINGS: Cardiac and mediastinal silhouette is within normal limits. No focal consolidation, pleural fluid or pneumothorax evident. Emphysematous changes are redemonstrated. Vascular calcification is seen. IMPRESSION: No evidence for an acute cardiopulmonary process.
[2019-08-03 22:38] LABS: Actual Bicarbonate (HCO3a) 32.3 mEq/L (22-28); Base Excess (BEa) 5.8 mEq/L (-2.0 to +3.0); CO2 Tension 54.9 mmHg (35.0-45.0); Calcium, Ionized 1.12 mmol/L (1.12-1.30); Carboxyhemoglobin (COHb) 2.5 gm% (0.0-3.0); Hemoglobin (Hb) 13.6 g/dL (14.0-18.0); Potassium - ABG Lab 4.33 mmol/L (3.70-5.30); pH, Arterial 7.39 (7.35-7.45)
[2019-08-03 22:50] LABS: O2 Tension (PaO2) 44.5 mmHg (> 80.0); Puncture Site LRA
[2019-08-03 22:51] LABS: ALV-art Gradient 115.035 (0-20)
[2019-08-03] MEDS: Budesonide 0.5 MG/2 ML NEB INH SCH (23:39)
--- NOTE | 2019-08-04 00:04 | OP ---
DATE OF PROCEDURE: 08/03/2019 PREOPERATIVE DIAGNOSIS: Left femoral neck fracture, displaced. POSTOPERATIVE DIAGNOSIS: Left femoral neck fracture, displaced. SURGICAL PROCEDURE: Left hip hemiarthroplasty. ANESTHESIA: Spinal. BUNDLE PERSON: Varun Vernon PA-C ESTIMATED BLOOD LOSS: 150 mL. IMPLANTS: DePuy Kendall size 8 stem with a 28 x 54 bipolar cup and a +8.5 head. COMPLICATIONS: None. DRAINS: None. SPECIMEN: Femoral head, discarded. OUTCOME: Satisfactory with stable hemiarthroplasty. INDICATIONS: The patient is a 68-year-old gentleman who sustained a ground level fall at home with a left femoral neck fracture. The patient is a household ambulator with walker and also uses a wheelchair for mobility. After discussion with the patient including risks and benefits, we decided to proceed with a left hip hemiarthroplasty to facilitate mobility and provide pain relief. Informed consent has been obtained. I believe all questions have been answered. DESCRIPTION OF PROCEDURE: Patient was brought to the operating room and a time-out performed after the induction of spinal anesthesia. Next, the patient was positioned in the right lateral decubitus position and a sterile prep and drape was performed of the left lower extremity. A curvilinear incision was made centered over the greater trochanter. After skin was sharply incised, dissection was carried down through the subcutaneous fat to the level of the tensor fascia and fascia scot. This was incised in line with skin incision and then a Charnley retractor placed to the wound. The trochanteric bursa was swept off the short external rotators and then an elevator was placed under the abductors, identifying the piriformis. The piriformis was released off the posterior aspect of the femur as were the superior and inferior gemelli. These structures were tagged and then reflected posteriorly. A T-capsulotomy was then performed. The leaflets of the capsule were tagged for eventual repair. A T-handle corkscrew device was then used to remove the femoral head. An oscillating saw was used to make a femoral neck cut. Excess bone was then removed. The proximal femur was then prepared 1st with a T-handle awl followed by a lateralizing reamer and then serial T-handle awls up to a size 8 were used. Next, broaching was started at a size 4 and continued up to size 8, which gave a good proximal fit and fill. A trial reduction was performed with a +8.5 head providing good stability. The trial components were then removed from the hip. The wound thoroughly irrigated with 3 L of normal saline using Pulsavac. The final size 8 stem was introduced into the femur. This was followed by application of the bipolar head to the stem. The hip was reduced and found to have good stability. The capsule was then reapproximated with #2 Vicryl. #2 Vicryl was also used to reattach the piriformis to the posterior aspect of the femur. #1 Vicryl was used for the fascia scot and tensor fascia followed by 0 Vicryl for Jesus fascia, 2-0 Vicryl subcutaneously and ana for the skin. Xeroform gauze and tape dressing was applied to the thigh and patient was transferred to recovery room in stable condition. There were no complications. The patient tolerated the procedure well. Job ID: [id number]
[2019-08-04] MEDS: Acetaminophen/Codeine 30-300mg Tablet PO PRN ×3 (02:22→20:24)
[2019-08-04] MEDS: Ketorolac Tromethamine 30 MG/ML VIAL IVP PRN (02:54)
[2019-08-04] MEDS: Sodium Chloride 0.9% 500 ML IV SCH ×3 (04:30→11:46)
[2019-08-04] MEDS ORDERED: Bisacodyl 10 MG SUPP PR PRN (05:48)
[2019-08-04] MEDS: CEFAZOLIN 2 GM in Premix Bag 1 BAG IVPB SCH ×2 (05:50→15:54)
[2019-08-04] MEDS ORDERED: Acetaminophen 325 MG TAB PO PRN (06:03)
[2019-08-04] MEDS ORDERED: Hydrocortisone Sod Succ/PF 100 mg/2 ml Vial IVP SCH ×2 (06:15→12:00)
[2019-08-04 06:30] LABS: Anion Gap 11 mmol/L (10-20); BUN (Urea Nitrogen) 20 mg/dL (8.4-25.7); Calc. Creatinine Clearance 112 mL/min (70-130); Calcium 8.4 mg/dL (7.8-10.44); Carbon Dioxide 29 mmol/L (23-31); Chloride 102 mmol/L (98-107); Estimated GFR-MDRD 89; Glucose 125 mg/dL (80-115); Magnesium 1.9 mg/dL (1.6-2.6); Phosphorus 4.4 mg/dL (2.3-4.7); Potassium 4.3 mmol/L (3.5-5.1); Sodium 138 mmol/L (136-145)
[2019-08-04] MEDS ORDERED: Sodium Chloride 0.9% 1,000 ML IV SCH (06:30)
[2019-08-04 06:37] LABS: #Eosinphils 0.3 thou/uL (0.0-0.7); #Lymphocytes 0.9 thou/uL (1.20-3.40); #Monocytes 0.5 thou/uL (0.11-0.59); #Neutrophils 7.9 thou/uL (1.40-6.50); %Basophils 0.2 % (0.0-1.0); %Eosinophils 3.2 % (0.0-10.0); %Lymphocytes 9.3 % (21.0-51.0); %Monocytes 5.1 % (0.0-10.0); %Neutrophils 82.3 % (42.0-75.0); Hemoglobin 12.2 g/dL (14.0-18.0); Mean Corpuscular Hemoglobin 29.4 pg (27.0-31.0); Mean Corpuscular Volume 89.3 fL (78.0-98.0); Mean Platelet Volume 8.6 fL (7.4-10.4); Platelet Count 114 thou/uL (130-400); Platelet Morphology Comment Appears Decreased; RBC Distribution Width 12.9 % (11.5-14.5); Red Blood Cell (RBC) Count 4.13 mill/uL (4.70-6.10); White Blood Cell (WBC) Count 9.6 thou/uL (4.8-10.8)
[2019-08-04] MEDS ORDERED: Budesonide 0.5 MG/2 ML NEB ONE (07:34)
[2019-08-04] MEDS ORDERED: Bacteriostatic Water 30 ML VIAL FS PRN (08:14)
[2019-08-04] MEDS: DULoxetine 60 MG CAP PO SCH ×2 (08:34→20:20)
[2019-08-04] MEDS: Aspirin 81 mg Enteric Coated Tablet PO SCH ×2 (08:34→20:20)
[2019-08-04] MEDS: Famotidine/PF 20 mg/2ml Vial SLOW IVP SCH (08:34)
[2019-08-04] MEDS: Pramipexole Di-HCl 0.25 MG TAB PO SCH ×2 (08:35→20:20)
[2019-08-04] MEDS: Polyethylene Glycol 3350 17 GM Packet PO SCH (08:35)
[2019-08-04] MEDS: Pregabalin 50 MG CAP PO SCH ×3 (08:35→20:20)
[2019-08-04] MEDS: Multivitamin W/ Minerals 1 TAB PO SCH (08:35)
[2019-08-04] MEDS: Vitamin E 400 UNITS CAP PO SCH (08:37)
--- NOTE | 2019-08-04 09:17 | PRG ---
DATE OF SERVICE: 08/04/2019 SUBJECTIVE: [facility] is postop day #1 from a left hip hemiarthroplasty secondary to femoral neck fracture. He is doing relatively well. He was transferred to the intensive care unit for observation due to low saturations yesterday evening postoperatively and his urine output is a little bit low. He has already been bolused this morning by the trauma team. His pain is relatively well controlled at this point. He has not been up yet. OBJECTIVE: VITAL SIGNS: Temperature 100, pulse 98, respiratory rate 23 and nonlabored, and blood pressure 106/69. NEUROLOGIC: He is alert and oriented to person, place, time, and situation, responsive and appropriate with examiner. He recalls the events of his surgery yesterday evening. His incision is clean. No strike through. He is neurovascularly intact in the left lower extremity. His ana are intact. LABORATORY DATA: Hemoglobin and hematocrit of 12.2 and 36.9. IMPRESSION: Postop day #1 left hip bipolar hemiarthroplasty for femoral neck fracture treatment. PLAN: Continue observation. He has already been bolus of fluids. Monitor urine output. Recheck tomorrow. Begin physical therapy. Job ID: [id number]
[2019-08-04] MEDS: Budesonide 0.5 MG/2 ML NEB INH SCH ×4 (11:27→22:07)
[2019-08-04] MEDS ORDERED: Sodium Chloride 0.9% 500 ML IV SCH (11:30)
[2019-08-04] MEDS: methylPREDNISolone Sod Succ 40 MG VIAL IVP SCH ×3 (11:56→23:56)
--- NOTE | 2019-08-04 14:27 | PRG ---
DATE OF SERVICE: 08/04/2019 This is Onofre Quintana PA-C dictating a report for Devin Small DO. SUBJECTIVE: The patient is hospital day #3, postop day #1, status post a ground level fall, which he sustained a left hip fracture. The patient yesterday underwent open reduction and internal fixation of same. He does have a long significant history of COPD and appeared last night he had an exacerbation necessitating him to be moved to the [facility]. The patient is currently on the Critical Care Unit as an overflow due to bed availability. Overnight, he was on BiPAP, and he tolerated this. This morning, he was able to be wean to nasal cannula. He appears to be at his baseline in respiratory status. He has scheduled beta agonist nebulizer treatments and inhaled corticosteroids. The patient also had IV steroids added to his regimen. He is tolerating a diet. His pain is controlled. PHYSICAL EXAMINATION: VITAL SIGNS: Blood pressure 119/61, heart rate 92, respirations 20, and oxygen saturation is 95% on 4 L via nasal cannula. GENERAL: The patient is resting comfortably in bed. He is just complete eating breakfast. He states that his pain is controlled, and he feels "okay." HEENT: Unremarkable. LUNGS: Diffuse scattered rhonchi with occasional wheezes consistent with his baseline of chronic obstructive pulmonary disease. HEART: Slightly tachycardic. Regular rhythm. ABDOMEN: Soft, flat, nontender with active bowel sounds. EXTREMITIES: Neurovascularly intact x4. Postop dressing is clean, dry, and intact. ASSESSMENT: 1. Status post ground level fall. 2. Left hip fracture. 3. History of chronic obstructive pulmonary disease, acute exacerbation. PLAN: Would be to continue supportive care, respiratory plan as discussed above. Pulmonary toilet, gastritis, and mechanical VTE prophylaxis. We will start chemical VTE prophylaxis today. The patient appears stable, left to be moved back to the surgical floor. The patient was evaluated this morning with Dr. Small during rounds. Job ID: [id number]
[2019-08-04] MEDS ORDERED: CEFAZOLIN 2 GM in Premix Bag 1 BAG IVPB SCH (15:30)
[2019-08-04] MEDS: Sodium Chloride 0.9% 1,000 ML IV SCH (15:57)
[2019-08-04] MEDS: clonazePAM 1 MG TAB PO SCH (20:20)
[2019-08-04] MEDS: Famotidine 20 MG TAB PO SCH (20:20)
[2019-08-05] MEDS: Budesonide 0.5 MG/2 ML NEB INH SCH ×3 (01:35→07:56)
[2019-08-05] MEDS: Sodium Chloride 0.9% 1,000 ML IV SCH ×2 (03:02→06:07)
[2019-08-05] MEDS: methylPREDNISolone Sod Succ 40 MG VIAL IVP SCH (05:43)
[2019-08-05 05:49] LABS: #Lymphocytes 0.4 thou/uL (1.20-3.40); #Monocytes 0.3 thou/uL (0.11-0.59); #Neutrophils 7.1 thou/uL (1.40-6.50); %Basophils 0.1 % (0.0-1.0); %Eosinophils 0.4 % (0.0-10.0); %Lymphocytes 4.5 % (21.0-51.0); %Monocytes 3.3 % (0.0-10.0); %Neutrophils 91.7 % (42.0-75.0); Hemoglobin 9.7 g/dL (14.0-18.0); Mean Corpuscular HGB CONC 33.1 g/dL (32.0-36.0); Mean Corpuscular Hemoglobin 29.7 pg (27.0-31.0); Mean Corpuscular Volume 89.9 fL (78.0-98.0); Mean Platelet Volume 9.1 fL (7.4-10.4); Platelet Count 87 thou/uL (130-400); RBC Distribution Width 12.6 % (11.5-14.5); Red Blood Cell (RBC) Count 3.27 mill/uL (4.70-6.10); White Blood Cell (WBC) Count 7.7 thou/uL (4.8-10.8)
[2019-08-05 06:26] LABS: Anion Gap 11 mmol/L (10-20); BUN (Urea Nitrogen) 15 mg/dL (8.4-25.7); Calc. Creatinine Clearance 118 mL/min (70-130); Calcium 8.4 mg/dL (7.8-10.44); Carbon Dioxide 28 mmol/L (23-31); Chloride 105 mmol/L (98-107); Estimated GFR-MDRD Greater than 90; Glucose 230 mg/dL (80-115); Magnesium 2.1 mg/dL (1.6-2.6); Phosphorus 2.5 mg/dL (2.3-4.7); Potassium 4.1 mmol/L (3.5-5.1); Sodium 140 mmol/L (136-145)
--- NOTE | 2019-08-05 06:58 | PRG ---
DATE OF SERVICE: 08/04/2019 Mr. Velazquez is a 68-year-old male status post ground level fall with left hip fracture status post ORIF of left hip fracture. He also has severe COPD and acute exacerbation. Yesterday, the patient was moved to [facility] for BiPAP treatment. Earlier today, the patient doing better. He is able to tolerate with nasal cannula. He has been moved up to [place] [facility]. Currently, the patient reports he has been doing good, pain is controlled. He is able to tolerate his regular diet. His vital signs are stable. Urine output is little bit low, 700 for 24 hours. He was able to have 1 bowel movement today. Plan will be to continue supportive care, continue pain control, and continue to manage COPD with DuoNeb and Pulmicort. Anticipate discharging to rehabilitation facility. Job ID: [id number]
--- NOTE | 2019-08-05 08:00 | RAD ---
PORTABLE CHEST 1 VIEW: Date: 08/05/19 Time: 0653 hours HISTORY: COPD. FINDINGS: Comparison made with exam of 08/03/19. The heart size is normal. The aorta is tortuous. The lungs are expanded with stable chronic changes. No lobar consolidation, pneumothoraces, or pleural effusions are seen. IMPRESSION: No acute process. POS: JUAN
[2019-08-05] MEDS: Aspirin 81 mg Enteric Coated Tablet PO SCH ×2 (08:17→20:39)
[2019-08-05] MEDS: Pramipexole Di-HCl 0.25 MG TAB PO SCH ×2 (08:17→20:39)
[2019-08-05] MEDS: Vitamin E 400 UNITS CAP PO SCH (08:17)
[2019-08-05] MEDS: DULoxetine 60 MG CAP PO SCH ×2 (08:17→20:39)
[2019-08-05] MEDS: Pregabalin 50 MG CAP PO SCH ×3 (08:17→20:39)
[2019-08-05] MEDS: Famotidine 20 MG TAB PO SCH ×2 (08:18→20:40)
[2019-08-05] MEDS: Multivitamin W/ Minerals 1 TAB PO SCH (08:18)
[2019-08-05] MEDS: Polyethylene Glycol 3350 17 GM Packet PO SCH (08:19)
[2019-08-05] MEDS: Acetaminophen/Codeine 30-300mg Tablet PO PRN ×2 (08:29→17:26)
--- NOTE | 2019-08-05 09:24 | PRG ---
DATE OF SERVICE: 08/03/2019 SUBJECTIVE: Mr. Velazquez is a 68-year-old male who is status post ground level fall. He sustained left hip fracture, underwent ORIF of left hip fracture with Orthopedic today. He also has history of COPD, right hip fixation from the earlier fall and right hip fracture. The patient reports pain is well controlled. However, the patient developed shortness of breath. His O2 saturation is 73% with 5 L of oxygen cannula. The patient has trouble taking a breathe, breathing is labored obviously. His blood gas at 2240 hours, PO2 is 44 and pCO2 is 54.9. OBJECTIVE: GENERAL: Currently, the patient is lying down in bed, in acute respiratory distress. VITAL SIGNS: O2 saturation is 75, heart rate is 110, blood pressure is 106/69, respiratory rate ____. LUNGS: Decreased breath sounds bilaterally. HEART: Regular rate and rhythm. LABORATORY DATA: ABG show pH is 7.39, pCO2 is 54.9, PO2 is 44.5. Check x-ray shows emphysema. ASSESSMENT: Status post ground level fall, chronic obstructive pulmonary disease exacerbation, acute respiratory distress, hypoxic on chronic, hypoxic due to chronic obstructive pulmonary disease, left hip fracture status post open reduction and internal fixation of left hip fracture today, postop day zero, history of right hip fixation. PLAN: We will initiate Pulmicort at admission with Dominique. The patient will have BiPAP treatment. The patient will be transferred to [facility] for BiPAP treatment. Continue supportive care. Continue pain control. Continue DVT prophylaxis. Anticipate placement in rehabilitation facility. Job ID: [id number] [facility]
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
--- NOTE | 2019-08-05 12:55 | PRG ---
DATE OF SERVICE: 08/05/2019 This is Onofre Quintana PA-C dictating a report for Devin Small DO. SUBJECTIVE: The patient is currently on the surgical floor who is status post ground level fall in which he sustained a left hip fracture. He has undergone open reduction and internal fixation of same. He tolerated that well. The patient has a long history of COPD. He did have an acute exacerbation while here in the hospital. He was moved overnight to the [facility]. He has subsequently been returned to the floor and had no issues overnight. He was evaluated this morning by Pulmonology who agrees with his steroids, bronchodilator therapy, and continue his continuous oxygen. The patient is tolerating a diet. His pain is controlled. OBJECTIVE: VITAL SIGNS: Temperature is 98.2, heart rate 90, blood pressure 127/60, respirations 20, and oxygen saturation 92% on 5 L via nasal cannula. GENERAL: The patient is resting comfortably in bed. He is awake, alert, appropriate. The patient is requesting to be discharged home with home health. He states that he has ability to do physical therapy and has assistance in his facility. He does not want to go to another facility. I let him know that we would discuss this with Case Management, and we would likely be able to facilitate this within the next day or 2. PHYSICAL EXAMINATION: LUNGS: Unchanged. Again scattered rhonchi. Occasional wheezing. HEART: Regular rate and rhythm. ABDOMEN: Soft, flat, nontender with active bowel sounds. EXTREMITIES: Unchanged. LABORATORY FINDINGS: White blood cell count 7.1, hemoglobin 9.7, hematocrit 29.4, and platelets 87. Sodium 140, potassium 4.1, chloride 105, CO2 of 28, BUN 15, creatinine 0.82, glucose 230, magnesium 2.1, and phosphorus 2.5. AP chest radiograph shows no acute process. ASSESSMENT: 1. Status post ground level fall. 2. Status post open reduction and internal fixation of left hip fracture. 3. Chronic obstructive pulmonary disease exacerbation, resolved. PLAN: Plan will be to continue supportive care. Work with him on placement in addition to working with Case Management to get him properly and safely discharged to the appropriate facility. The patient was evaluated this morning with Dr. Small. Job ID: [id number]
[2019-08-05] MEDS ORDERED: Tamsulosin HCl 0.4 MG CAP PO SCH (14:00)
[2019-08-05 14:37] LABS: Bacteria/HPF None Seen HPF (None Seen); Bilirubin Negative (Negative); Blood, Urine 3+ (Negative); Clarity Clear (Clear); Glucose, Urine (Dipstick) 300 mg/dL (Negative); Leukocyte Negative Leu/uL (Negative); Mucous/LPF Rare LPF (<2+); Nitrite Negative (Negative); Protein, Urine (Dipstick) 30 mg/dL (Neg-Trace); RBC/HPF Greater than 50 HPF (0-3); Squamous Epithelial 0-3 HPF (0-3); Urobilinogen Normal mg/dL (Less than 2); WBC/HPF 0-3 HPF (0-3)
[2019-08-05 14:41] LABS: Urine Culture Reflex No No
--- NOTE | 2019-08-05 16:40 | PQF ---
CLINICAL DOCUMENTATION IMPROVEMENT CLARIFICATION FORM: ICD-10 Updated PLEASE DO AN ADDENDUM TO THE PROGRESS NOTE WITH ANY DOCUMENTATION UPDATES OR ADDITIONS AND CARRY THROUGH TO DC SUMMARY. THANK YOU. DATE: 08/05/2019 ATTN: Onofre Quintana PA-C Please exercise your independent, professional judgment in responding to the clarification form. Clinical indicators are provided on the bottom of this form for your review Please check appropriate box(s): [ ] Acute Respiratory Failure: [ ] with Hypoxia [ ] with Hypercapnia [ X ] Acute On Chronic Respiratory Failure: [ X ] with Hypoxia [ X ] with Hypercapnia [ ] Acute Respiratory Failure due to: (etiology) [ ] Chronic Respiratory Failure only [ ] with Hypoxia [ ] with Hypercapnia [ ] Other diagnosis [ ] Unable to determine In addition, please specify: Present on Admission (POA): [ ] Yes [ X ] No [ ] Unable to determine For continuity of documentation, please document condition throughout progress notes and discharge summary. Thank You. CLINICAL INDICATORS - SIGNS / SYMPTOMS / LABS / RESULTS AND LOCATION IN MR PN 08/03 (Font[place]z) The pt has trouble taking a breath, breathing is labored. His blood gas at 2240 hours, pO2 is 44 and pCO2 is 54.9 VS O2 saturation is 75 PN 08/05 (Lilian) VS: resp. 20 oxygen saturation 92% on 5 L via nasal cannula RISKS: 08/03 ([place]) S/p ground level fall, COPD exacerbation, acute respiratory distress , hypoxic on chronic, hypoxic d/t COPD, Left hip fracture s/p ORIF of l hip fx today, postop day zero , hx of r hip fx. TREATMENT: 08/03([place]) Pt will be transferred to [facility] for BIPAP treatment MAR: Order 08/03: Duoneb Q4 hr MAR: Order 08/04-08/05: Solu-Medrol 40 mg IVP q6 hr MAR: Order 08/05: prednisone 40 mg po q am Thank you, Michelle (This form is maintained as a part of the permanent medical record) 2014 [employer]. All Rights Reserved Michelle Falcon RN, BSN [email or web address] Office: [phone] [facility]
[2019-08-05] MEDS: Mometasone/Formoterol 120 PUFF INHALER INH SCH (18:39)
[2019-08-05] MEDS: clonazePAM 1 MG TAB PO SCH (20:40)
[2019-08-05] MEDS: Tamsulosin HCl 0.4 MG CAP PO SCH (20:41)
--- NOTE | 2019-08-05 22:56 | PRG ---
DATE OF SERVICE: 08/05/2019 SUBJECTIVE: Mr. Velazquez is a 68-year-old male, status post ground level fall. He sustained left hip fracture. He underwent ORIF of left hip fracture. He also has a history of COPD. Currently COPD exacerbation, stable. He reports he has been doing good. Pain is well controlled. He will be able to work with PT/OT today. He voices he wanted to go back to the assisted living facility. However, physical therapy recommendation is he needs to go to rehab or residential facility for his safety and prevent fall. 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 OBJECTIVE: GENERAL: Currently, patient lying down in bed, comfortable with no acute respiratory distress. VITAL SIGNS: SpO2 is 92% on 3 L cannula. LUNGS: Breath sounds getting better than yesterday. EXTREMITIES: Neurovascularly intact x4. NEUROLOGIC: No focal neurology deficits. PLAN: Will be continue supportive care. Continue pain control. Continue COPD management by DuoNeb and Pulmicort nebulizer. Anticipate discharge to rehabilitation facility for continued care in the next 2 to 3 days. Job ID: [id number]
[2019-08-06] MEDS: Mometasone/Formoterol 120 PUFF INHALER INH SCH ×2 (07:20→18:41)
[2019-08-06] MEDS: Pregabalin 50 MG CAP PO SCH ×3 (08:16→20:21)
[2019-08-06] MEDS: predniSONE 20 MG TAB PO SCH (08:16)
[2019-08-06] MEDS: Pramipexole Di-HCl 0.25 MG TAB PO SCH ×2 (08:17→20:21)
[2019-08-06] MEDS: Famotidine 20 MG TAB PO SCH ×2 (08:17→20:21)
[2019-08-06] MEDS: DULoxetine 60 MG CAP PO SCH ×2 (08:17→20:20)
[2019-08-06] MEDS: Vitamin E 400 UNITS CAP PO SCH (08:17)
[2019-08-06] MEDS: Aspirin 81 mg Enteric Coated Tablet PO SCH ×2 (08:17→20:20)
[2019-08-06] MEDS: Multivitamin W/ Minerals 1 TAB PO SCH (08:17)
[2019-08-06] MEDS: Polyethylene Glycol 3350 17 GM Packet PO SCH (08:18)
--- NOTE | 2019-08-06 09:42 | PRG ---
DATE OF SERVICE: 08/06/2019 HISTORY OF PRESENT ILLNESS: The patient is currently on the surgical floor. He is status post ground level fall, in which he sustained a left hip fracture. He has undergone open reduction and internal fixation of same and he has tolerated that well. He has begun working with Physical and Occupational Therapy. During this hospital stay, he did have an exacerbation of his COPD which has markedly improved. He had no issues overnight. This morning, he states his pain is controlled and he is tolerating a diet. He did have urinary retention last night that required a De Jesus catheter placement and Urology has been called consulted. PHYSICAL EXAMINATION: VITAL SIGNS: Temperature is 97.7, heart rate 82, blood pressure 120/75, respirations 18, oxygen saturation is 94% on 4 L via nasal cannula. GENERAL: The patient is resting comfortably in bed. He has just completed his breakfast. He is awake, alert, has no complaints. LUNGS: Scant rhonchi and occasional wheezing. HEART: Regular rate and rhythm. ABDOMEN: Soft, flat, nontender with active bowel sounds. EXTREMITIES: Neurovascularly intact. LABORATORY DATA: There are no labs or radiographs reviewed this morning. ASSESSMENT AND PLAN: 1. Status post ground level fall. 2. Status post open reduction and internal fixation of left hip fracture. 3. Chronic obstructive pulmonary disease exacerbation, resolved. Plan will be to continue supportive care and await final placement decision. Job ID: [id number]
--- NOTE | 2019-08-06 12:40 | PRG ---
DATE OF SERVICE: 08/06/2019 SUBJECTIVE: This morning, he is better, he is walking with some help. Less pain. Less short of breath. OBJECTIVE: VITAL SIGNS: Temperature 98, pulse 88, respirations 16, saturations are 95 on 2 L, blood pressure 124/78. CHEST: Decreased breath sounds, no wheezing. CARDIAC: Normal S1 and S2. No gallops. ABDOMEN: No masses. ASSESSMENT AND PLAN: Chronic obstructive pulmonary disease, status post hip fracture surgery. Prednisone, neb treatments, eventually placement. Job ID: [id number]
[2019-08-06] MEDS: Acetaminophen/Codeine 30-300mg Tablet PO PRN ×2 (15:35→21:39)
[2019-08-06] MEDS ORDERED: Sodium Chloride 0.9% 500 ML IV SCH (17:30)
[2019-08-06] MEDS: clonazePAM 1 MG TAB PO SCH (20:20)
[2019-08-06] MEDS: Tamsulosin HCl 0.4 MG CAP PO SCH (20:21)
--- NOTE | 2019-08-06 22:26 | CON ---
DATE OF CONSULTATION: 08/06/2019 REASON FOR CONSULTATION: Urinary retention. HISTORY: Mr. Velazquez is a 68-year-old gentleman, admitted to the hospital on 08/02/2019 after a fall. He was diagnosed with a hip fracture on admission. He was taken the operating room on 08/03/2019 and underwent a left hip hemiarthroplasty. Postoperatively, he has been unable to void. He was managed with intermittent catheterization for 24 hours and now had a De Jesus catheter placed today. He denies any prior urologic history, although he does admit to progressively worsening urinary symptoms over the last year or so. He has progressed to the point that he is unable to void without sitting. He only has nocturia one time per night. He has had no prior urologic surgeries. PAST MEDICAL HISTORY: COPD, CVA, and peripheral vascular disease. PAST SURGICAL HISTORY: Left hemiarthroplasty, 08/03/2019; right lower extremity stenting for vascular disease. SOCIAL HISTORY: He does not drink alcohol. He is a long-term smoker averaging a half pack cigarette per day. He has been in assisted living for approximately last three months. He is not . ALLERGIES: MORPHINE AND SULFA. MEDICATIONS: Include; 1. Lasix. 2. Aspirin. 3. Clonazepam. 4. Ventolin. 5. Lyrica. 6. Tylenol No. 3. REVIEW OF SYSTEMS: RESPIRATORY: Denies any shortness of breath, but it is typical for him. CARDIOVASCULAR: Denies chest pain or palpitations. GASTROINTESTINAL: Denies chronic constipation or diarrhea. GENITOURINARY: Please see history of present illness. NEUROLOGIC: Denies any new symptoms to suggest stroke. PHYSICAL EXAMINATION: GENERAL: He is awake and alert. He is in no distress at this time. VITAL SIGNS: Temperature 99.0, blood pressure 130/82, pulse 82, and respiratory rate 16. HEENT: Normocephalic and atraumatic. NECK: Supple without masses. CHEST: Clear to auscultation. CARDIOVASCULAR: No murmurs auscultated. ABDOMEN: Soft, nontender. No palpable masses. Liver and spleen not palpable. No abdominal tenderness. De Jesus catheter is in place draining clear yellow urine. EXTREMITIES: No edema noted. RECTAL: Digital rectal exam was not performed as patient stated he could not easily get in position. He would like to forego this at this time. LABORATORY: White count 7.7, hemoglobin 9.7, and hematocrit 29.7. Creatinine 0.82 and blood sugar 145. IMPRESSION: Mr. Velazquez is a 68-year-old gentleman who has had progressive urinary symptoms to suggest BPH. He is now postoperative from a left hemiarthroplasty on 08/03/2019, has developed urinary retention. Flomax has been initiated. RECOMMENDATION: 1. Continue Flomax. 2. Voiding trial in approximately one week. Follow up in our office if he fails his voiding trial for further management, potentially minimally invasive prostate intervention or surgical therapy. 3. PSA testing. Job ID: [id number] [facility]
--- NOTE | 2019-08-06 22:36 | PRG ---
DATE OF SERVICE: SUBJECTIVE: The patient remains on the surgical floor. The patient was seen during evening rounds, resting comfortably. The patient is postop day 3 status post left hip hemiarthroplasty. The patient's nurse did report Urology, Dr. Mustafa, did come and see the patient this evening and reported to leave the De Jesus in for 5 days. OBJECTIVE: VITAL SIGNS: Stable, afebrile. RESPIRATORY: Equal chest rise and fall, no respiratory distress. ASSESSMENT AND PLAN: 1. Status post ground-level fall, postop day 3 left hip hemiarthroplasty. 2. Chronic obstructive pulmonary disease exacerbation, resolved. PLAN: Plan will be to continue supportive care and await final placement decision. We will continue to monitor the patient's urinary output. We will leave the De Jesus catheter in for 5 days per Urology. Job ID: [id number]
[2019-08-07] MEDS: HumaLOG 300 UNITS/3 ML VIAL SC PRN ×2 (06:12→16:51)
[2019-08-07 06:27] LABS: #Eosinphils 0.4 thou/uL (0.0-0.7); #Lymphocytes 1.3 thou/uL (1.20-3.40); #Monocytes 0.6 thou/uL (0.11-0.59); #Neutrophils 4.2 thou/uL (1.40-6.50); %Basophils 0.3 % (0.0-1.0); %Eosinophils 6.4 % (0.0-10.0); %Lymphocytes 20.1 % (21.0-51.0); %Monocytes 8.7 % (0.0-10.0); %Neutrophils 64.4 % (42.0-75.0); Hemoglobin 9.4 g/dL (14.0-18.0); Mean Corpuscular HGB CONC 32.4 g/dL (32.0-36.0); Mean Corpuscular Hemoglobin 29.8 pg (27.0-31.0); Mean Corpuscular Volume 91.7 fL (78.0-98.0); Mean Platelet Volume 9.2 fL (7.4-10.4); Platelet Count 118 thou/uL (130-400); RBC Distribution Width 12.8 % (11.5-14.5); Red Blood Cell (RBC) Count 3.14 mill/uL (4.70-6.10); White Blood Cell (WBC) Count 6.6 thou/uL (4.8-10.8)
[2019-08-07 06:48] LABS: Anion Gap 9 mmol/L (10-20); BUN (Urea Nitrogen) 15 mg/dL (8.4-25.7); Calc. Creatinine Clearance 119 mL/min (70-130); Calcium 8.4 mg/dL (7.8-10.44); Carbon Dioxide 33 mmol/L (23-31); Chloride 107 mmol/L (98-107); Estimated GFR-MDRD Greater than 90; Glucose 99 mg/dL (80-115); Magnesium 2.2 mg/dL (1.6-2.6); Phosphorus 3.8 mg/dL (2.3-4.7); Potassium 3.9 mmol/L (3.5-5.1); Sodium 145 mmol/L (136-145)
[2019-08-07] MEDS: Mometasone/Formoterol 120 PUFF INHALER INH SCH ×2 (07:50→19:06)
[2019-08-07] MEDS: Pramipexole Di-HCl 0.25 MG TAB PO SCH ×2 (08:29→20:28)
[2019-08-07] MEDS: Aspirin 81 mg Enteric Coated Tablet PO SCH ×2 (08:29→20:28)
[2019-08-07] MEDS: Vitamin E 400 UNITS CAP PO SCH (08:29)
[2019-08-07] MEDS: Famotidine 20 MG TAB PO SCH ×2 (08:29→20:28)
[2019-08-07] MEDS: Multivitamin W/ Minerals 1 TAB PO SCH (08:29)
[2019-08-07] MEDS: DULoxetine 60 MG CAP PO SCH ×2 (08:29→20:28)
[2019-08-07] MEDS: Pregabalin 50 MG CAP PO SCH ×3 (08:30→20:28)
[2019-08-07] MEDS: predniSONE 20 MG TAB PO SCH (08:30)
[2019-08-07] MEDS: Polyethylene Glycol 3350 17 GM Packet PO SCH (08:32)
[2019-08-07] MEDS: Acetaminophen/Codeine 30-300mg Tablet PO PRN ×2 (08:35→14:21)
--- NOTE | 2019-08-07 12:16 | PRG ---
DATE OF SERVICE: 08/07/2019 SUBJECTIVE: Duke Velazquez this morning is better. He is walking. OBJECTIVE: VITAL SIGNS: Sats are 93% on 4 L, pulse 102, temperature 98, blood pressure 140/71. CHEST: Decreased breath sounds. No wheezing. CARDIAC: Normal S1, S2. No gallops. ABDOMEN: No masses. LABORATORY DATA: Unremarkable. His bicarb is 33. H and H are . ASSESSMENT: 1. Status post hip fracture. 2. Chronic obstructive pulmonary disease, stable. PLAN: Disposition, placement. Continue present neb treatments and low-dose prednisone. We will follow. Job ID: [id number]
--- NOTE | 2019-08-07 13:21 | PRG ---
DATE OF SERVICE: 08/07/2019 SUBJECTIVE: The patient remains on the surgical floor status post ground level fall, in which he sustained a left hip fracture. He is currently awaiting placement. His acute COPD exacerbation appears to resolve. He is slowly working with Physical and Occupational Therapy, but he is making progress. The patient also had episode of urinary retention requiring a De Jesus catheter placement and a Urology consult. Per Dr. Mustafa, we will continue the Flomax and attempt a voiding trial in 1 week and also follow up with him in the office. Otherwise, the patient's pain is controlled. He is tolerating a diet. OBJECTIVE: VITAL SIGNS: Temperature is 98.4, heart rate 98, blood pressure 114/71, respirations 18, oxygen saturation 94% on 4 L via nasal cannula. GENERAL: The patient is resting comfortably in bed. He was asleep when I entered the room, but easily awakened to verbal stimuli. His Sharon Coma Scale is 15. LUNGS: Remain unchanged with scattered rhonchi and expiratory wheezing. HEART: Regular rate and rhythm. ABDOMEN: Soft and flat with active bowel sounds. EXTREMITIES: Neurovascularly intact x4. LABORATORY FINDINGS: White blood cell count 6.6, hemoglobin 9.4, hematocrit 28.8, platelets 118. Sodium 145, potassium 3.9, chloride 107, CO2 of 33, BUN 15, creatinine 0.81, glucose 99, magnesium 2.2, phosphorus 3.8. ASSESSMENT: 1. Status post ground level fall. 2. Status post open reduction and internal fixation of left hip fracture. 3. Chronic obstructive pulmonary disease exacerbation, resolved. PLAN: Plan will be to continue supportive care and await final placement decision. Job ID: [id number]
[2019-08-07] MEDS: clonazePAM 1 MG TAB PO SCH (20:28)
[2019-08-07] MEDS: Tamsulosin HCl 0.4 MG CAP PO SCH (20:29)
[2019-08-08] MEDS: Mometasone/Formoterol 120 PUFF INHALER INH SCH ×2 (06:48→18:59)
[2019-08-08] MEDS: Acetaminophen/Codeine 30-300mg Tablet PO PRN ×3 (07:17→20:14)
--- NOTE | 2019-08-08 08:32 | PRG ---
DATE OF SERVICE: 08/08/2019 SUBJECTIVE: Duke is a 68-year-old male, postop day 5 from a left hip hemiarthroplasty. Doing relatively well. He is very desirous of returning back to his assisted living from where he came and he is asking me about this today. He is ambulating 300 feet with therapy. He already has home health there. OBJECTIVE: VITAL SIGNS: Temperature is 98.4, pulse 79, respiratory rate is 20 and unlabored, O2 saturation is 92% on 4.5 nasal cannula, and blood pressure is 126/75. NEUROLOGIC: He is alert and oriented to person, place, time, and situation. Responsive and appropriate with the examiner. Incision is clean. No strike through. No malrotation or shortening of the left lower extremity. He is neurovascularly intact. IMPRESSION: A 68-year-old male, postop day 5, left hip hemiarthroplasty. PLAN: Continue current care. We will discuss with Trauma Team whether or not he is appropriate for discharge back to assisted living. Follow up tomorrow. Job ID: [id number]
[2019-08-08] MEDS: Pregabalin 50 MG CAP PO SCH ×3 (10:01→20:07)
[2019-08-08] MEDS: Vitamin E 400 UNITS CAP PO SCH (10:03)
[2019-08-08] MEDS: Famotidine 20 MG TAB PO SCH ×2 (10:03→20:07)
[2019-08-08] MEDS: Aspirin 81 mg Enteric Coated Tablet PO SCH ×2 (10:03→20:06)
[2019-08-08] MEDS: predniSONE 20 MG TAB PO SCH (10:03)
[2019-08-08] MEDS: Pramipexole Di-HCl 0.25 MG TAB PO SCH ×2 (10:03→20:06)
[2019-08-08] MEDS: Multivitamin W/ Minerals 1 TAB PO SCH (10:03)
[2019-08-08] MEDS: DULoxetine 60 MG CAP PO SCH ×2 (10:04→20:06)
[2019-08-08] MEDS: Polyethylene Glycol 3350 17 GM Packet PO SCH (10:05)
--- NOTE | 2019-08-08 14:41 | PRG ---
DATE OF SERVICE: 08/08/2019 SUBJECTIVE: The patient remains on the surgical floor status post ground level fall, in which he sustained a left hip fracture. He also while here had a COPD exacerbation, which is subsequently resolved. He has been making slow progress with physical and occupational therapy, but he has been progressing daily. The patient also had an episode of urinary retention, requiring a De Jesus catheter placed and Urology recommends 1 week of De Jesus catheter and then followup with voiding trial. The patient is tolerating a diet. He has bowel function and his pain is controlled. PHYSICAL EXAMINATION: VITAL SIGNS: Temperature 97.8, heart rate 79, respirations 18, oxygen saturation 94% on 4 L via nasal cannula, and blood pressure 126/75. GENERAL: The patient is resting comfortably in bed. He is awake, alert, conversant, and appropriate. HEENT: Unremarkable. LUNGS: Unchanged with scattered rhonchi and expiratory wheezes consistent with his COPD. HEART: Regular rate and rhythm. ABDOMEN: Soft, flat, and nontender with active bowel sounds. EXTREMITIES: Neurovascularly intact x4. LABORATORY DATA: There are no labs or radiographs to review this morning. ASSESSMENT AND PLAN: 1. Status post ground level fall. 2. Status post open reduction and internal fixation of left hip fracture. 3. Chronic obstructive pulmonary disease exacerbation, resolved. PLAN: Plan will be to continue supportive care and await final placement decision. The patient was evaluated this morning during rounds with Dr. Small. Job ID: [id number]
[2019-08-08] MEDS ORDERED: Acetaminophen/Codeine 30-300mg Tablet PO PRN (17:33)
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
[2019-08-08] MEDS: clonazePAM 1 MG TAB PO SCH (20:06)
[2019-08-08] MEDS: Tamsulosin HCl 0.4 MG CAP PO SCH (20:07)
[2019-08-08] MEDS: HumaLOG 300 UNITS/3 ML VIAL SC PRN (20:24)
[2019-08-09] MEDS: Mometasone/Formoterol 120 PUFF INHALER INH SCH (07:17)
[2019-08-09 07:32] VITALS: BP 132/81; TEMP 98.2
[2019-08-09] MEDS: Vitamin E 400 UNITS CAP PO SCH (08:33)
[2019-08-09] MEDS: Acetaminophen/Codeine 30-300mg Tablet PO PRN (08:37)
[2019-08-09] MEDS: Pregabalin 50 MG CAP PO SCH (08:38)
[2019-08-09] MEDS: Aspirin 81 mg Enteric Coated Tablet PO SCH (08:39)
[2019-08-09] MEDS: DULoxetine 60 MG CAP PO SCH (08:39)
[2019-08-09] MEDS: Multivitamin W/ Minerals 1 TAB PO SCH (08:39)
[2019-08-09] MEDS: predniSONE 20 MG TAB PO SCH (08:39)
[2019-08-09] MEDS: Famotidine 20 MG TAB PO SCH (08:39)
[2019-08-09] MEDS: Pramipexole Di-HCl 0.25 MG TAB PO SCH (08:39)
[2019-08-09] MEDS: Polyethylene Glycol 3350 17 GM Packet PO SCH (08:40)
--- NOTE | 2019-08-09 09:23 | PRG ---
DATE OF SERVICE: 08/09/2019 SUBJECTIVE: Duke is planning on being discharged to assisted living sometime today or tomorrow. He is doing relatively well. He is ambulating 300 feet in the mornings and the evenings with a steady hakan. OBJECTIVE: His incision is clean. His dressing is removed and inspected, and ana are intact. No erythema. IMPRESSION: A 68-year-old male, postop day 5, left hip hemiarthroplasty, doing well. PLAN: I will give discharge instructions and follow up in [address] Mishra for staple removal. Job ID: [id number]
[2019-08-09] MEDS: HumaLOG 300 UNITS/3 ML VIAL SC PRN (11:29)
--- NOTE | 2019-08-10 04:20 | DIS ---
DATE OF ADMISSION: 08/02/2019 DATE OF DISCHARGE: 08/09/2019 This is Mame Davis NP dictating a report for Devin Small DO. ADMITTING PHYSICIAN: Reynold Porras MD DISCHARGE PHYSICIAN: Dr. Small. CONSULTS: 1. Pulmonology, Dr. Morocho. 2. Orthopedic Surgery, Dr. Mishra. PROCEDURES: 1. On 08/02/2019, hip x-ray, impression, displaced proximal left femoral neck fracture. 2. On 08/02/2019, pelvis x-ray, acute impacted proximal left femoral neck fracture. 3. On 08/03/2019, left hip hemiarthroplasty by Dr. Mishra. 4. On 08/03/2019, chest x-ray, no evidence for acute cardiopulmonary process. 5. On 08/05/2019, chest x-ray, no acute process. PRIMARY DIAGNOSIS: Ground level fall, left hip fracture, status post left hip hemiarthroplasty. SECONDARY DIAGNOSES: Right hip fixation, anxiety, depression, venous insufficiency, right femoral artery stent, CVA. DISCHARGE MEDICATIONS: 1. Tylenol No. 3 one tablet p.o. q.4 hours as needed for pain. 2. Acetaminophen 650 mg p.o. q.6 hours as needed. 3. Vitamin C 500 mg p.o. daily. 4. Aspirin 81 mg p.o. daily for 30 days. 5. Dulcolax as needed. 6. Klonopin 1 mg p.o. at bedtime. 7. Cymbalta 60 mg p.o. b.i.d. 8. DuoNeb as needed. 9. Imodium as needed. 10. Dulera inhaler. 11. Multivitamin daily. 12. MiraLAX as needed. 13. Mirapex 0.5 mg p.o. b.i.d. 14. Prednisone 40 mg p.o. q.a.m. for 3 more days. 15. Lyrica 100 mg p.o. 3 times a day. 16. Flomax 0.4 mg p.o. at bedtime. 17. Vitamin E 400 units p.o. daily. HISTORY OF PRESENT ILLNESS AND HOSPITAL COURSE: This is a 68-year-old gentleman, who presented to the emergency room after a fall at his assisted living facility. The patient reports he was trying to transfer himself from chair to wheelchair. The patient lost his balance causing him to fall on his left leg. There was no loss of consciousness and he denies hitting his head. After the fall, patient was unable to bear weight on the left lower extremity. The patient was admitted to Trauma Services and the patient's pain was well controlled preop and postop. The patient was able to work with physical therapy postop. The patient did have some urinary retention postop, requiring him to have a De Jesus catheter placed. A Urology consult was placed and Dr. Mustafa recommended keeping the De Jesus in place for 7 days and then attempting a bladder trial. If patient's bladder trial was unsuccessful, he is to follow up with Urology, Dr. Mustafa. Pulmonary was also consulted for patient's acute COPD exacerbation. The patient was placed on steroids for 7 days. On the day of discharge, the patient was seen by Dr. Small. Patient's exam was unremarkable including cardiopulmonary and GI exam. Patient's vital signs were stable. The patient was deemed stable for discharge to swing bed facility for continued physical and occupational therapy. The patient was also worked up to go to inpatient rehab, which is still an option pending insurance authorization. Rehab facility will reach out if the patient has been accepted. DISPOSITION: Stable. DISCHARGE INSTRUCTIONS: 1. Location: Assisted Living Facility. 2. Diet: Diabetic diet. 3. Activity: Orthopedic limitations, weightbearing as tolerated with left hip precautions. 4. Followup: Follow up with Urology, Dr. Mustafa in 7 days if the patient does not successfully complete bladder trial. 5. Follow up with Dr. Mishra in 10 days. 6. Follow up with Pulmonology as needed. Job ID: [id number]
== END 2019-08-09 12:10 | DRG 469 ==
LOC: ERS 18:34 → SURG A 21:11 → CCU 08-03 23:11 → SURG A 08-04 19:46
PROVIDERS: ADMIT Surgery; ATTEND Surgery
PROC: 0SRS0JZ Replacement of Left Hip Joint, Femoral Surface with Synthetic Substitute, Open Approach (ICD-10-PCS; principal; 2019-08-03)
DX: S72.092A Other fracture of head and neck of left femur, initial encounter for closed fracture (principal); J96.21 Acute and chronic respiratory failure with hypoxia; J96.22 Acute and chronic respiratory failure with hypercapnia; G93.40 Encephalopathy, unspecified; J44.1 Chronic obstructive pulmonary disease with (acute) exacerbation; W18.30XA Fall on same level, unspecified, initial encounter; Y92.238 Other place in hospital as the place of occurrence of the external cause; Z86.73 Personal history of transient ischemic attack (TIA), and cerebral infarction without residual deficits; F41.9 Anxiety disorder, unspecified; F32.9 Major depressive disorder, single episode, unspecified; Z88.2 Allergy status to sulfonamides; Z88.8 Allergy status to other drugs, medicaments and biological substances; Z79.899 Other long term (current) drug therapy; Z79.82 Long term (current) use of aspirin; J44.9 Chronic obstructive pulmonary disease, unspecified; E78.5 Hyperlipidemia, unspecified; Z90.49 Acquired absence of other specified parts of digestive tract
CPT/HCPCS: 36415; 36416; 71045; 72170; 80048; 80053; 80307; 81001; 82533; 82805; 83735; 84100; 84153; 85025; 85610; 85730; 93005; 94640; 94660; 96374; 96376; 99214; G0283-GP; G0390; G0463; G0483; J0131; J0690; J1720; J1885; J2270; J2405; J2920; J3010; J7512; J7620; J7626; S0028

== ENCOUNTER 2019-09-10 14:12 | Inpatient (IN) | payer MEDICARE ==
[2019-09-10] MEDS ORDERED: Magnesium 2 GM/50 ML BAG (IN WATER) ONE (14:49)
[2019-09-10] MEDS ORDERED: Dexamethasone 10 MG/ML VIAL ONE (14:49)
--- NOTE | 2019-09-10 14:49 | RAD ---
EXAM: Portable chest PROVIDED CLINICAL HISTORY: Chest pain COMPARISON: 08/05/2019 FINDINGS: Cardiac and mediastinal silhouette is within normal limits. No focal consolidation, pleural fluid or pneumothorax evident. Chronic obstructive changes are redemonstrated. IMPRESSION: No evidence for an acute cardiopulmonary process.
[2019-09-10] MEDS ORDERED: Albuterol Sulfate 2.5 mg/3 ml Neb ONE (14:53)
[2019-09-10 15:09] LABS: Actual Bicarbonate (HCO3a) 39.2 mEq/L (22-28); Analyzer IN Cardio ER; Base Excess (BEa) 11.1 mEq/L (-2.0 to +3.0); Calcium, Ionized 1.13 mmol/L (1.12-1.30); Carboxyhemoglobin (COHb) 0.3 gm% (0.0-3.0); Hemoglobin (Hb) 12.1 g/dL (14.0-18.0); O2 Tension (PaO2) 65.9 mmHg (> 80.0); Potassium - ABG Lab 3.82 mmol/L (3.70-5.30); pH, Arterial 7.36 (7.35-7.45)
[2019-09-10 15:15] LABS: #Eosinphils 0.1 thou/uL (0.0-0.7); #Lymphocytes 1.4 thou/uL (1.20-3.40); #Monocytes 0.3 thou/uL (0.11-0.59); #Neutrophils 5.7 thou/uL (1.40-6.50); %Basophils 0.1 % (0.0-1.0); %Eosinophils 0.8 % (0.0-10.0); %Lymphocytes 19.3 % (21.0-51.0); %Monocytes 3.4 % (0.0-10.0); %Neutrophils 76.4 % (42.0-75.0); Mean Corpuscular HGB CONC 32.3 g/dL (32.0-36.0); Mean Corpuscular Hemoglobin 29.2 pg (27.0-31.0); Mean Corpuscular Volume 90.5 fL (78.0-98.0); Mean Platelet Volume 8.1 fL (7.4-10.4); Platelet Count 156 thou/uL (130-400); Red Blood Cell (RBC) Count 4.11 mill/uL (4.70-6.10); White Blood Cell (WBC) Count 7.4 thou/uL (4.8-10.8)
[2019-09-10 15:30] LABS: CO2 Tension 70.8 mmHg (35.0-45.0); Puncture Site RRA
[2019-09-10 15:43] LABS: ALT (SGPT) 8 U/L (8-55); AST (SGOT) 11 U/L (5-34); Albumin 3.8 g/dL (3.4-4.8); Alkaline Phosphatase 87 U/L (40-110); Anion Gap 14 mmol/L (10-20); BUN (Urea Nitrogen) 14 mg/dL (8.4-25.7); Bilirubin, Total 0.4 mg/dL (0.2-1.2); CK (CPK) 40 U/L (30-200); Calc. Creatinine Clearance 0 mL/min (70-130); Calcium 8.5 mg/dL (7.8-10.44); Carbon Dioxide 35 mmol/L (23-31); Chloride 98 mmol/L (98-107); Estimated GFR-MDRD 71; Globulin 2.1 g/dL (2.4-3.5); Glucose 106 mg/dL (80-115); Lipase 14 U/L (8-78); Potassium 4.3 mmol/L (3.5-5.1); Protein, Total 5.9 g/dL (5.8-8.1); Sodium 143 mmol/L (136-145)
--- NOTE | 2019-09-10 15:53 | ULT ---
EXAM: Bilateral lower extremity venous Doppler PROVIDED CLINICAL HISTORY: 15 FINDINGS: Grayscale and color Doppler sonography with spectral analysis was performed of the common femoral, fe moral, popliteal, right posterior tibial, greater saphenous and profunda femoral veins bilaterally. The left posterior tibial vein was not visualized. The evaluated venous structures demonstrate a norm al sonographic appearance. IMPRESSION: No sonographic evidence for lower extremity deep venous thrombosis with limitations as above.
[2019-09-10] MEDS ORDERED: Ondansetron PF 4 MG/2 ML Vial IVP PRN (17:13)
[2019-09-10] MEDS ORDERED: Ondansetron ODT 4 MG TAB SL PRN (17:13)
[2019-09-10 17:19] VITALS: BMI 27.6
--- NOTE | 2019-09-10 18:02 | PDOC.HHP ---
Hospitalist HPI - History of Present Illness shortness of breath History of Present Illness: This is a 68 year old male with past medical history of COPD, peripheral vascular disease s/p stenting, TIAS in the past who presents with shortness of breath for the past three weeks. The patient states that he had left hip surgery three weeks ago for a femoral neck fracture. His shortness of breath started after the surgery. He has been walking in a cane and was not wheel- chair bound. He has been "huffing and puffing" down the hallway and when he lays in bed he often wakes up due to sensation of an elephant sitting on his chest. He says this sensation often occurs because he is a mouth-breather. He has a mild dry cough, but is not bringing up phlegm. He denies any sinus pain or congestion, fevers or chills. He was started on lasix three days ago and has been urinating excessively. He denies having a stress test in the past. The patient has chronic bilateral leg pain for the past four years from venous insufficiency, denies any worsening erythema or swelling in the past few days. ED Course: The patient was noted to be using accessory muscles per ER physician and was placed on BIPAP empirically. He was on 3L of oxygen previously with no significant desaturation. ABG showed a pH 7.3 and pCO2 of 70. Chest Xray showed no acute abnormality. EKG showed low voltage QRS, left anterior fascicular block. Troponin was less than 0.010. The patient was given IV 10 decadron, 2 gram magnesium, duoneb, 750 levaquin, 1L Normal saline. Hospitalist ROS - Review of Systems Constitutional: denies: fever, chills Eyes: denies: vision change ENT: denies: ear discharge Respiratory: reports: cough (intermittent dry cough). 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 Patient states left groin has complete blockage but unable to do surgery due to COPD status - Past Surgical History Other Surgical History: Right hip surgery August 2010 Left hip arthroplasty Jul 2019 for femoral neck fracture - Family History Other Family History: Dad passed from a heart attack and had diabetes - Social History Smoking Status: Former smoker (Smoked 1 pack a day for 25 years. No alcohol use or illicit drug use) Alcohol: reports: None Drugs: reports: none Living Situation: Other (lives in assisted living) - Exam General Appearance: NAD, awake alert Eye: PERRL, anicteric sclera ENT: normocephalic atraumatic, no oropharyngeal lesions Neck: supple, no JVD Heart: RRR, no murmur, no gallops, no rubs Respiratory: CTAB, no rales, no ronchi Respiratory - other findings: some mild expiratory wheezing Gastrointestinal: soft, non-tender, non-distended, normal bowel sounds Extremities: no cyanosis, no clubbing, no edema Extremities - other findings: erythema RLE on sterling. Nonpalpable pulses DP and PT. Feet slightly cold Skin: normal turgor, no lesions, no rashes Neurological: cranial nerve grossly intact, normal sensation to touch, no focal deficits, no new deficit Musculoskeletal: normal tone, normal strength, no muscle wasting Musculoskeletal - other findings: decreased range of motion right leg Psychiatric: normal affect, normal behavior, A&O x 3 Hospitalist Results - Labs Result Diagrams: 09/10/19 15:00 09/10/19 15:00 Lab results: WBC 7.4 thou/uL (4.8-10.8) 09/10/19 15:00 Hgb 12.0 g/dL (14.0-18.0) L 09/10/19 15:00 Hct 37.2 % (42.0-52.0) L 09/10/19 15:00 MCV 90.5 fL (78.0-98.0) 09/10/19 15:00 Plt Count 156 thou/uL (130-400) 09/10/19 15:00 Neutrophils % 76.4 % (42.0-75.0) H 09/10/19 15:00 ABG pH 7.36 (7.35-7.45) 09/10/19 15:00 ABG pCO2 70.8 mmHg (35.0-45.0) H* 09/10/19 15:00 ABG pO2 65.9 mmHg (> 80.0) 09/10/19 15:00 Sodium 143 mmol/L (136-145) 09/10/19 15:00 Potassium 4.3 mmol/L (3.5-5.1) 09/10/19 15:00 Chloride 98 mmol/L (98-107) 09/10/19 15:00 Carbon Dioxide 35 mmol/L (23-31) H 09/10/19 15:00 BUN 14 mg/dL (8.4-25.7) 09/10/19 15:00 Creatinine 1.05 mg/dL (0.7-1.3) 09/10/19 15:00 Glucose 106 mg/dL (80-115) 09/10/19 15:00 Lactic Acid 2.2 mmol/L (0.5-2.2) 09/10/19 15:00 Calcium 8.5 mg/dL (7.8-10.44) 09/10/19 15:00 Total Bilirubin 0.4 mg/dL (0.2-1.2) 09/10/19 15:00 AST 11 U/L (5-34) 09/10/19 15:00 ALT 8 U/L (8-55) 09/10/19 15:00 Alkaline Phosphatase 87 U/L (40-110) 09/10/19 15:00 Creatine Kinase 40 U/L (30-200) 09/10/19 15:00 Troponin I Less than 0.010 ng/mL (< 0.028) 09/10/19 15:00 B-Natriuretic Peptide 12.4 pg/mL (0-100) 09/10/19 15:00 Serum Total Protein 5.9 g/dL (5.8-8.1) 09/10/19 15:00 Albumin 3.8 g/dL (3.4-4.8) 09/10/19 15:00 Lipase 14 U/L (8-78) 09/10/19 15:00 Hospitalist H&P A/P - Plan Plan: This is a 68 year old male with COPD recently discharged last month for left femoral hip arthroplasty who complains of worsening shortness of breath for the past three weeks Acute hypercapneic/hypoxic respiratory failure possibly from COPD exacerbation - chest X ray showed no acute disease. S/p IV levaquin, will continue due to mildly elevated neutrophil count on diff - troponin negative, will trend x 3, monitor on telemetry. EKG shows LAFB - patient was on BIPAP, has been weaned down to nasal cannula - would need a stress test as outpatient at some point given patient's PVD history and complaints of chest pain while laying down Lactic acidosis - increased to 3.1. Will continue IV fluids - hold lasix #Peripheral vascular disease #Chronic venous insufficiency #Chronic bilateral LE pain #Restless leg syndrome - s/p stenting in bilateral groin, weak pulses on exam - continue lyrica, norco for pain - continue pramipexole - check right hip X ray due to difficulty lifting it up Insomnia - clonazepam qhs BPH - flomax Code status: per patient : " no intubation/BIPAP/shocking, but can try one chest compression and if fails, then stop
[2019-09-10 18:04] LABS: Lactic Acid 3.1 mmol/L (0.5-2.2)
[2019-09-10] MEDS ORDERED: Bisacodyl 10 MG SUPP PR PRN (18:20)
[2019-09-10] MEDS ORDERED: Acetaminophen/Codeine 30-300mg Tablet PO PRN (18:20)
[2019-09-10] MEDS: Acetaminophen 325 MG TAB PO PRN (19:05)
[2019-09-10] MEDS: Pregabalin 50 MG CAP PO SCH (19:05)
[2019-09-10] MEDS: HYDROcodone/Acetaminophen 5/325 mg Tablet PO PRN ×2 (19:06→23:32)
[2019-09-10] MEDS: DULoxetine 60 MG CAP PO SCH (19:07)
[2019-09-10] MEDS: Tamsulosin HCl 0.4 MG CAP PO SCH (19:07)
[2019-09-10] MEDS: clonazePAM 0.5 MG TAB PO SCH (19:07)
[2019-09-10] MEDS: Sodium Chloride 0.9% 1,000 ML IV SCH ×2 (19:10→21:40)
[2019-09-10] MEDS: Pramipexole Di-HCl 0.25 MG TAB PO SCH (19:24)
[2019-09-10] MEDS ORDERED: Dexamethasone 10 MG/ML VIAL SLOW IVP SCH (21:00)
[2019-09-11] MEDS: Sodium Chloride 0.9% 1,000 ML IV SCH ×3 (02:07→23:53)
[2019-09-11] MEDS ORDERED: predniSONE 20 MG TAB PO SCH (08:00)
[2019-09-11] MEDS ORDERED: Clopidogrel Bisulfate 75 MG TAB ONE (09:31)
[2019-09-11 09:39] LABS: Hemoglobin 11.3 g/dL (14.0-18.0); Mean Corpuscular Hemoglobin 29.7 pg (27.0-31.0); Mean Platelet Volume 8.4 fL (7.4-10.4); Platelet Count 129 thou/uL (130-400); RBC Distribution Width 13.1 % (11.5-14.5); White Blood Cell (WBC) Count 9.4 thou/uL (4.8-10.8)
[2019-09-11 09:56] LABS: Lactic Acid 2.4 mmol/L (0.5-2.2)
[2019-09-11] MEDS: DULoxetine 60 MG CAP PO SCH ×2 (09:58→20:42)
[2019-09-11] MEDS: Pregabalin 50 MG CAP PO SCH ×3 (09:59→20:43)
[2019-09-11] MEDS: predniSONE 20 MG TAB PO SCH (09:59)
[2019-09-11] MEDS: Multivit, Therapeutic 1 TAB PO SCH (09:59)
[2019-09-11] MEDS: Vitamin E 400 UNITS CAP PO SCH (09:59)
[2019-09-11] MEDS: Aspirin 81 mg Enteric Coated Tablet PO SCH (09:59)
[2019-09-11] MEDS: Polyethylene Glycol 3350 17 GM Packet PO SCH (10:00)
[2019-09-11] MEDS: Pramipexole Di-HCl 0.25 MG TAB PO SCH ×2 (10:00→20:42)
[2019-09-11 10:02] LABS: ALT (SGPT) Less than 7 U/L (8-55); AST (SGOT) 6 U/L (5-34); Albumin 3.5 g/dL (3.4-4.8); Alkaline Phosphatase 70 U/L (40-110); Anion Gap 14 mmol/L (10-20); BUN (Urea Nitrogen) 13 mg/dL (8.4-25.7); Bilirubin, Total 0.3 mg/dL (0.2-1.2); Calc. Creatinine Clearance 127 mL/min (70-130); Calcium 8.5 mg/dL (7.8-10.44); Carbon Dioxide 28 mmol/L (23-31); Chloride 104 mmol/L (98-107); Estimated GFR-MDRD Greater than 90; Globulin 2.3 g/dL (2.4-3.5); Glucose 149 mg/dL (80-115); Protein, Total 5.8 g/dL (5.8-8.1); Sodium 142 mmol/L (136-145)
[2019-09-11] MEDS: Acetaminophen/Codeine 30-300mg Tablet PO PRN (10:25)
--- NOTE | 2019-09-11 11:21 | CON ---
DATE OF CONSULTATION: 09/11/2019 HISTORY OF PRESENT ILLNESS: Mr. Velazquez is in the hospital for shortness of breath. While he was here, he has continued to complain of bilateral lower extremity pain. 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 He has been unable to undergo interventional recanalization due to severe calcification. Due to his overwhelming medical disease, we have been unwilling to put him through an aortobifemoral bypass. He is now at the point of saying that he does not care if he dies in the operating room or in the early period after surgery. He has to have something done with his legs. Otherwise, he cannot go on living like this. PAST MEDICAL HISTORY: 1. Hypertension. 2. COPD. 3. Multiple sclerosis. 4. Dyslipidemia. PAST SURGICAL HISTORY: 1. Bilateral hip surgery. 2. 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 SOCIAL HISTORY: Continues to smoke. ALLERGIES: SULFA. CURRENT MEDICATIONS: Noted. PHYSICAL EXAMINATION: GENERAL: This is a well-developed, well-nourished man, in obvious pain. VITAL SIGNS: Temperature is 98.6, pulse is 87 and regular, and blood pressure is 130/78. HEENT: Sclerae are nonicteric. Pupils are equal and round bilaterally. NECK: Supple. LUNGS: He has distant breath sounds with occasional wheeze bilaterally. CARDIAC: Heart rhythm is regular without murmur. ABDOMEN: Soft and nontender. EXTREMITIES: He has dependent rubor bilaterally. He is sitting with his feet hanging currently. VASCULAR: He has a faintly palpable right common femoral pulse. I cannot palpate a pulse on the left. VENOUS: There are no venous varicosities or venous stasis changes. PSYCHIATRIC: He is awake, alert, and oriented to person, place, and time. LABORATORY DATA: Of note, hemoglobin is 11.3, platelet count is 129,000. Creatinine is 0.81, potassium is 4.0. ASSESSMENT AND PLAN: This is an unfortunate gentleman with severe chronic obstructive pulmonary disease and peripheral vascular disease. From his previous studies, he would need an aortobifemoral bypass. This would correct his inflow into his legs. I have discussed in detail the procedure with him and previously, he has been unwilling to proceed due to his chronic obstructive pulmonary disease and high risk of pulmonary and cardiac complications postoperatively. Today, he is saying that he does not care what happens, he needs to have something done with his legs. We will get a nuclear stress test and pulmonary function testing. I will also get a CT angio to further define any other anatomic problems or problems that have crept up in the last couple of years. After these are completed, we can have a sensible risk discussion with him and see if he is truly ready to proceed with surgical intervention. Job ID: [id number]
--- NOTE | 2019-09-11 12:14 | CT ---
EXAM: CT angiogram abdomen and pelvis with IV contrast and three-dimensional reconstructions CT angiogram bilateral lower extremities with IV contrast and three-dimensional reconstructions PROVIDED CLINICAL HISTORY: Peripheral vascular disease COMPARISON: 10/19/2017 FINDINGS: Evaluation is limited due to significant image noise. The visualized lung bases are free of significant opacity. The solid abdominal organs demonstrate an unremarkable CT appearance for the phase of contrast in which the study was acquired. There is no bowel dilatation, inflammatory fat stranding, free fluid or free air apparent. The osseous structures demonstrate no concerning lytic or blastic lesions. The abdominal aorta is nonaneurysmal. Extensive atherosclerotic vascular calcification is noted invol ving the abdominal aorta. The mesenteric and renal vessels demonstrate no evidence for significant stenosis. There is redemonstration of occlusion of the left common iliac artery, with reconstitution of the ext ernal iliac artery via internal iliac artery retrograde flow. There is extensive multifocal atherosclerotic vascular calcification with multiple areas of high-grade stenosis involving the proxi mal left external iliac artery. Multiple moderate to severe stenoses involve the left internal iliac artery. There is multifocal atherosclerotic vascular calcification involving the right common iliac artery wi th high-grade stenosis/near occlusion at the origin and high-grade stenosis/short segment occlusion in the midportion. There is atherosclerotic vascular calcification involving both external and international trade teacher al iliac arteries with at least moderate external iliac artery origin stenosis and multifocal at least moderate internal iliac artery stenoses. On the right, there is multifocal atherosclerotic vascular calcification involving the common femoral artery with at least moderate stenosis at the level of the profunda origin. The profunda itself does not appear significantly stenotic. The right superficial femoral artery demonstrates multifocal atherosclerotic vascular calcification and redemonstration of stent. There is a long segment moderate to high-grade stenosis involving the vessel just distal to the stent. The right popliteal ar sarah demonstrates no significant stenosis. The runoff vessels on the right are opacified to the mid calf and demonstrate no significant proximal stenosis. On the left, evaluation of the common femoral artery is limited due to beam hardening artifact from l eft hip arthroplasty. The profunda femoral artery demonstrates no significant stenosis. The superficial femoral artery demonstrates multifocal atherosclerotic vascular calcification with multif ocal moderate stenoses distally. The left popliteal artery appears patent. There is occlusion of the tibioperoneal trunk. There is opacification of the left anterior tibial artery to the mid calf. IMPRESSION: Extensive iliac, femoral and runoff disease as described above.
--- NOTE | 2019-09-11 12:20 | RAD ---
Right hip 2 views: 09/11/2019 COMPARISON: None HISTORY: Pain FINDINGS: Evidence of prior intertrochanteric fracture status post ORIF noted with intramedullary tanvi and distal interlocking screw. Screws traverse the femoral neck. No evidence for hardware failure. No acute fracture or dislocation. Heterotopic bone is noted at the postsurgical site. Moderate degene rative change of the right hip noted with superior joint space narrowing and subchondral sclerotic change of the acetabular roof. IMPRESSION: Degenerative and postoperative changes as described above.
--- NOTE | 2019-09-11 14:57 | PDOC.HOSPP ---
- Subjective Encounter Date: 09/11/19 Encounter Time: 10:00 Subjective: The patient is doing better. No significant shortness of breath or cough. Patient is complaining of 10/10 pain in his RLE. Had a stent in the right groin in the past, but says it must be failing because he can't stand the pain anymore. Reports numbness in bilateral shins. Wants to see Dr. Flores. He is wondering whether they can do bypass on left leg as well using spinal anasthesia instead of general anesthesia because was told that he wouldn't survive the surgery under general anasthesia - Objective Vital Signs & Weight: Vital Signs (12 hours) Temp Pulse Ox 09/11/19 11:04 99.1 F 09/11/19 07:49 96 09/11/19 07:35 98.6 F Weight Weight 221 lb 2 oz Most Recent Monitor Data Heart Rate from ECG 92 NIBP 140/84 NIBP BP-Mean 102 Respiration from ECG 21 SpO2 95 I&O: 09/10/19 09/11/19 09/12/19 06:59 06:59 06:59 Intake Total 2400 Output Total 550 525 Balance 1850 -525 Result Diagrams: 09/11/19 09:31 09/11/19 09:31 Hospitalist ROS - Review of Systems Eyes: denies: pain, vision change Musculoskeletal: reports: leg pain - Medication Medications: Active Medications Generic Name Dose Route Start Last Admin Trade Name Freq PRN Reason Stop Dose Admin Acetaminophen 650 mg 09/10/19 18:20 09/10/19 19:05 Tylenol PO 650 mg Q6H PRN Administration Mild Pain (1-3) Acetaminophen/Codeine Phosphate 1 tab 09/10/19 18:20 09/11/19 10:25 Tylenol #3 PO 1 tab Q4H PRN Administration Moderate Pain (4-6) Hydrocodone Bitart/Acetaminophen 1 tab 09/10/19 18:20 09/10/19 23:32 [place] 5/325 PO 1 tab Q4H PRN Administration Severe Pain (7-10) Aspirin 81 mg 09/11/19 09:00 09/11/19 09:59 Ecotrin PO 81 mg DAILY ROSALIO Administration Clonazepam 1 mg 09/10/19 21:00 09/10/19 19:07 Klonopin PO 1 mg HS ROSALIO Administration Duloxetine HCl 60 mg 09/10/19 21:00 09/11/19 09:58 Cymbalta PO 60 mg BID ROSALIO Administration Multivitamins 1 tab 09/11/19 09:00 09/11/19 09:59 Theragran PO 1 tab DAILY ROSALIO Administration Polyethylene Glycol 17 gm 09/11/19 09:00 09/11/19 10:00 Miralax PO Not Given DAILY ROSALIO Pramipexole Dihydrochloride 0.5 mg 09/10/19 21:00 09/11/19 10:00 Mirapex PO 0.5 mg BID ROSALIO Administration Prednisone 40 mg 09/11/19 08:00 09/11/19 09:59 Prednisone PO 40 mg QAM-WM ROSALIO Administration Pregabalin 100 mg 09/10/19 21:00 09/11/19 09:59 Lyrica PO 100 mg TID ROSALIO Administration Tamsulosin HCl 0.4 mg 09/10/19 21:00 09/10/19 19:07 Flomax PO 0.4 mg HS ROSALIO Administration Vitamin E 400 units 09/11/19 09:00 09/11/19 09:59 Vitamin E PO 400 units DAILY ROSALIO Administration - Exam General Appearance: NAD, awake alert Eye: PERRL, anicteric sclera ENT: normocephalic atraumatic, no oropharyngeal lesions Neck: supple, no JVD Heart: RRR, no murmur, no gallops, no rubs Respiratory: CTAB, no wheezes, no rales, no ronchi Gastrointestinal: soft, non-tender, non-distended, normal bowel sounds Extremities - other findings: Absent pulses in TP and DP pulses. Pain when lifting right leg Skin - other findings: erythema right lower leg Neurological: cranial nerve grossly intact, normal sensation to touch, no focal deficits, no new deficit Musculoskeletal - other findings: Full range of motion left leg, decreased range of motion right leg Psychiatric: normal affect, normal behavior, A&O x 3, oriented to person Hosp A/P - Plan CTA run off: on the right there is moderate stenosis at WEIGHTER. Moderate to high grade stenosis involving right SFA distal to stent. On the left multifocal atherosclerotic vascular calcification with multifocal moderate stenosis. Occlusion of tibioperoneal trunk, opacification of the left anterior tibial artery to the mid calf. High grade stenosis in the left external iliac artery. Severe stenosis left internal iliac artery. Occlusion of left common iliac arter y Right Hip Xray: degenerative and postop changes This is a 68 year old male with COPD recently discharged last month for left femoral hip arthroplasty who complains of worsening shortness of breath for the past three weeks Acute hypercapneic/hypoxic respiratory failure possibly from COPD exacerbation vs CAD - chest X ray showed no acute disease. Continue IV levaquin x 2 - troponin negative, will trend x 3 - patient weaned down to nasal cannula. Will obtain nuclear stress test in the morning to rule out coronary disease #Peripheral vascular disease #Chronic venous insufficiency #Chronic bilateral LE pain #Restless leg syndrome -right hip X ray showed degenerative changes - s/p stenting in bilateral groin, weak pulses on exam. CTA showing extensive stenosis of right SFA distal to the stent and occlusion of left common iliac artery. Needs CABG. Vascular surgery was consulted, will do stress testing and PFT prior to surgery - continue lyrica, norco for pain - continue pramipexole Lactic acidosis - downtrending, but still 2.4. Will give 500 cc bolus, continue IV fluids 100/ hour Insomnia - clonazepam qhs BPH - flomax Dispo: transfer to the floor Code status: DNI, CPR trial x 1, no BIPAp
[2019-09-11] MEDS ORDERED: Sodium Chloride 0.9% 500 ML IV SCH (15:15)
[2019-09-11] MEDS ORDERED: Iopamidol-370 76% 500 ML 1 ML ONE (16:04)
[2019-09-11] MEDS: HYDROcodone/Acetaminophen 5/325 mg Tablet PO PRN ×2 (16:11→20:42)
[2019-09-11] MEDS: Tamsulosin HCl 0.4 MG CAP PO SCH (20:42)
[2019-09-11] MEDS: clonazePAM 0.5 MG TAB PO SCH (20:42)
[2019-09-11] MEDS: Acetaminophen 325 MG TAB PO PRN (20:42)
[2019-09-12] MEDS: Acetaminophen 325 MG TAB PO PRN (02:25)
[2019-09-12] MEDS: HYDROcodone/Acetaminophen 5/325 mg Tablet PO PRN (02:25)
[2019-09-12] MEDS: DULoxetine 60 MG CAP PO SCH ×2 (11:39→21:16)
[2019-09-12] MEDS: Polyethylene Glycol 3350 17 GM Packet PO SCH (11:39)
[2019-09-12] MEDS: Aspirin 81 mg Enteric Coated Tablet PO SCH (11:39)
[2019-09-12] MEDS: Multivit, Therapeutic 1 TAB PO SCH (11:39)
[2019-09-12] MEDS: predniSONE 20 MG TAB PO SCH (11:39)
[2019-09-12] MEDS: Pramipexole Di-HCl 0.25 MG TAB PO SCH ×2 (11:40→21:16)
[2019-09-12] MEDS: Pregabalin 50 MG CAP PO SCH ×3 (11:40→21:14)
[2019-09-12] MEDS: Vitamin E 400 UNITS CAP PO SCH (11:40)
[2019-09-12 11:43] LABS: Hemoglobin 12.1 g/dL (14.0-18.0); Mean Corpuscular HGB CONC 31.8 g/dL (32.0-36.0); Mean Corpuscular Hemoglobin 28.8 pg (27.0-31.0); Mean Corpuscular Volume 90.7 fL (78.0-98.0); Mean Platelet Volume 8.4 fL (7.4-10.4); Platelet Count 140 thou/uL (130-400); RBC Distribution Width 13.4 % (11.5-14.5); Red Blood Cell (RBC) Count 4.21 mill/uL (4.70-6.10); White Blood Cell (WBC) Count 9.3 thou/uL (4.8-10.8)
--- NOTE | 2019-09-12 11:43 | NM ---
NUCLEAR MEDICINE CARDIAC MYOCARDIAL PERFUSION SPECT EJECTION FRACTION STUDY WALL MOTION CINE: DATE: 09/12/2019 HISTORY: 68-year-old male smoker with hypertension, dyslipidemia, presents for preoperative clearance. TECHNIQUE: Number of days: 1 Rest study: Technetium 99m-sestamibi (Cardiolite) dose:10.8 mCi Pharmacologic stress: Lexiscan dose: 0.4 mg Stress study: Technetium 99m-sestamibi (Cardiolite) dose:31.4 mCi FINDINGS: CARDIAC (MYOCARDIAL PERFUSION) SPECT There is an inferior-inferoseptal perfusion defect on the stress images. It cannot be determined whet her this is a reversible defect or fixed defect, because the entire inferior wall has very decreased uptake on the rest images because of attenuation. No other myocardial perfusion defects are visualized on the attenuation corrected stress images. EJECTION FRACTION STUDY Left ventricular EF = 61 % WALL MOTION CINE Normal IMPRESSION: inferior wall myocardial perfusion defect. For technical reasons given above, it is indeterminate wh ether this represents reversible ischemia or a myocardial infarction/scar. If there is no acute chest pain, then the latter is favored.
[2019-09-12 12:03] LABS: Lactic Acid 1.4 mmol/L (0.5-2.2)
[2019-09-12 12:06] LABS: Anion Gap 11 mmol/L (10-20); BUN (Urea Nitrogen) 15 mg/dL (8.4-25.7); Calc. Creatinine Clearance 129 mL/min (70-130); Calcium 8.9 mg/dL (7.8-10.44); Carbon Dioxide 33 mmol/L (23-31); Chloride 102 mmol/L (98-107); Estimated GFR-MDRD Greater than 90; Glucose 86 mg/dL (80-115); Potassium 3.9 mmol/L (3.5-5.1); Sodium 142 mmol/L (136-145)
[2019-09-12] MEDS: Sodium Chloride 0.9% 1,000 ML IV SCH (14:09)
--- NOTE | 2019-09-12 15:44 | PDOC.HOSPP ---
- Subjective Encounter Date: 09/12/19 Encounter Time: 15:41 Subjective: The patient continues to report labored breathing, worst with laying down. No significant cough. Stress test today shows perfusion defect, unclear if reversible or not. Patient no longer has chest pain. Still has pain in his legs. - Objective Vital Signs & Weight: Vital Signs (12 hours) Temp Pulse Ox 09/12/19 15:29 97.9 F 09/12/19 11:40 97.8 F 09/12/19 08:00 98 09/12/19 07:37 97.6 F Weight Weight 221 lb 2 oz Most Recent Monitor Data Heart Rate from ECG 82 NIBP 137/78 NIBP BP-Mean 97 Respiration from ECG 17 SpO2 98 I&O: 09/11/19 09/12/19 09/13/19 06:59 06:59 06:59 Intake Total 2400 2387 Output Total 550 1475 200 Balance 1850 912 -200 Result Diagrams: 09/12/19 11:29 09/12/19 11:29 Hospitalist ROS - Medication Medications: Active Medications Generic Name Dose Route Start Last Admin Trade Name Freq PRN Reason Stop Dose Admin Acetaminophen 650 mg 09/10/19 18:20 09/12/19 02:25 Tylenol PO 650 mg Q6H PRN Administration Mild Pain (1-3) Acetaminophen/Codeine Phosphate 1 tab 09/10/19 18:20 09/11/19 10:25 Tylenol #3 PO 1 tab Q4H PRN Administration Moderate Pain (4-6) Hydrocodone Bitart/Acetaminophen 1 tab 09/10/19 18:20 09/12/19 02:25 [place] 5/325 PO 1 tab Q4H PRN Administration Severe Pain (7-10) Aspirin 81 mg 09/11/19 09:00 09/12/19 11:39 Ecotrin PO Not Given DAILY ROSALIO Clonazepam 1 mg 09/10/19 21:00 09/11/19 20:42 Klonopin PO 1 mg HS ROSALIO Administration Duloxetine HCl 60 mg 09/10/19 21:00 09/12/19 11:39 Cymbalta PO Not Given BID ROSALIO Levofloxacin 750 mg/ Device 150 mls @ 100 mls/hr 09/11/19 15:00 09/12/19 15: 30 IVPB 150 mls 1500 ROSALIO Administration Sodium Chloride 1,000 mls @ 100 mls/hr 09/11/19 15:45 09/12/19 14:09 Normal Saline 0.9% IV 1,000 mls .Q10H ROSALIO Administration Multivitamins 1 tab 09/11/19 09:00 09/12/19 11:39 Theragran PO Not Given DAILY ROSALIO Polyethylene Glycol 17 gm 09/11/19 09:00 09/12/19 11:39 Miralax PO Not Given DAILY ROSALIO Pramipexole Dihydrochloride 0.5 mg 09/10/19 21:00 09/12/19 11:40 Mirapex PO Not Given BID ROSALIO Prednisone 40 mg 09/11/19 08:00 09/12/19 11:39 Prednisone PO Not Given QAM-WM ROSALIO Pregabalin 100 mg 09/10/19 21:00 09/12/19 15:29 Lyrica PO 100 mg TID ROSALIO Administration Tamsulosin HCl 0.4 mg 09/10/19 21:00 09/11/19 20:42 Flomax PO 0.4 mg HS ROSALIO Administration Vitamin E 400 units 09/11/19 09:00 09/12/19 11:40 Vitamin E PO Not Given DAILY ROSALIO - Exam General Appearance: NAD, awake alert Eye: PERRL, anicteric sclera ENT: normocephalic atraumatic, no oropharyngeal lesions Neck: supple, symmetric, no JVD Heart: RRR, no murmur, no gallops, no rubs Respiratory: CTAB Respiratory - other findings: diminished breath sounds at the bases Gastrointestinal: soft, non-tender, non-distended, normal bowel sounds Extremities: no cyanosis, no clubbing, no edema Hosp A/P - Plan CTA run off: on the right there is moderate stenosis at [employer]CAKE [employer]. Moderate to high grade stenosis involving right SFA distal to stent. On the left multifocal atherosclerotic vascular calcification with multifocal moderate stenosis. Occlusion of tibioperoneal trunk, opacification of the left anterior tibial artery to the mid calf. High grade stenosis in the left external iliac artery. Severe stenosis left internal iliac artery. Occlusion of left common iliac arter y Right Hip Xray: degenerative and postop changes Nuclear stress test: inferior wall myocardial perfusion defect, unclear if reversible ischemia or not This is a 68 year old male with COPD recently discharged last month for left femoral hip arthroplasty who complains of worsening shortness of breath for the past three weeks Acute hypercapneic/hypoxic respiratory failure possibly from COPD exacerbation vs CAD - chest X ray showed no acute disease. Continue IV levaquin day 3, duoneb q4, albuterol q2 hours prn. IV vanc and cefazolin added by CT surgery - troponin negative x 3 - patient weaned down to nasal cannula. Wean oxygen saturation to 88%. - nuclear stress test showing inferior wall myocardial perfusion defect. Will consult cardiology with regards to whether patient needs cath prior to bypass #Peripheral vascular disease #Chronic venous insufficiency #Chronic bilateral LE pain #Restless leg syndrome -right hip X ray showed degenerative changes - s/p stenting in bilateral groin, weak pulses on exam. CTA showing extensive stenosis of right SFA distal to the stent and occlusion of left common iliac artery. Needs aorto-femoral bypass. Cardiology consulted for clearance - check PFTS - continue lyrica, norco for pain - continue pramipexole Lactic acidosis - resolved, will stop IV fluids Insomnia - clonazepam qhs BPH - flomax Dispo: transfer to the floor Code status: DNI, CPR trial x 1, no BIPAp
[2019-09-12] MEDS ORDERED: Albuterol Sulfate 1.25 MG/3 ML NEB EZPAP PRN (15:45)
[2019-09-12] MEDS ORDERED: Regadenoson 0.4 MG/5 ML SYRINGE ONE (17:28)
--- NOTE | 2019-09-12 20:42 | CON ---
DATE OF CONSULTATION: HISTORY OF PRESENT ILLNESS: Duke Velazquez is 68-year-old white male with longstanding history of peripheral vascular disease. He states that he has had a resting leg pain for at least 4 to 5 years and this has made worse if he gets up to walk. He underwent a right superficial femoral artery angioplasty and stenting in 2015. He now has been found to have near occlusion of both iliacs. He denies any history of cardiac disease. He denies any chest pain or palpitations. He has had significant COPD and has chronic shortness of breath. He underwent Lexiscan Cardiolite testing today, which revealed ejection fraction of 61% and normal wall motion. There was an inferior wall myocardial perfusion defect and it is indeterminate whether this represents superficial ischemia, myocardial infarction, or due to attenuation. PAST MEDICAL HISTORY: Peripheral vascular disease, COPD, benign prostatic hypertrophy, hypercholesterolemia with LDL of 124 in February; however, does not appear that he is on a statin. CURRENT MEDICATIONS: 1. Prednisone 40 q.a.m. 2. Aspirin 81 b.i.d. 3. Dulcolax. 4. Klonopin 1 mg at bedtime. 5. Cymbalta 60 b.i.d. 6. DuoNeb 5 to 6 times per day. 7. Imodium p.r.n. 8. Multivitamin daily. 9. MiraLAX 17 g daily. 10. Mirapex 0.5 mg b.i.d. 11. Lyrica 100 t.i.d. 12. Senokot at bedtime p.r.n. 13. Flomax 0.4 at bedtime. ALLERGIES: EGG, SULFA, AND MORPHINE. SOCIAL HISTORY: He smoked 1 pack per day, but states he stopped in May or June. He does not drink. FAMILY HISTORY: Father of myocardial infarction. REVIEW OF SYSTEMS: A 10-point review of systems is otherwise unremarkable except as noted above. PHYSICAL EXAMINATION: VITAL SIGNS: Blood pressure 125/73, pulse of 76. HEENT: PERRL. NECK: Supple. CHEST: Reveals distant breath sounds. CARDIOVASCULAR: S1, S2 normal without any S3, S4, or murmurs. Carotid upstrokes are normal without bruits. Dorsalis pedis and posterior tibial pulses are absent. ABDOMEN: Normal bowel sounds without tenderness or organomegaly. EXTREMITIES: Revealed no clubbing or cyanosis. He does have bilateral lower extremity edema and trace pedal edema. NEUROLOGIC: Grossly intact. SKIN: Warm and dry. LABORATORY DATA: EKG reveals normal sinus rhythm with low voltage and left anterior fascicular block. Cardiolite findings as noted above. Hemoglobin 12.1, hematocrit 38.2, white count 9300, platelets 140,000. pH 7.36, pCO2 70.8, pO2 65.9. Sodium 142, potassium 3.9, chloride 102, carbon dioxide 33, BUN 15, creatinine 0.80. Troponin I is normal. IMPRESSION: 1. Severe peripheral vascular disease with near total occlusion of both iliacs. 2. Intermediate Cardiolite scan. It is difficult to know if this is due to ischemia, fixed defect, or if it is just due to diaphragmatic attenuation. However, with normal wall motion, this certainly may be due to diaphragmatic attenuation. 3. Hypercholesterolemia, untreated. 4. Former smoker. 5. Severe chronic obstructive pulmonary disease with CO2 retention. 6. Positive family history. PLAN: Mr. Velazquez certainly is a high surgical risk for cardiac events. The only way to further evaluate his risk would be to have him undergo cardiac catheterization. This would need to be performed via a radial approach. In discussing cardiac catheterization with him, he is not interested in any further evaluation, he basically wants his legs fixed and he understands the risks. We will follow the patient with you. Job ID: [id number] [facility]
[2019-09-12] MEDS: clonazePAM 0.5 MG TAB PO SCH (21:16)
[2019-09-12] MEDS: Tamsulosin HCl 0.4 MG CAP PO SCH (21:17)
[2019-09-13 03:59] LABS: Hemoglobin 10.9 g/dL (14.0-18.0); Mean Corpuscular HGB CONC 32.1 g/dL (32.0-36.0); Mean Corpuscular Hemoglobin 29.1 pg (27.0-31.0); Mean Corpuscular Volume 90.7 fL (78.0-98.0); Mean Platelet Volume 8.5 fL (7.4-10.4); Platelet Count 131 thou/uL (130-400); RBC Distribution Width 13.4 % (11.5-14.5); Red Blood Cell (RBC) Count 3.76 mill/uL (4.70-6.10); White Blood Cell (WBC) Count 6.9 thou/uL (4.8-10.8)
[2019-09-13 04:24] LABS: Anion Gap 10 mmol/L (10-20); BUN (Urea Nitrogen) 12 mg/dL (8.4-25.7); Calc. Creatinine Clearance 134 mL/min (70-130); Calcium 8.5 mg/dL (7.8-10.44); Carbon Dioxide 32 mmol/L (23-31); Chloride 104 mmol/L (98-107); Estimated GFR-MDRD Greater than 90; Glucose 177 mg/dL (80-115); Potassium 3.5 mmol/L (3.5-5.1); Sodium 142 mmol/L (136-145)
[2019-09-13] MEDS: HYDROcodone/Acetaminophen 5/325 mg Tablet PO PRN ×3 (04:45→20:42)
[2019-09-13] MEDS: CEFAZOLIN 2 GM in Premix Bag 1 BAG IVPB SCH ×3 (06:14→14:47)
[2019-09-13] MEDS ORDERED: Protamine Sulfate 50 MG/5 ML VIAL ONE (06:26)
[2019-09-13] MEDS ORDERED: Heparin 5,000 UNITS/ML VIAL ONE (06:26)
[2019-09-13] MEDS ORDERED: Vancomycin 1.5 GRAM/300 ML BAG 1.5 GM in Premix Bag 1 BAG IVPB SCH (06:30)
[2019-09-13] MEDS ORDERED: Midazolam HCl 2 mg/2 ml Vial ONE (06:35)
[2019-09-13] MEDS ORDERED: Ketamine 50 MG/ML (10ML VIAL) ONE (06:35)
[2019-09-13] MEDS ORDERED: Fentanyl 100 MCG/2 ML VIAL ONE (07:02)
[2019-09-13] MEDS ORDERED: CEFAZOLIN 1 GM VIAL SLOW IVP SCH (07:30)
[2019-09-13] MEDS ORDERED: Bupivacaine PF 0.5% 30 ML VIAL ONE (07:32)
[2019-09-13] MEDS ORDERED: EPINEPHrine 1 MG/ML AMP ONE (07:32)
[2019-09-13] MEDS ORDERED: CEFAZOLIN 2 GM in Premix Bag 1 BAG IVPB SCH (08:00)
[2019-09-13] MEDS ORDERED: Phenylephrine HCL 10 MG/ML VIAL ONE (08:01)
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
[2019-09-13] MEDS ORDERED: Dexamethasone 20 MG/5 ML VIAL ONE (10:26)
[2019-09-13] MEDS ORDERED: Calcium Chloride 1 GM/10 ML Abboject SYRINGE ONE (10:26)
[2019-09-13] MEDS ORDERED: PHENYLEPHRINE-NS 100 MCG/ML 10 ML SYRINGE ONE (10:26)
[2019-09-13] MEDS ORDERED: Ondansetron PF 4 MG/2 ML Vial ONE (10:26)
[2019-09-13] MEDS ORDERED: ePHEDrine/0.9% NaCl/PF SYRINGE 50 mg/10 ml ONE (10:26)
[2019-09-13] MEDS ORDERED: Acetaminophen 325 MG TAB PO PRN (10:54)
[2019-09-13] MEDS ORDERED: Promethazine HCl 25 MG/ML VIAL PR PRN (10:54)
[2019-09-13] MEDS ORDERED: Fentanyl 100 MCG/2 ML VIAL SLOW IVP PRN ×2 (10:54)
[2019-09-13] MEDS ORDERED: Vancomycin HCl 1.5 GM in Sodium Chloride 0.9% 250 ML 300 ML IVPB SCH (10:54)
[2019-09-13] MEDS ORDERED: Promethazine HCl 25 MG/ML VIAL IM PRN (10:54)
[2019-09-13] MEDS: Polyethylene Glycol 3350 17 GM Packet PO SCH (12:35)
[2019-09-13] MEDS: predniSONE 20 MG TAB PO SCH (12:35)
[2019-09-13] MEDS: Pramipexole Di-HCl 0.25 MG TAB PO SCH ×3 (12:35→20:44)
[2019-09-13] MEDS: Vitamin E 400 UNITS CAP PO SCH ×2 (12:35→14:45)
[2019-09-13] MEDS: Pregabalin 50 MG CAP PO SCH ×3 (12:35→20:44)
[2019-09-13] MEDS: DULoxetine 60 MG CAP PO SCH ×3 (12:35→20:44)
[2019-09-13] MEDS: Sodium Chloride 0.9% 1,000 ML IV SCH ×2 (12:35→20:51)
[2019-09-13] MEDS: Multivit, Therapeutic 1 TAB PO SCH (12:35)
[2019-09-13] MEDS: Aspirin 81 mg Enteric Coated Tablet PO SCH (12:35)
--- NOTE | 2019-09-13 15:05 | PDOC.HOSPP ---
- Subjective Encounter Date: 09/13/19 Encounter Time: 11:45 Subjective: The patient is doing well. No chest pain or shortness of breath. He is on 3L of oxygen at home. He is s/p aortofemoral bypass today which was done under spinal anasthesia. He does have some soreness in his legs, pulses palpable in right foot, dopplerable in left - Objective Vital Signs & Weight: Vital Signs (12 hours) Temp Pulse Resp Pulse Ox 09/13/19 14:06 96 09/13/19 13:59 108 H 21 H 95 09/13/19 11:52 98.4 F 09/13/19 03:44 98.6 F Weight Weight 221 lb 2 oz Most Recent Monitor Data Heart Rate from ECG 84 NIBP 135/69 NIBP BP-Mean 91 Respiration from ECG 16 SpO2 99 I&O: 09/12/19 09/13/19 09/14/19 06:59 06:59 06:59 Intake Total 2387 1404 300 Output Total 1475 200 Balance 912 1204 300 Result Diagrams: 09/13/19 03:16 09/13/19 03:16 Additional Labs: Accuchecks 09/13/19 08:54 POC Glucose 129 H Hospitalist ROS - Review of Systems Constitutional: denies: fever, chills Respiratory: denies: cough, dry - Medication Medications: Active Medications Generic Name Dose Route Start Last Admin Trade Name Freq PRN Reason Stop Dose Admin Acetaminophen/Codeine Phosphate 1 tab 09/10/19 18:20 09/11/19 10:25 Tylenol #3 PO 1 tab Q4H PRN Administration Moderate Pain (4-6) Hydrocodone Bitart/Acetaminophen 1 tab 09/10/19 18:20 09/13/19 14:44 [place] 5/325 PO 1 tab Q4H PRN Administration Severe Pain (7-10) Albuterol/Ipratropium 3 ml 09/12/19 18:30 09/13/19 13:59 Duoneb EZPAP 3 ml [id number] ROSALIO Administration Clonazepam 1 mg 09/10/19 21:00 09/12/19 21:16 Klonopin PO 1 mg HS ROSALIO Administration Duloxetine HCl 60 mg 09/10/19 21:00 09/13/19 14:44 Cymbalta PO 60 mg BID ROSALIO Administration Levofloxacin 750 mg/ Device 150 mls @ 100 mls/hr 09/11/19 15:00 09/13/19 14: 46 IVPB 150 mls 1500 ROSALIO Administration Cefazolin Sodium/Dextrose 2 gm 50 mls @ 100 mls/hr 09/13/19 07:00 09/13/19 14 :47 / Device IVPB 50 mls 0800,1600,2359 ROSALIO Administration Sodium Chloride 1,000 mls @ 100 mls/hr 09/13/19 10:54 09/13/19 12:35 Normal Saline 0.9% IV 1,000 mls .Q10H ROSALIO Administration Multivitamins 1 tab 09/11/19 09:00 09/13/19 12:35 Theragran PO Not Given DAILY ROSALIO Polyethylene Glycol 17 gm 09/11/19 09:00 09/13/19 12:35 Miralax PO Not Given DAILY ROSALIO Pramipexole Dihydrochloride 0.5 mg 09/10/19 21:00 09/13/19 14:45 Mirapex PO 0.5 mg BID ROSALIO Administration Prednisone 40 mg 09/11/19 08:00 09/13/19 12:35 Prednisone PO Not Given QAM-WM ROSALIO Pregabalin 100 mg 09/10/19 21:00 09/13/19 14:44 Lyrica PO 100 mg TID ROSALIO Administration Tamsulosin HCl 0.4 mg 09/10/19 21:00 09/12/19 21:17 Flomax PO 0.4 mg HS ROSALIO Administration Vitamin E 400 units 09/11/19 09:00 09/13/19 14:45 Vitamin E PO 400 units DAILY ROSALIO Administration - Exam General Appearance: NAD, awake alert Eye: PERRL, anicteric sclera ENT: normocephalic atraumatic, no oropharyngeal lesions Neck: supple, no JVD Heart: RRR, no murmur, no gallops Respiratory: CTAB, no wheezes, no rales, no ronchi Gastrointestinal: soft, non-tender, non-distended Extremities: no cyanosis, no clubbing, no edema Extremities - other findings: incision site appears to look okay. 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 Moderate to high grade stenosis involving right SFA distal to stent. On the left multifocal atherosclerotic vascular calcification with multifocal moderate stenosis. Occlusion of tibioperoneal trunk, opacification of the left anterior tibial artery to the mid calf. High grade stenosis in the left external iliac artery. Severe stenosis left internal iliac artery. Occlusion of left common iliac arter y Right Hip Xray: degenerative and postop changes Nuclear stress test: inferior wall myocardial perfusion defect, unclear if reversible ischemia or not This is a 68 year old male with COPD recently discharged last month for left femoral hip arthroplasty who complains of worsening shortness of breath for the past three weeks Acute hypercapneic/hypoxic respiratory failure possibly from COPD exacerbation vs CAD - resolved - chest X ray showed no acute disease. - got IV levaquin for three days, vanc and cefazolin added by CV surgery. Will d /c levaquin, continue vanc and cefazolin postoperatively - Continue duoneb q4, albuterol q2 hours prn. IV vanc and cefazolin added by CT surgery - troponin negative x 3 - patient weaned down to baseline o2 requirement - nuclear stress test showing inferior wall myocardial perfusion defect. Cardiology was consulted, patient declined cath at this time #Peripheral vascular disease with high grade stenosis right SFA and left common iliac s/p fem-femoral bpyass #Restless leg syndrome -right hip X ray showed degenerative changes. Pt s/p aortofemoral bypass for severe PVD today. 

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
--- NOTE | 2019-09-13 16:15 | OP ---
DATE OF PROCEDURE: 09/13/2019 PREOPERATIVE DIAGNOSES: Peripheral vascular disease/chronic obstructive pulmonary disease/coronary artery disease/tobacco abuse/hypertension/dyslipidemia. POSTOPERATIVE DIAGNOSES: Peripheral vascular disease/chronic obstructive pulmonary disease/coronary artery disease/tobacco abuse/hypertension/dyslipidemia. PROCEDURES PERFORMED: 1. Aortogram with pelvic runoff. 2. Right external iliac angiogram. 3. Right SFA angiogram. 4. Right common iliac primary stenting with an 8 x 37 Express LD stent taken to 10 mmHg. 5. Right SFA [employer]UCK [employer]IVER with a 5 x 80 Lutonix drug-eluting balloon taken to 12 mmHg for 3 minutes. 6. Left common femoral artery endarterectomy. 7. [id number] fem-fem bypass with 8 mm ringed Propaten coated [place]. ANESTHESIA: Spinal with sedation provided by Dr. Earle Mac. ESTIMATED BLOOD LOSS: 100. TOTAL CONTRAST: 60 mL. TOTAL FLUORO TIME: 5 minutes 19 seconds. DESCRIPTION OF PROCEDURE: After consent was obtained, the patient was brought to the operating room and placed in supine position on the operating room table. Appropriate central line and monitors were placed and spinal was placed by Dr. Mac. The groins were prepped and draped in usual sterile fashion. The bilateral femoral arteries were exposed through vertical incisions. The common femoral, profunda femoris, and superficial femoral arteries were all carefully exposed. Bilaterally, the common femoral at the bifurcation was soft. The left groin was packed with Betadine-soaked gauze. The patient was given 5000 units of heparin. The common femoral artery was accessed and a guidewire passed under fluoroscopic guidance into the aorta on the right. A 6-Amharic sheath was placed. Hand- injected arteriogram was performed, illuminating the iliac system. At the level of aortic bifurcation, there was a heavily calcified stenotic lesion. An 8 x 37 Express LD stent was selected. This was positioned and deployed. Followup angiogram with the tip of the catheter in the aorta showed good result from the stenting with free flow into the external iliac artery. The sheath was removed and the puncture site repaired with 5-0 Prolene suture. An antegrade stick was then performed in the right superficial femoral artery and guidewire passed down through the previously placed stent into the popliteal artery. A 6-Amharic sheath was placed into the superficial femoral artery. Hand- injected arteriogram was performed with subtraction images taken down the superficial femoral artery to below-knee popliteal. There was some in-stent stenosis, but there was an area of heavy calcification with a shelf just distal to the stent. A Lutonix balloon was selected, positioned and inflated to 12 mmHg for 3 minutes. Followup angiogram showed an excellent result. The sheath was removed and the puncture site closed with 5-0 Prolene suture. A tunnel was passed from right groin to the left. At this point, an ACT was checked and it was 180 and an additional 2000 units of heparin was given. The graft was cut to appropriate shape for left groin anastomosis. Common profunda and superficial femoral arteries were all clamped. Incision was made on the common femoral artery and extended down onto the superficial femoral artery just distal to the bifurcation. The graft was sewed on to the left femoral artery with running 5-0 Prolene suture. The graft was then cut to appropriate length and shape for anastomosis in the right groin. Common profunda and superficial femoral arteries were clamped. Incision was made on the common femoral artery and extended down onto the richter of the superficial femoral artery. A running 5-0 Prolene anastomosis was created. Clamps were removed and antegrade flow reestablished bilaterally. There were pulses in the bilateral superficial femoral arteries and in the graft. A 50 mg of protamine was administered. Surgicel and Tricia flour were used for hemostasis. Wounds were copiously irrigated, closed in layers and skin closed with clips. The patient tolerated the procedure well, was transferred to the recovery room in stable condition. Needle, sponge, and instrument counts were all reported as correct at the end of the procedure. Job ID: [id number] [facility] HEALTHHarinder
[2019-09-13] MEDS: clonazePAM 0.5 MG TAB PO SCH (20:43)
[2019-09-13] MEDS: Tamsulosin HCl 0.4 MG CAP PO SCH (20:44)
[2019-09-13] MEDS: Atorvastatin Calcium 40 MG TAB PO SCH (20:44)
[2019-09-13] MEDS: Vancomycin 1.5 GRAM/300 ML BAG 1.5 GM in Premix Bag 1 BAG IVPB SCH (20:45)
[2019-09-14] MEDS: CEFAZOLIN 2 GM in Premix Bag 1 BAG IVPB SCH ×4 (00:39→23:33)
[2019-09-14] MEDS: Acetaminophen/Codeine 30-300mg Tablet PO PRN (00:46)
[2019-09-14 03:28] LABS: #Eosinphils 0.1 thou/uL (0.0-0.7); #Lymphocytes 1.1 thou/uL (1.20-3.40); #Monocytes 0.9 thou/uL (0.11-0.59); #Neutrophils 10.3 thou/uL (1.40-6.50); %Basophils 0.1 % (0.0-1.0); %Eosinophils 0.5 % (0.0-10.0); %Lymphocytes 9.1 % (21.0-51.0); %Neutrophils 83.3 % (42.0-75.0); Hemoglobin 10.2 g/dL (14.0-18.0); Mean Corpuscular HGB CONC 32.8 g/dL (32.0-36.0); Mean Corpuscular Hemoglobin 29.7 pg (27.0-31.0); Mean Corpuscular Volume 90.5 fL (78.0-98.0); Mean Platelet Volume 8.8 fL (7.4-10.4); Platelet Count 132 thou/uL (130-400); RBC Distribution Width 13.4 % (11.5-14.5); Red Blood Cell (RBC) Count 3.44 mill/uL (4.70-6.10); White Blood Cell (WBC) Count 12.3 thou/uL (4.8-10.8)
[2019-09-14 03:49] LABS: Anion Gap 9 mmol/L (10-20); BUN (Urea Nitrogen) 11 mg/dL (8.4-25.7); Calc. Creatinine Clearance 112 mL/min (70-130); Calcium 8.5 mg/dL (7.8-10.44); Carbon Dioxide 34 mmol/L (23-31); Chloride 105 mmol/L (98-107); Estimated GFR-MDRD 82; Glucose 138 mg/dL (80-115); Potassium 3.9 mmol/L (3.5-5.1); Sodium 144 mmol/L (136-145)
[2019-09-14] MEDS: HYDROcodone/Acetaminophen 5/325 mg Tablet PO PRN (04:59)
[2019-09-14] MEDS: Vancomycin 1.5 GRAM/300 ML BAG 1.5 GM in Premix Bag 1 BAG IVPB SCH (09:33)
[2019-09-14] MEDS: DULoxetine 60 MG CAP PO SCH ×2 (09:34→21:17)
[2019-09-14] MEDS: Vitamin E 400 UNITS CAP PO SCH (09:34)
[2019-09-14] MEDS: Aspirin Chewable 81 MG TAB PO SCH (09:34)
[2019-09-14] MEDS: Clopidogrel Bisulfate 75 MG TAB PO SCH (09:34)
[2019-09-14] MEDS: Pregabalin 50 MG CAP PO SCH ×3 (09:34→21:17)
[2019-09-14] MEDS: predniSONE 20 MG TAB PO SCH (09:34)
[2019-09-14] MEDS: Multivit, Therapeutic 1 TAB PO SCH (09:34)
[2019-09-14] MEDS: Pramipexole Di-HCl 0.25 MG TAB PO SCH ×2 (09:34→21:17)
[2019-09-14] MEDS: Polyethylene Glycol 3350 17 GM Packet PO SCH (09:35)
[2019-09-14] MEDS: Sodium Chloride 0.9% 1,000 ML IV SCH ×2 (09:46→21:16)
[2019-09-14] MEDS ORDERED: Nitroglycerin 0.4 MG TAB 1 EACH PO SCH (11:00)
--- NOTE | 2019-09-14 11:30 | RAD ---
EXAM: CHEST ONE VIEW HISTORY: Chest pain COMPARISON: 09/10/2019 FINDINGS: Provided image is overpenetrated limiting evaluation of the lungs. There are bullous emphysematous ch anges seen in the upper lung zones. Linear densities are seen at the left lung base which could be related to atelectasis versus scarring. Pneumonitis is thought less likely but a differential conside ration. There is no consolidation or pleural fluid identified.. Cardiac silhouette and pulmonary vasculature are within normal limits. Vascular calcification are seen in the thoracic aorta. Degenera tive changes are again noted in the spine. No other interval change. IMPRESSION: Linear densities left lung base probably attributable to mild atelectasis given interval change from prior study. Pneumonitis is thought less likely, but follow-up evaluation is suggested. 2. Chronic lung changes and evidence of COPD.
--- NOTE | 2019-09-14 16:44 | PDOC.HOSPP ---
- Subjective Encounter Date: 09/14/19 Encounter Time: 12:00 Subjective: The patient had an episode of chest pain, feels like air is going into his lungs. He has some leg pain from surgery. He ambulated with PT today and did well EKG normal, trop negative. - Objective Vital Signs & Weight: Vital Signs (12 hours) Temp Pulse Pulse Pulse Resp BP BP 09/14/19 15:52 98.1 F 09/14/19 14:11 99 102 H 162/68 H 132/87 09/14/19 11:46 88 94 118/82 117/61 09/14/19 11:45 98.1 F 09/14/19 10:30 82 18 09/14/19 08:00 09/14/19 07:15 98.1 F 09/14/19 06:57 73 14 Pulse Ox Pulse Ox 09/14/19 15:52 09/14/19 14:11 09/14/19 11:46 97 09/14/19 11:45 09/14/19 10:30 96 09/14/19 08:00 99 09/14/19 07:15 09/14/19 06:57 Weight Weight 221 lb 6.4 oz Most Recent Monitor Data Heart Rate from ECG 106 NIBP 162/68 NIBP BP-Mean 99 Respiration from ECG 27 SpO2 96 I&O: 09/13/19 09/14/19 09/15/19 06:59 06:59 06:59 Intake Total 1404 2896 Output Total 200 5925 475 Balance 1204 -3029 -475 Result Diagrams: 09/14/19 03:20 09/14/19 03:20 Hospitalist ROS - Review of Systems Constitutional: denies: fever, chills Respiratory: denies: cough, dry - Medication Medications: Active Medications Generic Name Dose Route Start Last Admin Trade Name Freq PRN Reason Stop Dose Admin Acetaminophen/Codeine Phosphate 1 tab 09/10/19 18:20 09/14/19 00:46 Tylenol #3 PO 1 tab Q4H PRN Administration Moderate Pain (4-6) Hydrocodone Bitart/Acetaminophen 1 tab 09/10/19 18:20 09/14/19 04:59 [place] 5/325 PO 1 tab Q4H PRN Administration Severe Pain (7-10) Albuterol/Ipratropium 3 ml 09/12/19 18:30 09/14/19 14:53 Duoneb EZPAP 3 ml [id number] ROSALIO Administration Aspirin 81 mg 09/14/19 09:00 09/14/19 09:34 Aspirin Chewable PO 81 mg QAM ROSALIO Administration Atorvastatin Calcium 40 mg 09/13/19 21:00 09/13/19 20:44 Lipitor PO 40 mg HS ROSALIO Administration Clonazepam 1 mg 09/10/19 21:00 09/13/19 20:43 Klonopin PO 1 mg HS ROSALIO Administration Clopidogrel Bisulfate 75 mg 09/14/19 09:00 09/14/19 09:34 Plavix PO 75 mg DAILY ROSALIO Administration Duloxetine HCl 60 mg 09/10/19 21:00 09/14/19 09:34 Cymbalta PO 60 mg BID ROSALIO Administration Cefazolin Sodium/Dextrose 2 gm 50 mls @ 100 mls/hr 09/13/19 07:00 09/14/19 09 :33 / Device IVPB 50 mls 0800,1600,2359 ROSALIO Administration Sodium Chloride 1,000 mls @ 100 mls/hr 09/13/19 10:54 09/14/19 09:46 Normal Saline 0.9% IV 1,000 mls .Q10H ROSALIO Administration Multivitamins 1 tab 09/11/19 09:00 09/14/19 09:34 Theragran PO 1 tab DAILY ROSALIO Administration Polyethylene Glycol 17 gm 09/11/19 09:00 09/14/19 09:35 Miralax PO 17 gm DAILY ROSALIO Administration Pramipexole Dihydrochloride 0.5 mg 09/10/19 21:00 09/14/19 09:34 Mirapex PO 0.5 mg BID ROSALIO Administration Prednisone 40 mg 09/11/19 08:00 09/14/19 09:34 Prednisone PO 40 mg QAM-WM ROSALIO Administration Pregabalin 100 mg 09/10/19 21:00 09/14/19 09:34 Lyrica PO 100 mg TID ROSALIO Administration Tamsulosin HCl 0.4 mg 09/10/19 21:00 09/13/19 20:44 Flomax PO 0.4 mg HS ROSALIO Administration Vitamin E 400 units 09/11/19 09:00 09/14/19 09:34 Vitamin E PO 400 units DAILY ROSALIO Administration - Exam General Appearance: NAD, awake alert Eye: PERRL, anicteric sclera ENT: normocephalic atraumatic, no oropharyngeal lesions Neck: supple, symmetric, no JVD, no thyromegaly Heart: RRR, no murmur, no gallops, no rubs Respiratory: CTAB, no wheezes, no rales, no ronchi Gastrointestinal: soft, non-tender, non-distended, normal bowel sounds Extremities: no cyanosis, no clubbing, no edema Skin: normal turgor, no lesions, no rashes Hosp A/P - Plan CTA run off: on the right there is 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 Moderate to high grade stenosis involving right SFA distal to stent. On the left multifocal atherosclerotic vascular calcification with multifocal moderate stenosis. Occlusion of tibioperoneal trunk, opacification of the left anterior tibial artery to the mid calf. High grade stenosis in the left external iliac artery. Severe stenosis left internal iliac artery. Occlusion of left common iliac arter y Right Hip Xray: degenerative and postop changes Nuclear stress test: inferior wall myocardial perfusion defect, unclear if reversible ischemia or not This is a 68 year old male with COPD recently discharged last month for left femoral hip arthroplasty who complains of worsening shortness of breath for the past three weeks Acute hypercapneic/hypoxic respiratory failure possibly from COPD exacerbation vs CAD - resolved - chest X ray showed no acute disease. - got IV levaquin for three days, vanc and cefazolin added by CV surgery. Currently now on cefazolin - Continue duoneb q4, albuterol q2 hours prn. IV vanc and cefazolin added by CT surgery - troponin negative x 3 - patient weaned down to baseline o2 requirement - nuclear stress test showing inferior wall myocardial perfusion defect. Cardiology was consulted, patient declined cath at this time - per PT safe to go home #Peripheral vascular disease with high grade stenosis right SFA and left common iliac s/p fem-femoral bpyass #Restless leg syndrome -right hip X ray showed degenerative changes. Pt s/p aortofemoral bypass for severe PVD today. 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
[2019-09-14] MEDS ORDERED: predniSONE 5 MG TAB PO SCH (19:04)
--- NOTE | 2019-09-14 19:25 | PRG ---
DATE OF SERVICE: 09/14/2019 SUBJECTIVE: Duke Velazquez wants to go home tomorrow. OBJECTIVE: VITAL SIGNS: Heart rate is 80, respiratory rate is 22, blood pressure is 136/73, and oximetry is 94% on 2 L cannula. LUNGS: Clear. HEART: Regular rhythm. ABDOMEN: Soft. LABORATORY DATA: White count 12.3, hemoglobin 10.2, and platelets 132,000. Electrolytes are unremarkable. IMPRESSION: 1. Status post revascularization of both lower extremities, clinically doing well. 2. Chronic obstructive pulmonary disease, clinically stable. I really do not think he had cellulitis of one of his lower extremities. He can be switched to p.o. antimicrobial therapy when surgery feels like he is in a point where we can do that. I would think he could be now, actually we think he might be a candidate for discharge home tomorrow. He does not need at this point high-dose steroids in my opinion. I have cut him back to 10 mg of prednisone a day. We will see him back in followup in the office in 3 to 4 weeks. Job ID: [id number]
[2019-09-14] MEDS: clonazePAM 0.5 MG TAB PO SCH (21:17)
[2019-09-14] MEDS: Atorvastatin Calcium 40 MG TAB PO SCH (21:17)
[2019-09-14] MEDS: Tamsulosin HCl 0.4 MG CAP PO SCH (21:18)
[2019-09-15] MEDS: HYDROcodone/Acetaminophen 5/325 mg Tablet PO PRN ×2 (02:57→09:33)
[2019-09-15] MEDS: Sodium Chloride 0.9% 1,000 ML IV SCH ×2 (02:58→14:22)
[2019-09-15 03:26] VITALS: TEMP 98
[2019-09-15] MEDS: Multivit, Therapeutic 1 TAB PO SCH (09:22)
[2019-09-15] MEDS: DULoxetine 60 MG CAP PO SCH (09:22)
[2019-09-15] MEDS: Vitamin E 400 UNITS CAP PO SCH (09:22)
[2019-09-15] MEDS: Pregabalin 50 MG CAP PO SCH ×2 (09:23→16:07)
[2019-09-15] MEDS: Pramipexole Di-HCl 0.25 MG TAB PO SCH (09:23)
[2019-09-15] MEDS: Polyethylene Glycol 3350 17 GM Packet PO SCH (09:24)
[2019-09-15] MEDS: Clopidogrel Bisulfate 75 MG TAB PO SCH (09:29)
[2019-09-15] MEDS: Aspirin Chewable 81 MG TAB PO SCH (09:29)
[2019-09-15 10:41] VITALS: BP 160/84
--- NOTE | 2019-09-15 11:27 | DIS ---
DATE OF ADMISSION: 09/10/2019 DATE OF DISCHARGE: 09/14/2019 DISCHARGE DIAGNOSES: 1. Acute hypercapnic hypoxic respiratory failure, possibly from chronic obstructive pulmonary disease exacerbation versus underlying coronary artery disease 2. Severe peripheral vascular disease, status post [id number]-pf-plla fem-fem bypass, left common femoral endarterectomy, right superficial femoral artery percutaneous transluminal angioplasty, right common iliac primary stenting; lactic acidosis. SECONDARY DISCHARGE DIAGNOSES: Restless legs syndrome, insomnia, and benign prostatic hyperplasia. PROCEDURES: 1. Aortogram with pelvic runoff 2. Right external iliac angiogram 3. Right SFA angiogram 4. Right common iliac primary stenting with an 8 x 37 express LD stent taken to 10 mm Hg 5. Right SFA [employer] with 5 x 80 Lutonix drug eluting ballon stent taken to 12 mm Hg for 3 minutes 6. Left common femoral endarterectomy 7. Right to left fem fem bypass with 8 mm ringed Propaten coated [place]-Liang CONSULTATIONS: cardiology with Dr. Villaseñor, cardiothoracic surgery with Dr. Acosta Flores BRIEF HISTORY OF PRESENT ILLNESS: This is a 68-year-old male with past medical history of COPD, peripheral vascular disease status post stenting, TIAs, who presented for shortness of breath for the past 3 weeks. The patient had a left femoral neck fracture 3 weeks prior to admission and since then had reported more dyspnea on exertion. He also reported a mild dry cough. The patient also had complained of sensation of chest pain with an elephant sitting on his chest while lying down. The patient also reported severe bilateral leg pain secondary to his peripheral vascular disease with numbness from his shins down. The patient was requesting a bypass to be performed, but he had refused in the past. The patient was admitted for further workup. HOSPITAL COURSE: Acute hypercapnic hypoxic respiratory failure secondary to COPD exacerbation: The patient was noted to be using accessory muscles per the ER physician and was placed on BiPAP empirically. ABG showed a pH of 7.3 and a pCO2 of 70. EKG showed low-voltage QRS, left anterior fascicular block. The patient was given 10 of Decadron, IV magnesium, DuoNeb, Levaquin, and normal saline. The patient was initially admitted to the [facility]. He was quickly weaned down to his baseline 3 L nasal cannula. Troponins were trended x3, which were negative. The patient did undergo a nuclear stress test, which showed an inferior-inferior septal perfusion defect. It was unclear whether this was old or a reversible finding. Cardiology was consulted and were going to perform a catheterization; however, the patient had declined because he wanted his legs fixed first. The patient will need to follow up with Dr. Villaseñor as soon as possible to consider having an outpatient cardiac cath. He will be discharged on aspirin, statin, and Plavix. The patient was given prednisone 40 mg p.o. for 4 days and was switched to 10 mg p.o. q.a.m. on the . The patient will need to follow up with Dr. Morocho in 3 to 4 weeks. The patient was also given scheduled breathing treatments with improvement. Peripheral vascular disease, status post [id number]-[id number] fem-fem bypass, left common femoral artery endarterectomy, right SFA [employer], right common iliac primary stenting: The patient underwent a CTA aorta with runoff, which showed evfrkhfi-kx-kzlg grade stenosis involving the right SFA distal to a stent, high-grade stenosis in the left external iliac artery and severe stenosis in the left internal iliac artery. 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 Cardiothoracic Surgery was consulted and the patient underwent a hronw-cn-sxsu fem-fem bypass on . He also had a left common femoral endarterectomy, right common iliac primary stenting with his stent changed to 10 mmHg stent. He also had a right SFA [employer] with a 5 x 80 Lutonix drug-eluting balloon taken to 12 mmHg. The patient was placed on antibiotics prophylactically with vanc, cefazolin, and Levaquin. These were discontinued on the day of discharge. The patient was cleared for discharge home. He will need to follow up with Dr. Flores in a few weeks. The patient has dopplerable pulses in his dorsal pedis bilaterally. He will be discharged on aspirin, statin, and Plavix. Lactic acidosis: The patient had a lactic acid level of 3.1 on the . This resolved with IV fluids and came down to 1.4. DISCHARGE PHYSICAL EXAMINATION: VITAL SIGNS: Temperature 98, heart rate 97, respiratory rate 16, O2 saturation 100% on 2 L nasal cannula, and blood pressure 160/84. GENERAL: The patient is alert, awake, and oriented x3. RESPIRATORY: The patient is on 2 L of oxygen. Breath sounds are clear bilaterally. CVS: Regular rate and rhythm with no murmurs, rubs or gallops. ABDOMEN: Positive bowel sounds, soft, nontender, and nondistended. EXTREMITIES: There is mild erythema in the right lower extremity secondary to venous stasis. This is not tender to palpation. Pulses are very weak on exam, but are dopplerable. PERTINENT LABORATORY DATA: CBC on 09/14: White count of 12.3, hemoglobin 10.2, and hematocrit 31.2. BMP on 09/14: Carbon dioxide 34. Rest of BMP is unremarkable. Lactic acid: 1.4. Troponin I: Less than 0.01 x3. Chest x-ray on 09/10: No acute process. Venogram 09/10: No evidence of DVT. Hip x-ray on 09/11: Degenerative and postop changes status post ORIF described above. CTA aorta with runoff on 09/11: Shows severe occlusion of the left common iliac artery and high-grade stenosis involving the right SFA distal to the stent. Multifocal moderate stenosis. Nuclear stress test on 09/12: Shows inferior wall myocardial perfusion defect, unclear for reversible ischemia or not. Chest x-ray on 09/14: Mild atelectasis. Chronic changes in COPD. DISCHARGE INSTRUCTIONS: The patient needs to follow up with his PCP in a week. He can remove his dressings on Thursday and shower. He should follow up with Dr. Flores in 2 weeks and follow up with Dr. Villaseñor from Cardiology for a cath as soon as possible in 1 to 2 weeks. He should follow up with Dr. Morocho in 3-4 weeks. The patient should take aspirin, statin, and Plavix. DISCHARGE CONDITION: Stable to assisted living. ACTIVITY: As tolerated. DIET: Heart healthy diet. DISCHARGE MEDICATIONS: New medications: 1. Aspirin 81 mg p.o. daily. 2. Atorvastatin 40 mg p.o. at bedtime. 3. Plavix 75 mg p.o. daily. 4. Prednisone 10 mg p.o. q.a.m. for 2 days. All other home medications were resumed. Please refer to discharge work sheet. Job ID: [id number] MTDD
--- NOTE | 2019-09-15 21:19 | PRG ---
DATE OF SERVICE: 09/15/2019 Duke Velazquez says he is ready to go home. His hemodynamics had been stable. His lungs are clear. Heart regular rhythm. Abdomen is soft. He will taper off prednisone once he gets home. He will follow up with Dr. Flores in 3 weeks. Cardiology wants to see him again in 3 weeks as well . Job ID: [id number]
== END 2019-09-15 16:02 | disposition home or self-care (01) | DRG 252 ==
LOC: ERS 14:12 → IMCU/EMU 16:26
PROVIDERS: ADMIT Internal Medicine; ATTEND Internal Medicine
PROC: 041K0JH Bypass Right Femoral Artery to Right Femoral Artery with Synthetic Substitute, Open Approach (ICD-10-PCS; principal; 2019-09-13)
PROC: 047K341 Dilation of Right Femoral Artery with Drug-eluting Intraluminal Device, using Drug-Coated Balloon, Percutaneous Approach (ICD-10-PCS; 2019-09-13)
PROC: 04CK0ZZ Extirpation of Matter from Right Femoral Artery, Open Approach (ICD-10-PCS; 2019-09-13)
DX: T82.856A Stenosis of peripheral vascular stent, initial encounter (principal); J96.02 Acute respiratory failure with hypercapnia; J96.01 Acute respiratory failure with hypoxia; J44.1 Chronic obstructive pulmonary disease with (acute) exacerbation; E87.2 Acidosis; I73.9 Peripheral vascular disease, unspecified; I25.10 Atherosclerotic heart disease of native coronary artery without angina pectoris; E78.00 Pure hypercholesterolemia, unspecified; G25.81 Restless legs syndrome; G47.00 Insomnia, unspecified; Z96.642 Presence of left artificial hip joint; N40.0 Benign prostatic hyperplasia without lower urinary tract symptoms; Y83.8 Other surgical procedures as the cause of abnormal reaction of the patient, or of later complication, without mention of misadventure at the time of the procedure; Z86.73 Personal history of transient ischemic attack (TIA), and cerebral infarction without residual deficits; Z88.6 Allergy status to analgesic agent; Z88.2 Allergy status to sulfonamides; Z88.8 Allergy status to other drugs, medicaments and biological substances; Z87.891 Personal history of nicotine dependence
CPT/HCPCS: 36415; 36416; 71045; 75635; 76000; 78452; 80048; 80053; 82550; 82805; 83605; 83690; 83880; 84484; 85025; 85027; 86850; 86870; 86900; 86901; 86922; 87040; 87804; 93005; 93010; 93017; 93970; 94640; 94644; 94660; 96365; 96366; 96375; A9500; C1874; J0171; J0690; J1100; J1642; J1644; J1956; J2250; J2370; J2405; J2720; J2785; J3010; J3475; J7512; J7611; J7620; Q9967; S0020

== ENCOUNTER 2019-09-28 10:42 | Emergency (ER) | payer MEDICARE ==
[2019-09-28 12:17] LABS: #Eosinphils 0.2 thou/uL (0.0-0.7); #Lymphocytes 1.3 thou/uL (1.20-3.40); #Monocytes 0.5 thou/uL (0.11-0.59); #Neutrophils 6.1 thou/uL (1.40-6.50); %Basophils 0.3 % (0.0-1.0); %Eosinophils 2.1 % (0.0-10.0); %Lymphocytes 16.2 % (21.0-51.0); %Monocytes 5.9 % (0.0-10.0); %Neutrophils 75.4 % (42.0-75.0); Hemoglobin 10.9 g/dL (14.0-18.0); Mean Corpuscular Hemoglobin 29.1 pg (27.0-31.0); Mean Corpuscular Volume 90.9 fL (78.0-98.0); Mean Platelet Volume 8.3 fL (7.4-10.4); Platelet Count 146 thou/uL (130-400); RBC Distribution Width 13.6 % (11.5-14.5); Red Blood Cell (RBC) Count 3.76 mill/uL (4.70-6.10); White Blood Cell (WBC) Count 8.1 thou/uL (4.8-10.8)
[2019-09-28 12:38] LABS: ALT (SGPT) 7 U/L (8-55); AST (SGOT) 9 U/L (5-34); Albumin 3.8 g/dL (3.4-4.8); Alkaline Phosphatase 96 U/L (40-110); Anion Gap 10 mmol/L (10-20); BUN (Urea Nitrogen) 20 mg/dL (8.4-25.7); Bilirubin, Total 0.5 mg/dL (0.2-1.2); CK (CPK) 52 U/L (30-200); Calc. Creatinine Clearance 0 mL/min (70-130); Carbon Dioxide 36 mmol/L (23-31); Chloride 102 mmol/L (98-107); Estimated GFR-MDRD 90; Globulin 2.4 g/dL (2.4-3.5); Glucose 96 mg/dL (80-115); Potassium 4.5 mmol/L (3.5-5.1); Protein, Total 6.2 g/dL (5.8-8.1); Sodium 143 mmol/L (136-145)
--- NOTE | 2019-09-28 13:19 | ULT ---
EXAM: Bilateral lower extremity venous Doppler US HISTORY: bilateral lower extremity edema, left leg pain, recent CABG FINDINGS: Grayscale, color-flow, Doppler evaluation, spectral analysis of the bilateral lower extremities venou s structures is performed with 2-D imaging. The bilateral common femoral, superficial femoral, popliteal, posterior tibial, proximal greater saphenous and profunda femoral veins are imaged. There is normal luminal compressibility, flow, and augmentation in the visualized deep venous structu res of the bilateral lower extremities. There is a 5.4 x 3 x 4 cm fluid collection without internal flow in the soft tissues of the right georges in likely due to recent postop status. IMPRESSION: No evidence of a deep vein thrombosis in either lower extremity.
== END 2019-09-28 13:50 ==
LOC: ERS 10:42
DX: I73.9 Peripheral vascular disease, unspecified (principal); I10 Essential (primary) hypertension; J43.9 Emphysema, unspecified; F41.9 Anxiety disorder, unspecified; F32.9 Major depressive disorder, single episode, unspecified; Z87.891 Personal history of nicotine dependence; Z79.82 Long term (current) use of aspirin; Z79.51 Long term (current) use of inhaled steroids; Z79.899 Other long term (current) drug therapy
CPT/HCPCS: 36415; 80053; 82550; 85025; 93970